=== PATIENT | female | born 1960 | race Caucasian/White ===

== ENCOUNTER 2018-01-17 18:18 | Emergency (ER) | payer OTHER, SELFPAY ==
[2018-01-17] VITALS (10 sets, daily range): BP systolic 121–149; BP diastolic 71–93; PULSE 96–114; RESP 12–24; TEMP 36.3; O2SAT 97–100; BMI 22.1
--- NOTE | 2018-01-17 18:31 | ED.CHESTPAIN ---
HPI - Chest Pain General Chief Complaint: Chest Pain Stated Complaint: SOB CHEST PAIN Time Seen by Provider: 01/17/18 18:28 Source: patient and family Mode of arrival: ambulatory Limitations: no limitations History of Present Illness HPI narrative: 57-year-old with history of hypertension, chronic alcohol abuse presents with epigastric pain and coffee-ground emesis with dark and tarry stools over the past few days. She is not dizzy, weak or lightheaded. She denies any bright red blood in her emesis. She takes no blood thinners. Her last alcohol was 4 days ago. She does have a history of withdrawals but never any seizures. She denies tremors, hallucinations, headache or abdominal pain. She thinks she had esophageal varices noted on a prior endoscopy but is not 100% sure MD complaint: chest pain Onset (ago): day(s) Duration: constant Onset: during rest Pain location: epigastric Severity: moderate Quality: aching Pain radiation: back Relieving factors: nothing Exacerbating factors: eating Associated symptoms: nausea and vomiting Treatments prior to arrival chest pain: none Related Data Home Medications Medication Instructions Recorded Confirmed gabapentin [Neurontin] 300 mg PO BID PRN #0 cap 02/08/16 01/17/18 levothyroxine [Synthroid] 0.075 mg PO QAM #0 tab 02/08/16 01/17/18 cyclobenzaprine 10 mg PO BID PRN 01/17/18 01/17/18 diphenhydramine-acetaminophen 2 tab PO BEDTIME PRN 01/17/18 01/17/18 [Tylenol PM Extra Strength] losartan 25 mg PO DAILY 01/17/18 01/17/18 trazodone 1 - 2 tab PO BEDTIME PRN 01/17/18 01/17/18 Allergies Allergy/AdvReac Type Severity Reaction Status Date / Time codeine Allergy Unknown VOMITING Verified 01/17/18 18:40 medroxyprogesterone Allergy Unknown MEDROXYPROGESTERONE Verified 01/17/18 18:41 MAKES HER CRAZY Review of Systems Review of Systems All systems reviewed & are unremarkable except as noted in HPI and below Constitutional Denies chills, Denies fever(s), Denies lethargy and Reports weakness Eyes Denies change in vision, Denies eye discharge, Denies irritation and Denies loss of vision ENT Ears, Nose, Mouth, and Throat: Denies change in voice, Denies neck pain and Denies sore throat Cardiovascular Reports chest pain, Denies irregular heart rhythm, Denies lightheadedness, Denies palpitations, Denies dyspnea, Denies dyspnea on exertion and Denies orthopnea Respiratory Denies cough, Denies dyspnea, Denies dyspnea on exertion and Denies wheezing Gastrointestinal Gastrointestinal: Reports abdominal pain, Reports melena, Denies change in bowel habits, Reports coffee ground emesis, Reports dyspepsia, Denies diarrhea, Denies nausea and Denies vomiting Genitourinary Denies hematuria, Denies flank pain, Denies urinary incontinence and Denies urinary urgency Musculoskeletal Denies neck pain Integumentary/Breasts Denies pruritus, Denies erythema, Denies rash and Denies wounds Neurologic Denies confusion, Denies loss of vision and Reports weakness Psychiatric Denies anxiety, Denies confusion, Denies depression, Denies homicidal ideation and Denies suicidal ideation Endocrine Denies palpitations Hematologic/Lymphatic Denies easy bruising Allergic/Immunologic Denies wheezing PENDING SALE TO [facility] Medical History Alcohol abuse (Acute) Back pain (Acute) Hypertension (Acute) Hypothyroid (Acute) Social History Smoking Status: Never smoker Exam Narrative Exam Narrative: Pleasant 57-year-old female in moderate distress, visibly anxious and uncomfortable. Initial Vital Signs Initial Vital Signs: Vital Signs Temperature 97.4 F L 01/17/18 18:20 Pulse Rate 114 H 01/17/18 18:20 Respiratory Rate 24 01/17/18 18:20 Blood Pressure 149/93 H 01/17/18 18:20 Pulse Oximetry 100 01/17/18 18:20 Const General: cooperative, well developed and acute distress Nutritional Appearance: well nourished Orientation: alert, awake, oriented x3 and not confused [facility] Head: normocephalic and atraumatic Ears: external ears normal and TM's normal bilaterally Nose: external nose normal and No nasal discharge Face and sinus: sinuses nontender, face symmetric, no sinus tenderness and No dry mucous membranes Mouth: oral mucosae normal and moist mucous membranes Teeth and gingiva: dentition normal Throat: tonsils normal and uvula midline Eyes General: appearance normal, both eyes and all related structures Eyelids: eyelids normal Conjunctivae: conjunctivae normal Sclera: sclerae normal Pupils: PERRL EOM: EOM intact bilaterally Neck Neck: normal visual inspection, trachea midline, No lymphadenopathy, No midline deformity and No JVD Lymphatic: No lymphedema Chest Chest: normal inspection of the chest Resp Effort & Inspection: normal respiratory effort, able to speak in complete sentences, no respiratory distress and no use of accessory muscles Auscultation: clear to auscultation bilaterally, no rales, no rhonchi and no wheezes Cardio Rate: tachycardic Rhythm: regular rhythm Heart Sounds: no click, no gallops, no murmurs and no rubs Pulses: normal peripheral pulses GI Inspection: non-distended Palpation: soft, no hepatosplenomegaly, No guarding, No pulsatile mass and tender (In her epigastrium) Auscultation: normal bowel sounds Back/Spine/Pelvis Back: No CVA tenderness Cervical Spine: cervical ROM normal and No pain with cervical ROM Thoracic/Lumbar Spine: thoracic and lumbar spine normal to inspection Skin General: no rashes or lesions noted, No jaundice and No petechiae Extrem General: full ROM, no clubbing, cyanosis or edema, no pedal edema and no calf tenderness Psych Appearance: well kempt Mental Status: mental status grossly normal Attitude: cooperative Thought Content: normal and suicidality Judgment: judgment good Course Orders Ordered: ED Orders 01/17/18 19:15 Complete Blood Count AUTO DIFF Stat Comprehensive Metabolic Panel Stat Lipase Stat Partial Thromboplastin Time Stat Prothrombin Time INR Stat Troponin & CK Cardiac Panel Stat 01/17/18 20:04 XR chest 2V Stat Discontinued Medications Lorazepam (Ativan) 1 mg IV NOW ONE Stop: 01/17/18 19:38 Last Admin: 01/17/18 19:43 Dose: 1 mg Ondansetron HCl (Zofran) 4 mg IV NOW ONE Stop: 01/17/18 18:32 Last Admin: 01/17/18 18:40 Dose: 4 mg Pantoprazole Sodium (Protonix) 40 mg IV NOW ONE Stop: 01/17/18 18:32 Last Admin: 01/17/18 18:40 Dose: 40 mg Consultations Consultation #1: call to Dr. Andino. We cannot keep upper GI bleeds with etoh hx or known/suspected varices as we cannot band patients call to [facility]. Ok for transfer to [place] Consultation #2: Dr. Arias (hospitalist at [facility]) is happy to accept patient into PCU Vital Signs - 8 hr 01/17/18 18:20 01/17/18 18:36 01/17/18 19:01 Temperature 97.4 F L Pulse Rate 114 H 108 H 96 H Respiratory Rate 24 18 18 Blood Pressure 149/93 H Blood Pressure [Right Arm] 127/92 H 139/82 H Pulse Oximetry 100 99 99 01/17/18 19:35 01/17/18 19:45 01/17/18 20:06 Temperature Pulse Rate 102 H 100 H Respiratory Rate 18 12 Blood Pressure Blood Pressure [Right Arm] 121/78 H 133/79 H Pulse Oximetry 99 97 01/17/18 21:04 01/17/18 21:30 01/17/18 22:00 Temperature Pulse Rate 101 H 97 H 96 H Respiratory Rate 19 16 17 Blood Pressure Blood Pressure [Right Arm] 138/78 H 135/71 H 129/84 H Pulse Oximetry 98 100 100 01/17/18 22:10 Temperature Pulse Rate Respiratory Rate Blood Pressure Blood Pressure [Right Arm] Pulse Oximetry 100 MDM - Chest Pain Medical Records Data Attestation: I reviewed the patient's medical records. Lab Data Attestation: I reviewed the patient's lab results. Result diagrams: 01/17/18 19:15 01/17/18 19:15 Lab Results 01/17/18 01/17/18 01/17/18 Range/Units 19:15 19:15 19:15 WBC 6.9 (4.5-11.0) X10^3/uL RBC 3.87 L (4.0-5.2) X10^6/uL Hgb 13.2 (12.0-16.0) g/dL Hct 38.0 (36-46) % MCV 98.3 (80-100) fL MCH 34.2 H (26-34) PG MCHC 34.8 (30-36) % RDW 12.7 (11.6-14.8) % Plt Count 141 L (150-400) X10^3/uL Neut % (Auto) 75.7 H (50-75) % Lymph % (Auto) 13.5 L (25-40) % [place] % (Auto) 9.8 (3-14) % Eos % (Auto) 0.7 L (2-4) % Baso % (Auto) 0.3 (0-2) % Neut # (Auto) 5200 (7270-2692) /uL PT 9.9 L (10.1-12.7) SECONDS INR 0.9 (0.9-1.3) APTT 30 (26.4-36.2) SECONDS Sodium 124 L (137-145) mmol/L Potassium 4.0 (3.4-5.1) mmol/L Chloride 83 L (98-107) mmol/L Carbon Dioxide 30 (22-32) mmol/L BUN 11 (7-17) mg/dL Creatinine 0.50 L (0.52-1.04) mg/dL Estimated GFR > 60.0 (>60) mL/min BUN/Creatinine Ratio 22.0 (6-22) Glucose 102 H (70-100) mg/dL Calcium 9.6 (8.4-10.2) mg/dL Total Bilirubin 1.3 (0.2-1.3) mg/dL AST 100 H (14-36) IU/L ALT 67 H (9-52) IU/L Alkaline Phosphatase 79 (38-126) U/L Total Creatine Kinase 66 (30-135) U/L Troponin I < 0.012 (0.01-0.034) ng/mL Total Protein 7.5 (6.3-8.2) g/dL Albumin 4.3 (3.5-5.0) g/dL Globulin 3.2 (1.7-4.1) g/dL Albumin/Globulin Ratio 1.3 (1.0-2.8) Lipase 167 (23-300) U/L Imaging Data Chest x-ray: Radiologist's impression: PROCEDURE: XR CHEST 2V INDICATIONS: CP TECHNIQUE: 2 views of the chest were acquired. COMPARISON: [facility], , CHEST 1 VIEW, 06/30/2011, 13:50. FINDINGS: Surgical changes and devices: None. Lungs and pleura: No pleural effusions or pneumothorax. Lungs are clear. Mediastinum: Mediastinal contours are normal. Heart size is at the upper limits of normal in size. Bones and chest wall: No suspicious bony abnormalities. Soft tissues appear unremarkable. IMPRESSION: No acute pulmonary process. Dictated by: Christy Cleary M.D. on 01/17/2018 at 20:42 Approved by: hCristy Cleary M.D. on 01/17/2018 at 20:43 Discharge Plan Departure Patient Disposition: [facility] Clinical Impression: Acute upper gastrointestinal bleeding Interventions: ED Discharge Assessment Last Done: 01/17/18 22:13 Prescriptions: No Action levothyroxine [Synthroid] 75 MCG tablet 0.075 mg PO QAM Qty: 0 RF: 0 gabapentin [Neurontin] 300 MG capsule 300 mg PO BID PRN (Reason: Back Pain) Qty: 0 RF: 0 cyclobenzaprine 10 mg tablet 10 mg PO BID PRN (Reason: Back Pain) RF: 0 trazodone 50 mg tablet 1 - 2 tab PO BEDTIME PRN (Reason: Insomnia) RF: 0 losartan 25 mg tablet 25 mg PO DAILY RF: 0 diphenhydramine-acetaminophen [Tylenol PM Extra Strength] 25-500 mg Tablet 2 tab PO BEDTIME PRN (Reason: Insomnia) RF: 0
[2018-01-17] MEDS: PANTOPRAZOLE 40 MG VIAL IV (18:40)
[2018-01-17] MEDS: ONDANSETRON 4 MG/2 ML INJ IV (18:40)
[2018-01-17 19:28] LABS: Add Manual Diff / Slide Review NO; Basophils Percent Auto 0.3 % (0-2); Eosinophils Percent Auto 0.7 % (2-4); Hemoglobin 13.2 g/dL (12.0-16.0); Lymphocytes Percent Auto 13.5 % (25-40); Mean Corpuscular HGB Conc 34.8 % (30-36); Mean Corpuscular Hemoglobin 34.2 PG (26-34); Mean Corpuscular Volume 98.3 fL (80-100); Monocytes Percent Auto 9.8 % (3-14); Neutrophils Absolute Auto 5200 /uL (3000-5900); Neutrophils Percent Auto 75.7 % (50-75); Platelet Count 141 X10^3/uL (150-400); Red Blood Cell Count 3.87 X10^6/uL (4.0-5.2); Red Cell Distribution Width 12.7 % (11.6-14.8); White Blood Cell Count 6.9 X10^3/uL (4.5-11.0)
[2018-01-17 19:32] LABS: INR 0.9 (0.9-1.3); Prothrombin Time 9.9 SECONDS (10.1-12.7)
[2018-01-17 19:34] LABS: PTT Partial Thromboplastin Tim 30 SECONDS (26.4-36.2)
[2018-01-17 19:41] LABS: Alanine Aminotransferase 67 IU/L (9-52); Albumin 4.3 g/dL (3.5-5.0); Albumin Globulin Ratio 1.3 (1.0-2.8); Alkaline Phosphatase 79 U/L (38-126); Aspartate Aminotransferase 100 IU/L (14-36); Bilirubin Total 1.3 mg/dL (0.2-1.3); Blood Urea Nitrogen 11 mg/dL (7-17); Calcium 9.6 mg/dL (8.4-10.2); Carbon Dioxide 30 mmol/L (22-32); Chloride 83 mmol/L (98-107); Creatine Kinase 66 U/L (30-135); Estimated Glomerular Filt Rate > 60.0 mL/min (>60); Globulin 3.2 g/dL (1.7-4.1); Glucose 102 mg/dL (70-100); Sodium 124 mmol/L (137-145); Total Protein 7.5 g/dL (6.3-8.2)
[2018-01-17 19:43] LABS: HEMOLYSIS 83 (0-50)
[2018-01-17] MEDS: LORazepam 2 MG/ML SYRINGE 1 MG IV (19:43)
[2018-01-17 19:55] LABS: Troponin I < 0.012 ng/mL (0.01-0.034)
--- NOTE | 2018-01-17 20:04 | DI.RAD.S_ITS ---
PROCEDURE: XR CHEST 2V INDICATIONS: CP TECHNIQUE: 2 views of the chest were acquired. COMPARISON: [facility], , CHEST 1 VIEW, 06/30/2011, 13:50. FINDINGS: Surgical changes and devices: None. Lungs and pleura: No pleural effusions or pneumothorax. Lungs are clear. Mediastinum: Mediastinal contours are normal. Heart size is at the upper limits of normal in size. Bones and chest wall: No suspicious bony abnormalities. Soft tissues appear unremarkable. IMPRESSION: No acute pulmonary process. Dictated by: Christy Cleary M.D. on 01/17/2018 at 20:42 Approved by: Christy Cleary M.D. on 01/17/2018 at 20:43
[2018-01-17 20:18] LABS: Lipase 167 U/L (23-300)
[2018-01-17] MEDS: HYDROMORPHONE 1 MG INJ 0.5 MG IV (22:37)
== END 2018-01-17 22:38 | disposition short-term general hospital (02) ==
PROVIDERS: Emergency Provider Emergency Medicine
DX: K92.2 Gastrointestinal hemorrhage, unspecified (principal)
CPT/HCPCS: 36415; 71046; 80053; 82550; 82553; 83690; 84484; 85025; 85610; 85730; 93005; 96374; 96375; 99285; C9113; J1170; J2060; J2405

== ENCOUNTER 2018-03-26 20:39 | Inpatient (IN) | payer OTHER, SELFPAY ==
[2018-03-26] VITALS (7 sets, daily range): BP systolic 131–153; BP diastolic 76–97; PULSE 135–142; RESP 16–19; TEMP 36.6; O2SAT 94–97
--- NOTE | 2018-03-26 20:42 | DI.RAD.S_ITS ---
PROCEDURE: XR ABDOMEN 1V INDICATIONS: vomiting blood TECHNIQUE: One view of the abdomen acquired. COMPARISON: None. FINDINGS: Surgical changes and devices: None. Bowel: Bowel gas pattern is nonspecific with gas distended loops of small bowel measuring up to 2.4 cm. There is also gaseous distention of the transverse colon. There is a paucity of gas in the colon. Soft tissues: No suspicious abdominal calcifications. Bones: No suspicious bony lesions. IMPRESSION: 1. Nonspecific bowel gas pattern with mild gas distention of small bowel loops and the transverse colon. The findings may represent a partial or early obstruction versus an ileus. Dictated by: Robe Johnson M.D. on 03/26/2018 at 21:29 Approved by: Robe Johnson M.D. on 03/26/2018 at 21:31
--- NOTE | 2018-03-26 20:42 | DI.RAD.S_ITS ---
PROCEDURE: XR CHEST 1V INDICATIONS: vomiting blood TECHNIQUE: One view of the chest was acquired. COMPARISON: [facility], CR, XR ABDOMEN 1V, 03/26/2018, 21:02. [facility], CR, XR CHEST 2V, 01/17/2018, 19:56. FINDINGS: Surgical changes and devices: None. Lungs and pleura: No pleural effusions or pneumothorax. There are slightly low lung volumes with linear opacities in the left base likely representing atelectasis. Mediastinum: Mediastinal contours appear normal. Heart size is normal. Bones and chest wall: No suspicious bony lesions. There are gas-distended loops of small and large bowel in the visualized abdomen. IMPRESSION: 1. Low lung volumes with probable atelectasis in the left base. 2. Mild nonspecific gaseous distention of visualized small and large bowel loops. Dictated by: Robe Johnson M.D. on 03/26/2018 at 21:31 Approved by: Robe Johnson M.D. on 03/26/2018 at 21:33
--- NOTE | 2018-03-26 21:04 | ED_ITS ---
HPI - GI Bleed General Chief complaint: GI Bleed Stated complaint: GI Bleed Time Seen by Provider: 03/26/18 20:42 Source: patient and family ( called ED. Fishing in [facility] sea.) Mode of arrival: EMS History of Present Illness HPI Narrative: This is a 57-year-old female comes to the emergency department with complaint of upper GI bleed. Patient has a history of vomiting blood and was transferred to [facility] about a month ago for similar. Patient drinks about a 5th of alcohol daily. Today she was drinking alcohol. Um she was in contact with her who called the hospital as he was unable to call 911 if he is wishing in the bearing see. We contacted 911 and evaluated the patient but decided that she did require transport at that time. Per EMS there was a small amount of blood at the scene. The called again his evening EMS was dispatched again and patient had either description a large amount of bloody emesis in the house and on herself. Patient heart rate was elevated and her pressure was low but improved with some fluids EN route. Patient is complaining of some pain in her throat area. She states she takes medication for her thyroid but denies anything else. She denies any street drugs. She does smoke. When asked specifically if she has varices she is unclear but then states that she had reflux and that was the cause of her bleed before. Records have been requested from [facility] Related Data Home Medications Medication Instructions Recorded Confirmed gabapentin [Neurontin] 300 mg PO BID PRN #0 cap 02/08/16 01/17/18 levothyroxine [Synthroid] 0.075 mg PO QAM #0 tab 02/08/16 01/17/18 cyclobenzaprine 10 mg PO BID PRN 01/17/18 01/17/18 diphenhydramine-acetaminophen 2 tab PO BEDTIME PRN 01/17/18 01/17/18 [Tylenol PM Extra Strength] losartan 25 mg PO DAILY 01/17/18 01/17/18 trazodone 1 - 2 tab PO BEDTIME PRN 01/17/18 01/17/18 Allergies Allergy/AdvReac Type Severity Reaction Status Date / Time codeine Allergy Unknown VOMITING Verified 01/17/18 18:40 medroxyprogesterone Allergy Unknown MEDROXYPROGESTERONE Verified 01/17/18 18:41 MAKES HER CRAZY Review of Systems Review of Systems All systems reviewed & are unremarkable except as noted in HPI and below PFSH Social History household members: significant other Smoking Status: Never smoker alcohol intake: current Exam Narrative Exam Narrative: GENERAL: Alert and oriented, Patient is able to give me urinate and some medical information. She does appear intoxicated. Patient has coffee-ground emesis on her face just and closed. HEENT: Head normocephalic, atraumatic, EOMI, pupils reactive, No conjunctival pallor, face symmetric, moist mucous membranes NECK: Supple, full range of motion CARDIOVASCULAR: tachycardic butRegular rate and rhythm without murmurs, rubs or gallops. RESPIRATORY: Breath sounds equal bilaterally, no wheezes rales or rhonchi. no tachypnea or accessory muscle use. ABDOMEN: Soft, nontender. Mildly distended. Normoactive bowel sounds all 4 quadrants. No guarding or rebound, rigidity, no mass : No CVA tenderness EXTREMITIES: Normal range of motion, no clubbing or edema. 2+ pulses all 4 extremities. Neurovascularly intact NEUROLOGICAL: Cranial nerves II through XII grossly intact. Moving all extremities SKIN: Warm, dry, no petechiae, no rashes or lesions. Initial Vital Signs Initial Vital Signs: Vital Signs Pulse Rate 135 H 03/26/18 21:04 Blood Pressure 131/97 H 03/26/18 21:04 Pulse Oximetry 94 03/26/18 21:04 Course Orders Ordered: ED Orders 03/26/18 23:39 Hemoglobin and Hematocrit Stat Lactate (Lactic Acid) Stat 03/27/18 00:20 Urine Drug Screen, Rapid Stat Urine Microscopic Stat 03/27/18 02:40 Ethanol (ETOH) Stat 03/27/18 04:01 Complete Blood Count AUTO DIFF Stat Comprehensive Metabolic Panel Stat Ethanol (ETOH) Stat Lactate 4HR (Lactic Acid Rflx) Stat 03/27/18 06:05 Consult to [employer] Routine 03/27/18 06:19 Consult to General Surgery Routine 03/27/18 10:00 Complete Blood Count AUTO DIFF Routine Lactate (Lactic Acid) Routine Clonidine HCl (Catapres) 0.1 mg PO Q4HR PRN PRN Reason: Alcohol Withdrawal Folic Acid (Folic Acid) 1 mg PO DAILY [facility] Haloperidol (Haldol) 2 mg IV Q1HR PRN PRN Reason: Hallucinations Pantoprazole Sodium 80 mg/ (Sodium Chloride) 100 mls @ 10 mls/hr IV CONT [facility] Last Infusion: 03/27/18 04:36 Dose: 8 mg/hr, 10 mls/hr Admin: 03/26/18 21:52 Dose: 8 mg/hr, 10 mls/hr Sodium Chloride (Normal Saline 0.9%) 1,000 mls @ 150 mls/hr IV CONT [facility] Last Infusion: 03/27/18 00:00 Dose: 0 mls/hr Admin: 03/26/18 21:05 Dose: 150 mls/hr Magnesium Sulfate 2 gm/ Folic Acid 1 mg/ Thiamine HCl 100 mg / Multivitamins 10 ml/ Sodium Chloride 1,015.2 mls @ 125 mls/hr IV NOW ONE Stop: 03/27/18 11:03 Last Infusion: 03/27/18 04:37 Dose: 125 mls/hr Admin: 03/27/18 03:03 Dose: 125 mls/hr Levothyroxine Sodium (Synthroid Inj) 50 mcg IV DAILY [facility] Lorazepam (Ativan) 0 mg IV CIWAPRN PRN; Protocol PRN Reason: Alcohol Withdrawal Multivitamins (Tab-A-Amanda) 1 tab PO DAILY [facility] Ondansetron HCl (Zofran) 4 mg IV Q6HR PRN PRN Reason: Nausea And Vomiting Thiamine HCl (Vitamin B-1) 100 mg PO DAILY [facility] Stop: 03/30/18 09:01 Discontinued Medications Haloperidol (Haldol) 5 mg IV NOW ONE Stop: 03/27/18 00:40 Last Admin: 03/27/18 00:55 Dose: 5 mg Haloperidol (Haldol) 5 mg IV Q1H PRN PRN Reason: Hallucinations Octreotide Acetate 500 mcg/ (Sodium Chloride) 101 mls @ 5.05 mls/hr IV CONT CRYSTAL Last Infusion: 03/27/18 02:59 Dose: 24.99 mcg/hr, 5.05 mls/hr Admin: 03/26/18 21:28 Dose: 25 mcg/hr, 5.05 mls/hr Pantoprazole Sodium 80 mg/ (Sodium Chloride) 100 mls @ 200 mls/hr IV NOW ONE Stop: 03/26/18 20:43 Last Infusion: 03/26/18 21:52 Dose: 0 mls/hr Admin: 03/26/18 21:13 Dose: 200 mls/hr Sodium Chloride (Normal Saline 0.9%) 1,000 mls @ 1,000 mls/hr IV BOLUS ONE Stop: 03/27/18 01:32 Last Infusion: 03/27/18 02:57 Dose: 1,000 mls/hr Admin: 03/27/18 00:55 Dose: 1,000 mls/hr Magnesium Sulfate 2 gm/ Folic Acid 1 mg/ Thiamine HCl 100 mg / Multivitamins 10 ml/ Sodium Chloride 1,015.2 mls @ 125 mls/hr IV NOW ONE Stop: 03/27/18 08:40 Last Infusion: 03/27/18 03:21 Dose: 125 mls/hr Admin: 03/27/18 01:12 Dose: 125 mls/hr Sodium Chloride (Normal Saline 0.9%) 1,000 mls @ 1,000 mls/hr IV BOLUS ONE Stop: 03/27/18 01:38 Last Admin: 03/27/18 02:58 Dose: Pantoprazole Sodium 80 mg/ (Sodium Chloride) 100 mls @ 10 mls/hr IV CONT [facility] Last Admin: 03/27/18 04:35 Dose: Lorazepam (Ativan) 1 mg IV NOW ONE Stop: 03/26/18 21:59 Last Admin: 03/26/18 22:03 Dose: 1 mg Lorazepam (Ativan) 1 mg IV NOW ONE Stop: 03/26/18 22:54 Last Admin: 03/26/18 22:57 Dose: 1 mg Lorazepam (Ativan) 2 mg IV NOW ONE Stop: 03/27/18 00:39 Last Admin: 03/27/18 00:55 Dose: 2 mg Lorazepam (Ativan) 0 mg IV CIWAPRN PRN; Protocol PRN Reason: Alcohol Withdrawal Metoprolol Tartrate (Lopressor) 5 mg IV NOW ONE Stop: 03/27/18 06:10 Last Admin: 03/27/18 05:25 Dose: 5 mg Octreotide Acetate (Sandostatin) 50 mcg IV NOW ONE Stop: 03/26/18 20:43 Last Admin: 03/26/18 21:26 Dose: 50 mcg Ondansetron HCl (Zofran) 4 mg IV NOW ONE Stop: 03/26/18 20:43 Last Admin: 03/26/18 21:13 Dose: 4 mg Ondansetron HCl (Zofran) 4 mg IV Q6HR PRN PRN Reason: Nausea And Vomiting Pantoprazole Sodium (Protonix) 40 mg IV NOW ONE Stop: 03/26/18 20:43 Last Admin: 03/26/18 22:28 Dose: Not Given Reevaluation(s) Reevaluation #1: Patient HR is still in 130's, BP improved. Patient had some dry heaves but no emesis. Zofran 4mg IV given. She has received 1L NS at this time and second liter started. Time: 21:35 Vital Signs - 8 hr 03/26/18 22:29 03/26/18 22:30 03/26/18 23:15 Temperature Pulse Rate 142 H 140 H 139 H Respiratory Rate 17 Blood Pressure Blood Pressure [Right Arm] 132/92 H 135/95 H 136/94 H Pulse Oximetry 97 97 97 03/27/18 00:00 03/27/18 00:30 03/27/18 00:34 Temperature Pulse Rate 143 H 143 H 143 H Respiratory Rate 24 23 23 Blood Pressure Blood Pressure [Right Arm] 143/114 H 148/94 H 148/94 H Pulse Oximetry 96 94 94 03/27/18 01:00 03/27/18 02:35 03/27/18 02:38 Temperature 97.9 F Pulse Rate 143 H 145 H 145 H Respiratory Rate 22 27 H 25 H Blood Pressure Blood Pressure [Right Arm] 143/102 H 149/84 H 171/91 H Pulse Oximetry 95 95 03/27/18 03:00 03/27/18 03:33 03/27/18 04:00 Temperature Pulse Rate 145 H 148 H Respiratory Rate 28 H 31 H Blood Pressure Blood Pressure [Right Arm] 153/91 H 170/96 H 159/94 H Pulse Oximetry 94 03/27/18 06:06 03/27/18 06:12 Temperature Pulse Rate 120 H 122 H Respiratory Rate 24 26 H Blood Pressure 124/78 Blood Pressure [Right Arm] Pulse Oximetry 96 96 MDM - GI Bleed Lab Data Attestation: I reviewed the patient's lab results. Result diagrams: 03/27/18 04:01 03/27/18 04:01 Lab Results 03/26/18 03/26/18 03/26/18 Range/Units 20:55 20:55 20:55 WBC 10.3 (4.5-11.0) X10^3/uL RBC 4.18 (4.0-5.2) X10^6/uL Hgb 14.3 (12.0-16.0) g/dL Hct 42.4 (36-46) % MCV 101.4 H (80-100) fL MCH 34.1 H (26-34) PG MCHC 33.7 (30-36) % RDW 14.1 (11.6-14.8) % Plt Count 254 (150-400) X10^3/uL Neut % (Auto) 93.4 H (50-75) % Lymph % (Auto) 2.8 L (25-40) % Cooper % (Auto) 3.7 (3-14) % Eos % (Auto) 0.0 L (2-4) % Baso % (Auto) 0.1 (0-2) % Neut # (Auto) 9600 H (0177-3416) /uL PT 10.7 (10.1-12.7) SECONDS INR 1.0 (0.9-1.3) APTT 29 (26.4-36.2) SECONDS Sodium 138 (137-145) mmol/L Potassium 3.8 (3.4-5.1) mmol/L Chloride 96 L (98-107) mmol/L Carbon Dioxide 15 L (22-32) mmol/L BUN 28 H (7-17) mg/dL Creatinine 1.10 H (0.52-1.04) mg/dL Estimated GFR 50.8 L (>60) mL/min BUN/Creatinine Ratio 25.5 H (6-22) Glucose 143 H (70-100) mg/dL Lactate (0.7-2.1) mmol/L Calcium 7.3 L (8.4-10.2) mg/dL Total Bilirubin 0.5 (0.2-1.3) mg/dL AST 168 H (14-36) IU/L ALT 64 H (9-52) IU/L Alkaline Phosphatase 70 (38-126) U/L Total Protein 6.2 L (6.3-8.2) g/dL Albumin 3.7 (3.5-5.0) g/dL Globulin 2.5 (1.7-4.1) g/dL Albumin/Globulin Ratio 1.5 (1.0-2.8) Lipase 97 (23-300) U/L Urine RBC (0-5/HPF) Urine WBC (0-5/HPF) Urine Bacteria (None) Hyaline Casts (None) Ur Culture Indicated? Micro UA Comment Urine Opiates Screen (Negative) Ur Oxycodone Screen (Negative) Urine Methadone Screen (Negative) Ur Barbiturates Screen (Negative) U Tricyclic Antidepress (Negative) Ur Phencyclidine Scrn (Negative) Ur Amphetamines Screen (Negative) U Methamphetamines Scrn (Negative) Ur MDMA Scrn (Ecstasy) (Negative) U Benzodiazepines Scrn (Negative) Urine Cocaine Screen (Negative) U Marijuana (THC) Screen (Negative) Ethyl Alcohol mg/dL Blood Type Antibody Screen Crossmatch 03/26/18 03/26/18 03/26/18 Range/Units 20:55 20:55 23:39 WBC (4.5-11.0) X10^3/uL RBC (4.0-5.2) X10^6/uL Hgb 14.3 (12.0-16.0) g/dL Hct 41.4 (36-46) % MCV (80-100) fL MCH (26-34) PG MCHC (30-36) % RDW (11.6-14.8) % Plt Count (150-400) X10^3/uL Neut % (Auto) (50-75) % Lymph % (Auto) (25-40) % Cooper % (Auto) (3-14) % Eos % (Auto) (2-4) % Baso % (Auto) (0-2) % Neut # (Auto) (1682-3201) /uL PT (10.1-12.7) SECONDS INR (0.9-1.3) APTT (26.4-36.2) SECONDS Sodium (137-145) mmol/L Potassium (3.4-5.1) mmol/L Chloride (98-107) mmol/L Carbon Dioxide (22-32) mmol/L BUN (7-17) mg/dL Creatinine (0.52-1.04) mg/dL Estimated GFR (>60) mL/min BUN/Creatinine Ratio (6-22) Glucose (70-100) mg/dL Lactate (0.7-2.1) mmol/L Calcium (8.4-10.2) mg/dL Total Bilirubin (0.2-1.3) mg/dL AST (14-36) IU/L ALT (9-52) IU/L Alkaline Phosphatase (38-126) U/L Total Protein (6.3-8.2) g/dL Albumin (3.5-5.0) g/dL Globulin (1.7-4.1) g/dL Albumin/Globulin Ratio (1.0-2.8) Lipase (23-300) U/L Urine RBC (0-5/HPF) Urine WBC (0-5/HPF) Urine Bacteria (None) Hyaline Casts (None) Ur Culture Indicated? Micro UA Comment Urine Opiates Screen (Negative) Ur Oxycodone Screen (Negative) Urine Methadone Screen (Negative) Ur Barbiturates Screen (Negative) U Tricyclic Antidepress (Negative) Ur Phencyclidine Scrn (Negative) Ur Amphetamines Screen (Negative) U Methamphetamines Scrn (Negative) Ur MDMA Scrn (Ecstasy) (Negative) U Benzodiazepines Scrn (Negative) Urine Cocaine Screen (Negative) U Marijuana (THC) Screen (Negative) Ethyl Alcohol 346 mg/dL Blood Type A Positive Antibody Screen Negative Crossmatch See Detail 03/26/18 03/27/18 03/27/18 Range/Units 23:39 00:20 00:20 WBC (4.5-11.0) X10^3/uL RBC (4.0-5.2) X10^6/uL Hgb (12.0-16.0) g/dL Hct (36-46) % MCV (80-100) fL MCH (26-34) PG MCHC (30-36) % RDW (11.6-14.8) % Plt Count (150-400) X10^3/uL Neut % (Auto) (50-75) % Lymph % (Auto) (25-40) % Cooper % (Auto) (3-14) % Eos % (Auto) (2-4) % Baso % (Auto) (0-2) % Neut # (Auto) (0770-2726) /uL PT (10.1-12.7) SECONDS INR (0.9-1.3) APTT (26.4-36.2) SECONDS Sodium (137-145) mmol/L Potassium (3.4-5.1) mmol/L Chloride (98-107) mmol/L Carbon Dioxide (22-32) mmol/L BUN (7-17) mg/dL Creatinine (0.52-1.04) mg/dL Estimated GFR (>60) mL/min BUN/Creatinine Ratio (6-22) Glucose (70-100) mg/dL Lactate 3.6 H (0.7-2.1) mmol/L Calcium (8.4-10.2) mg/dL Total Bilirubin (0.2-1.3) mg/dL AST (14-36) IU/L ALT (9-52) IU/L Alkaline Phosphatase (38-126) U/L Total Protein (6.3-8.2) g/dL Albumin (3.5-5.0) g/dL Globulin (1.7-4.1) g/dL Albumin/Globulin Ratio (1.0-2.8) Lipase (23-300) U/L Urine RBC 0-1/hpf (0-5/HPF) Urine WBC 0-1/hpf (0-5/HPF) Urine Bacteria None seen (None) Hyaline Casts 0-1/lpf (None) Ur Culture Indicated? Cult not indicated Micro UA Comment Not Reportable Urine Opiates Screen Negative (Negative) Ur Oxycodone Screen Negative (Negative) Urine Methadone Screen Negative (Negative) Ur Barbiturates Screen Negative (Negative) U Tricyclic Antidepress Positive H (Negative) Ur Phencyclidine Scrn Negative (Negative) Ur Amphetamines Screen Negative (Negative) U Methamphetamines Scrn Negative (Negative) Ur MDMA Scrn (Ecstasy) Negative (Negative) U Benzodiazepines Scrn Negative (Negative) Urine Cocaine Screen Negative (Negative) U Marijuana (THC) Screen Negative (Negative) Ethyl Alcohol mg/dL Blood Type Antibody Screen Crossmatch 03/27/18 03/27/18 03/27/18 Range/Units 04:01 04:01 04:01 WBC 7.9 (4.5-11.0) X10^3/uL RBC 3.96 L (4.0-5.2) X10^6/uL Hgb 13.6 (12.0-16.0) g/dL Hct 40.0 (36-46) % MCV 100.8 H (80-100) fL MCH 34.3 H (26-34) PG MCHC 34.0 (30-36) % RDW 14.6 (11.6-14.8) % Plt Count 201 (150-400) X10^3/uL Neut % (Auto) 81.2 H (50-75) % Lymph % (Auto) 5.5 L (25-40) % Cooper % (Auto) 13.2 (3-14) % Eos % (Auto) 0.0 L (2-4) % Baso % (Auto) 0.1 (0-2) % Neut # (Auto) 6400 H (8706-6144) /uL PT (10.1-12.7) SECONDS INR (0.9-1.3) APTT (26.4-36.2) SECONDS Sodium 141 (137-145) mmol/L Potassium 4.6 (3.4-5.1) mmol/L Chloride 103 (98-107) mmol/L Carbon Dioxide 19 L (22-32) mmol/L BUN 25 H (7-17) mg/dL Creatinine 0.80 (0.52-1.04) mg/dL Estimated GFR > 60.0 (>60) mL/min BUN/Creatinine Ratio 31.3 H (6-22) Glucose 196 H (70-100) mg/dL Lactate 2.8 H (0.7-2.1) mmol/L Calcium 7.1 L (8.4-10.2) mg/dL Total Bilirubin 0.7 (0.2-1.3) mg/dL AST 191 H (14-36) IU/L ALT 72 H (9-52) IU/L Alkaline Phosphatase 69 (38-126) U/L Total Protein 6.1 L (6.3-8.2) g/dL Albumin 3.6 (3.5-5.0) g/dL Globulin 2.5 (1.7-4.1) g/dL Albumin/Globulin Ratio 1.4 (1.0-2.8) Lipase (23-300) U/L Urine RBC (0-5/HPF) Urine WBC (0-5/HPF) Urine Bacteria (None) Hyaline Casts (None) Ur Culture Indicated? Micro UA Comment Urine Opiates Screen (Negative) Ur Oxycodone Screen (Negative) Urine Methadone Screen (Negative) Ur Barbiturates Screen (Negative) U Tricyclic Antidepress (Negative) Ur Phencyclidine Scrn (Negative) Ur Amphetamines Screen (Negative) U Methamphetamines Scrn (Negative) Ur MDMA Scrn (Ecstasy) (Negative) U Benzodiazepines Scrn (Negative) Urine Cocaine Screen (Negative) U Marijuana (THC) Screen (Negative) Ethyl Alcohol 147 mg/dL Blood Type Antibody Screen Crossmatch Urine Dip Bedside Urine Glucose Negative Bedside Urine Bilirubin - Negative Bedside Urine Ketone ++ 40 Urine Specific [place] 1.025 Bedside Urine Occult Blood - Negative Bedside Urine pH 6.0 Bedside Urine Protein + 30 Bedside Urine Urobilinogen - Negative Bedside Urine Nitrite - Negative Bedside Urine Leukocytes - Negative Esterase ECG Data Attestation: I personally reviewed and interpreted this ECG as follows: Interpretation: Sinus tachycardia with a rate of 132, P are of 134, QRS of 88 , QTC of 380. nonspecific ST change. MDM Narrative Medical decision making narrative: Patient arrived there is concern for possible esophageal varices. Patient's heart rate was elevated in the 130s. Patient continues to have elevated heart rate even after 2-1/2 L of fluid. She was also given Ativan 2 mg total then followed by Haldol as well as additional Ativan for concern for alcohol withdrawal. Patient states she drinks about a 5th of alcohol daily. Repeat hemoglobin and hematocrit appear stable. She did have low bicarb and lactate is elevated at 3.6. Patient does appear to be mom having alcohol withdrawal, that her had some concern that she may have ingested another substance although she denies this. Her urine tox screen is negative. We have attempted to get records from [facility] as it is unclear if she truly has esophageal varices. EKG showed a sinus tachycardia. After calling [facility], [facility], [facility] we are unable to find any beds.Patient was not accepted by Dr. Amaro here at the hospital secondary to her of air see history and upper GI bleeding. As we do not have the appropriate ability to intervene. Patient records from [place] were obtained from December 2017, Patient did have a EGD at that time. There were no esophageal varices noted although patient did have erosive esophagitis Um and had had changes in the duodenal bulb consistent with the cause of her GI bleed. She also had a 2 cm hiatal hernia and biopsies were done at that time. re-contacted Dr. andre who accepts patient at this time for ICU for alcohol withdrawal as well as upper GI bleed. She has for C well with Ativan, and p.o. to continue Protonix drip. Repeat labs this morning. And she will contact surgery this morning. Critical Care Time Critical Care Time: Yes Total Critical Care Time: 90 Attestation: The high probability of a clinically significant, sudden or life threatening deterioration of the [] system(s) required my full and direct attention, intervention and personal management. The aggregate critical care time was [] minutes. This time is in addition to time spent performing reported procedures but includes the following: [] Data Review and interpretation [] Patient assessment and monitoring of vital signs [] Documentation [] Medication orders and management Discharge Plan Departure Patient Disposition: Admitted As Inpatient Clinical Impression: Acute GI bleeding, Alcohol withdrawal Discharge Date/Time: 03/27/18 04:45 Interventions: ED Discharge Assessment Last Done: 03/27/18 04:38 Admit Date/Time: 03/27/18 03:31 Admit Provider: Qing Amaro
[2018-03-26] MEDS: SODIUM CHLORIDE 0.9% 1,000 ML 150 ML IV (21:05)
[2018-03-26 21:07] LABS: Add Manual Diff / Slide Review NO; Basophils Percent Auto 0.1 % (0-2); Hematocrit 42.4 % (36-46); Hemoglobin 14.3 g/dL (12.0-16.0); Lymphocytes Percent Auto 2.8 % (25-40); Mean Corpuscular HGB Conc 33.7 % (30-36); Mean Corpuscular Hemoglobin 34.1 PG (26-34); Mean Corpuscular Volume 101.4 fL (80-100); Monocytes Percent Auto 3.7 % (3-14); Neutrophils Absolute Auto 9600 /uL (3000-5900); Neutrophils Percent Auto 93.4 % (50-75); Platelet Count 254 X10^3/uL (150-400); Red Blood Cell Count 4.18 X10^6/uL (4.0-5.2); Red Cell Distribution Width 14.1 % (11.6-14.8); White Blood Cell Count 10.3 X10^3/uL (4.5-11.0)
[2018-03-26 21:11] LABS: Prothrombin Time 10.7 SECONDS (10.1-12.7)
[2018-03-26] MEDS: PANTOPRAZOLE 80 MG in SODIUM CHLORIDE 0.9% 100 ML 200 ML IV (21:13)
[2018-03-26] MEDS: ONDANSETRON 4 MG/2 ML INJ IV (21:13)
[2018-03-26 21:14] LABS: PTT Partial Thromboplastin Tim 29 SECONDS (26.4-36.2)
[2018-03-26 21:16] LABS: Alanine Aminotransferase 64 IU/L (9-52); Albumin 3.7 g/dL (3.5-5.0); Albumin Globulin Ratio 1.5 (1.0-2.8); Alkaline Phosphatase 70 U/L (38-126); Aspartate Aminotransferase 168 IU/L (14-36); BUN Creatinine Ratio 25.5 (6-22); Bilirubin Total 0.5 mg/dL (0.2-1.3); Blood Urea Nitrogen 28 mg/dL (7-17); Calcium 7.3 mg/dL (8.4-10.2); Carbon Dioxide 15 mmol/L (22-32); Chloride 96 mmol/L (98-107); Estimated Glomerular Filt Rate 50.8 mL/min (>60); Globulin 2.5 g/dL (1.7-4.1); Glucose 143 mg/dL (70-100); HEMOLYSIS < 15 (0-50); Lipase 97 U/L (23-300); Potassium 3.8 mmol/L (3.4-5.1); Sodium 138 mmol/L (137-145); Total Protein 6.2 g/dL (6.3-8.2)
[2018-03-26] MEDS: OCTREOTIDE 100 MCG/ML VIAL 50 MCG IV (21:26)
[2018-03-26] MEDS: OCTREOTIDE 500 MCG in SODIUM CHLORIDE 0.9% 100 ML 5.05 ML IV (21:28)
--- NOTE | 2018-03-26 21:42 | PC.NURSE ---
Patient states she had vodka to drink. has a hx of being transferred to [place] for problems with her esophagus. States she does not know what her DX was and she never followed up with her PCP. Has friend at bedside.
--- NOTE | 2018-03-26 21:49 | PC.NURSE ---
Patient had necklace removed. Necklace with pendant given to friend at bedside
[2018-03-26] MEDS: PANTOPRAZOLE 80 MG in SODIUM CHLORIDE 0.9% 100 ML 10 ML IV (21:52)
[2018-03-26] MEDS: LORazepam 2 MG/ML SYRINGE 1 MG IV ×2 (22:03→22:57)
[2018-03-26 23:51] LABS: Hematocrit 41.4 % (36-46); Hemoglobin 14.3 g/dL (12.0-16.0)
[2018-03-26 23:54] LABS: Lactate (Lactic Acid) 3.6 mmol/L (0.7-2.1)
[2018-03-27] VITALS (29 sets, daily range): BP systolic 124–175; BP diastolic 74–114; PULSE 99–148; RESP 16–31; TEMP 36.4–37; O2SAT 92–99; BMI 23.1
--- NOTE | 2018-03-27 | PATH_ITS ---
[facility] Accession Number: [id number] . 01 Material submitted: . PART A: BIOPSY OF STOMACH PART B: RANDOM BIOPSIES ESOPHAGUS . 02 Diagnosis: A. Stomach, Biopsy: Body-type mucosa with no diagnostic abnormality. No evidence of Helicobacter on H/E stain. Negative for intestinal metaplasia. Negative for dysplasia and malignancy. . B. Esophagus, Random Biopsies: Severely ulcerated squamous mucosa. No obvious viral cytopathic effects or fungal organisms identified on H/E stain. Intraepithelial eosinophils are not increased. Negative for dysplasia and malignancy. MRV/04/02/2018 . 02 Electronically signed: . Molly Stephens MD, Pathologist NPI- [id number] . 01 Gross description: . Part A: BIOPSY OF STOMACH: Received in formalin are multiple fragment(s) of bassett, soft tissue measuring 0.5 x 0.3 x 0.2 cm in aggregate submitted entirely in 1 cassette(s) Part B: RANDOM BIOPSIES ESOPHAGUS: Received in formalin are multiple fragment(s) of bassett, soft tissue measuring 0.5 x 0.2 x 0.2 cm in aggregate submitted entirely in 1 cassette(s) /CKI /CKI . 02 Pathologist provided ICD-10: K20.9 . 02 CPT . 507042, 458072 Specimen Comment: A duplicate report has been generated due to demographic updates. Performed at: 01 [facility] [address] [facility], [place], [place] [id number] MD Robe Oseguera MD Phone: [phone] Performed at: 02 [facility] [address] [place], [place] [id number] MD Shiv Valenzuela MD Phone: [phone]
[2018-03-27 00:26] LABS: Bacteria Urine None Seen
[2018-03-27 00:36] LABS: Urine Amphetamines Negative (Negative); Urine Barbiturates Negative (Negative); Urine Benzodiazepines Negative (Negative); Urine Cocaine Negative (Negative); Urine MDMA Negative (Negative); Urine Methadone Negative (Negative); Urine Methamphetamines Negative (Negative); Urine Morphine/Opi cutoff 2000 Negative (Negative); Urine Oxycodone Negative (Negative); Urine Phencyclidine Negative (Negative); Urine Tetrahydrocannabinol Negative (Negative); Urine Tricyclic Antidepressant Positive (Negative)
[2018-03-27 00:51] LABS: Culture Indicated Urine Cult Not Indicated; Hyaline Casts Urine 0-1/LPF; RBC Urine 0-1/HPF (0-5/HPF); WBC Urine 0-1/HPF (0-5/HPF)
[2018-03-27] MEDS: HALOPERIDOL 5 MG/ML VIAL IV (00:55)
[2018-03-27] MEDS: SODIUM CHLORIDE 0.9% 1,000 ML 1000 ML IV (00:55)
[2018-03-27] MEDS: LORazepam 2 MG/ML SYRINGE IV ×2 (00:55→21:29)
[2018-03-27] MEDS: MAGNESIUM SULFATE 2 GM, FOLIC ACID 1 MG, THIAMINE 100 MG, MULTIVITAMIN 10 ML in SODIUM ... IV ×2 (01:12→03:03)
[2018-03-27 02:58] LABS: Ethanol (ETOH) 346 mg/dL
--- NOTE | 2018-03-27 03:23 | PC.NURSE ---
The banana bag order from [address] was [address] given per Dr Christopher order.A new order for the same bag was given at 0300 and was given.It is currently infusing.
--- NOTE | 2018-03-27 03:33 | PC.NURSE ---
The octreotide drip was ended at 0259.15 ml infused and 85 ml was wasted.The MAR will not let me document this.
[2018-03-27 03:39] LABS: Reflexed Lactate in 2 Hours Y
[2018-03-27 04:14] LABS: Add Manual Diff / Slide Review NO; Basophils Percent Auto 0.1 % (0-2); Hemoglobin 13.6 g/dL (12.0-16.0); Lymphocytes Percent Auto 5.5 % (25-40); Mean Corpuscular Hemoglobin 34.3 PG (26-34); Mean Corpuscular Volume 100.8 fL (80-100); Monocytes Percent Auto 13.2 % (3-14); Neutrophils Absolute Auto 6400 /uL (3000-5900); Neutrophils Percent Auto 81.2 % (50-75); Platelet Count 201 X10^3/uL (150-400); Red Blood Cell Count 3.96 X10^6/uL (4.0-5.2); Red Cell Distribution Width 14.6 % (11.6-14.8); White Blood Cell Count 7.9 X10^3/uL (4.5-11.0)
[2018-03-27 04:20] LABS: Lactate 2HR (Lactic Acid Rflx) 2.8 mmol/L (0.7-2.1)
[2018-03-27 04:21] LABS: Alanine Aminotransferase 72 IU/L (9-52); Albumin 3.6 g/dL (3.5-5.0); Albumin Globulin Ratio 1.4 (1.0-2.8); Alkaline Phosphatase 69 U/L (38-126); Aspartate Aminotransferase 191 IU/L (14-36); BUN Creatinine Ratio 31.3 (6-22); Bilirubin Total 0.7 mg/dL (0.2-1.3); Blood Urea Nitrogen 25 mg/dL (7-17); Calcium 7.1 mg/dL (8.4-10.2); Carbon Dioxide 19 mmol/L (22-32); Chloride 103 mmol/L (98-107); Estimated Glomerular Filt Rate > 60.0 mL/min (>60); Ethanol (ETOH) 147 mg/dL; Globulin 2.5 g/dL (1.7-4.1); Glucose 196 mg/dL (70-100); HEMOLYSIS < 15 (0-50); Potassium 4.6 mmol/L (3.4-5.1); Sodium 141 mmol/L (137-145); Total Protein 6.1 g/dL (6.3-8.2)
[2018-03-27] MEDS: METOPROLOL TARTRATE 5 MG/5 ML INJ IV ×2 (05:25→08:36)
--- NOTE | 2018-03-27 06:22 | PC.ADMIT ---
[id number] [facility] Admission Note: The patient,Kaylie Melgar,57 y/o, was given written information regarding hospital policies, unit procedures and contact persons. Patient's smoking status: Never smoker. Vital Signs - 8 hr 03/26/18 22:29 03/26/18 22:30 03/26/18 23:15 Temperature Pulse Rate 142 H 140 H 139 H Respiratory Rate 17 Blood Pressure Blood Pressure [Right Arm] 132/92 H 135/95 H 136/94 H Pulse Oximetry 97 97 97 03/27/18 00:00 03/27/18 00:30 03/27/18 00:34 Temperature Pulse Rate 143 H 143 H 143 H Respiratory Rate 24 23 23 Blood Pressure Blood Pressure [Right Arm] 143/114 H 148/94 H 148/94 H Pulse Oximetry 96 94 94 03/27/18 01:00 03/27/18 02:35 03/27/18 02:38 Temperature 97.9 F Pulse Rate 143 H 145 H 145 H Respiratory Rate 22 27 H 25 H Blood Pressure Blood Pressure [Right Arm] 143/102 H 149/84 H 171/91 H Pulse Oximetry 95 95 03/27/18 03:00 03/27/18 03:33 03/27/18 04:00 Temperature Pulse Rate 145 H 148 H Respiratory Rate 28 H 31 H Blood Pressure Blood Pressure [Right Arm] 153/91 H 170/96 H 159/94 H Pulse Oximetry 94 03/27/18 06:06 03/27/18 06:12 Temperature Pulse Rate 120 H 122 H Respiratory Rate 24 26 H Blood Pressure 124/78 Blood Pressure [Right Arm] Pulse Oximetry 96 96 Pt arrived 0505 via stretcher from ER. Pt sedated, wakes up to voice but quickly falls back asleep. Unable to answer anything but simple questions at this time due to sedation. Oral care performed, dark coffee ground looking old emesis on face and in mouth. Pt able to state no to c/o pain or nausea. CIWA 5 for intermittent slight agitation and disorientation. Tele ST rate 145 after 3L bolus in ER. Dr. Garcia at bedside shortly after arrival. Verbal order for 5 mg IV metoprolol. HR down to 115 shortly after administration, BP stable. Sp02 90% RA, 2LNC placed with Sp02 maintaining 96%. Marina patent with large amount of clear yellow urine. Banana bag and protonix GTT infusing per orders. Pt smells strongly of etoh. Safety, seizure and fall precautions initiated.
--- NOTE | 2018-03-27 06:31 | P.HP_ITS ---
History of Present Illness Date Patient Seen: 03/27/18 Time Patient Seen: 06:27 Chief complaint: GI Bleed Narrative: 57-year-old female with past medical history of hypothyroidism, hypertension, anxiety, erosive esophagitis, and alcohol abuse presented to emergency department with hematemesis. Most of the history was obtained from records, as there was no family around patient and patient herself was unable to provide history due to recent Ativan administration. Per records, patient is a chronic drinker, and drinks daily hard liquor. Reportedly, patient has been drinking on the day of the admission. Patient's noted the patient to have 1 episode of bloody emesis, after which time he called the hospital to summon the EMS. When EMS arrived at the scene, they found patient to have small evidence of bloody vomitus on yazmin clothes, however after evaluation patient did not go to the hospital. Nevertheless, the called the 2nd time in the evening, stating that patient again had a large hematemesis episode. During that time the ambulance came and brought the patient to the hospital. Enroute patient was noted to have one more episode of coffee ground emesis. On arrival to ED, patient was found to be in alcohol withdrawal. She was given Ativan after which time she became sleepy and drowsy but continue to protect her airways. Not much of history was obtained after that point. Patient's vital signs were stable with the exception of heart rate which was tachycardic in the 140. BP remained 150s/90s. Lab work on admission revealed hemoglobin of 14.3, white blood cells 7.9, BUN 25, creatinine 0.8, and glucose 196. X-rays of the chest and abdomen revealed distended small bowel loops. Patient was given 3 L boluses with minimal improvement in heart rate. There was initial concern for variceal bleed in the past, however when records obtained from [facility], it was noted that last EGD in December 2017 revealed erosive esophagitis but not varices. Patient was admitted to ICU for further management of alcohol withdrawal and GI bleed. Patient History Medical History GI bleed (Acute) Erosive esophagitis (Chronic) Esophageal varices (Ruled-out) Alcohol abuse (Acute) Back pain (Chronic) Hypertension (Chronic) Hypothyroid (Chronic) Family & Social History Social History: household members significant other Safety & Behavioral: Feels Safe in Current Yes Environment Been Physically Hurt or No Threatened By a Person Suicidal Ideation Description None Suicide Plan Description No Plan Tobacco & Substance use: Smoking Status Never smoker alcohol intake current alcohol intake frequency 3 or more drinks per day Substance Use Type does not use Meds Home Medications Medication Instructions Recorded Confirmed Type gabapentin [Neurontin] 300 mg PO BID PRN #0 cap 02/08/16 01/17/18 History levothyroxine [Synthroid] 0.075 mg PO QAM #0 tab 02/08/16 01/17/18 History cyclobenzaprine 10 mg PO BID PRN 01/17/18 01/17/18 History diphenhydramine-acetaminophen 2 tab PO BEDTIME PRN 01/17/18 01/17/18 History [Tylenol PM Extra Strength] losartan 25 mg PO DAILY 01/17/18 01/17/18 History trazodone 1 - 2 tab PO BEDTIME PRN 01/17/18 01/17/18 History Allergies Allergy/AdvReac Type Severity Reaction Status Date / Time codeine Allergy Unknown VOMITING Verified 01/17/18 18:40 medroxyprogesterone Allergy Unknown MEDROXYPROGESTERONE Verified 01/17/18 18:41 MAKES HER CRAZY Review of Systems Review of Systems unobtainable due to mental status Exam Vital Signs (past 8 hours): - 03/26/18 22:29 03/26/18 22:30 03/26/18 23:15 Temperature Pulse Rate 142 H 140 H 139 H Respiratory Rate 17 Blood Pressure Blood Pressure [Right Arm] 132/92 H 135/95 H 136/94 H Pulse Oximetry 97 97 97 03/27/18 00:00 03/27/18 00:30 03/27/18 00:34 Temperature Pulse Rate 143 H 143 H 143 H Respiratory Rate 24 23 23 Blood Pressure Blood Pressure [Right Arm] 143/114 H 148/94 H 148/94 H Pulse Oximetry 96 94 94 03/27/18 01:00 03/27/18 02:35 03/27/18 02:38 Temperature 97.9 F Pulse Rate 143 H 145 H 145 H Respiratory Rate 22 27 H 25 H Blood Pressure Blood Pressure [Right Arm] 143/102 H 149/84 H 171/91 H Pulse Oximetry 95 95 03/27/18 03:00 03/27/18 03:33 03/27/18 04:00 Temperature Pulse Rate 145 H 148 H Respiratory Rate 28 H 31 H Blood Pressure Blood Pressure [Right Arm] 153/91 H 170/96 H 159/94 H Pulse Oximetry 94 03/27/18 06:06 03/27/18 06:12 Temperature Pulse Rate 120 H 122 H Respiratory Rate 24 26 H Blood Pressure 124/78 Blood Pressure [Right Arm] Pulse Oximetry 96 96 Oxygen Delivery Method Room Air Oxygen Flow Rate 2 Narrative Exam Narrative: General: Patient is somnolent, however wakes up to verbal stimuli and is protecting her airways HEENT: PERRRLA BL Neck: Supple, no LAD CV: Tachycardia, no murmurs Resp: CTA BL, no wheezing GI: +BS, soft, nontender MSK: Moves all extremities Skin: warm to touch, no diaphoresis Neuro: Withdraws to painful stimuli. Responds to verbal. Somnolent Psych: AAOx2 Objective Labs Result Diagrams: 03/27/18 04:01 03/27/18 04:01 Labs: Laboratory Results - last 24 hr 03/26/18 03/26/18 03/26/18 20:55 20:55 20:55 WBC 10.3 RBC 4.18 Hgb 14.3 Hct 42.4 MCV 101.4 H MCH 34.1 H MCHC 33.7 RDW 14.1 Plt Count 254 Neut % (Auto) 93.4 H Lymph % (Auto) 2.8 L [place] % (Auto) 3.7 Eos % (Auto) 0.0 L Baso % (Auto) 0.1 Neut # (Auto) 9600 H PT 10.7 INR 1.0 APTT 29 Sodium 138 Potassium 3.8 Chloride 96 L Carbon Dioxide 15 L BUN 28 H Creatinine 1.10 H Estimated GFR 50.8 L BUN/Creatinine Ratio 25.5 H Glucose 143 H Lactate Calcium 7.3 L Total Bilirubin 0.5 AST 168 H ALT 64 H Alkaline Phosphatase 70 Total Protein 6.2 L Albumin 3.7 Globulin 2.5 Albumin/Globulin Ratio 1.5 Lipase 97 Urine RBC Urine WBC Urine Bacteria Hyaline Casts Ur Culture Indicated? Micro UA Comment Urine Opiates Screen Ur Oxycodone Screen Urine Methadone Screen Ur Barbiturates Screen U Tricyclic Antidepress Ur Phencyclidine Scrn Ur Amphetamines Screen U Methamphetamines Scrn Ur MDMA Scrn (Ecstasy) U Benzodiazepines Scrn Urine Cocaine Screen U Marijuana (THC) Screen Ethyl Alcohol Blood Type Antibody Screen Crossmatch 03/26/18 03/26/18 03/26/18 20:55 20:55 23:39 WBC RBC Hgb 14.3 Hct 41.4 MCV MCH MCHC RDW Plt Count Neut % (Auto) Lymph % (Auto) [place] % (Auto) Eos % (Auto) Baso % (Auto) Neut # (Auto) PT INR APTT Sodium Potassium Chloride Carbon Dioxide BUN Creatinine Estimated GFR BUN/Creatinine Ratio Glucose Lactate Calcium Total Bilirubin AST ALT Alkaline Phosphatase Total Protein Albumin Globulin Albumin/Globulin Ratio Lipase Urine RBC Urine WBC Urine Bacteria Hyaline Casts Ur Culture Indicated? Micro UA Comment Urine Opiates Screen Ur Oxycodone Screen Urine Methadone Screen Ur Barbiturates Screen U Tricyclic Antidepress Ur Phencyclidine Scrn Ur Amphetamines Screen U Methamphetamines Scrn Ur MDMA Scrn (Ecstasy) U Benzodiazepines Scrn Urine Cocaine Screen U Marijuana (THC) Screen Ethyl Alcohol 346 Blood Type A Positive Antibody Screen Negative Crossmatch See Detail 03/26/18 03/27/18 03/27/18 23:39 00:20 00:20 WBC RBC Hgb Hct MCV MCH MCHC RDW Plt Count Neut % (Auto) Lymph % (Auto) [place] % (Auto) Eos % (Auto) Baso % (Auto) Neut # (Auto) PT INR APTT Sodium Potassium Chloride Carbon Dioxide BUN Creatinine Estimated GFR BUN/Creatinine Ratio Glucose Lactate 3.6 H Calcium Total Bilirubin AST ALT Alkaline Phosphatase Total Protein Albumin Globulin Albumin/Globulin Ratio Lipase Urine RBC 0-1/hpf Urine WBC 0-1/hpf Urine Bacteria None seen Hyaline Casts 0-1/lpf Ur Culture Indicated? Cult not indicated Micro UA Comment Not Reportable Urine Opiates Screen Negative Ur Oxycodone Screen Negative Urine Methadone Screen Negative Ur Barbiturates Screen Negative U Tricyclic Antidepress Positive H Ur Phencyclidine Scrn Negative Ur Amphetamines Screen Negative U Methamphetamines Scrn Negative Ur MDMA Scrn (Ecstasy) Negative U Benzodiazepines Scrn Negative Urine Cocaine Screen Negative U Marijuana (THC) Screen Negative Ethyl Alcohol Blood Type Antibody Screen Crossmatch 03/27/18 03/27/18 03/27/18 04:01 04:01 04:01 WBC 7.9 RBC 3.96 L Hgb 13.6 Hct 40.0 MCV 100.8 H MCH 34.3 H MCHC 34.0 RDW 14.6 Plt Count 201 Neut % (Auto) 81.2 H Lymph % (Auto) 5.5 L [place] % (Auto) 13.2 Eos % (Auto) 0.0 L Baso % (Auto) 0.1 Neut # (Auto) 6400 H PT INR APTT Sodium 141 Potassium 4.6 Chloride 103 Carbon Dioxide 19 L BUN 25 H Creatinine 0.80 Estimated GFR > 60.0 BUN/Creatinine Ratio 31.3 H Glucose 196 H Lactate 2.8 H Calcium 7.1 L Total Bilirubin 0.7 AST 191 H ALT 72 H Alkaline Phosphatase 69 Total Protein 6.1 L Albumin 3.6 Globulin 2.5 Albumin/Globulin Ratio 1.4 Lipase Urine RBC Urine WBC Urine Bacteria Hyaline Casts Ur Culture Indicated? Micro UA Comment Urine Opiates Screen Ur Oxycodone Screen Urine Methadone Screen Ur Barbiturates Screen U Tricyclic Antidepress Ur Phencyclidine Scrn Ur Amphetamines Screen U Methamphetamines Scrn Ur MDMA Scrn (Ecstasy) U Benzodiazepines Scrn Urine Cocaine Screen U Marijuana (THC) Screen Ethyl Alcohol 147 Blood Type Antibody Screen Crossmatch Assessment & Plan (1) Esophageal varices: Current visit: Yes Status: Ruled-out Plan: Assessment/Plan Narrative: 50-year-old female with past medical history of hypothyroidism, hypertension, anxiety, erosive esophagitis, and alcohol abuse was admitted with hematemesis and alcohol withdrawal. 1. Upper GI bleed -hemodynamically stable, with blood pressure holding up, however remained tachycardic -hemoglobin dropped from 14.3-13.6 -BUN 25 with normal creatinine -patient was given 3 L boluses in the ED, will continue maintenance fluids at 150 cc/hour -continue Protonix drip -surgical consult for possible EGD -continue to monitor hemoglobin levels and transfuse as needed 2. Alcohol withdrawal -noted to be withdrawing in ED, and given Ativan -will continue to monitor as per CIWA protocol and give Ativan and Clonidine as needed -continue banana bag with thiamine folic acid and multivitamin -NPO until mental status improves -seizure precaution, withdrawal precautions 3. Lactic acidosis -likely due to alcohol abuse -lactic acid on admission 3.6, now down trending to 2.8 -continue to monitor lactic acid and replete electrolytes as needed 4. Tachycardia -heart rate in 140 consistently despite 3 L bolus administration -blood pressure holding up -EKG showed sinus tachycardia -will give metoprolol IV 5 mg x1 and monitor for response 5. Alcohol abuse -AST 191, ALT 72 -will get liver ultrasound to rule out cirrhosis 6. Hypothyroidism -continue Synthroid, but convert to IV as patient is currently NPO 7. Hypertension -blood pressure currently stable -will continue to hold home medication losartan due to GI bleed -continue to monitor blood pressure 8. Anxiety -will resume trazodone 1 patient is able to take p.o. Quality VTE Deep Vein Thrombosis/Pulmonary Embolism Present on Admission: No
[2018-03-27] MEDS: LEVOTHYROXINE INJ 100 MCG VIAL 37.5 MCG IV (08:37)
[2018-03-27] MEDS: PANTOPRAZOLE 80 MG in SODIUM CHLORIDE 0.9% 100 ML 10 ML IV ×2 (08:39→20:25)
[2018-03-27] MEDS: LABETALOL 100 MG/20ML MDV 10 MG IV (10:13)
[2018-03-27] MEDS: SODIUM CHLORIDE 0.9% 1,000 ML 150 ML IV ×2 (11:37→20:23)
[2018-03-27 11:44] LABS: Add Manual Diff / Slide Review NO; Basophils Percent Auto 0.5 % (0-2); Hematocrit 35.3 % (36-46); Hemoglobin 12.3 g/dL (12.0-16.0); Lymphocytes Percent Auto 3.2 % (25-40); Mean Corpuscular HGB Conc 34.9 % (30-36); Mean Corpuscular Volume 100.2 fL (80-100); Neutrophils Absolute Auto 8400 /uL (3000-5900); Neutrophils Percent Auto 86.3 % (50-75); Platelet Count 165 X10^3/uL (150-400); Red Blood Cell Count 3.52 X10^6/uL (4.0-5.2); Red Cell Distribution Width 13.7 % (11.6-14.8); White Blood Cell Count 9.7 X10^3/uL (4.5-11.0)
[2018-03-27 12:03] LABS: Lactate (Lactic Acid) 1.2 mmol/L (0.7-2.1)
--- NOTE | 2018-03-27 12:41 | P.CONS_ITS ---
History of Present Illness Date Patient Seen: 03/27/18 Time Patient Seen: 10:36 Chief complaint: GI Bleed Reason for consult: GI bleed upper Narrative: The patient is a woman who apparently is well-known to the nursing staff because of frequent admissions for alcohol-related problems. She was admitted in alcohol withdrawal with an upper GI bleed based upon a history of hematemesis and coffee-ground emesis. There has been no further vomiting since she was in the ICU. Her mentation has cleared and other than tachycardia which is being controlled with beta-kavon she is feeling pretty normal. She denies any abdominal pain at this time. [facility] Medical History GI bleed (Acute) Erosive esophagitis (Chronic) Esophageal varices (Ruled-out) Alcohol abuse (Acute) Back pain (Chronic) Hypertension (Chronic) Hypothyroid (Chronic) Social History household members: significant other Smoking Status: Never smoker alcohol intake: current Meds Home Medications Medication Instructions Recorded Confirmed Type gabapentin [Neurontin] 300 mg PO BID PRN #0 cap 02/08/16 01/17/18 History levothyroxine [Synthroid] 0.075 mg PO QAM #0 tab 02/08/16 01/17/18 History cyclobenzaprine 10 mg PO BID PRN 01/17/18 01/17/18 History diphenhydramine-acetaminophen 2 tab PO BEDTIME PRN 01/17/18 01/17/18 History [Tylenol PM Extra Strength] losartan 25 mg PO DAILY 01/17/18 01/17/18 History trazodone 1 - 2 tab PO BEDTIME PRN 01/17/18 01/17/18 History Allergies Allergy/AdvReac Type Severity Reaction Status Date / Time codeine Allergy Unknown VOMITING Verified 01/17/18 18:40 medroxyprogesterone Allergy Unknown MEDROXYPROGESTERONE Verified 01/17/18 18:41 MAKES HER CRAZY Review of Systems Review of Systems Denies chest pain, shortness of breath, abdominal pain. She has no history that she recalls of vomiting blood. Exam Vital Signs (past 8 hours): - 03/27/18 06:06 03/27/18 06:12 03/27/18 07:48 Temperature 98.1 F Pulse Rate 120 H 122 H 130 H Respiratory Rate 24 26 H 16 Blood Pressure 124/78 175/95 H Pulse Oximetry 96 96 95 03/27/18 12:26 Temperature 97.9 F Pulse Rate 113 H Respiratory Rate 28 H Blood Pressure 174/97 H Pulse Oximetry 94 Oxygen Delivery Method Nasal Cannula Oxygen Flow Rate 1 Narrative Exam Narrative: Co Operative no apparent distress. Lungs are clear to auscultation without rales or rhonchi. Heart little tachycardic regular rate and rhythm. I do not appreciate a murmur gallop at this time. No bruit in her neck. Her abdomen is scaphoid soft nontender without mass. Liver and spleen are not palpably enlarged. She is alert and oriented. Objective Labs Result Diagrams: 03/27/18 11:35 03/27/18 04:01 Labs: Laboratory Results - last 24 hr 03/26/18 03/26/18 03/26/18 20:55 20:55 20:55 WBC 10.3 RBC 4.18 Hgb 14.3 Hct 42.4 MCV 101.4 H MCH 34.1 H MCHC 33.7 RDW 14.1 Plt Count 254 Neut % (Auto) 93.4 H Lymph % (Auto) 2.8 L [place] % (Auto) 3.7 Eos % (Auto) 0.0 L Baso % (Auto) 0.1 Neut # (Auto) 9600 H PT 10.7 INR 1.0 APTT 29 Sodium 138 Potassium 3.8 Chloride 96 L Carbon Dioxide 15 L BUN 28 H Creatinine 1.10 H Estimated GFR 50.8 L BUN/Creatinine Ratio 25.5 H Glucose 143 H Lactate Calcium 7.3 L Total Bilirubin 0.5 AST 168 H ALT 64 H Alkaline Phosphatase 70 Total Protein 6.2 L Albumin 3.7 Globulin 2.5 Albumin/Globulin Ratio 1.5 Lipase 97 Urine RBC Urine WBC Urine Bacteria Hyaline Casts Ur Culture Indicated? Micro UA Comment Nasal Screen MRSA (PCR) Urine Opiates Screen Ur Oxycodone Screen Urine Methadone Screen Ur Barbiturates Screen U Tricyclic Antidepress Ur Phencyclidine Scrn Ur Amphetamines Screen U Methamphetamines Scrn Ur MDMA Scrn (Ecstasy) U Benzodiazepines Scrn Urine Cocaine Screen U Marijuana (THC) Screen Ethyl Alcohol Blood Type Antibody Screen Crossmatch 03/26/18 03/26/18 03/26/18 20:55 20:55 23:39 WBC RBC Hgb 14.3 Hct 41.4 MCV MCH MCHC RDW Plt Count Neut % (Auto) Lymph % (Auto) [place] % (Auto) Eos % (Auto) Baso % (Auto) Neut # (Auto) PT INR APTT Sodium Potassium Chloride Carbon Dioxide BUN Creatinine Estimated GFR BUN/Creatinine Ratio Glucose Lactate Calcium Total Bilirubin AST ALT Alkaline Phosphatase Total Protein Albumin Globulin Albumin/Globulin Ratio Lipase Urine RBC Urine WBC Urine Bacteria Hyaline Casts Ur Culture Indicated? Micro UA Comment Nasal Screen MRSA (PCR) Urine Opiates Screen Ur Oxycodone Screen Urine Methadone Screen Ur Barbiturates Screen U Tricyclic Antidepress Ur Phencyclidine Scrn Ur Amphetamines Screen U Methamphetamines Scrn Ur MDMA Scrn (Ecstasy) U Benzodiazepines Scrn Urine Cocaine Screen U Marijuana (THC) Screen Ethyl Alcohol 346 Blood Type A Positive Antibody Screen Negative Crossmatch See Detail 03/26/18 03/27/18 03/27/18 23:39 00:20 00:20 WBC RBC Hgb Hct MCV MCH MCHC RDW Plt Count Neut % (Auto) Lymph % (Auto) [place] % (Auto) Eos % (Auto) Baso % (Auto) Neut # (Auto) PT INR APTT Sodium Potassium Chloride Carbon Dioxide BUN Creatinine Estimated GFR BUN/Creatinine Ratio Glucose Lactate 3.6 H Calcium Total Bilirubin AST ALT Alkaline Phosphatase Total Protein Albumin Globulin Albumin/Globulin Ratio Lipase Urine RBC 0-1/hpf Urine WBC 0-1/hpf Urine Bacteria None seen Hyaline Casts 0-1/lpf Ur Culture Indicated? Cult not indicated Micro UA Comment Not Reportable Nasal Screen MRSA (PCR) Urine Opiates Screen Negative Ur Oxycodone Screen Negative Urine Methadone Screen Negative Ur Barbiturates Screen Negative U Tricyclic Antidepress Positive H Ur Phencyclidine Scrn Negative Ur Amphetamines Screen Negative U Methamphetamines Scrn Negative Ur MDMA Scrn (Ecstasy) Negative U Benzodiazepines Scrn Negative Urine Cocaine Screen Negative U Marijuana (THC) Screen Negative Ethyl Alcohol Blood Type Antibody Screen Crossmatch 03/27/18 03/27/18 03/27/18 04:01 04:01 04:01 WBC 7.9 RBC 3.96 L Hgb 13.6 Hct 40.0 MCV 100.8 H MCH 34.3 H MCHC 34.0 RDW 14.6 Plt Count 201 Neut % (Auto) 81.2 H Lymph % (Auto) 5.5 L [place] % (Auto) 13.2 Eos % (Auto) 0.0 L Baso % (Auto) 0.1 Neut # (Auto) 6400 H PT INR APTT Sodium 141 Potassium 4.6 Chloride 103 Carbon Dioxide 19 L BUN 25 H Creatinine 0.80 Estimated GFR > 60.0 BUN/Creatinine Ratio 31.3 H Glucose 196 H Lactate 2.8 H Calcium 7.1 L Total Bilirubin 0.7 AST 191 H ALT 72 H Alkaline Phosphatase 69 Total Protein 6.1 L Albumin 3.6 Globulin 2.5 Albumin/Globulin Ratio 1.4 Lipase Urine RBC Urine WBC Urine Bacteria Hyaline Casts Ur Culture Indicated? Micro UA Comment Nasal Screen MRSA (PCR) Urine Opiates Screen Ur Oxycodone Screen Urine Methadone Screen Ur Barbiturates Screen U Tricyclic Antidepress Ur Phencyclidine Scrn Ur Amphetamines Screen U Methamphetamines Scrn Ur MDMA Scrn (Ecstasy) U Benzodiazepines Scrn Urine Cocaine Screen U Marijuana (THC) Screen Ethyl Alcohol 147 Blood Type Antibody Screen Crossmatch 03/27/18 03/27/18 03/27/18 05:00 11:35 11:35 WBC 9.7 RBC 3.52 L Hgb 12.3 Hct 35.3 L MCV 100.2 H MCH 35.0 H MCHC 34.9 RDW 13.7 Plt Count 165 Neut % (Auto) 86.3 H Lymph % (Auto) 3.2 L [place] % (Auto) 10.0 Eos % (Auto) 0.0 L Baso % (Auto) 0.5 Neut # (Auto) 8400 H PT INR APTT Sodium Potassium Chloride Carbon Dioxide BUN Creatinine Estimated GFR BUN/Creatinine Ratio Glucose Lactate 1.2 Calcium Total Bilirubin AST ALT Alkaline Phosphatase Total Protein Albumin Globulin Albumin/Globulin Ratio Lipase Urine RBC Urine WBC Urine Bacteria Hyaline Casts Ur Culture Indicated? Micro UA Comment Nasal Screen MRSA (PCR) Negative for mrsa Urine Opiates Screen Ur Oxycodone Screen Urine Methadone Screen Ur Barbiturates Screen U Tricyclic Antidepress Ur Phencyclidine Scrn Ur Amphetamines Screen U Methamphetamines Scrn Ur MDMA Scrn (Ecstasy) U Benzodiazepines Scrn Urine Cocaine Screen U Marijuana (THC) Screen Ethyl Alcohol Blood Type Antibody Screen Crossmatch Assessment & Plan Plan: Assessment/Plan Narrative: Acute blood loss anemia secondary to hematemesis. Most likely alcohol related. Recommend EGD to evaluate and possibly treat cause. She is already on proton pump inhibitor. That should continue. We will rule out other sources of upper GI bleeding like varices with the scope. I have discussed the procedure including risks of bleeding and perforation with her. We will do this under general anesthesia due to the aspiration risks.
--- NOTE | 2018-03-27 12:41 | PM.PREOP ---
Pre-operative Note Interval Note Pre-op Check: Yes History & Physical exam performed today by Physician Changes: No H&P completed within 30 days and has changed as indicated here:: Will be done under general anesthesia
[2018-03-27] MEDS: LACTATED RINGERS 1,000 ML 42 ML IV (13:12)
--- NOTE | 2018-03-27 13:33 | PM.OP.ENDO ---
Operative Date/Time/Diagnoses Date of procedure: 03/27/18 Time of procedure: 13:33 Pre-op diagnosis: Upper GI bleed/hematemesis Post-op diagnosis: same (Severe esophagitis involving the entire esophagus worst distal. Moderate gastritis with cobblestoning. Small hiatal hernia.) Procedure & Clinicians Study performed: EGD with cold biopsy Same procedure as scheduled: Yes Indications: Hematemesis Surgeon: Marquez Lopez Procedure Notes SCOAP/Timeout: Performed Procedure in detail: The patient underwent general endotracheal anesthesia.. She was left in the supine position . A bite block was inserted and the scope was advanced through it into the esophagus. The esophagus was remarkable for severe esophagitis. There was fibrinous exudate over much of it beginning at [address] to the GE junction at the 36 cm. Some of the exudate had evidence of prior bleeding. There was no active bleeding at the time of the scope however. GE junction was noted at 36 cm from the incisors. The stomach insufflated well. There were diffuse gastritis with some cobblestoning.. The pyloric channel was [widely patent]. The duodenum was unremarkable to the 3rd part. The scope was brought back into the stomach and retroflexed. The proximal stomach[was less inflamed than distal. The patient was noted to have a small hiatal hernia. Random biopsies were taken of the stomach]. The scope was straightened and brought out through the esophagus again. Random biopsies were taken along the entire length of the esophagus. The scope was removed and the patient tolerated the procedure well. Of note, no esophageal varices were seen. No fresh bleeding was seen. Scope withdrawal time: Not applicable Findings: gastritis and other findings (Severe esophagitis) Recommendations: No ASA/NSAIDS, Start medication(s) (Proton pump inhibitors) and Other recommendation (No alcohol) Plan for aftercare: Follow-up with primary care provider. Follow up: as needed Disposition: PACU
--- NOTE | 2018-03-27 14:23 | PC.NURSE ---
Addendum entered by Ralph Dobson R.N. 03/27/18 14:51: Pt given sips of water per request. Clear liquid diet is order. Pt began coughing after a few sips. She was sitting bolt upright in bed. Holding PO for now until more awake/alert. Original Note: Pt to endo at 1220 escorted by OR staff. Returned to room 1404. VSS. Drowsy, but awakens with verbal and light tactile stimuli. Following commands. Requesting water. HR 100-110s ST, RR 21 BP 153/82 SPO2 99% on 4L NC by mouth. Decreased O2 to 2L for spo2 95%. Pt denies pain, headache, n/v, hallucinations/delusions. She is following commands appropriately. New 20G PIV to LFA noted which is patent. NS and Protonix infusing per order. Call light in reach, seizure pads in place, bed alarm on.
[2018-03-27] MEDS: cloNIDine 0.1 MG TABLET PO (15:46)
--- NOTE | 2018-03-27 16:02 | PC.NURSE ---
1600- Patient is resting quietly in bed. Blood Pressure elevated medicated per order. Patient responds to verbal stimuli but has slow delayed responses. Patient has been cooperative but is only oriented to self. When not being stimulated patient drifts off to sleep. Ciwaa currently at 5. Patient is in sinus tachycardia at 115. IVF infusing per order. No nausea or vomiting. Will monitor.
--- NOTE | 2018-03-27 21:31 | PC.NURSE ---
2129- Patient bathed and linens changed. Patient is taking po safely. Wakes easily to voice. Patient verbalizing that she feels anxious, she has tremors and is confused to date/time. Ciwaa is 8 medicated per protocol.
[2018-03-28] VITALS (7 sets, daily range): BP systolic 120–138; BP diastolic 67–74; PULSE 81–96; RESP 12–21; TEMP 36.4–37.6; O2SAT 94–98
[2018-03-28] MEDS: LORazepam 2 MG/ML SYRINGE IV ×7 (00:18→20:30)
[2018-03-28] MEDS: SODIUM CHLORIDE 0.9% 1,000 ML 150 ML IV ×3 (03:29→15:53)
[2018-03-28 05:17] LABS: Add Manual Diff / Slide Review NO; Basophils Percent Auto 0.1 % (0-2); Eosinophils Percent Auto 1.1 % (2-4); Hematocrit 29.2 % (36-46); Hemoglobin 10.2 g/dL (12.0-16.0); Lymphocytes Percent Auto 10.9 % (25-40); Mean Corpuscular HGB Conc 34.9 % (30-36); Mean Corpuscular Hemoglobin 35.1 PG (26-34); Mean Corpuscular Volume 100.6 fL (80-100); Monocytes Percent Auto 6.4 % (3-14); Neutrophils Absolute Auto 4500 /uL (3000-5900); Neutrophils Percent Auto 81.5 % (50-75); Platelet Count 97 X10^3/uL (150-400); Red Cell Distribution Width 14.1 % (11.6-14.8); White Blood Cell Count 5.6 X10^3/uL (4.5-11.0)
[2018-03-28 05:26] LABS: Blood Urea Nitrogen 10 mg/dL (7-17); Calcium 7.5 mg/dL (8.4-10.2); Carbon Dioxide 34 mmol/L (22-32); Chloride 98 mmol/L (98-107); Estimated Glomerular Filt Rate > 60.0 mL/min (>60); Glucose 111 mg/dL (70-100); HEMOLYSIS < 15 (0-50); Potassium 3.3 mmol/L (3.4-5.1); Sodium 135 mmol/L (137-145)
--- NOTE | 2018-03-28 06:52 | PC.NURSE ---
NOC Shift: Pt continues to detox from ETOH use, CIWA scores between 8-14 w/increasing symptoms. Pt remains cooperative, oriented to place, not situation. Giving po Ativan Q2H per CIWA protocol written. Pt able to take clear liquids, needs supervision or will guzzle water until choking. VSS, SR/ST on tele. Weaning O2. No active bleeding overnight. Stable H&H. ICU care.
[2018-03-28] MEDS: MULTIVIT,CALC,MINS/IRON/FOLIC 1 TABLET 1 TAB PO (09:10)
[2018-03-28] MEDS: FOLIC ACID 1 MG TABLET PO (09:10)
[2018-03-28] MEDS: THIAMINE 100 MG TABLET PO (09:12)
[2018-03-28] MEDS: cloNIDine 0.1 MG TABLET PO (09:13)
[2018-03-28] MEDS: PANTOPRAZOLE 80 MG in SODIUM CHLORIDE 0.9% 100 ML 10 ML IV (09:13)
--- NOTE | 2018-03-28 15:31 | CM.IDA ---
DCP Assessment Note: Pt is a 57 yo female, resident of [place]. Pt admitted w/ GI bleed/hematemesis, severe esophagitis, CIWA protocal. Pt's PCP is not listed. Insurance is [employer]. Chart review indicates pt continues to actively withdraw from alcochol, CIWA ranging from 8-14. EGD showed upper GI bleed and recommendation from Dr Lopez is no ASA/NSAIDS, proton pump inhibitor, and abstain from alcohol use. According to pt's H+P, pt is reported as drinking daily hard liquor, amount unknown. DC back home when medically stable is likely, Pt would benefit from a more thorough DCP assessment and D/A assessment if available, this FORGING DIE SINKER unable to do so today. Following closely. ROSARIO Banda Discharge Planning/Care Management CM Discharge Assessment Start: 03/28/18 15:24 Freq: Status: Active Protocol: Document 03/28/18 15:24 FAMILIA (Rec: 03/28/18 15:31 FAMILIA [id number]) Discharge Planning Assessment Assigned Medical Device ROSARIO Wesley DPOA/Assigned Designee Name [place], spouse Contact Information [phone], home [phone], work Advance Directives? No History Provided By Patient Medical Record Prior Living Arrangements House Household Members significant other Independent with ADL's Yes Is patient alert and oriented? Yes Comment Heavy ETOH use Barriers to Discharge Yes Comment Would benefit from D/A assessment to determine use/ frequency and if pt agreeable to resources etc Discharge Plan Home Transportation Arrangement Likely family Additional Comment Pending further assessment Review Status In Process
[2018-03-28] MEDS: POTASSIUM CHLORIDE 20 MEQ TAB 40 MEQ PO (17:05)
--- NOTE | 2018-03-28 17:05 | P.PN_ITS ---
Subjective Date Patient Seen: 03/28/18 Time Patient Seen: 17:01 Interval history: Patient seen at bedside. Overnight CIWA was 10. Requires Ativan pushes still. Now is more alert and awake, able to tolerate PO diet and medications. EGD done yesterday showed esophagitis and gastritis...Will switch patient to PO therapy Exam Vital Signs (past 8 hours): - 03/28/18 11:37 03/28/18 11:51 Temperature 99.7 F H Pulse Rate 96 H Respiratory Rate 21 Blood Pressure 124/71 Pulse Oximetry 96 Oxygen Delivery Method Nasal Cannula Oxygen Flow Rate 0 Objective Labs Result Diagrams: 03/28/18 04:55 03/28/18 04:55 Labs: Laboratory Results - last 24 hr 03/28/18 03/28/18 04:55 04:55 WBC 5.6 RBC 2.90 L Hgb 10.2 L Hct 29.2 L MCV 100.6 H MCH 35.1 H MCHC 34.9 RDW 14.1 Plt Count 97 L Neut % (Auto) 81.5 H Lymph % (Auto) 10.9 L [place] % (Auto) 6.4 Eos % (Auto) 1.1 L Baso % (Auto) 0.1 Neut # (Auto) 4500 Sodium 135 L Potassium 3.3 L D Chloride 98 Carbon Dioxide 34 H BUN 10 Creatinine 0.50 L Estimated GFR > 60.0 BUN/Creatinine Ratio 20.0 Glucose 111 H Calcium 7.5 L Assessment & Plan Plan: Assessment/Plan Narrative: 50-year-old female with past medical history of hypothyroidism, hypertension, anxiety, erosive esophagitis, and alcohol abuse was admitted with hematemesis and alcohol withdrawal. 1. Upper GI bleed -S/P EGD...severe esophagitis and gastritis. No acute bleed identified -hemoglobin 10.6 today -will switch protonix drip to PPI PO BID -continue to monitor hemoglobin levels 2. Alcohol withdrawal -CIWA 10 currently -will continue to monitor as per CIWA protocol and give Ativan and Clonidine as needed -will advance diet and PO medications now -seizure precaution, withdrawal precautions 3. Lactic acidosis -likely due to alcohol abuse -lactic acid on admission 3.6->2.8 -continue to replete electrolytes as needed 4. Tachycardia -Resolved, hemodynamically stable -stop IVF 5. Alcohol abuse -AST 191, ALT 72 -Continue MVI/FA/Thiamine -Alcohol cessation education -Will need Liver US to rule out cirrhosis 6. Hypothyroidism -Resume levothyroxine PO 7. Hypertension -BP now stable, will resume Losartan 8. Anxiety -Resume trazadone Quality VTE Deep Vein Thrombosis/Pulmonary Embolism Present on Admission: No
--- NOTE | 2018-03-28 17:40 | PC.NURSE ---
1700- Patient is tremulous and restless. Attempted dinner but did not eat much. Taking fluids ok and able to swallow pills safely. Ciwaa was 10. medicated per protocol.
[2018-03-28] MEDS: TRAZODONE 50 MG TABLET 25 MG PO (20:18)
[2018-03-28] MEDS: GABAPENTIN 300 MG CAPSULE PO (20:18)
[2018-03-28] MEDS: CYCLOBENZAPRINE 10 MG TABLET PO (20:21)
--- NOTE | 2018-03-28 20:48 | PC.NURSE ---
1999-Patient is restless and increasingly agitated. Dry heaves x1. C/o feeling anxious and tremors are visible with arms outstretched. Ciwaa 17 medicated per order.
[2018-03-29] VITALS (10 sets, daily range): BP systolic 114–163; BP diastolic 53–109; PULSE 77–100; RESP 12–23; TEMP 36.3–37.3; O2SAT 94–98
[2018-03-29 00:09] LABS: Add Manual Diff / Slide Review NO; Basophils Percent Auto 0.1 % (0-2); Eosinophils Percent Auto 2.4 % (2-4); Hematocrit 30.1 % (36-46); Hemoglobin 10.3 g/dL (12.0-16.0); Lymphocytes Percent Auto 15.9 % (25-40); Mean Corpuscular HGB Conc 34.3 % (30-36); Mean Corpuscular Hemoglobin 34.9 PG (26-34); Mean Corpuscular Volume 101.9 fL (80-100); Monocytes Percent Auto 7.1 % (3-14); Neutrophils Absolute Auto 3100 /uL (3000-5900); Neutrophils Percent Auto 74.5 % (50-75); Platelet Count 78 X10^3/uL (150-400); Red Blood Cell Count 2.96 X10^6/uL (4.0-5.2); Red Cell Distribution Width 13.5 % (11.6-14.8); White Blood Cell Count 4.2 X10^3/uL (4.5-11.0)
[2018-03-29] MEDS: LORazepam 2 MG/ML SYRINGE IV ×5 (00:30→16:29)
[2018-03-29] MEDS: ONDANSETRON 4 MG/2 ML INJ IV (02:59)
[2018-03-29] MEDS: cloNIDine 0.1 MG TABLET PO ×2 (03:17→08:05)
[2018-03-29 05:30] LABS: Add Manual Diff / Slide Review NO; Basophils Percent Auto 0.3 % (0-2); Eosinophils Percent Auto 2.2 % (2-4); Hematocrit 30.6 % (36-46); Hemoglobin 10.7 g/dL (12.0-16.0); Lymphocytes Percent Auto 14.9 % (25-40); Mean Corpuscular HGB Conc 34.9 % (30-36); Mean Corpuscular Hemoglobin 35.4 PG (26-34); Mean Corpuscular Volume 101.3 fL (80-100); Monocytes Percent Auto 6.5 % (3-14); Neutrophils Absolute Auto 3300 /uL (3000-5900); Neutrophils Percent Auto 76.1 % (50-75); Platelet Count 82 X10^3/uL (150-400); Red Blood Cell Count 3.03 X10^6/uL (4.0-5.2); Red Cell Distribution Width 13.6 % (11.6-14.8); White Blood Cell Count 4.3 X10^3/uL (4.5-11.0)
[2018-03-29 05:32] LABS: Blood Urea Nitrogen 4 mg/dL (7-17); Calcium 8.6 mg/dL (8.4-10.2); Carbon Dioxide 33 mmol/L (22-32); Chloride 94 mmol/L (98-107); Estimated Glomerular Filt Rate > 60.0 mL/min (>60); Glucose 105 mg/dL (70-100); HEMOLYSIS < 15 (0-50); Potassium 3.2 mmol/L (3.4-5.1)
[2018-03-29 05:40] LABS: Sodium 133 mmol/L (137-145)
[2018-03-29] MEDS: LEVOTHYROXINE 75 MCG TABLET PO (06:35)
--- NOTE | 2018-03-29 07:01 | PC.NURSE ---
NOC Shift: Pt w/increasing CIWA scores 19 to 22. Pt confused, impulsive demanding to go home doesn't understand why she has to stay in here, and doesn't know where she is. More disoriented. Pt is cooperative w/direction. Denies pain, complains of constant thirst. VSS, SR on tele. HL. Remains ICU status.
[2018-03-29] MEDS: LORazepam 1 MG TABLET 2 MG PO (08:02)
[2018-03-29] MEDS: CYCLOBENZAPRINE 10 MG TABLET PO ×2 (08:03→20:41)
[2018-03-29] MEDS: PANTOPRAZOLE 40 MG TABLET PO (08:03)
[2018-03-29] MEDS: FOLIC ACID 1 MG TABLET PO (08:03)
[2018-03-29] MEDS: GABAPENTIN 300 MG CAPSULE PO ×2 (08:04→20:41)
[2018-03-29] MEDS: THIAMINE 100 MG TABLET PO (08:04)
[2018-03-29] MEDS: MULTIVIT,CALC,MINS/IRON/FOLIC 1 TABLET 1 TAB PO (08:04)
[2018-03-29] MEDS: LOSARTAN 25 MG TABLET PO (08:05)
--- NOTE | 2018-03-29 09:25 | PC.NURSE ---
pt calm and cooperative as she is able- she is aware she is in the hospital and that she is withdrawing from etoh- as she has in the past, she recalls that she has had a scope ciwa score 4 po loraz given and reassured
--- NOTE | 2018-03-29 16:01 | PC.NURSE ---
1550- Patient crying and states she is afraid and wants to go home. Patient oriented to place and self but confused to day and month. Patient has tremors that can be felt, she is c/o a headache. Ciwaa of [address] Melo notified as Ciwaa protocol has been dc'c. order to reinstate protocol. Medicated per order. Will monitor.
--- NOTE | 2018-03-29 16:23 | CM.DANOTE ---
DCP/continued: Reviewed chart. Per MD in AM rounds all medications to treat ETOH withdrawal stopped secondary to patient's drowsiness. Spoke with RN and she reports that last dose of po ativan was given this AM. CIWA score was approximately 4. Dr. Levine is hospitalist. He reports that if patient doing okay this afternoon may be cleared to discharge home with family and prescription for further detox if needed. Therefore, OUTSOLE PARAFFINER met with patient and daughter/Alise at bedside explained CM/SW role. Patient reports that it's okay for daughter to stay for interview. Patient reports that she is primarily I in all ADL's. Patient drives on regular basis. Patient's spouse is currently out of town. Spouse is fisherman and often gone. Patient reports that she has been actively drinking alcohol (wine and vodka) for approximately 10yrs. Daughter reports that it is more like 25 years. Patient and daughter confirm that patient has been to multiple inpatient treatment facilities (5 named by daughter)for alcohol recovery/detox. Last treatment was approximately 18 months ago at [facility]. Patient has difficult time staying sober. No active legal matters/DUI indicated by daughter or patient. Patient does have breathalyzer in her car that her family has purchased. Family very concerned about patient's resistance to stop drinking. Family has had counseling and definitely do not want to enable patient. Notified daughter that MD not comfortable sending patient home without support. Daughter reports that she has spoken with her sister/Deborah and that patient could stay there until patient's spouse returns in 2 weeks. However, family does not want patient discharged in current condition. Patient continues to be groggy. In addition, they would like to see how she does overnight with medications on board. Family has no interest in detoxing patient at home. They are in agreement to consider paying privately for inpatient detox if needed. [facility] does not cover expense for inpatient alcohol treatment and they are aware. Provided daughter with information for [facility] and [facility]. Daughter thinks [facility] might be best option and hopeful that might wake her up. Previous treatments have been very costly and daughter unsure on how helpful they were. P: Notified patient and daughter that OUTSOLE PARAFFINER would follow up on 03-30 to discuss next steps. All aware and agreeable. ROSARIO Chaney Discharge Planning/Care Management CM Discharge Assessment Start: 03/28/18 15:24 Freq: Status: Active Protocol: Document 03/28/18 15:24 JW (Rec: 03/28/18 15:31 JW [id number]) Discharge Planning Assessment Assigned Card Puncher ROSARIO Wesley DPOA/Assigned Designee Name [place], spouse Contact Information [phone], home [phone], work Advance Directives? No History Provided By Patient Medical Record Prior Living Arrangements House Household Members significant other Independent with ADL's Yes Is patient alert and oriented? Yes Comment Heavy ETOH use Barriers to Discharge Yes Comment Would benefit from D/A assessment to determine use/ frequency and if pt agreeable to resources etc Discharge Plan Home Transportation Arrangement Likely family Additional Comment Pending further assessment Review Status In Process Document 03/29/18 16:21 KJS (Rec: 03/29/18 16:22 KJS [id number]) Discharge Planning Assessment Assigned Card Puncher ROSARIO Chaney DPOA/Assigned Designee Name [place], spouse/ daughter Alise [phone] and Deborah [phone] Contact Information [phone], home , work Advance Directives? No History Provided By Patient Medical Record Prior Living Arrangements House Household Members significant other Independent with ADL's Yes Is patient alert and oriented? Yes Comment Heavy ETOH use Barriers to Discharge Yes Comment Would benefit from D/A assessment to determine use/ frequency and if pt agreeable to resources etc Discharge Plan Home Transportation Arrangement Likely family Additional Comment Pending further assessment Review Status In Process
--- NOTE | 2018-03-29 16:43 | PM.PN.1 ---
Subjective Date Patient Seen: 03/29/18 Time Patient Seen: 09:43 Interval history: History of present illness Patient admitted to the hospital with alcohol withdrawal syndrome and upper GI bleed. Esophagitis and gastritis was noted on EGD. No further active bleeding noted Continuing CIWA Ativan protocol today. Will consider discharge tomorrow if patient is detoxed and arrangements can be provided for patient to stay with her daughter upon discharge Review of systems No chest pain or shortness of breath no nausea Exam Vital Signs (past 8 hours): - 03/29/18 12:14 03/29/18 15:37 Temperature 98.9 F 97.4 F L Pulse Rate 83 87 Respiratory Rate 20 18 Blood Pressure 132/53 L 124/65 Pulse Oximetry 98 95 Oxygen Delivery Method Room Air Oxygen Flow Rate 0 Narrative Exam Narrative: General appearance patient is awake and alert no apparent distress at rest Psychiatric well oriented to time place and person mood is somewhat anxious patient anxious to leave Respiratory fairly clear to auscultation no wheezes no crackles fairly good airflow Cardiovascular regular rate rhythm no murmurs +3 pulses do extremities PMI nondisplaced GI mildly tender to palpation of the epigastric area positive bowel sounds are noted no bruits are noted no guarding no distension Neurologic no focal neurologic changes cranial nerves 2-12 grossly intact no tremors noted at rest Objective Labs Result Diagrams: 03/29/18 04:55 03/29/18 04:55 Labs: Laboratory Results - last 24 hr 03/28/18 03/29/18 03/29/18 23:58 04:55 04:55 WBC 4.2 L 4.3 L RBC 2.96 L 3.03 L Hgb 10.3 L 10.7 L Hct 30.1 L 30.6 L MCV 101.9 H 101.3 H MCH 34.9 H 35.4 H MCHC 34.3 34.9 RDW 13.5 13.6 Plt Count 78 L 82 L Neut % (Auto) 74.5 76.1 H Lymph % (Auto) 15.9 L 14.9 L [place] % (Auto) 7.1 6.5 Eos % (Auto) 2.4 2.2 Baso % (Auto) 0.1 0.3 Neut # (Auto) 3100 3300 Sodium 133 L Potassium 3.2 L Chloride 94 L Carbon Dioxide 33 H BUN 4 L Creatinine 0.40 L Estimated GFR > 60.0 BUN/Creatinine Ratio 10.0 Glucose 105 H Calcium 8.6 Assessment & Plan Plan: Assessment/Plan Narrative: 1. Upper GI bleed -S/P EGD...severe esophagitis and gastritis. No active bleed noted on EGD -hemoglobin is reasonably stable -protonix drip to PPI PO BID on March 28 -continue to monitor hemoglobin levels 2. Alcohol withdrawal -[facility] protocol being provided -will continue to monitor as per [facility] protocol and give Ativan and Clonidine as needed -will advance diet and PO medications now -seizure precaution, withdrawal precautions 3. Lactic acidosis -likely due to alcohol abuse -lactic acid on admission 3.6->2.8 -continue to replete electrolytes as needed 4. Tachycardia -Resolved, hemodynamically stable. 5. Alcohol abuse -Continue MVI/FA/Thiamine -Alcohol cessation education -trying to have arrangements made for daughter to have patient discharge and stay with her -Will consider daughter to be push button switch assembler of Librium if patient to stay with her upon discharge 6. Hypothyroidism -Resume levothyroxine at usual home dose 7. Hypertension Losartan provided Time Spent With Patient Time with patient: 25 - 35 minutes (25 min devoted to the patient's care today) Quality VTE Deep Vein Thrombosis/Pulmonary Embolism Present on Admission: No
--- NOTE | 2018-03-29 16:50 | P.PN_ITS ---
Subjective Date Patient Seen: 03/29/18 Time Patient Seen: 09:43 Interval history: History of present illness Patient admitted to the hospital with alcohol withdrawal syndrome and upper GI bleed. Esophagitis and gastritis was noted on EGD. No further active bleeding noted Continuing CIWA Ativan protocol today. Will consider discharge tomorrow if patient is detoxed and arrangements can be provided for patient to stay with her daughter upon discharge Review of systems No chest pain or shortness of breath no nausea Exam Vital Signs (past 8 hours): - 03/29/18 12:14 03/29/18 15:37 Temperature 98.9 F 97.4 F L Pulse Rate 83 87 Respiratory Rate 20 18 Blood Pressure 132/53 L 124/65 Pulse Oximetry 98 95 Oxygen Delivery Method Room Air Oxygen Flow Rate 0 Narrative Exam Narrative: General appearance patient is awake and alert no apparent distress at rest Psychiatric well oriented to time place and person mood is somewhat anxious patient anxious to leave Respiratory fairly clear to auscultation no wheezes no crackles fairly good airflow Cardiovascular regular rate rhythm no murmurs +3 pulses do extremities PMI nondisplaced GI mildly tender to palpation of the epigastric area positive bowel sounds are noted no bruits are noted no guarding no distension Neurologic no focal neurologic changes cranial nerves 2-12 grossly intact no tremors noted at rest Objective Labs Result Diagrams: 03/29/18 04:55 03/29/18 04:55 Labs: Laboratory Results - last 24 hr 03/28/18 03/29/18 03/29/18 23:58 04:55 04:55 WBC 4.2 L 4.3 L RBC 2.96 L 3.03 L Hgb 10.3 L 10.7 L Hct 30.1 L 30.6 L MCV 101.9 H 101.3 H MCH 34.9 H 35.4 H MCHC 34.3 34.9 RDW 13.5 13.6 Plt Count 78 L 82 L Neut % (Auto) 74.5 76.1 H Lymph % (Auto) 15.9 L 14.9 L [place] % (Auto) 7.1 6.5 Eos % (Auto) 2.4 2.2 Baso % (Auto) 0.1 0.3 Neut # (Auto) 3100 3300 Sodium 133 L Potassium 3.2 L Chloride 94 L Carbon Dioxide 33 H BUN 4 L Creatinine 0.40 L Estimated GFR > 60.0 BUN/Creatinine Ratio 10.0 Glucose 105 H Calcium 8.6 Assessment & Plan Plan: Assessment/Plan Narrative: 1. Upper GI bleed -S/P EGD...severe esophagitis and gastritis. No active bleed noted on EGD -hemoglobin is reasonably stable -protonix drip to PPI PO BID on March 28 -continue to monitor hemoglobin levels 2. Alcohol withdrawal -[facility] protocol being provided -will continue to monitor as per [facility] protocol and give Ativan and Clonidine as needed -will advance diet and PO medications now -seizure precaution, withdrawal precautions 3. Lactic acidosis -likely due to alcohol abuse -lactic acid on admission 3.6->2.8 -continue to replete electrolytes as needed 4. Tachycardia -Resolved, hemodynamically stable. 5. Alcohol abuse -Continue MVI/FA/Thiamine -Alcohol cessation education -trying to have arrangements made for daughter to have patient discharge and stay with her -Will consider daughter to be trust vault custodian of Librium if patient to stay with her upon discharge 6. Hypothyroidism -Resume levothyroxine at usual home dose 7. Hypertension Losartan provided Time Spent With Patient Time with patient: 25 - 35 minutes (25 min devoted to the patient's care today) Quality VTE Deep Vein Thrombosis/Pulmonary Embolism Present on Admission: No
[2018-03-29] MEDS: TRAZODONE 50 MG TABLET 25 MG PO (20:41)
[2018-03-30] MEDS: PANTOPRAZOLE 40 MG TABLET PO (06:07)
[2018-03-30] MEDS: LEVOTHYROXINE 75 MCG TABLET PO (06:07)
--- NOTE | 2018-03-30 06:30 | PC.NURSE ---
NOC Shift: Pt more awake, cooperative and appropriate through shift. Not needing Ativan. VSS, off tele. Bed alarm remains on for safety. Pt transfers to BS commode w/ standby assist. Has not had crying spells tonight and has rested well. Possible discharge today.
[2018-03-30 07:00] VITALS: BP 130/78; PULSE 94; RESP 14; TEMP 37.3; O2SAT 95
--- NOTE | 2018-03-30 09:20 | PC.NURSE ---
Dr. Levine on rounds 0730. Discussed plan of care. Reported K+ level from yesterday. Reported that pt has no documented BM this admission, reviewed abd imaging done on admission. Verbal orders received to give fleets enema followed by dulcolax supp. Per MD, plan is to potentially d/c home with family care today.
--- NOTE | 2018-03-30 09:50 | PC.NURSE ---
Addendum entered by Yulissa Snider R.N. 03/30/18 14:06: PT into see Pt and complete evaluation, recommendation is 1 more day of PT and re eval in the AM. Updated daughters on this and Dr Levine. Will request early PT eval to aid in d/c planning. Original Note: Addendum entered by Yulissa Snider R.N. 03/30/18 10:42: 1020-Dr Levine into see Pt family. Discussion about POC. Original Note: Am shift Pt is up to BSC with SBA, gait slightly unsteady, needs cues from staff. I am still in [place]? where? Reoriented to place and situation. Pt is forgetful and CIWA scores 6 this AM for tremors and sweats. Pt would like to know about POC, d/c vs further detox/supportive care in hospital . Daughters into visit, and get update this AM. After seeing Pt's grogginess/ADLs with some assist, questionable if Pt will be ok at home with family at this point. Dr Levine would like to see Pt family, updated that they were here and Pearl, in care management, notified as well. No nausea, Pt is using the call light for needs.
[2018-03-30] MEDS: GABAPENTIN 300 MG CAPSULE PO ×2 (10:55→22:06)
[2018-03-30] MEDS: FOLIC ACID 1 MG TABLET PO (10:55)
[2018-03-30] MEDS: MULTIVIT,CALC,MINS/IRON/FOLIC 1 TABLET 1 TAB PO (10:55)
[2018-03-30] MEDS: LOSARTAN 25 MG TABLET PO (10:56)
[2018-03-30] MEDS: THIAMINE 100 MG TABLET PO (10:56)
[2018-03-30 11:58] LABS: Hematocrit 34.1 % (36-46); Hemoglobin 11.5 g/dL (12.0-16.0); Mean Corpuscular HGB Conc 33.6 % (30-36); Mean Corpuscular Hemoglobin 34.3 PG (26-34); Mean Corpuscular Volume 102.2 fL (80-100); Platelet Count 109 X10^3/uL (150-400); Red Blood Cell Count 3.33 X10^6/uL (4.0-5.2); Red Cell Distribution Width 13.4 % (11.6-14.8); White Blood Cell Count 5.4 X10^3/uL (4.5-11.0)
[2018-03-30 12:03] LABS: Alanine Aminotransferase 52 IU/L (9-52); Albumin 3.6 g/dL (3.5-5.0); Albumin Globulin Ratio 1.3 (1.0-2.8); Alkaline Phosphatase 73 U/L (38-126); Aspartate Aminotransferase 52 IU/L (14-36); Bilirubin Total 0.4 mg/dL (0.2-1.3); Blood Urea Nitrogen 6 mg/dL (7-17); Calcium 9.6 mg/dL (8.4-10.2); Carbon Dioxide 32 mmol/L (22-32); Chloride 95 mmol/L (98-107); Estimated Glomerular Filt Rate > 60.0 mL/min (>60); Globulin 2.8 g/dL (1.7-4.1); Glucose 115 mg/dL (70-100); HEMOLYSIS < 15 (0-50); Magnesium 1.5 mg/dL (1.6-2.3); Potassium 3.5 mmol/L (3.4-5.1); Sodium 134 mmol/L (137-145); Total Protein 6.4 g/dL (6.3-8.2)
[2018-03-30 12:17] LABS: Macrocytosis 1+; Neutrophils Absolute Manual 4644 /uL (3000-5900); Total Cells Counted 100
[2018-03-30] MEDS: MAGNESIUM OXIDE 400 MG TABLET PO ×2 (13:40→22:06)
[2018-03-30] MEDS: ONDANSETRON 4 MG/2 ML INJ IV (13:55)
--- NOTE | 2018-03-30 15:21 | CM.DPNOTE ---
DCP/Continued: Reviewed chart. Spoke with MD in AM rounds. PT evaluation ordered for today. It is not anticipated that patient will discharge today. Afternoon CIWA score (6). Met with patient and daughter's at bedside re: d/c plan. Patient considering one of two plans 1)[facility] for short stay. 2)Home to daughter's home until spouse returns from [place] in approximately 2 weeks. Encouraged patient to consider both options. Patient reports that she would prefer to go to her daughter/Deborah's home. However, she is agreeable to do phone intake with [facility]. Patient and family have been provided with brochure. Spoke this afternoon with Dr. Levine re: plan. He was informed that family unsure how comfortable they are taking patient home in her current state. They do feel like she continues to be detoxing. MD to round tomorrow and it is anticipated that patient will be medically stable for either option listed above. P: Pending. PAINT PREP TECHNICIAN following closely. ROSARIO Chaney
[2018-03-30 16:27] VITALS: BP 177/114; PULSE 98
[2018-03-30] MEDS: cloNIDine 0.1 MG TABLET PO (16:27)
[2018-03-30 16:37] VITALS: BP 177/114; PULSE 98; RESP 16; TEMP 36.7; O2SAT 99
[2018-03-30 19:34] VITALS: BP 138/77; PULSE 84; RESP 18; TEMP 36.3; O2SAT 100
--- NOTE | 2018-03-30 20:23 | PC.NURSE ---
Addendum entered by Kenya Barraza R.N. 03/30/18 22:10: Pt had medium, Guaiac positive stool. Continues to feel somewhat distended. Able to take PO meds without difficulty. Call light in reach. Bed alarm on. Original Note: Addendum entered by Kenya Barraza R.N. 03/30/18 21:27: 2125 - Pt reports abd discomfort and distention. Agreeable to use suppository this evening. Given. Monitor. Original Note: Pt was reported to have BM today on day shift. Pt states that she still feels like she needs to go. Discussed suppository. Pt refuses tonight. Maybe I will do that in the morning. Agreeable to drink prune juice. Provided. Mildly tremulous, minimal anxiety. CIWA 2. Using call light appropriately. Bed alarm on.
--- NOTE | 2018-03-30 20:56 | P.PN_ITS ---
Subjective Date Patient Seen: 03/30/18 Time Patient Seen: 16:53 Interval history: History of present illness Follow-up on patient with alcohol withdrawal syndrome and the upper GI bleed on admission\ Patient underwent EGD and gastritis esophagitis was identified. Review of systems Patient notes no chest pain or shortness of breath or nausea at this time Exam Vital Signs (past 8 hours): - 03/30/18 16:27 03/30/18 16:37 03/30/18 19:34 Temperature 98.0 F 97.3 F L Pulse Rate 98 H 98 H 84 Respiratory Rate 16 18 Blood Pressure 177/114 H 177/114 H 138/77 Pulse Oximetry 99 100 Oxygen Delivery Method Room Air Oxygen Flow Rate 0 Narrative Exam Narrative: General appearance awake and alert no apparent distress family at bedside Psychiatric exam patient is well oriented mood is pleasant affect is appropriate Respiratory fairly clear to auscultation no wheezes crackles good airflow Cardiovascular regular rate rhythm no murmurs +3 pulses to extremities GI no significant tenderness to palpation positive bowel sounds no distension no guarding no bruits Neurologic no focal neurologic changes no tremors noted cranial nerves 2-12 grossly intact Objective Labs Result Diagrams: 03/30/18 11:30 03/30/18 11:30 Labs: Laboratory Results - last 24 hr 03/30/18 03/30/18 11:30 11:30 WBC 5.4 RBC 3.33 L Hgb 11.5 L Hct 34.1 L MCV 102.2 H MCH 34.3 H MCHC 33.6 RDW 13.4 Plt Count 109 L Total Counted 100 Seg Neutrophils % 80.0 H Band Neutrophils % 6.0 Lymphocytes % (Manual) 8.0 L Monocytes % (Manual) 3.0 Eosinophils % (Manual) 1.0 L Basophils % (Manual) 2.0 H Neutrophils # (Manual) 4644 RBC Morphology Not Reportable Macrocytosis 1+ H Sodium 134 L Potassium 3.5 Chloride 95 L Carbon Dioxide 32 BUN 6 L Creatinine 0.40 L Estimated GFR > 60.0 BUN/Creatinine Ratio 15.0 Glucose 115 H Calcium 9.6 Magnesium 1.5 L Total Bilirubin 0.4 AST 52 H ALT 52 Alkaline Phosphatase 73 Total Protein 6.4 Albumin 3.6 Globulin 2.8 Albumin/Globulin Ratio 1.3 Assessment & Plan Plan: Assessment/Plan Narrative: Upper GI bleed -S/P EGD...severe esophagitis and gastritis. No active bleed noted on EGD -hemoglobin is reasonably stable -protonix drip to PPI PO BID on March 28 -continue to monitor hemoglobin levels 2. Alcohol withdrawal syndrome -CIWA with Ativan IV protocol provided. CIWA protocol discontinued in a.m. March 30. Patient had been off benzodiazepine for at least 14 hr with the night of March 29 -Advance diet and PO medications as tolerated 3. Lactic acidosis -likely due to alcohol abuse -lactic acid on admission 3.6 down to 2.8 4. Tachycardia -Resolved, hemodynamically stable. 5. Alcohol abuse -Continue MVI/FA/Thiamine -Alcohol cessation education -trying to have arrangements made for daughter to have patient discharged to stay with her -Will consider daughter to be toppiece cutter of Librium if patient to stay with her upon discharge Physical therapy in early afternoon on March 30 notes patient would benefit by 1 additional day in-hospital. Discharge held off. 6. Hypothyroidism -Resume levothyroxine at usual home dose 7. Hypertension Losartan provided Time Spent With Patient Time with patient: 25 - 35 minutes (25 min) Quality VTE Deep Vein Thrombosis/Pulmonary Embolism Present on Admission: No
[2018-03-30] MEDS: BISACODYL 10 MG SUPP PR (21:21)
[2018-03-30] MEDS: TRAZODONE 50 MG TABLET 25 MG PO (22:06)
[2018-03-31 00:05] VITALS: BP 144/77; PULSE 84; RESP 17; TEMP 36.6; O2SAT 97
[2018-03-31 05:00] VITALS: BP 135/79; PULSE 75; RESP 17; TEMP 36.6; O2SAT 96
[2018-03-31 05:41] LABS: Alanine Aminotransferase 56 IU/L (9-52); Albumin 3.4 g/dL (3.5-5.0); Albumin Globulin Ratio 1.1 (1.0-2.8); Alkaline Phosphatase 71 U/L (38-126); Aspartate Aminotransferase 51 IU/L (14-36); Bilirubin Total 0.2 mg/dL (0.2-1.3); Blood Urea Nitrogen 8 mg/dL (7-17); Calcium 9.4 mg/dL (8.4-10.2); Carbon Dioxide 31 mmol/L (22-32); Chloride 96 mmol/L (98-107); Estimated Glomerular Filt Rate > 60.0 mL/min (>60); Glucose 101 mg/dL (70-100); HEMOLYSIS 19 (0-50); Potassium 3.7 mmol/L (3.4-5.1); Sodium 133 mmol/L (137-145); Total Protein 6.4 g/dL (6.3-8.2)
[2018-03-31 05:45] LABS: Add Manual Diff / Slide Review NO; Basophils Percent Auto 0.3 % (0-2); Eosinophils Percent Auto 1.2 % (2-4); Hematocrit 34.3 % (36-46); Hemoglobin 12.1 g/dL (12.0-16.0); Lymphocytes Percent Auto 11.5 % (25-40); Mean Corpuscular HGB Conc 35.4 % (30-36); Mean Corpuscular Hemoglobin 35.6 PG (26-34); Mean Corpuscular Volume 100.6 fL (80-100); Neutrophils Absolute Auto 4100 /uL (3000-5900); Platelet Count 124 X10^3/uL (150-400); Red Cell Distribution Width 13.2 % (11.6-14.8); White Blood Cell Count 5.4 X10^3/uL (4.5-11.0)
[2018-03-31] MEDS: PANTOPRAZOLE 40 MG TABLET PO (06:49)
[2018-03-31] MEDS: LEVOTHYROXINE 75 MCG TABLET PO (06:49)
[2018-03-31 07:24] VITALS: BP 133/78; PULSE 76; RESP 18; TEMP 36.8; O2SAT 99
[2018-03-31] MEDS: MAGNESIUM OXIDE 400 MG TABLET PO (08:03)
[2018-03-31] MEDS: MULTIVIT,CALC,MINS/IRON/FOLIC 1 TABLET 1 TAB PO (08:03)
[2018-03-31] MEDS: GABAPENTIN 300 MG CAPSULE PO (08:03)
[2018-03-31] MEDS: LOSARTAN 25 MG TABLET PO (08:03)
[2018-03-31] MEDS: FOLIC ACID 1 MG TABLET PO (08:05)
[2018-03-31] MEDS: SODIUM CHLORIDE 0.9% FLUSH 10 ML IV (08:05)
[2018-03-31 08:42] VITALS: BP 145/87; PULSE 86; O2SAT 96
--- NOTE | 2018-03-31 08:42 | PT.IPTN ---
Addendum entered and electronically signed by Anna Gann, PT 03/31/18 09:26: I directly supervised and guided this session as needed. Sohail Gann, DPT Original Note: Current Diagnoses Alcohol dependence, uncomplicated (03/27/18) Esophageal varices without bleeding (03/27/18) Surgery Performed Operation Date: 03/27/18 12:45 Actual Procedures p Esophagogastroduodenoscopy WITH BIOPSY - Marquez Lopez MD Physical Therapy Treatment Note M2 PT-IP Current Condition Start: 03/30/18 13:08 Freq: NEEDED Status: Active Protocol: Document 03/30/18 14:07 (Rec: 03/30/18 14:51 [email or web address]) Physical Therapy Current Condition Current Condition Evaluation Date 03/30/18 Treatment Diagnosis ETOH withdrawal, impaired mobility and balance Onset Date Chronic/recurrent Precautions Other Precautions Balance; SBA mobility M3 PT-IP Subjective Start: 03/30/18 13:08 Freq: NEEDED Status: Active Protocol: Document 03/31/18 08:32 (Rec: 03/31/18 08:42 [id number]) Subjective Physical Therapy Visit Type Visit Start Time 08:05 Visit Stop Time 08:35 Total Visit Minutes 30 Physical Therapy Visit Comments Patient Comments Still feeling dizzy. Looking forward to breakfast and hungry but willing to take a walk with us today. Patient Goals Wants to go to [place] to stay with daughter after DC until returns from fishing (2 wks approx) M4 PT-IP Mobility and Gait Start: 03/30/18 13:08 Freq: NEEDED Status: Active Protocol: Document 03/31/18 08:32 (Rec: 03/31/18 08:42 [id number]) PT-Bed Mobility Assessment Rolling Type of Rolling Log Rolling Level of Assist Independent Supine to Sit Supine to Sit Independent Sit to Supine Sit to Supine Independent Scooting Scooting to Edge of Bed Independent PT-Transfer Assessment Sit to and From Stand Sit to and from Stand Independent Equipment Transfer Assistive Device None Transfers Transfer Destination Bed Chair Transfer Technique Stand Pivot Transfer Ability Level of Assist Independent Gait Assessment Gait Gait Assistance Required: Independent Distance (Feet) 300 Able to Maintain Weight Bearing Status Yes During Gait Assistive Devices Assistive Device None Orthotic/Prosthetic Devices or Brace: No Gait Deviations General Gait Pattern Within Normal Limits Comments Gait Comments Gait speed much faster today. OLENA is more narrow. Step lenghth increased. Amb total 300 ft approximately today. 100 ft (approx) in 1m27s PT-Balance Assessment Sitting Balance and Reactions Static Sitting Balance Ability Normal Dynamic Sitting Balance Ability Normal Standing Balance and Reactions Static Standing Balance Ability Normal Dynamic Standing Balance Ability Normal M5 PT-IP Objective Assessments Start: 03/30/18 13:08 Freq: NEEDED Status: Active Protocol: Document 03/30/18 14:07 (Rec: 03/30/18 14:51 [email or web address]) Orientation Orientation/Cognition Orientation Name Birthday Situation Language Function Ability No Deficits Noted Safety Awareness Decreased Safety Awareness Comments Decreased time responding to questions and directions. Repeated cues and extra time needed. Gross Range of Motion Upper Extremity ROM Assessment Within Functional Limits Lower Extremity ROM Assessment Within Functional Limits M6 PT-IP Treatment Start: 03/30/18 13:08 Freq: NEEDED Status: Active Protocol: Document 03/30/18 14:07 (Rec: 03/30/18 14:51 [email or web address]) Physical Therapy Treatment Exercises Exercises Ankle Pumps Gluteal Sets Shoulder Flexion Elbow Flexion/Extension Education Education Provided Safety M7 PT-IP Assessment and Plan Start: 03/30/18 13:08 Freq: NEEDED Status: Active Protocol: Document 03/31/18 08:32 (Rec: 03/31/18 08:42 [id number]) PT Summary Assessment and Plan Potential Rehabilitation Potential Good Status of Condition at Evaluation Evolving Summary Progress Towards Goals Progressing Toward Goals Assessment Summary Pt improving. Significant improvement in gait speed though pt still complainng of constant dizziness. Doesn't get worse with amb or mobility . Need to assess stair function/tolerances before discharge. Anticipate safe d/ c to daughter's home with 24/7 supervision. Recommend f/u with HH. Goals Bed Mobility Goal Independent Transfer Goal Independent Gait Goal Independent Days to Meet Goals 1 Frequency of Treatment Frequency Of Treatment Twice a Day Treatment Plan Other Recommendations and Next Treatment Assess stair function and SLS. Focus Recommendations To Nursing Amount of Assist Needed Standby Assistance Discharge Recommendations PT Discharge Recommendations Home with 24/7 Assist Other Discharge Recommendations Needs supervision but anticipate indep mobility
[2018-03-31 08:44] VITALS: BP 160/86; PULSE 89; O2SAT 99
[2018-03-31] MEDS: ONDANSETRON 4 MG/2 ML INJ IV (08:51)
--- NOTE | 2018-03-31 10:24 | PC.NURSE ---
Addendum entered by Luz Maria Rosa R.N. 03/31/18 13:21: This marine underwriter has reviewed student's documentation and agree with its contents. Original Note: Day Shift 0700 - assume care of patient 0800 - patient worked with PT doing 3 laps around the unit, and again with PT working on the stairs about an hour later. 0830 - pt experienced an episode of extreme stomach discomfort, she responded well to the IV Zofran and hasn't made any further complaints of stomach discomfort. 0900 - yellow/white patches were noted during the physical assessment of the pt's tongue bilaterally on sides, mentioned to primary nurse and documented in physical assessment. 1000 - pt independently showered and tolerated activity well. Is in bed resting. 1258 - pt complained of moderate back pain, addressed with PRN pain medication SEE MAR. will continue to monitor
--- NOTE | 2018-03-31 10:51 | PT.IIE ---
Current Diagnoses Alcohol dependence, uncomplicated (03/27/18) Esophageal varices without bleeding (03/27/18) Surgery Performed Operation Date: 03/27/18 12:45 Actual Procedures p Esophagogastroduodenoscopy WITH BIOPSY - Marquez Lopez MD Medical History (Last Updated 03/27/18 @ 06:26 by Qing Amaro MD) GI bleed (Acute) Erosive esophagitis (Chronic) Esophageal varices (Ruled-out) Alcohol abuse (Acute) Back pain (Chronic) Hypertension (Chronic) Hypothyroid (Chronic) Physical Therapy Inpatient Evaluation/Re-Eval M1 PT/OT-IP Prior Functional Status Start: 03/30/18 13:08 Freq: NEEDED Status: Active Protocol: Document 03/30/18 14:07 (Rec: 03/30/18 14:51 [email or web address]) Medical Review Prior Functional Status Medical History Reviewed Yes Communication No known deficits. Mobility and Gait States previous independence with previous incidence of falls. No assistive devices noted. Activities of Daily Living and IADL's Independent. Prior Functional Level (Other details) Drives. 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 Social History Household Members significant other Living Arrangements House Number of Floors (Floors) 3 or More Floors Number of Stairs To Enter/Railing? 3 steps to enter. Daughter's house has 5-6 steps to enter; pt possible stay with daughter at discharge until home. Home Environment Standard Height Toilet Tub/Shower Employment Status Unknown Additional Social History Comment Per RN 2 daughters estranged. 1 daughter who still has small children at home willing to help care for the patient at discharge. is commercial real estate sales manager, gone now and will be home in a few weeks. Access to 4ww (per pt- at her mother's home) M2 PT-IP Current Condition Start: 03/30/18 13:08 Freq: NEEDED Status: Active Protocol: Document 03/30/18 14:07 (Rec: 03/30/18 14:51 [email or web address]) Physical Therapy Current Condition Current Condition Evaluation Date 03/30/18 Treatment Diagnosis ETOH withdrawal, impaired mobility and balance Onset Date Chronic/recurrent Precautions Other Precautions Balance; SBA mobility M3 PT-IP Subjective Start: 03/30/18 13:08 Freq: NEEDED Status: Active Protocol: Document 03/31/18 08:32 (Rec: 03/31/18 08:42 [id number]) Subjective Physical Therapy Visit Type Visit Start Time 08:05 Visit Stop Time 08:35 Total Visit Minutes 30 Physical Therapy Visit Comments Patient Comments Still feeling dizzy. Looking forward to breakfast and hungry but willing to take a walk with us today. Patient Goals Wants to go to [place] to stay with daughter after DC until returns from fishing (2 wks approx) M4 PT-IP Mobility and Gait Start: 03/30/18 13:08 Freq: NEEDED Status: Active Protocol: Document 03/31/18 08:32 (Rec: 03/31/18 08:42 [id number]) PT-Bed Mobility Assessment Rolling Type of Rolling Log Rolling Level of Assist Independent Supine to Sit Supine to Sit Independent Sit to Supine Sit to Supine Independent Scooting Scooting to Edge of Bed Independent PT-Transfer Assessment Sit to and From Stand Sit to and from Stand Independent Equipment Transfer Assistive Device None Transfers Transfer Destination Bed Chair Transfer Technique Stand Pivot Transfer Ability Level of Assist Independent Gait Assessment Gait Gait Assistance Required: Independent Distance (Feet) 300 Able to Maintain Weight Bearing Status Yes During Gait Assistive Devices Assistive Device None Orthotic/Prosthetic Devices or Brace: No Gait Deviations General Gait Pattern Within Normal Limits Comments Gait Comments Gait speed much faster today. OLENA is more narrow. Step lenghth increased. Amb total 300 ft approximately today. 100 ft (approx) in 1m27s PT-Balance Assessment Sitting Balance and Reactions Static Sitting Balance Ability Normal Dynamic Sitting Balance Ability Normal Standing Balance and Reactions Static Standing Balance Ability Normal Dynamic Standing Balance Ability Normal M5 PT-IP Objective Assessments Start: 03/30/18 13:08 Freq: NEEDED Status: Active Protocol: Document 03/30/18 14:07 (Rec: 03/30/18 14:51 [email or web address]) Orientation Orientation/Cognition Orientation Name Birthday Situation Language Function Ability No Deficits Noted Safety Awareness Decreased Safety Awareness Comments Decreased time responding to questions and directions. Repeated cues and extra time needed. Gross Range of Motion Upper Extremity ROM Assessment Within Functional Limits Lower Extremity ROM Assessment Within Functional Limits M6 PT-IP Treatment Start: 03/30/18 13:08 Freq: NEEDED Status: Active Protocol: Document 03/30/18 14:07 (Rec: 03/30/18 14:51 [email or web address]) Physical Therapy Treatment Exercises Exercises Ankle Pumps Gluteal Sets Shoulder Flexion Elbow Flexion/Extension Education Education Provided Safety M7 PT-IP Assessment and Plan Start: 03/30/18 13:08 Freq: NEEDED Status: Active Protocol: Document 03/31/18 08:32 (Rec: 03/31/18 08:42 [id number]) PT Summary Assessment and Plan Potential Rehabilitation Potential Good Status of Condition at Evaluation Evolving Summary Progress Towards Goals Progressing Toward Goals Assessment Summary Pt improving. Significant improvement in gait speed though pt still complainng of constant dizziness. Doesn't get worse with amb or mobility . Need to assess stair function/tolerances before discharge. Anticipate safe d/ c to daughter's home with 24/7 supervision. Recommend f/u with HH. Goals Bed Mobility Goal Independent Transfer Goal Independent Gait Goal Independent Days to Meet Goals 1 Frequency of Treatment Frequency Of Treatment Twice a Day Treatment Plan Other Recommendations and Next Treatment Assess stair function and SLS. Focus Recommendations To Nursing Amount of Assist Needed Standby Assistance Discharge Recommendations PT Discharge Recommendations Home with 24/7 Assist Other Discharge Recommendations Needs supervision but anticipate indep mobility
--- NOTE | 2018-03-31 10:55 | PT.IPTN ---
Addendum entered and electronically signed by Anna Gann, PT 03/31/18 11:02: I directly supervised and guided this session. Sohail Gann, DPT Original Note: Current Diagnoses Alcohol dependence, uncomplicated (03/27/18) Esophageal varices without bleeding (03/27/18) Surgery Performed Operation Date: 03/27/18 12:45 Actual Procedures p Esophagogastroduodenoscopy WITH BIOPSY - Marquez Lopez MD Physical Therapy Treatment Note M2 PT-IP Current Condition Start: 03/30/18 13:08 Freq: NEEDED Status: Active Protocol: Document 03/30/18 14:07 (Rec: 03/30/18 14:51 [email or web address]) Physical Therapy Current Condition Current Condition Evaluation Date 03/30/18 Treatment Diagnosis ETOH withdrawal, impaired mobility and balance Onset Date Chronic/recurrent Precautions Other Precautions Balance; SBA mobility M3 PT-IP Subjective Start: 03/30/18 13:08 Freq: NEEDED Status: Active Protocol: Document 03/31/18 10:39 (Rec: 03/31/18 10:55 [id number]) Subjective Physical Therapy Visit Type Type Treatment Note Visit Start Time 09:50 Visit Stop Time 10:15 Total Visit Minutes 25 Physical Therapy Visit Comments Patient Comments Feels ready to try some stairs . Was a bit nauseated after breakfast but better now. Patient Goals Wants to shower. Wants to go to daughters home after d/c until returns. M4 PT-IP Mobility and Gait Start: 03/30/18 13:08 Freq: NEEDED Status: Active Protocol: Document 03/31/18 10:39 (Rec: 03/31/18 10:55 [id number]) PT-Bed Mobility Assessment Supine to Sit Supine to Sit Independent Sit to Supine Sit to Supine Independent Scooting Scooting to Edge of Bed Independent PT-Transfer Assessment Sit to and From Stand Sit to and from Stand Independent Equipment Transfer Assistive Device None Orthotic/Prosthetic Devices or Brace: No Transfers Transfer Destination Bed Chair Transfer Technique Forward/Backward Scoot Transfer Ability Level of Assist Independent Comments Mobility Comments Informally assessed balance. Pt bending and reaching into her back back for some hygeine items and maintains dynamic balance well with this task. Gait Assessment Gait Gait Assistance Required: Independent Able to Maintain Weight Bearing Status Yes During Gait Assistive Devices Assistive Device None Orthotic/Prosthetic Devices or Brace: No Gait Deviations General Gait Pattern Within Normal Limits Comments Gait Comments Gait speed remains improved. No LOB noted with amb. Stair Climbing Assessment Evaluation Level of Assist On Stairs Contact Guard Assistance Minimal Assistance Devices Stair Climbing Assistive Devices Left Railing Right Railing Technique/Endurance Stair Climbing Direction Ascend and Descend Stair Climbing Technique Step to Step Number of Steps Climbed 6 Query Text: Stair Climbing Set # Repetitions (reps) 2 Comments Stair Climbing Comments Pt goes up/down using B rails, B UE support. Attempted to up/down stairs without hands and has significant LOB. Reports feeling very unsteady when removes UE support. PT-Balance Assessment Sitting Balance and Reactions Static Sitting Balance Ability Normal Dynamic Sitting Balance Ability Normal Standing Balance and Reactions Static Standing Balance Ability Normal Dynamic Standing Balance Ability Normal Balance Tests Single Limb Standing R and L 2 secs each Comments Other Balance Tests/Deviations/Treatment SLS is 2 secs R and L. Pt : reports this was previously a difficult task (prior to admit ) M5 PT-IP Objective Assessments Start: 03/30/18 13:08 Freq: NEEDED Status: Active Protocol: Document 03/31/18 10:39 (Rec: 03/31/18 10:55 [id number]) Orientation Orientation/Cognition Level of Alertness Alert M6 PT-IP Treatment Start: 03/30/18 13:08 Freq: NEEDED Status: Active Protocol: Document 03/30/18 14:07 (Rec: 03/30/18 14:51 [email or web address]) Physical Therapy Treatment Exercises Exercises Ankle Pumps Gluteal Sets Shoulder Flexion Elbow Flexion/Extension Education Education Provided Safety M7 PT-IP Assessment and Plan Start: 03/30/18 13:08 Freq: NEEDED Status: Active Protocol: Document 03/31/18 10:39 (Rec: 03/31/18 10:55 [id number]) PT Summary Assessment and Plan Potential Rehabilitation Potential Good Status of Condition at Evaluation Stable Summary Assessment Summary Pt s/p ETOH withdrawal. Today shows continued improvement in gait tolerance, speed and stability. She still needs CGA to Maxine on stairs for safety and to prevent fall; she uses B UE and handrails to support up/down stairs, and there are no rails on the stairs up/down stairs of her daughters 6 steps to enter home. Discharge ok to daughters home with 24/7 supervision and understanding that she needs Maxine to CGA on stairs for safety. Recommend f/u HH. Goals Bed Mobility Goal Independent Transfer Goal Independent Gait Goal Independent Gait Distance 300 Days to Meet Goals 1 Frequency of Treatment Frequency Of Treatment Discharge Recommendations To Nursing Amount of Assist Needed Standby Assistance 1 Person Assist Discharge Recommendations PT Discharge Recommendations Home with 24/7 Assist Home Health
[2018-03-31 12:28] VITALS: BP 115/70; PULSE 88; RESP 16; TEMP 36.6; O2SAT 100
[2018-03-31] MEDS: CYCLOBENZAPRINE 10 MG TABLET PO (13:09)
--- NOTE | 2018-03-31 13:09 | PC.NURSE ---
Day Shift Note Pt alert and oriented to place and self. Conversation appropriate, remains impulsive at times. Bed/chair alarm on. Walking SBA in halls with PT and with staff. Reported onset of abdominal/stomach pain 8/10 and nausea after breakfast, zofran administered with good effect reported by patient. No further nausea/pain reported. Flexeril administered for pt report of 5/10 back pain. Sitting up to chair, call light within reach.
[2018-03-31] MEDS: chlordiazePOXIDE 10 MG CAPSULE PO (13:58)
--- NOTE | 2018-03-31 15:45 | CM.DPC ---
DCP/continued: Reviewed chart. Spoke with MD this AM in rounds. It is anticipated that patient will be discharged from [facility] today. Met with patient to discuss d/c plan. Patient alert and oriented, sitting up in recliner at time of visit. Patient seen by therapy and cleared to return home. Patient reports that she has done phone intake with [facility] for bed. Patient feels strong enough today to go to her daughter/Deborah's instead. Patient has spoken with daughter and she is in agreement for patient to stay there until spouse returns from [place]. Patient has been provided with resources for alcohol assistance. Patient will keep her name on list at [facility] today and call them back to cancel if needed. Patient made aware that she can call them anytime for detox or with questions/support. RN updated. P: Home today with supportive family. Resources provided for substance abuse. ROSARIO Chaney
--- NOTE | 2018-04-01 10:03 | P.DS_ITS ---
History of Present Illness Date Patient Seen: 03/31/18 Time Patient Seen: 16:04 Chief complaint: GI Bleed Narrative: PATIENT ADMITTED TO HOSPITAL WITH UPPER GI BLEEDING AND ALCOHOL WITHDRAWAL SYNDROME. EGD COMPLETED EARLY IN HOSPITAL COURSE AND CIWA ATIVAN PROTOCOL PROVIDED TO MANAGE THE WITHDRAWAL SYNDROME. 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 No active bleed noted during EGD -hemoglobin stable after EGD -protonix drip changed to PPI PO BID on March 28 2. Alcohol withdrawal syndrome -CIWA with Ativan IV protocol provided. CIWA protocol discontinued in a.m. March 30. Patient had been off benzodiazepine for at least 14 hr when CIWA protocol confidently discontinued. -Advance diet and PO medications as tolerated 3. Lactic acidosis -related to alcohol abuse and dehydrated state -lactic acid trended down as expected. 4. Tachycardia -Resolved during hospital course. Likely related to the alcohol withdrawal syndrome 5. Alcohol abuse -Continued MVI/FA/Thiamine -Alcohol cessation education - Arrangements made for daughter to have patient discharged to stay with her -Offered daughter to be riding silks custodian of [employer] if patient to stay with her upon discharge Librium prescription provided to daughter Physical therapist deemed patient suitable for discharge to daughter's home on Mar 31. 6. Hypothyroidism -Resume levothyroxine at usual home dose 7. Hypertension Losartan provided Hospital Course: PATIENT ADMITTED TO HOSPITAL WITH UPPER GI BLEEDING AND ALCOHOL WITHDRAWAL SYNDROME. EGD COMPLETED EARLY IN HOSPITAL COURSE AND CIWA ATIVAN PROTOCOL PROVIDED TO MANAGE THE WITHDRAWAL SYNDROME. Gastritis and Esophagitis without bleeding noted by EGD and PPI provided. In accord with CIWA Ativan orders the protocol was discontinued after patient observed with CIWA score of less than 8 when off benzodiazepine for at least 8 hours. Multiple conversations with family at bedside to help coordinate successful discharge plan for patient to continue alcohol abstinence. Exam Vital Signs (past 8 hours): Oxygen Delivery Method Room Air Oxygen Flow Rate 0 Narrative Exam Narrative: General appearance awake and alert no apparent distress family at bedside Psychiatric exam patient is well oriented mood is pleasant affect is appropriate Respiratory fairly clear to auscultation no wheezes crackles good airflow Cardiovascular regular rate rhythm no murmurs +3 pulses to extremities GI no significant tenderness to palpation positive bowel sounds no distension no guarding no bruits Neurologic no focal neurologic changes no tremors noted cranial nerves 2-12 grossly intact Objective Labs Result Diagrams: 03/31/18 05:06 03/31/18 05:06 Discharge Plan Discharge Plan Patient Disposition: Home Discharge Med Rec/Prescriptions Prescriptions: New naltrexone 50 mg tablet 50 mg PO DAILY Qty: 30 RF: 2 chlordiazepoxide HCl 10 mg capsule 10 mg PO Q12H MDD 3 PRN (Reason: alcohol abstinence) Qty: 60 RF: 0 citalopram 20 mg tablet 20 mg PO DAILY Qty: 30 RF: 4 levothyroxine 75 mcg tablet 75 mcg PO DAILY Qty: 30 RF: 2 Continue losartan 25 mg tablet 25 mg PO DAILY Qty: 30 RF: 2 gabapentin [Neurontin] 300 MG capsule 300 mg PO BID PRN (Reason: Back Pain) Qty: 60 RF: 2 cyclobenzaprine 10 mg tablet 10 mg PO BID PRN (Reason: Back Pain) 30 Days Qty: 60 RF: 0 trazodone 50 mg tablet 1 - 2 tab PO BEDTIME PRN (Reason: Insomnia) Qty: 45 RF: 2 diphenhydramine-acetaminophen [Tylenol PM Extra Strength] 25-500 mg Tablet 2 tab PO BEDTIME PRN (Reason: Insomnia) Qty: 60 RF: 0 Visit Report/Discharge Packet Instructions: DI for Gastritis, DI for Alcohol Abuse, Chlordiazepoxide, Naltrexone, Citalopram Visit Report Forms: Stroke Signs & Symptoms Discharge Data Attending Provider: Qing Amaro Admit Date/Time: 03/27/18 03:31 Discharges patient from system. Discharge Date/Time: 03/31/18 17:31 Quality VTE Deep Vein Thrombosis/Pulmonary Embolism Present on Admission: No
== END 2018-03-31 17:31 | disposition home or self-care (01) | DRG 381 ==
LOC: ED 03-27 02:52 → ICU 03-27 08:44
PROVIDERS: Internal Medicine; Specialist; Admitting Provider Internal Medicine; Emergency Provider Emergency Medicine; Visit Provider Internal Medicine
PROC: 0DJ08ZZ Inspection of Upper Intestinal Tract, Via Natural or Artificial Opening Endoscopic (ICD-10-PCS; CPT 43235; principal; 2018-03-27 12:45)
DX: K22.11 Ulcer of esophagus with bleeding (principal); F10.230 Alcohol dependence with withdrawal, uncomplicated; E87.2 Acidosis; K29.70 Gastritis, unspecified, without bleeding; Y90.8 Blood alcohol level of 240 mg/100 ml or more; I10 Essential (primary) hypertension; E03.9 Hypothyroidism, unspecified; F41.9 Anxiety disorder, unspecified; R00.0 Tachycardia, unspecified
CPT/HCPCS: 36415; 43239; 51701; 71045; 74018; 80048; 80053; 80305; 80320; 81003; 81015; 83605; 83690; 83735; 85014; 85018; 85025; 85610; 85730; 86850; 86900; 86901; 87797; 93005; 96361; 96365; 96375; 96376; 97116; 97530; 99232; 99285; 99291; 99292; C9113; J0360; J1630; J2060; J2250; J2354; J2405; J2704; J3010; J3475

== ENCOUNTER 2018-07-30 21:30 | Emergency (ER) | payer OTHER, SELFPAY ==
[2018-03-27 03:41] VITALS: BMI 23.1
[2018-07-30 22:11] VITALS: BP 147/102; PULSE 127; RESP 22; TEMP 36.6; O2SAT 97
[2018-07-30 22:30] VITALS: BP 157/96; PULSE 107; RESP 12; O2SAT 89
--- NOTE | 2018-07-30 22:31 | DI.RAD.S_ITS ---
PROCEDURE: XR CHEST 1V INDICATIONS: GI bleed TECHNIQUE: One view of the chest was acquired. COMPARISON: [facility], CR, XR CHEST 1V, 03/26/2018, 21:02. FINDINGS: Surgical changes and devices: None. Lungs and pleura: Streaky pulmonary radiopacities are present at the left lung base. These are similar in extent to the study dated 03/26/18. The right lung is clear. No pleural effusion or pneumothorax. Mediastinum: Mediastinal contours appear normal. Heart size is normal. Bones and chest wall: No suspicious bony lesions. Overlying soft tissues appear unremarkable. IMPRESSION: Stable left basilar pulmonary radiopacities suggesting atelectasis. Dictated by: Pauly Boucher M.D. on 07/30/2018 at 22:55 Approved by: Pauly Boucher M.D. on 07/30/2018 at 22:56
--- NOTE | 2018-07-30 22:31 | ED.GIBLEED ---
HPI - GI Bleed General Chief complaint: GI Bleed Stated complaint: STATES VOMITING BLOOD Time Seen by Provider: 07/30/18 22:27 Source: patient Mode of arrival: ambulatory Limitations: no limitations History of Present Illness HPI Narrative: 58-year-old female nonsmoker and chronic daily drinker with history of hypertension and hypothyroidism presents to the emergency department with a chief complaint of epigastric pain and multiple episodes of vomiting coffee-ground emesis over the course of the day. She is dizzy, weak and lightheaded. She has gone through alcohol withdrawal and had GI bleeds on multiple occasions. she denies runny nose or sore throat. She has denies any fever. She denies any falls or injuries. She denies any bright red blood in her emesis nor any change in bowel habits. Her last drink was sometime yesterday MD complaint: coffee ground emesis Onset (ago): hour(s) Pain Consistency: constant Severity: moderate Relieving factors: none Exacerbating factors: none Context: history of GI bleed Associated symptoms: denies other symptoms Treatments Prior to Arrival: none Related Data Previous Rx's Medication Instructions Recorded chlordiazepoxide HCl 10 mg PO Q12H PRN #60 cap MDD 3 03/31/18 citalopram 20 mg PO DAILY #30 tab 03/31/18 diphenhydramine-acetaminophen 2 tab PO BEDTIME PRN #60 tab 03/31/18 [Tylenol PM Extra Strength] gabapentin [Neurontin] 300 mg PO BID PRN #60 cap 03/31/18 levothyroxine 75 mcg PO DAILY #30 tab 03/31/18 losartan 25 mg PO DAILY #30 tab 03/31/18 naltrexone 50 mg PO DAILY #30 tab 03/31/18 trazodone 1 - 2 tab PO BEDTIME PRN #45 tab 03/31/18 Allergies Allergy/AdvReac Type Severity Reaction Status Date / Time codeine Allergy Unknown VOMITING Verified 01/17/18 18:40 medroxyprogesterone Allergy Unknown MEDROXYPROGESTERONE Verified 01/17/18 18:41 MAKES HER CRAZY Review of Systems Constitutional Denies chills, Denies fever(s), Denies lethargy and Reports weakness Eyes Denies change in vision, Denies eye discharge, Denies irritation and Denies loss of vision ENT Ears, Nose, Mouth, and Throat: Denies change in voice, Denies neck pain and Denies sore throat Cardiovascular Denies chest pain, Denies irregular heart rhythm, Denies lightheadedness, Denies palpitations, Denies dyspnea, Denies dyspnea on exertion and Denies orthopnea Respiratory Denies cough, Denies dyspnea, Denies dyspnea on exertion and Denies wheezing Gastrointestinal Gastrointestinal: Reports abdominal pain, Denies change in bowel habits, Reports coffee ground emesis, Denies diarrhea, Denies nausea and Reports vomiting Genitourinary Denies hematuria, Denies flank pain, Denies urinary incontinence and Denies urinary urgency Musculoskeletal Denies neck pain Integumentary/Breasts Denies pruritus, Denies erythema, Denies rash and Denies wounds Neurologic Denies confusion, Denies loss of vision and Reports weakness Psychiatric Denies anxiety, Denies confusion, Denies depression, Denies homicidal ideation and Denies suicidal ideation Endocrine Denies palpitations Hematologic/Lymphatic Denies easy bruising Allergic/Immunologic Denies wheezing [facility] Medical History Alcohol abuse (Acute) GI bleed (Acute) Back pain (Chronic) Erosive esophagitis (Chronic) Hypertension (Chronic) Hypothyroid (Chronic) Esophageal varices (Ruled-out) Social History household members: significant other Smoking Status: Never smoker alcohol intake: current Social History household members: significant other Smoking Status: Never smoker alcohol intake: current Exam Narrative Exam Narrative: GENERAL: 58-year-old female in obvious distress, complaining of pain, resting with wet tile on her forehead, eyes closed HEAD: Atraumatic. Normocephalic. No temporal or scalp tenderness. EYES: pale conjunctiva, Pupils equal round and reactive. Extraocular motions intact. No scleral icterus. No injection or drainage. ENT: Nose without bleeding, purulent drainage or septal hematoma. Throat without erythema, tonsillar hypertrophy or exudate. Uvula midline. Airway patent. NECK: Trachea midline. No JVD or lymphadenopathy. Supple, nontender, no meningeal signs. CARDIOVASCULAR: tachycardic rate but regular rhythm without murmurs, gallops, or rubs. RESPIRATORY: Clear to auscultation. Breath sounds equal bilaterally. No wheezes, rales, or rhonchi. GASTROINTESTINAL: Abdomen soft, mild tenderness, nondistended. No hepato-splenomegaly, or palpable masses. No guarding. EXTREMITIES: No clubbing, cyanosis, or edema. No joint tenderness, effusion, or edema noted. BACK: Nontender without deformity or crepitance. No flank tenderness. NEURO: AOx3. SKIN: No rash or erythema. Initial Vital Signs Initial Vital Signs: Vital Signs Temperature 97.8 F 07/30/18 22:11 Pulse Rate 127 H 07/30/18 22:11 Respiratory Rate 22 07/30/18 22:11 Blood Pressure 147/102 H 07/30/18 22:11 Pulse Oximetry 97 07/30/18 22:11 Course Orders Ordered: ED Orders 07/30/18 22:18 Complete Blood Count AUTO DIFF Stat Comprehensive Metabolic Panel Stat Partial Thromboplastin Time Stat Prothrombin Time INR Stat Type and Screen Stat 07/30/18 22:30 EKG-12 Lead Stat 07/30/18 22:31 XR chest 1V Stat 07/30/18 22:40 Lactate (Lactic Acid) Stat Discontinued Medications Pantoprazole Sodium 80 mg/ (Sodium Chloride) 100 mls @ 10 mls/hr IV CONT CRYSTAL Last Infusion: 07/31/18 01:57 Dose: 8 mg/hr, 10 mls/hr Admin: 07/30/18 22:50 Dose: 8 mg/hr, 10 mls/hr Octreotide Acetate 500 mcg/ (Sodium Chloride) 101 mls @ 10.1 mls/hr IV CONT CRYSTAL; Protocol Last Infusion: 07/31/18 01:58 Dose: 49.99 mcg/hr, 10.1 mls/hr Admin: 07/31/18 00:19 Dose: 50 mcg/hr, 10.1 mls/hr Lorazepam (Ativan) 1 mg IV NOW ONE Stop: 07/31/18 01:54 Last Admin: 07/31/18 01:55 Dose: 1 mg Metoclopramide HCl (Reglan) 10 mg IV NOW ONE Stop: 07/30/18 22:57 Last Admin: 07/30/18 22:57 Dose: 10 mg Octreotide Acetate (Sandostatin) 50 mcg IV NOW ONE Stop: 07/30/18 22:31 Last Admin: 07/30/18 22:49 Dose: 50 mcg Ondansetron HCl (Zofran) 4 mg IV NOW ONE Stop: 07/30/18 22:31 Last Admin: 07/30/18 22:49 Dose: 4 mg Pantoprazole Sodium (Protonix) 80 mg IV NOW ONE Stop: 07/30/18 22:31 Last Admin: 07/30/18 22:49 Dose: 80 mg Reevaluation(s) Reevaluation #1: patient feeling better after above stated therapies Consultations Consultation #1: call to hospitalist, we share opinion that given her history and high suspicion for esophageal varices that this is not the appropriate facility Consultation #2: Called to Gastroenterology at [facility], they are happy to be involved in the care of this patient and please with our therapies but recommend admission to hospitalist Consultation #3: Hospitalist at [facility] happy to accept this patient Vital Signs - 8 hr 07/30/18 22:11 07/30/18 22:30 07/30/18 23:00 Temperature 97.8 F Pulse Rate 127 H 107 H 115 H Respiratory Rate 22 12 10 L Blood Pressure 147/102 H Blood Pressure [Left Arm] 157/96 H 167/106 H Pulse Oximetry 97 89 L 97 07/31/18 00:13 07/31/18 01:45 Temperature Pulse Rate 122 H 134 H Respiratory Rate 20 21 Blood Pressure Blood Pressure [Left Arm] 175/98 H 161/101 H Pulse Oximetry 97 97 MDM - GI Bleed Lab Data Result diagrams: 07/30/18 22:18 07/30/18 22:18 Lab Results 07/30/18 07/30/18 07/30/18 Range/Units 22:18 22:18 22:18 WBC 17.9 H (4.5-11.0) X10^3/uL RBC 4.91 (4.0-5.2) X10^6/uL Hgb 14.9 (12.0-16.0) g/dL Hct 44.5 (36-46) % MCV 90.7 (80-100) fL MCH 30.4 (26-34) PG MCHC 33.5 (30-36) % RDW 14.8 (11.6-14.8) % Plt Count 319 (150-400) X10^3/uL Neut % (Auto) 88.4 H (50-75) % Lymph % (Auto) 7.0 L (25-40) % [place] % (Auto) 3.9 (3-14) % Eos % (Auto) 0.2 L (2-4) % Baso % (Auto) 0.5 (0-2) % Neut # (Auto) 60063 H (0844-3045) /uL Lymph # (Auto) 1300 (2442-6314) /uL [place] # (Auto) 700 (0-900) /uL Eos # (Auto) 0 (0-450) /uL Baso # (Auto) 100 (0-100) /uL PT 9.8 L (10.1-12.7) SECONDS INR 0.9 (0.9-1.3) APTT 31 D (26.4-36.2) SECONDS Sodium 136 L (137-145) mmol/L Potassium 4.3 (3.4-5.1) mmol/L Chloride 87 L (98-107) mmol/L Carbon Dioxide 28 (22-32) mmol/L BUN 16 (7-17) mg/dL Creatinine 0.70 (0.52-1.04) mg/dL Estimated GFR > 60.0 (>60) mL/min BUN/Creatinine Ratio 22.9 H (6-22) Glucose 118 H (80-110) mg/dL Lactate (0.7-2.1) mmol/L Calcium 9.5 (8.4-10.2) mg/dL Total Bilirubin 0.3 (0.2-1.3) mg/dL AST 36 (14-36) IU/L ALT 22 (9-52) IU/L Alkaline Phosphatase 93 (38-126) U/L Total Protein 8.2 (6.3-8.2) g/dL Albumin 4.9 (3.5-5.0) g/dL Globulin 3.3 (1.7-4.1) g/dL Albumin/Globulin Ratio 1.5 (1.0-2.8) Blood Type Antibody Screen 07/30/18 07/30/18 Range/Units 22:18 22:40 WBC (4.5-11.0) X10^3/uL RBC (4.0-5.2) X10^6/uL Hgb (12.0-16.0) g/dL Hct (36-46) % MCV (80-100) fL MCH (26-34) PG MCHC (30-36) % RDW (11.6-14.8) % Plt Count (150-400) X10^3/uL Neut % (Auto) (50-75) % Lymph % (Auto) (25-40) % [place] % (Auto) (3-14) % Eos % (Auto) (2-4) % Baso % (Auto) (0-2) % Neut # (Auto) (4901-7465) /uL Lymph # (Auto) (4615-4722) /uL [place] # (Auto) (0-900) /uL Eos # (Auto) (0-450) /uL Baso # (Auto) (0-100) /uL PT (10.1-12.7) SECONDS INR (0.9-1.3) APTT (26.4-36.2) SECONDS Sodium (137-145) mmol/L Potassium (3.4-5.1) mmol/L Chloride (98-107) mmol/L Carbon Dioxide (22-32) mmol/L BUN (7-17) mg/dL Creatinine (0.52-1.04) mg/dL Estimated GFR (>60) mL/min BUN/Creatinine Ratio (6-22) Glucose (80-110) mg/dL Lactate 4.3 H (0.7-2.1) mmol/L Calcium (8.4-10.2) mg/dL Total Bilirubin (0.2-1.3) mg/dL AST (14-36) IU/L ALT (9-52) IU/L Alkaline Phosphatase (38-126) U/L Total Protein (6.3-8.2) g/dL Albumin (3.5-5.0) g/dL Globulin (1.7-4.1) g/dL Albumin/Globulin Ratio (1.0-2.8) Blood Type A Positive Antibody Screen Negative Discharge Plan Departure Patient Disposition: [facility] Clinical Impression: Acute upper gastrointestinal bleeding Discharge Date/Time: 07/31/18 01:58 Interventions: ED Discharge Assessment Last Done: 07/31/18 01:14 Prescriptions: No Action naltrexone 50 mg tablet 50 mg PO DAILY Qty: 30 RF: 2 chlordiazepoxide HCl 10 mg capsule 10 mg PO Q12H MDD 3 PRN (Reason: alcohol abstinence) Qty: 60 RF: 0 citalopram 20 mg tablet 20 mg PO DAILY Qty: 30 RF: 4 levothyroxine 75 mcg tablet 75 mcg PO DAILY Qty: 30 RF: 2 losartan 25 mg tablet 25 mg PO DAILY Qty: 30 RF: 2 gabapentin [Neurontin] 300 MG capsule 300 mg PO BID PRN (Reason: Back Pain) Qty: 60 RF: 2 trazodone 50 mg tablet 1 - 2 tab PO BEDTIME PRN (Reason: Insomnia) Qty: 45 RF: 2 diphenhydramine-acetaminophen [Tylenol PM Extra Strength] 25-500 mg Tablet 2 tab PO BEDTIME PRN (Reason: Insomnia) Qty: 60 RF: 0
--- NOTE | 2018-07-30 22:35 | ED_ITS ---
HPI - GI Bleed General Chief complaint: GI Bleed Stated complaint: STATES VOMITING BLOOD Time Seen by Provider: 07/30/18 22:27 Source: patient Mode of arrival: ambulatory Limitations: no limitations History of Present Illness HPI Narrative: 58-year-old female nonsmoker and chronic daily drinker with history of hypertension and hypothyroidism presents to the emergency department with a chief complaint of epigastric pain and multiple episodes of vomiting coffee-ground emesis over the course of the day. She is dizzy, weak and lightheaded. She has gone through alcohol withdrawal and had GI bleeds on multiple occasions. she denies runny nose or sore throat. She has denies any fever. She denies any falls or injuries. She denies any bright red blood in her emesis nor any change in bowel habits. Her last drink was sometime yesterday MD complaint: coffee ground emesis Onset (ago): hour(s) Pain Consistency: constant Severity: moderate Relieving factors: none Exacerbating factors: none Context: history of GI bleed Associated symptoms: denies other symptoms Treatments Prior to Arrival: none Related Data Previous Rx's Medication Instructions Recorded chlordiazepoxide HCl 10 mg PO Q12H PRN #60 cap MDD 3 03/31/18 citalopram 20 mg PO DAILY #30 tab 03/31/18 diphenhydramine-acetaminophen 2 tab PO BEDTIME PRN #60 tab 03/31/18 [Tylenol PM Extra Strength] gabapentin [Neurontin] 300 mg PO BID PRN #60 cap 03/31/18 levothyroxine 75 mcg PO DAILY #30 tab 03/31/18 losartan 25 mg PO DAILY #30 tab 03/31/18 naltrexone 50 mg PO DAILY #30 tab 03/31/18 trazodone 1 - 2 tab PO BEDTIME PRN #45 tab 03/31/18 Allergies Allergy/AdvReac Type Severity Reaction Status Date / Time codeine Allergy Unknown VOMITING Verified 01/17/18 18:40 medroxyprogesterone Allergy Unknown MEDROXYPROGESTERONE Verified 01/17/18 18:41 MAKES HER CRAZY Review of Systems Constitutional Denies chills, Denies fever(s), Denies lethargy and Reports weakness Eyes Denies change in vision, Denies eye discharge, Denies irritation and Denies loss of vision ENT Ears, Nose, Mouth, and Throat: Denies change in voice, Denies neck pain and Denies sore throat Cardiovascular Denies chest pain, Denies irregular heart rhythm, Denies lightheadedness, Denies palpitations, Denies dyspnea, Denies dyspnea on exertion and Denies orthopnea Respiratory Denies cough, Denies dyspnea, Denies dyspnea on exertion and Denies wheezing Gastrointestinal Gastrointestinal: Reports abdominal pain, Denies change in bowel habits, Reports coffee ground emesis, Denies diarrhea, Denies nausea and Reports vomiting Genitourinary Denies hematuria, Denies flank pain, Denies urinary incontinence and Denies urinary urgency Musculoskeletal Denies neck pain Integumentary/Breasts Denies pruritus, Denies erythema, Denies rash and Denies wounds Neurologic Denies confusion, Denies loss of vision and Reports weakness Psychiatric Denies anxiety, Denies confusion, Denies depression, Denies homicidal ideation and Denies suicidal ideation Endocrine Denies palpitations Hematologic/Lymphatic Denies easy bruising Allergic/Immunologic Denies wheezing [facility] Medical History Alcohol abuse (Acute) GI bleed (Acute) Back pain (Chronic) Erosive esophagitis (Chronic) Hypertension (Chronic) Hypothyroid (Chronic) Esophageal varices (Ruled-out) Social History household members: significant other Smoking Status: Never smoker alcohol intake: current Social History household members: significant other Smoking Status: Never smoker alcohol intake: current Exam Narrative Exam Narrative: GENERAL: 58-year-old female in obvious distress, complaining of pain, resting with wet tile on her forehead, eyes closed HEAD: Atraumatic. Normocephalic. No temporal or scalp tenderness. EYES: pale conjunctiva, Pupils equal round and reactive. Extraocular motions intact. No scleral icterus. No injection or drainage. ENT: Nose without bleeding, purulent drainage or septal hematoma. Throat without erythema, tonsillar hypertrophy or exudate. Uvula midline. Airway patent. NECK: Trachea midline. No JVD or lymphadenopathy. Supple, nontender, no meningeal signs. CARDIOVASCULAR: tachycardic rate but regular rhythm without murmurs, gallops, or rubs. RESPIRATORY: Clear to auscultation. Breath sounds equal bilaterally. No wheezes , rales, or rhonchi. GASTROINTESTINAL: Abdomen soft, mild tenderness, nondistended. No hepato- splenomegaly, or palpable masses. No guarding. EXTREMITIES: No clubbing, cyanosis, or edema. No joint tenderness, effusion, or edema noted. BACK: Nontender without deformity or crepitance. No flank tenderness. NEURO: AOx3. SKIN: No rash or erythema. Initial Vital Signs Initial Vital Signs: Vital Signs Temperature 97.8 F 07/30/18 22:11 Pulse Rate 127 H 07/30/18 22:11 Respiratory Rate 22 07/30/18 22:11 Blood Pressure 147/102 H 07/30/18 22:11 Pulse Oximetry 97 07/30/18 22:11 Course Orders Ordered: ED Orders 07/30/18 22:18 Complete Blood Count AUTO DIFF Stat Comprehensive Metabolic Panel Stat Partial Thromboplastin Time Stat Prothrombin Time INR Stat Type and Screen Stat 07/30/18 22:30 EKG-12 Lead Stat 07/30/18 22:31 XR chest 1V Stat 07/30/18 22:40 Lactate (Lactic Acid) Stat Discontinued Medications Pantoprazole Sodium 80 mg/ (Sodium Chloride) 100 mls @ 10 mls/hr IV CONT CRYSTAL Last Infusion: 07/31/18 01:57 Dose: 8 mg/hr, 10 mls/hr Admin: 07/30/18 22:50 Dose: 8 mg/hr, 10 mls/hr Octreotide Acetate 500 mcg/ (Sodium Chloride) 101 mls @ 10.1 mls/hr IV CONT CRYSTAL ; Protocol Last Infusion: 07/31/18 01:58 Dose: 49.99 mcg/hr, 10.1 mls/hr Admin: 07/31/18 00:19 Dose: 50 mcg/hr, 10.1 mls/hr Lorazepam (Ativan) 1 mg IV NOW ONE Stop: 07/31/18 01:54 Last Admin: 07/31/18 01:55 Dose: 1 mg Metoclopramide HCl (Reglan) 10 mg IV NOW ONE Stop: 07/30/18 22:57 Last Admin: 07/30/18 22:57 Dose: 10 mg Octreotide Acetate (Sandostatin) 50 mcg IV NOW ONE Stop: 07/30/18 22:31 Last Admin: 07/30/18 22:49 Dose: 50 mcg Ondansetron HCl (Zofran) 4 mg IV NOW ONE Stop: 07/30/18 22:31 Last Admin: 07/30/18 22:49 Dose: 4 mg Pantoprazole Sodium (Protonix) 80 mg IV NOW ONE Stop: 07/30/18 22:31 Last Admin: 07/30/18 22:49 Dose: 80 mg Reevaluation(s) Reevaluation #1: patient feeling better after above stated therapies Consultations Consultation #1: call to hospitalist, we share opinion that given her history and high suspicion for esophageal varices that this is not the appropriate facility Consultation #2: Called to Gastroenterology at [facility], they are happy to be involved in the care of this patient and please with our therapies but recommend admission to hospitalist Consultation #3: Hospitalist at [facility] happy to accept this patient Vital Signs - 8 hr 07/30/18 22:11 07/30/18 22:30 07/30/18 23:00 Temperature 97.8 F Pulse Rate 127 H 107 H 115 H Respiratory Rate 22 12 10 L Blood Pressure 147/102 H Blood Pressure [Left Arm] 157/96 H 167/106 H Pulse Oximetry 97 89 L 97 07/31/18 00:13 07/31/18 01:45 Temperature Pulse Rate 122 H 134 H Respiratory Rate 20 21 Blood Pressure Blood Pressure [Left Arm] 175/98 H 161/101 H Pulse Oximetry 97 97 MDM - GI Bleed Lab Data Result diagrams: 07/30/18 22:18 07/30/18 22:18 Lab Results 07/30/18 07/30/18 07/30/18 Range/Units 22:18 22:18 22:18 WBC 17.9 H (4.5-11.0) X10^3/uL RBC 4.91 (4.0-5.2) X10^6/uL Hgb 14.9 (12.0-16.0) g/dL Hct 44.5 (36-46) % MCV 90.7 (80-100) fL MCH 30.4 (26-34) PG MCHC 33.5 (30-36) % RDW 14.8 (11.6-14.8) % Plt Count 319 (150-400) X10^3/uL Neut % (Auto) 88.4 H (50-75) % Lymph % (Auto) 7.0 L (25-40) % [place] % (Auto) 3.9 (3-14) % Eos % (Auto) 0.2 L (2-4) % Baso % (Auto) 0.5 (0-2) % Neut # (Auto) 82309 H (7917-2461) /uL Lymph # (Auto) 1300 (7695-3398) /uL [place] # (Auto) 700 (0-900) /uL Eos # (Auto) 0 (0-450) /uL Baso # (Auto) 100 (0-100) /uL PT 9.8 L (10.1-12.7) SECONDS INR 0.9 (0.9-1.3) APTT 31 D (26.4-36.2) SECONDS Sodium 136 L (137-145) mmol/L Potassium 4.3 (3.4-5.1) mmol/L Chloride 87 L (98-107) mmol/L Carbon Dioxide 28 (22-32) mmol/L BUN 16 (7-17) mg/dL Creatinine 0.70 (0.52-1.04) mg/dL Estimated GFR > 60.0 (>60) mL/min BUN/Creatinine Ratio 22.9 H (6-22) Glucose 118 H (80-110) mg/dL Lactate (0.7-2.1) mmol/L Calcium 9.5 (8.4-10.2) mg/dL Total Bilirubin 0.3 (0.2-1.3) mg/dL AST 36 (14-36) IU/L ALT 22 (9-52) IU/L Alkaline Phosphatase 93 (38-126) U/L Total Protein 8.2 (6.3-8.2) g/dL Albumin 4.9 (3.5-5.0) g/dL Globulin 3.3 (1.7-4.1) g/dL Albumin/Globulin Ratio 1.5 (1.0-2.8) Blood Type Antibody Screen 07/30/18 07/30/18 Range/Units 22:18 22:40 WBC (4.5-11.0) X10^3/uL RBC (4.0-5.2) X10^6/uL Hgb (12.0-16.0) g/dL Hct (36-46) % MCV (80-100) fL MCH (26-34) PG MCHC (30-36) % RDW (11.6-14.8) % Plt Count (150-400) X10^3/uL Neut % (Auto) (50-75) % Lymph % (Auto) (25-40) % [place] % (Auto) (3-14) % Eos % (Auto) (2-4) % Baso % (Auto) (0-2) % Neut # (Auto) (7493-2438) /uL Lymph # (Auto) (4198-4382) /uL Wayne # (Auto) (0-900) /uL Eos # (Auto) (0-450) /uL Baso # (Auto) (0-100) /uL PT (10.1-12.7) SECONDS INR (0.9-1.3) APTT (26.4-36.2) SECONDS Sodium (137-145) mmol/L Potassium (3.4-5.1) mmol/L Chloride (98-107) mmol/L Carbon Dioxide (22-32) mmol/L BUN (7-17) mg/dL Creatinine (0.52-1.04) mg/dL Estimated GFR (>60) mL/min BUN/Creatinine Ratio (6-22) Glucose (80-110) mg/dL Lactate 4.3 H (0.7-2.1) mmol/L Calcium (8.4-10.2) mg/dL Total Bilirubin (0.2-1.3) mg/dL AST (14-36) IU/L ALT (9-52) IU/L Alkaline Phosphatase (38-126) U/L Total Protein (6.3-8.2) g/dL Albumin (3.5-5.0) g/dL Globulin (1.7-4.1) g/dL Albumin/Globulin Ratio (1.0-2.8) Blood Type A Positive Antibody Screen Negative Discharge Plan Departure Patient Disposition: [facility] Clinical Impression: Acute upper gastrointestinal bleeding Discharge Date/Time: 07/31/18 01:58 Interventions: ED Discharge Assessment Last Done: 07/31/18 01:14 Prescriptions: No Action naltrexone 50 mg tablet 50 mg PO DAILY Qty: 30 RF: 2 chlordiazepoxide HCl 10 mg capsule 10 mg PO Q12H MDD 3 PRN (Reason: alcohol abstinence) Qty: 60 RF: 0 citalopram 20 mg tablet 20 mg PO DAILY Qty: 30 RF: 4 levothyroxine 75 mcg tablet 75 mcg PO DAILY Qty: 30 RF: 2 losartan 25 mg tablet 25 mg PO DAILY Qty: 30 RF: 2 gabapentin [Neurontin] 300 MG capsule 300 mg PO BID PRN (Reason: Back Pain) Qty: 60 RF: 2 trazodone 50 mg tablet 1 - 2 tab PO BEDTIME PRN (Reason: Insomnia) Qty: 45 RF: 2 diphenhydramine-acetaminophen [Tylenol PM Extra Strength] 25-500 mg Tablet 2 tab PO BEDTIME PRN (Reason: Insomnia) Qty: 60 RF: 0
[2018-07-30 22:44] LABS: Add Manual Diff / Slide Review NO; Basophils Absolute Auto 100 /uL (0-100); Basophils Percent Auto 0.5 % (0-2); Eosinophils Absolute Auto 0 /uL (0-450); Eosinophils Percent Auto 0.2 % (2-4); Hematocrit 44.5 % (36-46); Hemoglobin 14.9 g/dL (12.0-16.0); Lymphocytes Absolute Auto 1300 /uL (1100-4500); Mean Corpuscular HGB Conc 33.5 % (30-36); Mean Corpuscular Hemoglobin 30.4 PG (26-34); Mean Corpuscular Volume 90.7 fL (80-100); Monocytes Absolute Auto 700 /uL (0-900); Monocytes Percent Auto 3.9 % (3-14); Neutrophils Absolute Auto 15800 /uL (1500-7000); Neutrophils Percent Auto 88.4 % (50-75); Platelet Count 319 X10^3/uL (150-400); Red Blood Cell Count 4.91 X10^6/uL (4.0-5.2); Red Cell Distribution Width 14.8 % (11.6-14.8); White Blood Cell Count 17.9 X10^3/uL (4.5-11.0)
[2018-07-30 22:46] LABS: INR 0.9 (0.9-1.3); Prothrombin Time 9.8 SECONDS (10.1-12.7)
[2018-07-30 22:48] LABS: PTT Partial Thromboplastin Tim 31 SECONDS (26.4-36.2)
[2018-07-30] MEDS: OCTREOTIDE 100 MCG/ML VIAL 50 MCG IV (22:49)
[2018-07-30] MEDS: PANTOPRAZOLE 40 MG VIAL 80 MG IV (22:49)
[2018-07-30] MEDS: ONDANSETRON 4 MG/2 ML INJ IV (22:49)
[2018-07-30 22:50] LABS: Alanine Aminotransferase 22 IU/L (9-52); Albumin 4.9 g/dL (3.5-5.0); Albumin Globulin Ratio 1.5 (1.0-2.8); Alkaline Phosphatase 93 U/L (38-126); Aspartate Aminotransferase 36 IU/L (14-36); BUN Creatinine Ratio 22.9 (6-22); Bilirubin Total 0.3 mg/dL (0.2-1.3); Blood Urea Nitrogen 16 mg/dL (7-17); Calcium 9.5 mg/dL (8.4-10.2); Carbon Dioxide 28 mmol/L (22-32); Chloride 87 mmol/L (98-107); Estimated Glomerular Filt Rate > 60.0 mL/min (>60); Globulin 3.3 g/dL (1.7-4.1); Glucose 118 mg/dL (80-110); HEMOLYSIS < 15 (0-50); Potassium 4.3 mmol/L (3.4-5.1); Sodium 136 mmol/L (137-145); Total Protein 8.2 g/dL (6.3-8.2)
[2018-07-30] MEDS: PANTOPRAZOLE 80 MG in SODIUM CHLORIDE 0.9% 100 ML 10 ML IV (22:50)
[2018-07-30] MEDS: METOCLOPRAMIDE 10 MG/2 ML INJ IV (22:57)
--- NOTE | 2018-07-30 22:58 | PC.NURSE ---
Pt vomited 400, red to the color
[2018-07-30 23:00] VITALS: BP 167/106; PULSE 115; RESP 10; O2SAT 97
[2018-07-30 23:01] LABS: Lactate (Lactic Acid) 4.3 mmol/L (0.7-2.1)
--- NOTE | 2018-07-31 00:03 | PC.NURSE ---
Samara at [place] aware of pts transfer and transport to [facility],gave approval and stated that she would put a note in the chart
[2018-07-31 00:13] VITALS: BP 175/98; PULSE 122; RESP 20; O2SAT 97
[2018-07-31] MEDS: OCTREOTIDE 500 MCG in SODIUM CHLORIDE 0.9% 100 ML 10.1 ML IV (00:19)
--- NOTE | 2018-07-31 01:06 | PC.NURSE ---
Attempted to call report to [facility],she was not available. They said she would call back for report
[2018-07-31 01:45] VITALS: BP 161/101; PULSE 134; RESP 21; O2SAT 97
[2018-07-31] MEDS: LORazepam 2 MG/ML SYRINGE 1 MG IV (01:55)
[2018-07-31 02:49] LABS: Reflexed Lactate in 2 Hours Y
== END 2018-07-31 01:58 | disposition short-term general hospital (02) ==
PROVIDERS: Emergency Provider Emergency Medicine; PCP Physician Assistant
DX: K92.2 Gastrointestinal hemorrhage, unspecified (principal)
CPT/HCPCS: 36415; 36591; 71045; 80053; 83605; 85025; 85610; 85730; 86850; 86900; 86901; 93005; 96365; 96366; 96368; 96375; 99284; 99291; 99292; C9113; J2060; J2354; J2405; J2765

== ENCOUNTER 2018-10-02 23:50 | Emergency (ER) | payer OTHER, SELFPAY ==
[2018-03-27 03:41] VITALS: BMI 23.1
[2018-10-02 23:54] VITALS: BP 180/109; PULSE 109; RESP 21; TEMP 37.1; O2SAT 98; BMI 23.0
[2018-10-03] VITALS (8 sets, daily range): BP systolic 167–194; BP diastolic 77–97; PULSE 114–125; RESP 17–21; O2SAT 93–98
[2018-10-03] MEDS: METOCLOPRAMIDE 10 MG/2 ML INJ IV (00:17)
[2018-10-03 00:18] LABS: Add Manual Diff / Slide Review NO; Basophils Absolute Auto 0 /uL (0-100); Basophils Percent Auto 0.1 % (0-2); Eosinophils Absolute Auto 0 /uL (0-450); Hematocrit 46.5 % (36-46); Hemoglobin 15.9 g/dL (12.0-16.0); Lymphocytes Absolute Auto 800 /uL (1100-4500); Lymphocytes Percent Auto 4.1 % (25-40); Mean Corpuscular HGB Conc 34.1 % (30-36); Mean Corpuscular Hemoglobin 31.4 PG (26-34); Mean Corpuscular Volume 92.1 fL (80-100); Monocytes Absolute Auto 1300 /uL (0-900); Monocytes Percent Auto 6.5 % (3-14); Neutrophils Absolute Auto 17900 /uL (1500-7000); Neutrophils Percent Auto 89.3 % (50-75); Platelet Count 493 X10^3/uL (150-400); Red Blood Cell Count 5.04 X10^6/uL (4.0-5.2); Red Cell Distribution Width 16.1 % (11.6-14.8); White Blood Cell Count 20.1 X10^3/uL (4.5-11.0)
[2018-10-03] MEDS: PANTOPRAZOLE 80 MG in SODIUM CHLORIDE 0.9% 100 ML 10 ML IV (00:18)
[2018-10-03] MEDS: PANTOPRAZOLE 40 MG VIAL IV (00:18)
[2018-10-03] MEDS: SODIUM CHLORIDE 0.9% 1,000 ML 150 ML IV (00:19)
[2018-10-03 00:26] LABS: INR 0.9 (0.9-1.3); Prothrombin Time 10.2 SECONDS (10.1-12.7)
--- NOTE | 2018-10-03 00:27 | ED.GIBLEED ---
HPI - GI Bleed General Chief complaint: GI Bleed Stated complaint: Vomiting blood Time Seen by Provider: 10/02/18 23:55 Source: patient, EMS and old records reviewed Mode of arrival: EMS Limitations: no limitations History of Present Illness HPI Narrative: Patient is a 58-year-old female with known alcoholism presents with vomiting coffee-ground emesis. She has had this happen multiple times. In fact July 2018 she was seen here and transferred to [facility] where she had an EGD is she does not have history of varices. EGD in July showed LA grade D ulcerative esophagitis, mild gastropathy and small hiatal hernia. Patient states that she had any EGD 2 days ago at [facility] she said that it was healed. She said she was vomiting for last few days even yesterday but this evening she started vomiting up coffee-ground emesis. MD complaint: coffee ground emesis Onset (ago): day(s) Pain Consistency: constant Context: history of GI bleed Related Data Previous Rx's Medication Instructions Recorded chlordiazepoxide HCl 10 mg PO Q12H PRN #60 cap MDD 3 03/31/18 citalopram 20 mg PO DAILY #30 tab 03/31/18 diphenhydramine-acetaminophen 2 tab PO BEDTIME PRN #60 tab 03/31/18 [Tylenol PM Extra Strength] gabapentin [Neurontin] 300 mg PO BID PRN #60 cap 03/31/18 levothyroxine 75 mcg PO DAILY #30 tab 03/31/18 losartan 25 mg PO DAILY #30 tab 03/31/18 naltrexone 50 mg PO DAILY #30 tab 03/31/18 trazodone 1 - 2 tab PO BEDTIME PRN #45 tab 03/31/18 Allergies Allergy/AdvReac Type Severity Reaction Status Date / Time codeine Allergy Unknown VOMITING Verified 10/03/18 00:01 medroxyprogesterone Allergy Unknown MEDROXYPROGESTERONE Verified 10/03/18 00:01 MAKES HER CRAZY Review of Systems Review of Systems ROS Unobtainable: All systems reviewed & are unremarkable except as noted in HPI and below Eyes Denies change in vision, Denies eye discharge, Denies irritation and Denies loss of vision ENT Ears, Nose, Mouth, and Throat: Denies change in voice, Denies neck pain and Denies sore throat Cardiovascular Denies chest pain, Reports rapid heart rate, Denies lightheadedness, Denies dyspnea and Denies dyspnea on exertion Respiratory Denies cough, Denies dyspnea, Denies dyspnea on exertion and Denies wheezing Gastrointestinal Gastrointestinal: Reports as per HPI Genitourinary Denies hematuria, Denies flank pain, Denies urinary incontinence and Denies urinary urgency Musculoskeletal Denies neck pain Integumentary/Breasts Denies pruritus, Denies erythema, Denies rash and Denies wounds Neurologic Denies loss of vision Allergic/Immunologic Denies wheezing [facility] Medical History Alcohol abuse (Acute) GI bleed (Acute) Back pain (Chronic) Erosive esophagitis (Chronic) Hypertension (Chronic) Hypothyroid (Chronic) Esophageal varices (Ruled-out) Social History household members: significant other Smoking Status: Never smoker alcohol intake: current Social History household members: significant other Smoking Status: Never smoker alcohol intake: current Exam Initial Vital Signs Initial Vital Signs: Vital Signs Temperature 98.8 F 10/02/18 23:54 Pulse Rate 109 H 10/02/18 23:54 Respiratory Rate 21 10/02/18 23:54 Blood Pressure 180/109 H 10/02/18 23:54 Pulse Oximetry 98 10/02/18 23:54 GENERAL: Alert ill appearing female actively vomiting coffee-ground emesis HEENT: Head atraumatic,EOMI, pupils reactive, CARDIOVASCULAR: Tachycardic regular no murmur RESPIRATORY: Breath sounds equal bilaterally, no wheezes rales or rhonchi. ABDOMEN: Soft, tender epigastric area no guarding no rebound EXTREMITIES: Normal range of motion, no clubbing or edema. Neurovascularly intact NEUROLOGICAL: Alert and oriented x4. SKIN: Warm, dry, no laceration, no petechiae, no rashes or lesions. Course Orders Ordered: ED Orders 10/03/18 00:05 Acetaminophen Stat Complete Blood Count AUTO DIFF Stat Comprehensive Metabolic Panel Stat Ethanol (ETOH) Stat Ketones (Beta-Hydroxybutyrate) Stat Lactate (Lactic Acid) Stat Lipase Stat Osmolality, Serum Stat Partial Thromboplastin Time Stat Prothrombin Time INR Stat Salicylate Stat Type and Screen Stat 10/03/18 01:10 Arterial Blood Gas Stat 10/03/18 01:12 CT abdomen pelvis w con Stat 10/03/18 01:23 Urinalysis and Microscopic Stat Urine Drug Screen, Rapid Stat 10/03/18 02:07 Lactate 2HR (Lactic Acid Rflx) Stat 10/03/18 02:51 EKG-12 Lead Stat 10/03/18 03:37 XR chest 1V Stat Pantoprazole Sodium 80 mg/ (Sodium Chloride) 100 mls @ 10 mls/hr IV CONT CRSYTAL Last Admin: 10/03/18 00:18 Dose: 8 mg/hr, 10 mls/hr Sodium Chloride (Normal Saline 0.9%) 1,000 mls @ 150 mls/hr IV CONT CRYSTAL Last Infusion: 10/03/18 02:21 Dose: 0 mls/hr Admin: 10/03/18 00:19 Dose: 150 mls/hr Dextrose/Sodium Chloride (Dextrose 5%-0.45% Ns) 1,000 mls @ 150 mls/hr IV CONT CRYSTAL Last Infusion: 10/03/18 03:36 Dose: 250 mls/hr Admin: 10/03/18 02:11 Dose: 150 mls/hr Discontinued Medications Lorazepam (Ativan) 1 mg IV NOW ONE Stop: 10/03/18 02:08 Last Admin: 10/03/18 02:12 Dose: 1 mg Metoclopramide HCl (Reglan) 10 mg IV NOW ONE Stop: 10/03/18 00:05 Last Admin: 10/03/18 00:17 Dose: 10 mg Ondansetron HCl (Zofran) 4 mg IV NOW ONE Stop: 10/03/18 00:01 Last Admin: 10/03/18 01:02 Dose: Not Given Pantoprazole Sodium (Protonix) 40 mg IV NOW ONE Stop: 10/03/18 00:01 Last Admin: 10/03/18 00:18 Dose: 40 mg Thiamine HCl (Vitamin B-1) 100 mg PO NOW ONE Stop: 10/03/18 03:24 Last Admin: 10/03/18 03:31 Dose: 100 mg Consultations Consultation #1: lb, Surgery at [facility], no surgery or intervention at this time. May admit to Internal Medicine Racheal ELI, updated patient's symptoms test results. Is quite worried about patient's lactic acid would prefer if she be transferred to another facility. Time: 02:48 Consultation #3: 03:11 Dr. Cordero ICU at [facility], no indication for ICU despite severely elevated lactic acid. Doesn't think ethylene glycol. [id number]-Dr. Castle, hospitalist at [facility] happily except. Time: 03:11 Vital Signs - 8 hr 10/02/18 23:54 10/03/18 00:00 10/03/18 00:30 Temperature 98.8 F Pulse Rate 109 H 117 H 120 H Respiratory Rate 21 19 18 Blood Pressure 180/109 H Blood Pressure [Left Arm] 185/97 H 194/91 H Pulse Oximetry 98 94 93 10/03/18 01:00 10/03/18 01:30 10/03/18 02:00 Temperature Pulse Rate 118 H 114 H 117 H Respiratory Rate 20 17 20 Blood Pressure Blood Pressure [Left Arm] 172/77 H 176/92 H Pulse Oximetry 98 97 97 10/03/18 02:30 10/03/18 03:57 Temperature Pulse Rate 121 H 124 H Respiratory Rate 20 18 Blood Pressure Blood Pressure [Left Arm] 167/87 H Pulse Oximetry 96 94 MDM - GI Bleed Medical Records Attestation: I reviewed the patient's medical records. [facility] records have been reviewed. Complete note from 09/29/2018 for EGD is not complete. Lab Data Attestation: I reviewed the patient's lab results. anion gap 26 Measured osmolality 285 Result diagrams: 10/03/18 00:05 10/03/18 00:05 Lab Results 10/03/18 10/03/18 10/03/18 Range/Units 00:05 00:05 00:05 WBC 20.1 H (4.5-11.0) X10^3/uL RBC 5.04 (4.0-5.2) X10^6/uL Hgb 15.9 (12.0-16.0) g/dL Hct 46.5 H (36-46) % MCV 92.1 (80-100) fL MCH 31.4 (26-34) PG MCHC 34.1 (30-36) % RDW 16.1 H (11.6-14.8) % Plt Count 493 H (150-400) X10^3/uL Neut % (Auto) 89.3 H (50-75) % Lymph % (Auto) 4.1 L (25-40) % [place] % (Auto) 6.5 (3-14) % Eos % (Auto) 0.0 L (2-4) % Baso % (Auto) 0.1 (0-2) % Neut # (Auto) 63358 H (0283-1875) /uL Lymph # (Auto) 800 L (6795-6172) /uL [place] # (Auto) 1300 H (0-900) /uL Eos # (Auto) 0 (0-450) /uL Baso # (Auto) 0 (0-100) /uL PT 10.2 (10.1-12.7) SECONDS INR 0.9 (0.9-1.3) APTT 30 (26.4-36.2) SECONDS ABG pH (7.35-7.45) ABG pCO2 (35-45) mmHg ABG pO2 (80-100) mmHg ABG HCO3 (22-26) mmol/L ABG Total CO2 (21-31) mmol/L ABG O2 Saturation (95-100) % ABG Base Excess (-2-2) mmol/L FiO2 Sodium 133 L (137-145) mmol/L Potassium 4.0 (3.4-5.1) mmol/L Chloride 88 L (98-107) mmol/L Carbon Dioxide 19 L (22-32) mmol/L BUN 15 (7-17) mg/dL Creatinine 0.80 (0.52-1.04) mg/dL Estimated GFR > 60.0 (>60) mL/min BUN/Creatinine Ratio 18.8 (6-22) Glucose 172 H (80-110) mg/dL Lactate (0.7-2.1) mmol/L Calcium 9.4 (8.4-10.2) mg/dL Total Bilirubin 0.7 (0.2-1.3) mg/dL AST 36 (14-36) IU/L ALT 29 (9-52) IU/L Alkaline Phosphatase 106 (38-126) U/L Total Protein 8.2 (6.3-8.2) g/dL Albumin 4.7 (3.5-5.0) g/dL Globulin 3.5 (1.7-4.1) g/dL Albumin/Globulin Ratio 1.3 (1.0-2.8) Lipase (23-300) U/L Urine Color Urine Appearance Urine pH (4.5-8.0) Ur Specific Portia (1.000-1.035) Urine Protein (Negative) Urine Glucose (UA) (Negative) g/dL Urine Ketones (NEGATIVE) Urine Occult Blood (Negative) Urine Nitrate (Negative) Urine Bilirubin (NEGATIVE) Urine Urobilinogen (0.2) E.U./dL Ur Leukocyte Esterase (NEGATIVE) Urine RBC (0-5/HPF) Urine WBC (0-5/HPF) Ur Squamous Epith Cells (0-5/HPF) Urine Bacteria (None) Hyaline Casts (None) Granular Casts (None) Ur Culture Indicated? Salicylates (<20) mg/dL Urine Opiates Screen (Negative) Ur Oxycodone Screen (Negative) Urine Methadone Screen (Negative) Acetaminophen (10-30) ug/mL Ur Barbiturates Screen (Negative) U Tricyclic Antidepress (Negative) Ur Phencyclidine Scrn (Negative) Ur Amphetamines Screen (Negative) U Methamphetamines Scrn (Negative) Ur MDMA Scrn (Ecstasy) (Negative) U Benzodiazepines Scrn (Negative) Urine Cocaine Screen (Negative) U Marijuana (THC) Screen (Negative) Ethyl Alcohol mg/dL Ketones (<0.27) mmol/L Blood Type Antibody Screen 10/03/18 10/03/18 10/03/18 Range/Units 00:05 00:05 00:05 WBC (4.5-11.0) X10^3/uL RBC (4.0-5.2) X10^6/uL Hgb (12.0-16.0) g/dL Hct (36-46) % MCV (80-100) fL MCH (26-34) PG MCHC (30-36) % RDW (11.6-14.8) % Plt Count (150-400) X10^3/uL Neut % (Auto) (50-75) % Lymph % (Auto) (25-40) % [place] % (Auto) (3-14) % Eos % (Auto) (2-4) % Baso % (Auto) (0-2) % Neut # (Auto) (4970-2441) /uL Lymph # (Auto) (0895-1267) /uL [place] # (Auto) (0-900) /uL Eos # (Auto) (0-450) /uL Baso # (Auto) (0-100) /uL PT (10.1-12.7) SECONDS INR (0.9-1.3) APTT (26.4-36.2) SECONDS ABG pH (7.35-7.45) ABG pCO2 (35-45) mmHg ABG pO2 (80-100) mmHg ABG HCO3 (22-26) mmol/L ABG Total CO2 (21-31) mmol/L ABG O2 Saturation (95-100) % ABG Base Excess (-2-2) mmol/L FiO2 Sodium (137-145) mmol/L Potassium (3.4-5.1) mmol/L Chloride (98-107) mmol/L Carbon Dioxide (22-32) mmol/L BUN (7-17) mg/dL Creatinine (0.52-1.04) mg/dL Estimated GFR (>60) mL/min BUN/Creatinine Ratio (6-22) Glucose (80-110) mg/dL Lactate 7.3 H (0.7-2.1) mmol/L Calcium (8.4-10.2) mg/dL Total Bilirubin (0.2-1.3) mg/dL AST (14-36) IU/L ALT (9-52) IU/L Alkaline Phosphatase (38-126) U/L Total Protein (6.3-8.2) g/dL Albumin (3.5-5.0) g/dL Globulin (1.7-4.1) g/dL Albumin/Globulin Ratio (1.0-2.8) Lipase 37 (23-300) U/L Urine Color Urine Appearance Urine pH (4.5-8.0) Ur Specific Portia (1.000-1.035) Urine Protein (Negative) Urine Glucose (UA) (Negative) g/dL Urine Ketones (NEGATIVE) Urine Occult Blood (Negative) Urine Nitrate (Negative) Urine Bilirubin (NEGATIVE) Urine Urobilinogen (0.2) E.U./dL Ur Leukocyte Esterase (NEGATIVE) Urine RBC (0-5/HPF) Urine WBC (0-5/HPF) Ur Squamous Epith Cells (0-5/HPF) Urine Bacteria (None) Hyaline Casts (None) Granular Casts (None) Ur Culture Indicated? Salicylates (<20) mg/dL Urine Opiates Screen (Negative) Ur Oxycodone Screen (Negative) Urine Methadone Screen (Negative) Acetaminophen (10-30) ug/mL Ur Barbiturates Screen (Negative) U Tricyclic Antidepress (Negative) Ur Phencyclidine Scrn (Negative) Ur Amphetamines Screen (Negative) U Methamphetamines Scrn (Negative) Ur MDMA Scrn (Ecstasy) (Negative) U Benzodiazepines Scrn (Negative) Urine Cocaine Screen (Negative) U Marijuana (THC) Screen (Negative) Ethyl Alcohol mg/dL Ketones (<0.27) mmol/L Blood Type A Positive Antibody Screen Negative 10/03/18 10/03/18 10/03/18 Range/Units 00:05 00:05 00:05 WBC (4.5-11.0) X10^3/uL RBC (4.0-5.2) X10^6/uL Hgb (12.0-16.0) g/dL Hct (36-46) % MCV (80-100) fL MCH (26-34) PG MCHC (30-36) % RDW (11.6-14.8) % Plt Count (150-400) X10^3/uL Neut % (Auto) (50-75) % Lymph % (Auto) (25-40) % [place] % (Auto) (3-14) % Eos % (Auto) (2-4) % Baso % (Auto) (0-2) % Neut # (Auto) (8369-5751) /uL Lymph # (Auto) (5959-9597) /uL [place] # (Auto) (0-900) /uL Eos # (Auto) (0-450) /uL Baso # (Auto) (0-100) /uL PT (10.1-12.7) SECONDS INR (0.9-1.3) APTT (26.4-36.2) SECONDS ABG pH (7.35-7.45) ABG pCO2 (35-45) mmHg ABG pO2 (80-100) mmHg ABG HCO3 (22-26) mmol/L ABG Total CO2 (21-31) mmol/L ABG O2 Saturation (95-100) % ABG Base Excess (-2-2) mmol/L FiO2 Sodium (137-145) mmol/L Potassium (3.4-5.1) mmol/L Chloride (98-107) mmol/L Carbon Dioxide (22-32) mmol/L BUN (7-17) mg/dL Creatinine (0.52-1.04) mg/dL Estimated GFR (>60) mL/min BUN/Creatinine Ratio (6-22) Glucose (80-110) mg/dL Lactate (0.7-2.1) mmol/L Calcium (8.4-10.2) mg/dL Total Bilirubin (0.2-1.3) mg/dL AST (14-36) IU/L ALT (9-52) IU/L Alkaline Phosphatase (38-126) U/L Total Protein (6.3-8.2) g/dL Albumin (3.5-5.0) g/dL Globulin (1.7-4.1) g/dL Albumin/Globulin Ratio (1.0-2.8) Lipase (23-300) U/L Urine Color Urine Appearance Urine pH (4.5-8.0) Ur Specific Portia (1.000-1.035) Urine Protein (Negative) Urine Glucose (UA) (Negative) g/dL Urine Ketones (NEGATIVE) Urine Occult Blood (Negative) Urine Nitrate (Negative) Urine Bilirubin (NEGATIVE) Urine Urobilinogen (0.2) E.U./dL Ur Leukocyte Esterase (NEGATIVE) Urine RBC (0-5/HPF) Urine WBC (0-5/HPF) Ur Squamous Epith Cells (0-5/HPF) Urine Bacteria (None) Hyaline Casts (None) Granular Casts (None) Ur Culture Indicated? Salicylates < 1.0 (<20) mg/dL Urine Opiates Screen (Negative) Ur Oxycodone Screen (Negative) Urine Methadone Screen (Negative) Acetaminophen < 10 L (10-30) ug/mL Ur Barbiturates Screen (Negative) U Tricyclic Antidepress (Negative) Ur Phencyclidine Scrn (Negative) Ur Amphetamines Screen (Negative) U Methamphetamines Scrn (Negative) Ur MDMA Scrn (Ecstasy) (Negative) U Benzodiazepines Scrn (Negative) Urine Cocaine Screen (Negative) U Marijuana (THC) Screen (Negative) Ethyl Alcohol 127 mg/dL Ketones 0.76 H (<0.27) mmol/L Blood Type Antibody Screen 10/03/18 10/03/18 10/03/18 Range/Units 01:10 01:23 01:23 WBC (4.5-11.0) X10^3/uL RBC (4.0-5.2) X10^6/uL Hgb (12.0-16.0) g/dL Hct (36-46) % MCV (80-100) fL MCH (26-34) PG MCHC (30-36) % RDW (11.6-14.8) % Plt Count (150-400) X10^3/uL Neut % (Auto) (50-75) % Lymph % (Auto) (25-40) % [place] % (Auto) (3-14) % Eos % (Auto) (2-4) % Baso % (Auto) (0-2) % Neut # (Auto) (1517-4248) /uL Lymph # (Auto) (4640-1264) /uL [place] # (Auto) (0-900) /uL Eos # (Auto) (0-450) /uL Baso # (Auto) (0-100) /uL PT (10.1-12.7) SECONDS INR (0.9-1.3) APTT (26.4-36.2) SECONDS ABG pH 7.49 H (7.35-7.45) ABG pCO2 26.3 L (35-45) mmHg ABG pO2 85 (80-100) mmHg ABG HCO3 20 L (22-26) mmol/L ABG Total CO2 21 (21-31) mmol/L ABG O2 Saturation 97 (95-100) % ABG Base Excess -3.0 L (-2-2) mmol/L FiO2 0.21 Sodium (137-145) mmol/L Potassium (3.4-5.1) mmol/L Chloride (98-107) mmol/L Carbon Dioxide (22-32) mmol/L BUN (7-17) mg/dL Creatinine (0.52-1.04) mg/dL Estimated GFR (>60) mL/min BUN/Creatinine Ratio (6-22) Glucose (80-110) mg/dL Lactate (0.7-2.1) mmol/L Calcium (8.4-10.2) mg/dL Total Bilirubin (0.2-1.3) mg/dL AST (14-36) IU/L ALT (9-52) IU/L Alkaline Phosphatase (38-126) U/L Total Protein (6.3-8.2) g/dL Albumin (3.5-5.0) g/dL Globulin (1.7-4.1) g/dL Albumin/Globulin Ratio (1.0-2.8) Lipase (23-300) U/L Urine Color Yellow Urine Appearance Clear Urine pH 5.0 (4.5-8.0) Ur Specific Portia >=1.030 H (1.000-1.035) Urine Protein 1+ H (Negative) Urine Glucose (UA) Negative (Negative) g/dL Urine Ketones 1+ H (NEGATIVE) Urine Occult Blood 2+ H (Negative) Urine Nitrate Negative (Negative) Urine Bilirubin Negative (NEGATIVE) Urine Urobilinogen 0.2 (0.2) E.U./dL Ur Leukocyte Esterase Negative (NEGATIVE) Urine RBC 0-1/hpf (0-5/HPF) Urine WBC 0-1/hpf (0-5/HPF) Ur Squamous Epith Cells 0-1 /hpf (0-5/HPF) Urine Bacteria None seen (None) Hyaline Casts 1-5/lpf (None) Granular Casts 0-1/lpf (None) Ur Culture Indicated? Cult not indicated Salicylates (<20) mg/dL Urine Opiates Screen Negative (Negative) Ur Oxycodone Screen Negative (Negative) Urine Methadone Screen Negative (Negative) Acetaminophen (10-30) ug/mL Ur Barbiturates Screen Negative (Negative) U Tricyclic Antidepress Positive H (Negative) Ur Phencyclidine Scrn Negative (Negative) Ur Amphetamines Screen Negative (Negative) U Methamphetamines Scrn Negative (Negative) Ur MDMA Scrn (Ecstasy) Negative (Negative) U Benzodiazepines Scrn Negative (Negative) Urine Cocaine Screen Negative (Negative) U Marijuana (THC) Screen Positive H (Negative) Ethyl Alcohol mg/dL Ketones (<0.27) mmol/L Blood Type Antibody Screen 10/03/18 Range/Units 02:07 WBC (4.5-11.0) X10^3/uL RBC (4.0-5.2) X10^6/uL Hgb (12.0-16.0) g/dL Hct (36-46) % MCV (80-100) fL MCH (26-34) PG MCHC (30-36) % RDW (11.6-14.8) % Plt Count (150-400) X10^3/uL Neut % (Auto) (50-75) % Lymph % (Auto) (25-40) % [place] % (Auto) (3-14) % Eos % (Auto) (2-4) % Baso % (Auto) (0-2) % Neut # (Auto) (1736-0054) /uL Lymph # (Auto) (8462-4937) /uL [place] # (Auto) (0-900) /uL Eos # (Auto) (0-450) /uL Baso # (Auto) (0-100) /uL PT (10.1-12.7) SECONDS INR (0.9-1.3) APTT (26.4-36.2) SECONDS ABG pH (7.35-7.45) ABG pCO2 (35-45) mmHg ABG pO2 (80-100) mmHg ABG HCO3 (22-26) mmol/L ABG Total CO2 (21-31) mmol/L ABG O2 Saturation (95-100) % ABG Base Excess (-2-2) mmol/L FiO2 Sodium (137-145) mmol/L Potassium (3.4-5.1) mmol/L Chloride (98-107) mmol/L Carbon Dioxide (22-32) mmol/L BUN (7-17) mg/dL Creatinine (0.52-1.04) mg/dL Estimated GFR (>60) mL/min BUN/Creatinine Ratio (6-22) Glucose (80-110) mg/dL Lactate 6.7 H (0.7-2.1) mmol/L Calcium (8.4-10.2) mg/dL Total Bilirubin (0.2-1.3) mg/dL AST (14-36) IU/L ALT (9-52) IU/L Alkaline Phosphatase (38-126) U/L Total Protein (6.3-8.2) g/dL Albumin (3.5-5.0) g/dL Globulin (1.7-4.1) g/dL Albumin/Globulin Ratio (1.0-2.8) Lipase (23-300) U/L Urine Color Urine Appearance Urine pH (4.5-8.0) Ur Specific Portia (1.000-1.035) Urine Protein (Negative) Urine Glucose (UA) (Negative) g/dL Urine Ketones (NEGATIVE) Urine Occult Blood (Negative) Urine Nitrate (Negative) Urine Bilirubin (NEGATIVE) Urine Urobilinogen (0.2) E.U./dL Ur Leukocyte Esterase (NEGATIVE) Urine RBC (0-5/HPF) Urine WBC (0-5/HPF) Ur Squamous Epith Cells (0-5/HPF) Urine Bacteria (None) Hyaline Casts (None) Granular Casts (None) Ur Culture Indicated? 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 Recommend follow-up. Small bilateral pleural effusions. Chest x-ray: Attestation: I personally reviewed and interpreted this imaging study as follows: My impression: bilateral effusions small, right lower rib fracture ECG Data Attestation: I personally reviewed and interpreted this ECG as follows: Prior ECG tracings: available for review Interpretation: Sinus tachycardia rate 126, LA interval 163, QRS 85, QTC 398 MDM Narrative Medical decision making narrative: The patient is has vomiting I have seen it is dark ground coffee like not bright red. She has had 2 EGDs 1 2 days ago no history of varices. Lactic acid returned and is significantly elevated at 7.3. Mild anion gap at 26. Osmolality is measured at 285 unable to get a serum osmolality (send out). Differential of elevated lactic acid Alcohol ketoacidosis as she does have ketones anion gap of 26 seems most likely--dextrose half-normal saline drip has been started. Also given thiamine. sepsis-she does have leukocytosis of 20,000 she is afebrile no source of infection. (urine and chest x ray negative) Ethylene glycol/methanol serum osmolality 285 unable to get measured osmolality that is a send out. However patient adamantly denies drinking any other substance besides wine. PH is also not acidotic, in fact is alkalotic. Anti is all also not available at our hospital. She is dry heaving cannot drink at this time other laboratory values do not indicate or suggest poisoning. Other toxin. Acetaminophen, salicylates are negative. Patient has been accepted at [facility]. Critical Care Time Critical Care Time: Yes Total Critical Care Time: 45 Attestation: The high probability of a clinically significant, sudden or life threatening deterioration of the cardiovascular system(s) required my full and direct attention, intervention and personal management. The aggregate critical care time was 45 minutes. This time is in addition to time spent performing reported procedures but includes the following: x Data Review and interpretation x Patient assessment and monitoring of vital signs x Documentation x Medication orders and management Discharge Plan Departure Patient Disposition: [facility] Clinical Impression: Alcoholic ketoacidosis, Acute upper gastrointestinal bleeding Prescriptions: No Action naltrexone 50 mg tablet 50 mg PO DAILY Qty: 30 RF: 2 chlordiazepoxide HCl 10 mg capsule 10 mg PO Q12H MDD 3 PRN (Reason: alcohol abstinence) Qty: 60 RF: 0 citalopram 20 mg tablet 20 mg PO DAILY Qty: 30 RF: 4 levothyroxine 75 mcg tablet 75 mcg PO DAILY Qty: 30 RF: 2 losartan 25 mg tablet 25 mg PO DAILY Qty: 30 RF: 2 gabapentin [Neurontin] 300 MG capsule 300 mg PO BID PRN (Reason: Back Pain) Qty: 60 RF: 2 trazodone 50 mg tablet 1 - 2 tab PO BEDTIME PRN (Reason: Insomnia) Qty: 45 RF: 2 diphenhydramine-acetaminophen [Tylenol PM Extra Strength] 25-500 mg Tablet 2 tab PO BEDTIME PRN (Reason: Insomnia) Qty: 60 RF: 0 Referrals: Yumiko Cheung PA-C [Primary Care Provider] -
[2018-10-03 00:28] LABS: PTT Partial Thromboplastin Tim 30 SECONDS (26.4-36.2)
[2018-10-03 00:30] LABS: Lipase 37 U/L (23-300)
[2018-10-03 00:32] LABS: Alanine Aminotransferase 29 IU/L (9-52); Albumin 4.7 g/dL (3.5-5.0); Albumin Globulin Ratio 1.3 (1.0-2.8); Alkaline Phosphatase 106 U/L (38-126); Aspartate Aminotransferase 36 IU/L (14-36); BUN Creatinine Ratio 18.8 (6-22); Bilirubin Total 0.7 mg/dL (0.2-1.3); Blood Urea Nitrogen 15 mg/dL (7-17); Calcium 9.4 mg/dL (8.4-10.2); Carbon Dioxide 19 mmol/L (22-32); Chloride 88 mmol/L (98-107); Estimated Glomerular Filt Rate > 60.0 mL/min (>60); Globulin 3.5 g/dL (1.7-4.1); Glucose 172 mg/dL (80-110); HEMOLYSIS < 15 (0-50); Lactate (Lactic Acid) 7.3 mmol/L (0.7-2.1); Sodium 133 mmol/L (137-145); Total Protein 8.2 g/dL (6.3-8.2)
--- NOTE | 2018-10-03 01:12 | DI.CT.S_ITS ---
PROCEDURE: CT ABDOMEN PELVIS W CON INDICATIONS: Upper gi bleed, EGD 2 days ago TECHNIQUE: After the administration of intravenous contrast, 5 mm thick sections acquired from the diaphragm to the symphysis. 5 mm coronal and sagittal reformats were acquired. For radiation dose reduction, the following was used: automated exposure control, adjustment of mA and/or kV according to patient size. COMPARISON: None. FINDINGS: Image quality: Excellent. ABDOMEN: Lung bases: No acute consolidation. 3 mm nodule seen in the right lung base on image 9 series 3, nonspecific. This could be followup with a one year interval noncontrast chest CT as clinically warranted. Heart size is normal. Partially visualized bilateral breast prostheses. Solid organs: Mild hepatic steatosis otherwise liver is normal in size and enhancement. Gallbladder surgically absent. Biliary system is non dilated. Pancreas enhances normally. Spleen is normal in size and enhancement. No adrenal nodules. Kidneys demonstrate normal size and enhancement, without hydronephrosis. Peritoneum and bowel: Small hiatal hernia. Distal esophageal wall thickening. Bowel loops demonstrate normal wall thickness and caliber. No free fluid or air. Nodes and vessels: No retroperitoneal or mesenteric adenopathy by size criteria. Aorta and inferior vena cava are normal in size. Miscellaneous: No ventral hernias. PELVIS: Genitourinary: Bladder wall thickness is normal. Miscellaneous: No inguinal hernias or adenopathy. Bones: No suspicious bony lesions. No vertebral body compression fractures. L4-L5 spondylosis. IMPRESSION: Distal esophageal circumferential wall thickening which could represent infectious or inflammatory esophagitis although cannot exclude neoplasm and consider upper endoscopy when clinically feasible for further assessment. Mild hepatic steatosis. Additional chronic and incidental findings as above. Dictated by: Ralph Martínez M.D. on 10/03/2018 at 9:03 Approved by: Ralph Martínez M.D. on 10/03/2018 at 9:09
[2018-10-03 01:23] LABS: HCO3 ABG 20 mmol/L (22-26); Oxygen Saturation ABG 97 % (95-100); PCO2 ABG 26.3 mmHg (35-45); PO2 ABG 85 mmHg (80-100); TCO2 ABG 21 mmol/L (21-31); pH ABG 7.49 (7.35-7.45)
[2018-10-03 01:24] LABS: Ketones (Beta-Hydroxybutyrate) 0.76 mmol/L (<0.27)
[2018-10-03 01:24] LABS: Fractionated Inspired Oxygen 0.21
[2018-10-03 01:26] LABS: Acetaminophen < 10 ug/mL (10-30); Ethanol (ETOH) 127 mg/dL
[2018-10-03 01:27] LABS: Salicylate < 1.0 mg/dL (<20)
[2018-10-03 01:38] LABS: Urine Amphetamines Negative (Negative); Urine Barbiturates Negative (Negative); Urine Benzodiazepines Negative (Negative); Urine Cocaine Negative (Negative); Urine MDMA Negative (Negative); Urine Methadone Negative (Negative); Urine Methamphetamines Negative (Negative); Urine Morphine/Opi cutoff 2000 Negative (Negative); Urine Oxycodone Negative (Negative); Urine Phencyclidine Negative (Negative); Urine Tetrahydrocannabinol Positive (Negative); Urine Tricyclic Antidepressant Positive (Negative)
[2018-10-03] MEDS: DEXTROSE 5%-0.45% NS 1,000 ML 150 ML IV (02:11)
[2018-10-03] MEDS: LORazepam 2 MG/ML SYRINGE 1 MG IV (02:12)
[2018-10-03 02:13] LABS: Reflexed Lactate in 2 Hours Y
[2018-10-03 02:26] LABS: Lactate 2HR (Lactic Acid Rflx) 6.7 mmol/L (0.7-2.1)
[2018-10-03] MEDS: THIAMINE 100 MG TABLET PO (03:31)
--- NOTE | 2018-10-03 03:37 | DI.RAD.S_ITS ---
PROCEDURE: XR CHEST 1V INDICATIONS: chest pain TECHNIQUE: One view of the chest was acquired. COMPARISON: [facility], CT, CT ABDOMEN PELVIS W CON, 10/03/2018, 1:18. FINDINGS: Surgical changes and devices: Right upper quadrant surgical clips.. Lungs and pleura: Lungs are clear. Colonic interposition at the right lung base. No pleural effusions or pneumothorax. Mediastinum: Mediastinal contours appear normal. Heart size is normal. Bones and chest wall: No suspicious bony lesions. Overlying soft tissues appear unremarkable. IMPRESSION: No acute consolidation. Scattered subsegmental atelectasis and/or scarring Dictated by: Ralph Martínez M.D. on 10/03/2018 at 8:35 Approved by: Ralph Martínez M.D. on 10/03/2018 at 8:38
[2018-10-03 03:41] LABS: Bacteria Urine None Seen
[2018-10-03 03:42] LABS: Appearance Urine UA CLEAR; Bilirubin Urine UA NEGATIVE (NEGATIVE); Color Urine UA YELLOW; Glucose Urine UA NEGATIVE (Negative); Ketones Urine UA 1+ (NEGATIVE); Leukocyte Esterase Urine UA NEGATIVE (NEGATIVE); Nitrite Urine UA NEGATIVE (Negative); Occult Blood Urine UA 2+ (Negative); Protein Urine UA 1+ (Negative); Specific Gravity Urine UA >=1.030 (1.000-1.035); Urobilinogen Urine UA 0.2 E.U./dL (0.2)
[2018-10-03 03:50] LABS: Hyaline Casts Urine 1-5/LPF; RBC Urine 0-1/HPF (0-5/HPF); WBC Urine 0-1/HPF (0-5/HPF)
[2018-10-03 03:51] LABS: Culture Indicated Urine Cult Not Indicated; Granular Casts Urine 0-1/LPF; Squamous Epithelial Cell Urine 0-1 /HPF (0-5/HPF)
--- NOTE | 2018-10-03 04:13 | PC.NURSE ---
Pt transported with fluids and protonix infusing.
[2018-10-05 16:33] LABS: Osmolality, Serum 315 mosm/kg (260-310)
== END 2018-10-03 04:20 | disposition short-term general hospital (02) ==
PROVIDERS: Emergency Provider Emergency Medicine; PCP Physician Assistant
DX: E87.2 Acidosis (principal); K92.2 Gastrointestinal hemorrhage, unspecified
CPT/HCPCS: 36591; 36600; 71045; 74177; 80053; 80305; 80320; 80329; 81001; 82009; 82805; 83605; 83690; 83930; 85025; 85610; 85730; 86850; 86900; 86901; 93005; 96365; 96366; 96367; 96368; 96375; 99285; C9113; G0480; J2060; J2765; Q9967

== ENCOUNTER → 2019-03-02 11:01 | Outpatient (CLI) | payer OTHER, SELFPAY ==
[2018-03-27 03:41] VITALS: BMI 23.1
[2019-03-02 12:21] LABS: Add Manual Diff / Slide Review NO; Basophils Absolute Auto 0 /uL (0-100); Basophils Percent Auto 0.5 % (0-2); Eosinophils Absolute Auto 100 /uL (0-450); Eosinophils Percent Auto 1.1 % (2-4); Hematocrit 36.7 % (36-46); Hemoglobin 12.6 g/dL (12.0-16.0); Lymphocytes Absolute Auto 600 /uL (1100-4500); Lymphocytes Percent Auto 13.4 % (25-40); Mean Corpuscular HGB Conc 34.3 % (30-36); Mean Corpuscular Hemoglobin 32.9 PG (26-34); Mean Corpuscular Volume 95.8 fL (80-100); Monocytes Absolute Auto 300 /uL (0-900); Monocytes Percent Auto 6.8 % (3-14); Neutrophils Absolute Auto 3700 /uL (1500-7000); Neutrophils Percent Auto 78.2 % (50-75); Platelet Count 415 X10^3/uL (150-400); Red Blood Cell Count 3.83 X10^6/uL (4.0-5.2); Red Cell Distribution Width 19.5 % (11.6-14.8); White Blood Cell Count 4.7 X10^3/uL (4.5-11.0)
[2019-03-02 12:25] LABS: HEMOLYSIS < 15 (0-50); Sodium 129 mmol/L (137-145)
[2019-03-02 12:27] LABS: Alanine Aminotransferase 18 IU/L (9-52); Albumin 3.8 g/dL (3.5-5.0); Albumin Globulin Ratio 1.3 (1.0-2.8); Alkaline Phosphatase 81 U/L (38-126); Aspartate Aminotransferase 25 IU/L (14-36); BUN Creatinine Ratio 11.7 (6-22); Bilirubin Total 0.4 mg/dL (0.2-1.3); Blood Urea Nitrogen 7 mg/dL (7-17); Calcium 8.8 mg/dL (8.4-10.2); Carbon Dioxide 23 mmol/L (22-32); Chloride 93 mmol/L (98-107); Cholesterol 182 mg/dL (140-199); Estimated Glomerular Filt Rate > 60.0 mL/min (>60); Gamma Glutamyl Transpeptidase 45 U/L (12-43); Glucose 72 mg/dL (80-110); HDL Cholesterol 91 mg/dL (40-60); LDL Cholesterol Calculated 60 mg/dL (<100); Potassium 4.9 mmol/L (3.4-5.1); Total Protein 6.8 g/dL (6.3-8.2); Triglycerides 156 mg/dL (35-150)
[2019-03-02 13:12] LABS: TSH w/ Reflex to FT4 1.39 uIU/mL (0.47-4.68)
== END ==
PROVIDERS: PCP Physician Assistant; Visit Provider Physician Assistant
DX: E03.9 Hypothyroidism, unspecified (principal); I10 Essential (primary) hypertension; E78.2 Mixed hyperlipidemia; F10.20 Alcohol dependence, uncomplicated
CPT/HCPCS: 36415; 80053; 80061; 82977; 84443; 85025

== ENCOUNTER → 2019-05-13 11:32 | Outpatient (CLI) | payer OTHER, SELFPAY ==
[2018-03-27 03:41] VITALS: BMI 23.1
--- NOTE | 2019-05-13 | DI.RAD.S_ITS ---
PROCEDURE: XR CERVICAL SPINE 2V OR 3V INDICATIONS: Cervicalgia TECHNIQUE: 3 view(s) of the cervical spine were acquired. COMPARISON: [facility], [place], CT CERVICAL SPINE, 02/20/2006, 12:13. [facility], [place], THORACIC SPINE 3 VIEWS, 08/04/2012, 10:38. FINDINGS: Bones: No fractures or dislocations to the C7 level. The lateral masses of C1 appear intact on the odontoid view. No suspicious bony lesions. There is moderate to severe degenerative disc disease C4-C5, C5-C6 and C6-C7. Moderate facet arthropathy bilaterally, most pronounced at C3-C4 and C4-C5. Soft tissues: No prevertebral soft tissue swelling. IMPRESSION: Degenerative disc and facet disease in cervical spine. Dictated by: Ed Mera M.D. on 05/13/2019 at 13:09 Approved by: Ed Mera M.D. on 05/13/2019 at 13:10
== END ==
PROVIDERS: PCP Physician Assistant; Visit Provider Physician Assistant
DX: M50.321 Other cervical disc degeneration at C4-C5 level (principal); M47.812 Spondylosis without myelopathy or radiculopathy, cervical region
CPT/HCPCS: 72040

== ENCOUNTER → 2019-08-17 16:05 | Outpatient (CLI) | payer OTHER, SELFPAY ==
[2018-03-27 03:41] VITALS: BMI 23.1
--- NOTE | 2019-08-17 | DI.CT.S_ITS ---
PROCEDURE: CT HEAD/BRAIN WO CON INDICATIONS: CVA TECHNIQUE: Noncontrast 4.5 mm thick angled axial sections acquired from the foramen magnum to the vertex, with coronal and sagittal reformats. For radiation dose reduction, the following was used: automated exposure control, adjustment of mA and/or kV according to patient size. COMPARISON: [facility], CT, HEAD WITHOUT CONTRAST, 02/27/2009, 13:04. [facility], CT, HEAD WITHOUT CONTRAST, 06/30/2011, 13:42. [facility], CT, HEAD WITHOUT CONTRAST, 04/19/2011, 22:40. [facility], head CT 08/11/19. FINDINGS: Image quality: Excellent. CSF spaces: Basal cisterns are patent. No extra-axial fluid collections. The ventricles are symmetric in size and shape. Brain: Centered within the region of the left thalamus, there is focal hemorrhage seen, with associated mass effect. This hemorrhage has partially resorbed compared to the 08/11/19 examination. No new areas of hemorrhage can be seen. No significant midline shift can be seen. There is cerebral volume loss for age, with resultant ventricular and sulcal prominence. There are periventricular and deep white matter chronic small vessel ischemic changes. There is intracranial internal carotid artery atherosclerosis. Skull and face: Calvarium and visualized facial bones appear intact, without suspicious lesions. Sinuses: Visualized sinuses and mastoids are clear. IMPRESSION: Partial resorption of the patient's known intraparenchymal hemorrhage, which is centered within the region of the left thalamus. Dictated by: Jag Hines M.D. on 08/17/2019 at 15:29 Approved by: Jag Hines M.D. on 08/17/2019 at 15:32
== END ==
PROVIDERS: PCP Physician Assistant; Referring Provider Internal Medicine; Visit Provider Internal Medicine
DX: I61.9 Nontraumatic intracerebral hemorrhage, unspecified (principal); R51 Headache
CPT/HCPCS: 70450

== ENCOUNTER → 2019-08-18 09:49 | Outpatient (CLI) | payer OTHER, SELFPAY ==
[2018-03-27 03:41] VITALS: BMI 23.1
[2019-08-18 11:02] LABS: Add Manual Diff / Slide Review NO; Basophils Absolute Auto 0 /uL (0-100); Basophils Percent Auto 0.5 % (0-2); Eosinophils Absolute Auto 0 /uL (0-450); Eosinophils Percent Auto 0.6 % (2-4); Hematocrit 37.8 % (36-46); Hemoglobin 12.8 g/dL (12.0-16.0); Lymphocytes Absolute Auto 800 /uL (1100-4500); Lymphocytes Percent Auto 11.5 % (25-40); Mean Corpuscular HGB Conc 33.9 % (30-36); Mean Corpuscular Hemoglobin 32.4 PG (26-34); Mean Corpuscular Volume 95.4 fL (80-100); Monocytes Absolute Auto 700 /uL (0-900); Monocytes Percent Auto 10.3 % (3-14); Neutrophils Absolute Auto 5300 /uL (1500-7000); Neutrophils Percent Auto 77.1 % (50-75); Platelet Count 349 X10^3/uL (150-400); Red Blood Cell Count 3.96 X10^6/uL (4.0-5.2); Red Cell Distribution Width 16.3 % (11.6-14.8); White Blood Cell Count 6.8 X10^3/uL (4.5-11.0)
[2019-08-18 11:09] LABS: Prothrombin Time 11.3 SECONDS (10.1-12.7)
[2019-08-18 11:11] LABS: PTT Partial Thromboplastin Tim 32 SECONDS (26.4-36.2)
[2019-08-18 11:20] LABS: Alanine Aminotransferase 17 IU/L (<35); Albumin 4.3 g/dL (3.5-5.0); Albumin Globulin Ratio 1.3 (1.0-2.8); Alkaline Phosphatase 65 U/L (38-126); Aspartate Aminotransferase 23 IU/L (14-36); BUN Creatinine Ratio 21.7 (6-22); Bilirubin Total 0.2 mg/dL (0.2-1.3); Blood Urea Nitrogen 13 mg/dL (7-17); Calcium 9.7 mg/dL (8.4-10.2); Carbon Dioxide 27 mmol/L (22-32); Chloride 96 mmol/L (98-107); Estimated Glomerular Filt Rate > 60.0 mL/min (>60); Gamma Glutamyl Transpeptidase 31 U/L (12-43); Globulin 3.3 g/dL (1.7-4.1); Glucose 131 mg/dL (80-110); HEMOLYSIS < 15 (0-50); Sodium 131 mmol/L (137-145); Total Protein 7.6 g/dL (6.3-8.2)
[2019-08-18 12:01] LABS: Sodium Urine Random 14 mmol/L (30-90)
[2019-08-21 08:34] LABS: Osmolality Urine 230 mOsm/kg (50-1200); Osmolality, Serum 275 mOsm/kg (278-305)
== END ==
PROVIDERS: PCP Physician Assistant; Referring Provider Internal Medicine; Visit Provider Internal Medicine
DX: F10.20 Alcohol dependence, uncomplicated (principal); E87.1 Hypo-osmolality and hyponatremia; I61.9 Nontraumatic intracerebral hemorrhage, unspecified; R74.0 Nonspecific elevation of levels of transaminase and lactic acid dehydrogenase [LDH]
CPT/HCPCS: 36415; 80053; 82977; 83930; 83935; 84300; 85025; 85610; 85730

== ENCOUNTER → 2019-10-05 11:36 | Outpatient (CLI) | payer OTHER, SELFPAY ==
[2018-03-27 03:41] VITALS: BMI 23.1
--- NOTE | 2019-10-05 | DI.MRI.S_ITS ---
PROCEDURE: MR CERVICAL SPINE WO CON INDICATIONS: Radiculopathy of lumbar and cervical spine, pain in thoracic TECHNIQUE: Noncontrast sagittal T1 spin echo and T2 fast spin echo, sagittal STIR, foraminal oblique sagittal T2 fast spin echo, and axial gradient echo or T2 fast spin echo through the cervical spine. COMPARISON: None. FINDINGS: Image quality: Excellent. Alignment and Curvature: There is overall straightening of the normal cervical lordosis. The central canal is widely patent. Bone Marrow: Marrow demonstrates normal overall signal. Spinal Cord: Visualized spinal cord has normal size and signal. No cerebellar tonsillar herniation. Paraspinous Soft Tissues: No paravertebral masses. Prevertebral soft tissues are normal in thickness. C2-C3: No significant abnormality is seen. C3-C4: The disc height is well-preserved. Loss of disc signal is seen at this level. A mild degree of generalized disc osteophyte complex is seen. Mild facet joint hypertrophy is seen. No significant neural foraminal or central canal narrowing can be seen. C4-C5: Moderate to severe loss of disc height and disc signal are seen. Moderate to prominent disc osteophyte complex is seen, which is eccentric to the right. Uncovertebral joint hypertrophy is seen at this level. Mild to moderate facet hypertrophy is seen. There is moderate to severe right-sided and at least moderate left-sided neural foraminal narrowing seen. Mild to moderate central canal narrowing is seen. C5-C6: At least moderate loss of disc height and disc signal can be seen. Moderate generalized disc osteophyte complex is seen. There is moderate to severe bilateral neural foraminal narrowing seen. At least moderate central canal narrowing is seen. There is associated mass effect upon the ventral spinal cord. C6-C7: At least moderate loss of disc height and disc signal can be seen. At least moderate disc osteophyte complex is seen, with a central/left disc osteophyte protrusion, as on series 6 image 29. Mild facet joint hypertrophy is seen. There is moderate to severe bilateral neural foraminal narrowing seen. At least moderate central canal narrowing is seen. Minimal associated ventral cord flattening can be seen. C7-T1: The disc height is well-preserved. Loss of disc signal is seen at this level. A mild degree of generalized disc osteophyte complex is seen. There is moderate right-sided and mild left-sided neural foraminal narrowing seen. The central canal is widely patent. IMPRESSION: Relatively prominent degenerative changes can be seen at C4-C5 C5-C6, and C6-C7. Dictated by: Jag Hines M.D. on 10/05/2019 at 12:55 Approved by: Jag Hines M.D. on 10/05/2019 at 13:00
--- NOTE | 2019-10-05 | DI.MRI.S_ITS ---
PROCEDURE: MR LUMBAR SPINE WO CON INDICATIONS: Radiculopathy of lumbar and cervical spine, pain in thoracic TECHNIQUE: Noncontrast sagittal T1 spin echo and T2 fast echo, sagittal STIR, axial T1 and T2 fast spin echo through the lumbar spine. In cases with scoliosis, additional coronal T2 fast spin echo may be performed. COMPARISON: [facility], MR, L-SPINE WITHOUT CONTRAST, 11/01/2014, 17:33. [facility], MR, MR CERVICAL SPINE WO CON, 10/05/2019, 12:17. [facility], MR, MR THORACIC SPINE WO CON, 10/05/2019, 12:17. [facility], CT, CT ABDOMEN PELVIS W CON, 10/03/2018, 1:18. FINDINGS: Image quality: Excellent. Alignment and Curvature: There is normal bony alignment. Bone Marrow: Marrow is of normal overall signal. No acute vertebral body compression fractures. Spinal Cord: Conus medullaris terminates at the T12-L1 level. Visualized cord demonstrates normal signal and size. Paraspinous Soft Tissues: No paravertebral masses. T12-L1: Normal appearance. L1-L2: Normal appearance. L2-L3: Mild loss of disc height is seen. Loss of disc signal is seen. Mild generalized disc bulge is seen. No neural foraminal or central canal narrowing can be seen. No significant change from the prior. L3-L4: Moderate loss of disc height is seen. Loss of disc signal is seen. Moderate disc bulge is seen, which is eccentric to the right side. Mild to moderate facet hypertrophy is seen. No significant neural foraminal or central canal narrowing can be seen. Stable from the prior study. L4-L5: At least moderate loss of disc height and disc signal can be seen. Reactive marrow endplate changes are seen, which are hyperintense on T1-weighted and T2-weighted imaging and most consistent with fatty metaplasia (Modic type II changes). Moderate generalized disc bulge is seen. There is a superimposed left foraminal disc protrusion, with an associated annular fissure, as on series 6 image 13. Mild facet joint hypertrophy is seen. There is moderate right-sided and moderate to severe left-sided neural foraminal narrowing seen. There is a degree of compression seen upon the exiting left L4 nerve root. These imaging findings have progressed compared to the prior study. L5-S1: No significant abnormality is seen. 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 IMPRESSION: Lumbar spine degenerative changes are seen, which are most prominent at the L4-L5 level, with interval progression at this level compared to 2015. Dictated by: Jag Hines M.D. on 10/05/2019 at 13:00 Approved by: Jag Hines M.D. on 10/05/2019 at 13:05
--- NOTE | 2019-10-05 | DI.MRI.S_ITS ---
PROCEDURE: MR THORACIC SPINE WO CON INDICATIONS: Radiculopathy of lumbar and cervical spine, pain in thoracic TECHNIQUE: Noncontrast sagittal T1 spine echo and T2 fast spin echo, sagittal STIR, axial T1 and T2 fast spin echo through the thoracic spine. COMPARISON: None. FINDINGS: Image quality: Excellent. Alignment and Curvature: There is normal bony alignment. Bone Marrow: Marrow is of normal overall signal except for presence of a small central 11 mm maximal dimension vertebral body hemangioma at the T4 level. Note is made of mild degenerative disc disease along the thoracic spine without disc bulge or herniation, and the degenerative changes are most prominent at T10-T11 with anterior projecting osteophytes present to a mild degree. No acute vertebral body compression fractures. Spinal Cord: Visualized spinal cord is normal in size and signal. No spinal or foraminal stenosis is seen impinging on the cord or adjacent nerve roots. Paraspinous Soft Tissues: No paravertebral masses. Miscellaneous: On axial images, central canal and foramina appear widely patent at all scanned levels. IMPRESSION: Mild degenerative disc disease, best seen at T10-T11, without disc bulge or herniation or nerve root impingement visualized. Incidental note is made of a small vertebral body marrow space 11 mm hemangioma, requiring no followup. Source of current symptomatology is not identified within the thoracic spine. Dictated by: Chilango William M.D. on 10/05/2019 at 13:54 Approved by: Chilango William M.D. on 10/05/2019 at 13:57
== END ==
PROVIDERS: PCP Physician Assistant; Referring Provider Physician Assistant; Visit Provider Physician Assistant
DX: M47.22 Other spondylosis with radiculopathy, cervical region (principal); M47.26 Other spondylosis with radiculopathy, lumbar region; M51.14 Intervertebral disc disorders with radiculopathy, thoracic region
CPT/HCPCS: 72141; 72146; 72148

== ENCOUNTER → 2019-12-31 07:37 | Outpatient (CLI) | payer OTHER, SELFPAY ==
[2018-03-27 03:41] VITALS: BMI 23.1
--- NOTE | 2019-12-31 | DI.RAD.S_ITS ---
PROCEDURE: XR WRIST RT MIN 3V INDICATIONS: right wrist pain TECHNIQUE: 4 views of the wrist were acquired. COMPARISON: None. FINDINGS: Bones: No definite fractures or dislocations. No suspicious bony lesions. Scaphoid view: A subtle curvilinear lucency in the waist of the scaphoid bone. Soft tissues: No suspicious soft tissue calcifications. Pronator is quadratus fat-pad is more conspicuous. IMPRESSION: Subtle curvilinear lucency within the scaphoid bone raises the possibility of a nondisplaced fracture. Recommend followup radiographs in 10-14 days for further evaluation. Dictated by: Adryan Ames M.D. on 12/31/2019 at 9:26 Approved by: Adryan Ames M.D. on 12/31/2019 at 9:28
[2019-12-31 09:02] LABS: Add Manual Diff / Slide Review NO; Basophils Absolute Auto 0 /uL (0-100); Basophils Percent Auto 0.6 % (0-2); Eosinophils Absolute Auto 100 /uL (0-450); Eosinophils Percent Auto 1.9 % (2-4); Hematocrit 41.4 % (36-46); Hemoglobin 14.3 g/dL (12.0-16.0); Lymphocytes Absolute Auto 900 /uL (1100-4500); Lymphocytes Percent Auto 20.5 % (25-40); Mean Corpuscular HGB Conc 34.5 % (30-36); Mean Corpuscular Hemoglobin 34.2 PG (26-34); Mean Corpuscular Volume 99.2 fL (80-100); Monocytes Absolute Auto 400 /uL (0-900); Monocytes Percent Auto 8.8 % (3-14); Neutrophils Absolute Auto 3000 /uL (1500-7000); Neutrophils Percent Auto 68.2 % (50-75); Platelet Count 299 X10^3/uL (150-400); Red Blood Cell Count 4.17 X10^6/uL (4.0-5.2); Red Cell Distribution Width 12.7 % (11.6-14.8); White Blood Cell Count 4.3 X10^3/uL (4.5-11.0)
[2019-12-31 09:22] LABS: Alanine Aminotransferase 16 IU/L (<35); Albumin 4.7 g/dL (3.5-5.0); Albumin Globulin Ratio 1.5 (1.0-2.8); Alkaline Phosphatase 82 U/L (38-126); Aspartate Aminotransferase 30 IU/L (14-36); BUN Creatinine Ratio 24.1 (6-22); Bilirubin Total 0.4 mg/dL (0.2-1.3); Blood Urea Nitrogen 14 mg/dL (7-17); Carbon Dioxide 27 mmol/L (22-32); Chloride 99 mmol/L (98-107); Estimated Glomerular Filt Rate > 60.0 mL/min (>60); Globulin 3.2 g/dL (1.7-4.1); Glucose 82 mg/dL (80-110); HEMOLYSIS < 15 (0-50); Potassium 4.4 mmol/L (3.4-5.1); Rheumatoid Factor 8.8 IU/mL (<12.0); Sodium 134 mmol/L (137-145); Total Protein 7.9 g/dL (6.3-8.2)
[2019-12-31 09:23] LABS: C-Reactive Protein Quant < 0.5 mg/dL (<1.0)
[2019-12-31 09:24] LABS: Erythrocyte Sedimentation Rate 6 MM/HR (0-20)
[2019-12-31 09:50] LABS: Vitamin D 25 Hydroxy (D3) 40.9 ng/mL (30.0-100.0)
[2019-12-31 09:51] LABS: TSH w/ Reflex to FT4 3.07 uIU/mL (0.47-4.68)
[2019-12-31 10:09] LABS: Vitamin B12 309 pg/mL (239-931)
[2020-01-04 19:36] LABS: ANA Screen, IFA Negative (.)
== END ==
PROVIDERS: PCP Physician Assistant; Referring Provider Physician Assistant; Visit Provider Physician Assistant
DX: M25.531 Pain in right wrist (principal); M79.10 Myalgia, unspecified site; M25.50 Pain in unspecified joint; G89.4 Chronic pain syndrome; G62.9 Polyneuropathy, unspecified; E03.9 Hypothyroidism, unspecified; E53.8 Deficiency of other specified B group vitamins; E55.9 Vitamin D deficiency, unspecified
CPT/HCPCS: 36415; 73110; 80053; 82306; 82607; 84443; 85025; 85651; 86038; 86140; 86430

== ENCOUNTER 2020-03-02 12:47 | Emergency (ER) | payer OTHER, SELFPAY ==
[2018-03-27 03:41] VITALS: BMI 23.1
[2020-03-02] VITALS (20 sets, daily range): BP systolic 131–152; BP diastolic 73–100; PULSE 92–115; RESP 16–23; O2SAT 93–98
--- NOTE | 2020-03-02 13:42 | PC.NURSE ---
iv placed 22 in left hand
--- NOTE | 2020-03-02 14:00 | PC.NURSE ---
pt transported to ct via stretcher by boiler erector
[2020-03-02 14:03] LABS: INR 0.9 (0.9-1.3); Prothrombin Time 9.8 SECONDS (10.1-12.7)
--- NOTE | 2020-03-02 14:03 | DI.CT.S_ITS ---
PROCEDURE: CT HEAD/BRAIN WO CON INDICATIONS: Fall/injury/confusion TECHNIQUE: Noncontrast 4.5 mm thick angled axial sections acquired from the foramen magnum to the vertex, with coronal and sagittal reformats. For radiation dose reduction, the following was used: automated exposure control, adjustment of mA and/or kV according to patient size. COMPARISON: [facility], CT, CT HEAD WITHOUT CONTRAST, 10/16/2019, 6:15. [facility], CT, CT HEAD/BRAIN WO CON, 08/17/2019, 16:09. FINDINGS: Image quality: Excellent. CSF spaces: Basal cisterns are patent. No extra-axial fluid collections. The ventricles are symmetric in size and shape. Brain: No intracranial bleeds or masses. There is cerebral volume loss for age, with resultant ventricular and sulcal prominence. Old infarction involving right external capsule is seen. There are periventricular and deep white matter chronic small vessel ischemic changes. There is intracranial internal carotid artery atherosclerosis. Skull and face: Calvarium and visualized facial bones appear intact, without suspicious lesions. Sinuses: Visualized sinuses and mastoids are clear. IMPRESSION: 1. No CT evidence of acute intracranial pathology. 2. 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 Age-appropriate atrophy and mild white matter small vessel ischemic changes. Dictated by: Arden Ty M.D. on 03/02/2020 at 14:19 Approved by: Arden Ty M.D. on 03/02/2020 at 14:23
[2020-03-02 14:06] LABS: PTT Partial Thromboplastin Tim 30 SECONDS (26.4-36.2)
[2020-03-02 14:07] LABS: Add Manual Diff / Slide Review NO; Basophils Absolute Auto 0 /uL (0-100); Basophils Percent Auto 0.8 % (0-2); Eosinophils Absolute Auto 0 /uL (0-450); Eosinophils Percent Auto 0.2 % (2-4); Hematocrit 37.8 % (36-46); Hemoglobin 12.5 g/dL (12.0-16.0); Lymphocytes Absolute Auto 900 /uL (1100-4500); Mean Corpuscular Hemoglobin 31.7 PG (26-34); Mean Corpuscular Volume 96.1 fL (80-100); Monocytes Absolute Auto 300 /uL (0-900); Neutrophils Absolute Auto 4200 /uL (1500-7000); Platelet Count 570 X10^3/uL (150-400); Red Blood Cell Count 3.93 X10^6/uL (4.0-5.2); Red Cell Distribution Width 14.9 % (11.6-14.8); White Blood Cell Count 5.4 X10^3/uL (4.5-11.0)
--- NOTE | 2020-03-02 14:08 | ED_ITS ---
HPI - General Adult <Ryan Han MD - Last Filed: 03/04/20 08:12> General Chief complaint: Toxicology Problem Stated complaint: ETOH Time Seen by Provider: 03/02/20 13:12 Source: patient Mode of arrival: Ambulatory Limitations: no limitations History of Present Illness HPI narrative: Patient brought in by her friend. 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 Last seen by anyone 1 week ago, her friend at bedside. Until today when the same friend checked up on her. Found her in her bedroom. Had fallen. Hit the back of her head. Patient uncertain what she hit. Patient drinks alcohol daily. Does not want rehabilitation. Denies any drug use. No SI or HI. No seizures or hallucinations auditory or visual. Patient had head bleed July 2019 seen at [facility] and transferred to [facility]. Left her w ith right-sided weakness. She states her right side feels a little bit more weak than baseline. Denies any neck pain chest pain abdominal pain back pain limb pain. Patient states she drinks vodka as well as wine. Denies any drug use. Headache is occipital/ posterior Related Data Previous Rx's Medication Instructions Recorded chlordiazepoxide HCl 10 mg PO Q12H PRN #60 cap MDD 3 03/31/18 citalopram 20 mg PO DAILY #30 tab 03/31/18 diphenhydramine-acetaminophen 2 tab PO BEDTIME PRN #60 tab 03/31/18 [Tylenol PM Extra Strength] gabapentin [Neurontin] 300 mg PO BID PRN #60 cap 03/31/18 levothyroxine 75 mcg PO DAILY #30 tab 03/31/18 losartan 25 mg PO DAILY #30 tab 03/31/18 naltrexone 50 mg PO DAILY #30 tab 03/31/18 trazodone 1 - 2 tab PO BEDTIME PRN #45 tab 03/31/18 Allergies Allergy/AdvReac Type Severity Reaction Status Date / Time codeine Allergy Unknown VOMITING Verified 10/03/18 00:01 medroxyprogesterone Allergy Unknown MEDROXYPROGESTERONE Verified 10/03/18 00:01 MAKES HER CRAZY Review of Systems <Ryan Han MD - Last Filed: 03/04/20 08:12> Review of Systems Narrative: GENERAL: Denies chills, fatigue, malaise, fever, sweats. HEENT: Denies sinus pain, ear pain, sore throat, difficulty swallowing, dizziness. RESPIRATORY: Denies dyspnea, cough, wheezing, hemoptysis, sputum. CARDIOVASCULAR: Denies chest pain, palpitations, orthopnea, edema, GASTROINTESTINAL: Complains of nausea, denies vomiting, abdominal pain, diarrhea, constipation, melena. : Denies dysuria, frequency, incontinence, hematuria, urinary retention. MUSCULOSKELETAL: denies weakness, joint pain, or bony pain SKIN: Denies rash, skin lesions, or other NEUROLOGIC: Complains of weakness, headache, denies numbness, change in speech, confusion, seizures, incoordination. PSYCHIATRIC: No concerning psychosocial issues. ROS Unobtainable: All systems reviewed & are unremarkable except as noted in HPI and below Patient History <Ryan Han MD - Last Filed: 03/04/20 08:12> Medical History Alcohol abuse (Acute) Back pain (Chronic) Erosive esophagitis (Chronic) Esophageal varices (Ruled-out) GI bleed (Acute) Hypertension (Chronic) Hypothyroid (Chronic) Social History household members: significant other Smoking Status: Never smoker alcohol intake: current Smoking Status: Never smoker alcohol intake frequency: 3 or more drinks per day Substance Use Type: does not use Exam <Ryan Han MD - Last Filed: 03/04/20 08:12> Narrative Exam Narrative: GENERAL: patient appears stated age. Well-nourished, well- developed patient, in no distress, not toxic HEAD: Atraumatic. Normocephalic. EYES: Pupils equal round and reactive. Extraocular motions intact. No scleral icterus. No injection or drainage. ENT: Nose without bleeding, purulent drainage. Throat without erythema, tonsillar hypertrophy or exudate. Airway patent. NECK: Trachea midline. Non tender. No midline tenderness or step-off, patient is awake alert oriented, no CT scan C-spine indicated this time CARDIOVASCULAR: Regular rate and rhythm without murmurs, gallops, or rubs. RESPIRATORY: Clear to auscultation. Breath sounds equal bilaterally. No wheezes, rales, or rhonchi. GASTROINTESTINAL: Abdomen soft, non-tender, nondistended. EXTREMITIES: No edema or joint tenderness. Nontender bilateral shoulders elbows wrists pelvis hips knees and ankles BACK: Nontender without deformity or crepitance. No flank tenderness. NEURO: AOx4. Slow but clear speech. No facial droop. Light touch intact to bilateral face hands and legs. Strong left western felt hat blocker, right western felt hat blocker is slightly weaker than left, possibly baseline. Due to previous stroke. Strong bilateral ankle flexion extension as well as hip and knee flexion extension. No pronator drift. Finger to nose intact bilaterally SKIN: No rash or erythema of visible areas PSYCH: Not anxious, is cooperative Initial Vital Signs Initial Vital Signs: Vital Signs Pulse Rate 105 H 03/02/20 12:52 Respiratory Rate 16 03/02/20 12:52 Blood Pressure 151/100 H 03/02/20 12:52 Pulse Oximetry 98 03/02/20 12:52 <Roberto Burt DO - Last Filed: 03/03/20 04:38> Initial Vital Signs Initial Vital Signs: Vital Signs Pulse Rate 105 H 03/02/20 12:52 Respiratory Rate 16 03/02/20 12:52 Blood Pressure 151/100 H 03/02/20 12:52 Pulse Oximetry 98 03/02/20 12:52 Scores <Ryan Han MD - Last Filed: 03/04/20 08:12> NIH Stroke Scale Level of Conciousness: Alert, keenly responsive Ask month/age: Answers both questions correctly. Open/close eyes, close hand: Performs both tasks correctly Best gaze horizontal: Normal Visual ames: No visual loss Facial palsy: Normal symetrical movement Left arm drift: No drift for full 10 sec Right arm drift: No drift for full 10 sec Left leg drift: No drift for full 10 sec Right leg drift: No drift for full 10 sec Limb ataxia: Absent Sensory on face/arms/legs: Normal, no sensory loss Best language: No aphasia, normal Dysarthria: Normal Extinction or inattention: No abnormality Total NIH Stroke scale score: 0 Course <Ryan Han MD - Last Filed: 03/04/20 08:12> Course Course Narrative: Patient has been evaluated by hospitalist Dr. Cheung, he states patient has no criteria for admission. Despite patient has been here for alcohol abuse with GI bleed covered in feces. In the past. Patient also has been seen at [facility] this year for intoxication with a head bleed. Sign out Dr. Burt, awaiting evaluation by DCR. Will be teleconference patient has received Ativan to help with anxiety. Patient has stated that she does not want outpatient therapy or inpatient therapy. She does not plan to call any the phone numbers that hospitalist here has given her. Orders Ordered: Discontinued Medications Acetaminophen (Tylenol) 975 mg PO NOW ONE Stop: 03/02/20 14:08 Last Admin: 03/02/20 14:18 Dose: 975 mg Documented by: TYRONE Thiamine HCl 200 mg/ Sodium (Chloride) 52 mls @ 208 mls/hr IV NOW ONE Stop: 03/02/20 21:16 Last Infusion: 03/02/20 21:45 Dose: 208 mls/hr Documented by: Admin: 03/02/20 21:26 Dose: 208 mls/hr Documented by: TYRONE Lorazepam (Ativan) 1 mg IV NOW ONE Stop: 03/02/20 15:32 Last Admin: 03/02/20 15:30 Dose: 1 mg Documented by: TYRONE Lorazepam (Ativan) 1 mg IV NOW ONE Stop: 03/02/20 17:56 Last Admin: 03/02/20 19:27 Dose: 1 mg Documented by: TYRONE Ondansetron HCl (Zofran) 4 mg IV NOW ONE Stop: 03/02/20 14:08 Last Admin: 03/02/20 14:18 Dose: 4 mg Documented by: TYRONE Pantoprazole Sodium (Protonix) 40 mg IV NOW ONE Stop: 03/02/20 21:16 Last Admin: 03/02/20 21:22 Dose: 40 mg Documented by: TYRONE Phenobarbital (Phenobarbital) 260 mg IV NOW ONE Stop: 03/02/20 21:16 Last Admin: 03/02/20 21:35 Dose: 260 mg Documented by: TYRONE Reevaluation(s) Reevaluation #1: Patient is cooperative at this time. Not combative. No hallucinations or seizures. She is willing to stay here for detoxing but refuses for any help patient inpatient treatment Time: 17:11 Reevaluation #2: Trying to contact by phone now. Phone number [phone]. He had called and spoke with family friend earlier. Other phone numbers include [phone], as well as phone number [phone] Time: 17:28 Reevaluation #3: I spoke with by phone. He is in [place]. He does not not feel that patient can be sent home safely. She is not reliable. She has had severe outcomes with DTs when she tried going home in up with esophageal bleed admitted to ICU. Also had head bleed. Time: 17:29 Consultations Consultation #1: Dr cheung has just evaluated patient by bedside. He feels patient does not meet requirement or criteria for admission. Gave patient phone numbers for outpatient treatment as well as gabapentin home treatment. He is aware of patient's past decompensations including GI bleed and head bleed. He is aware that friend at bedside does not feel comfortable patient coming home as she would take care of the patient. has called earlier today expressing concern if patient goes back home. Patient has required multiple times redirecting in her room. Time: 17:12 Vital Signs Vital signs: Vital Signs - 8 hr 03/02/20 21:16 03/02/20 21:30 03/02/20 22:00 Pulse Rate 109 H 106 H 102 H Respiratory Rate 23 19 Blood Pressure Pulse Oximetry 98 94 03/02/20 22:30 03/02/20 23:00 03/02/20 23:30 Pulse Rate 100 H 104 H 103 H Respiratory Rate 19 19 Blood Pressure Pulse Oximetry 98 97 97 03/02/20 23:40 03/03/20 00:00 03/03/20 00:30 Pulse Rate 100 H 105 H 104 H Respiratory Rate 20 19 19 Blood Pressure 134/74 Pulse Oximetry 97 98 94 03/03/20 01:00 03/03/20 01:30 03/03/20 02:00 Pulse Rate 105 H 108 H 98 H Respiratory Rate 15 15 13 Blood Pressure Pulse Oximetry 96 93 92 03/03/20 02:30 03/03/20 02:38 03/03/20 03:00 Pulse Rate 103 H 106 H 98 H Respiratory Rate 18 Blood Pressure Pulse Oximetry 91 98 92 03/03/20 03:30 Pulse Rate 99 H Respiratory Rate Blood Pressure Pulse Oximetry 96 <Roberto Burt, DO - Last Filed: 03/03/20 04:38> Course Course Narrative: patient received in signout from Dr. Han. I have performed nawaf independent history and exam. Patient case has been visited by DCR and after speaking with patient friend (also an [employer]) she states she will take patient home, can contract for safety and will help her find placement. In the meantime patient daughter Alise ([phone]) has found a possible bed at [facility]. As patient is currently voluntary and wishing to find help the DCR will stand down for now. Patient drinks upwards of 750mL of liquor every day and has been doing so since age 18. This patient needs a structured, inpatient, detox program to give her the best chance of a good outcome. Patient has been accepted to [facility] in [place] by Dr. Ambrosio. Orders Ordered: Discontinued Medications Acetaminophen (Tylenol) 975 mg PO NOW ONE Stop: 03/02/20 14:08 Last Admin: 03/02/20 14:18 Dose: 975 mg Documented by: TYRONE Thiamine HCl 200 mg/ Sodium (Chloride) 52 mls @ 208 mls/hr IV NOW ONE Stop: 03/02/20 21:16 Last Infusion: 03/02/20 21:45 Dose: 208 mls/hr Documented by: Admin: 03/02/20 21:26 Dose: 208 mls/hr Documented by: TYRONE Lorazepam (Ativan) 1 mg IV NOW ONE Stop: 03/02/20 15:32 Last Admin: 03/02/20 15:30 Dose: 1 mg Documented by: TYRONE Lorazepam (Ativan) 1 mg IV NOW ONE Stop: 03/02/20 17:56 Last Admin: 03/02/20 19:27 Dose: 1 mg Documented by: TRYONE Ondansetron HCl (Zofran) 4 mg IV NOW ONE Stop: 03/02/20 14:08 Last Admin: 03/02/20 14:18 Dose: 4 mg Documented by: TYRONE Pantoprazole Sodium (Protonix) 40 mg IV NOW ONE Stop: 03/02/20 21:16 Last Admin: 03/02/20 21:22 Dose: 40 mg Documented by: TYRONE Phenobarbital (Phenobarbital) 260 mg IV NOW ONE Stop: 03/02/20 21:16 Last Admin: 03/02/20 21:35 Dose: 260 mg Documented by: TYRONE Vital Signs Vital signs: Vital Signs - 8 hr 03/02/20 21:16 03/02/20 21:30 03/02/20 22:00 Pulse Rate 109 H 106 H 102 H Respiratory Rate 23 19 Blood Pressure Pulse Oximetry 98 94 03/02/20 22:30 03/02/20 23:00 03/02/20 23:30 Pulse Rate 100 H 104 H 103 H Respiratory Rate 19 19 Blood Pressure Pulse Oximetry 98 97 97 03/02/20 23:40 03/03/20 00:00 03/03/20 00:30 Pulse Rate 100 H 105 H 104 H Respiratory Rate 20 19 19 Blood Pressure 134/74 Pulse Oximetry 97 98 94 03/03/20 01:00 03/03/20 01:30 03/03/20 02:00 Pulse Rate 105 H 108 H 98 H Respiratory Rate 15 15 13 Blood Pressure Pulse Oximetry 96 93 92 03/03/20 02:30 03/03/20 02:38 03/03/20 03:00 Pulse Rate 103 H 106 H 98 H Respiratory Rate 18 Blood Pressure Pulse Oximetry 91 98 92 03/03/20 03:30 Pulse Rate 99 H Respiratory Rate Blood Pressure Pulse Oximetry 96 Medical Decision Making <Ryan Han MD - Last Filed: 03/04/20 08:12> Lab Data Lab results reviewed: Yes I reviewed the patient's lab results. Result diagrams: 03/02/20 13:56 03/02/20 14:05 Labs: Lab Results 03/02/20 03/02/20 03/02/20 Range/Units 13:56 13:56 13:56 WBC 5.4 (4.5-11.0) X10^3/uL RBC 3.93 L (4.0-5.2) X10^6/uL Hgb 12.5 (12.0-16.0) g/dL Hct 37.8 (36-46) % MCV 96.1 (80-100) fL MCH 31.7 (26-34) PG MCHC 33.0 (30-36) % RDW 14.9 H (11.6-14.8) % Plt Count 570 H (150-400) X10^3/uL Neut % (Auto) 77.0 H (50-75) % Lymph % (Auto) 16.0 L (25-40) % [place] % (Auto) 6.0 (3-14) % Eos % (Auto) 0.2 L (2-4) % Baso % (Auto) 0.8 (0-2) % Neut # (Auto) 4200 (6739-9080) /uL Lymph # (Auto) 900 L (7320-8349) /uL [place] # (Auto) 300 (0-900) /uL Eos # (Auto) 0 (0-450) /uL Baso # (Auto) 0 (0-100) /uL PT 9.8 L (10.1-12.7) SECONDS INR 0.9 (0.9-1.3) APTT 30 D (26.4-36.2) SECONDS Sodium (137-145) mmol/L Potassium (3.4-5.1) mmol/L Chloride (98-107) mmol/L Carbon Dioxide (22-32) mmol/L BUN (7-17) mg/dL Creatinine (0.52-1.04) mg/dL Estimated GFR (>60) mL/min BUN/Creatinine Ratio (6-22) Glucose (80-110) mg/dL Calcium (8.4-10.2) mg/dL Total Bilirubin (0.2-1.3) mg/dL AST (14-36) IU/L ALT (<35) IU/L Alkaline Phosphatase (38-126) U/L Total Protein (6.3-8.2) g/dL Albumin (3.5-5.0) g/dL Globulin (1.7-4.1) g/dL Albumin/Globulin Ratio (1.0-2.8) U Opiates 300ng/mL cut (Negative) Ur Oxycodone Screen (Negative) Urine Methadone Screen (Negative) Ur Barbiturates Screen (Negative) U Tricyclic Antidepress (Negative) Ur Phencyclidine Scrn (Negative) Ur Amphetamines Screen (Negative) U Methamphetamines Scrn (Negative) Ur MDMA Scrn (Ecstasy) (Negative) U Benzodiazepines Scrn (Negative) Urine Cocaine Screen (Negative) U Marijuana (THC) Screen (Negative) Ethyl Alcohol ( - 10) mg/dL COVID-19 PCR (Negative) Blood Type A Positive Antibody Screen Negative 03/02/20 03/02/20 03/02/20 Range/Units 13:56 14:05 17:19 WBC (4.5-11.0) X10^3/uL RBC (4.0-5.2) X10^6/uL Hgb (12.0-16.0) g/dL Hct (36-46) % MCV (80-100) fL MCH (26-34) PG MCHC (30-36) % RDW (11.6-14.8) % Plt Count (150-400) X10^3/uL Neut % (Auto) (50-75) % Lymph % (Auto) (25-40) % [place] % (Auto) (3-14) % Eos % (Auto) (2-4) % Baso % (Auto) (0-2) % Neut # (Auto) (4802-6601) /uL Lymph # (Auto) (1269-0823) /uL [place] # (Auto) (0-900) /uL Eos # (Auto) (0-450) /uL Baso # (Auto) (0-100) /uL PT (10.1-12.7) SECONDS INR (0.9-1.3) APTT (26.4-36.2) SECONDS Sodium 138 (137-145) mmol/L Potassium 4.8 (3.4-5.1) mmol/L Chloride 101 (98-107) mmol/L Carbon Dioxide 19 L (22-32) mmol/L BUN 12 (7-17) mg/dL Creatinine 0.56 (0.52-1.04) mg/dL Estimated GFR > 60.0 (>60) mL/min BUN/Creatinine Ratio 21.4 (6-22) Glucose 112 H (80-110) mg/dL Calcium 8.7 (8.4-10.2) mg/dL Total Bilirubin 0.3 (0.2-1.3) mg/dL AST 46 H (14-36) IU/L ALT 25 (<35) IU/L Alkaline Phosphatase 99 (38-126) U/L Total Protein 7.4 (6.3-8.2) g/dL Albumin 4.3 (3.5-5.0) g/dL Globulin 3.1 (1.7-4.1) g/dL Albumin/Globulin Ratio 1.4 (1.0-2.8) U Opiates 300ng/mL cut Negative (Negative) Ur Oxycodone Screen Negative (Negative) Urine Methadone Screen Negative (Negative) Ur Barbiturates Screen Negative (Negative) U Tricyclic Antidepress Negative (Negative) Ur Phencyclidine Scrn Negative (Negative) Ur Amphetamines Screen Negative (Negative) U Methamphetamines Scrn Negative (Negative) Ur MDMA Scrn (Ecstasy) Negative (Negative) U Benzodiazepines Scrn Negative (Negative) Urine Cocaine Screen Negative (Negative) U Marijuana (THC) Screen Negative (Negative) Ethyl Alcohol 398 H ( - 10) mg/dL COVID-19 PCR (Negative) Blood Type Antibody Screen 03/02/20 03/02/20 Range/Units 21:25 22:29 WBC (4.5-11.0) X10^3/uL RBC (4.0-5.2) X10^6/uL Hgb (12.0-16.0) g/dL Hct (36-46) % MCV (80-100) fL MCH (26-34) PG MCHC (30-36) % RDW (11.6-14.8) % Plt Count (150-400) X10^3/uL Neut % (Auto) (50-75) % Lymph % (Auto) (25-40) % [place] % (Auto) (3-14) % Eos % (Auto) (2-4) % Baso % (Auto) (0-2) % Neut # (Auto) (5388-0286) /uL Lymph # (Auto) (2413-5944) /uL [place] # (Auto) (0-900) /uL Eos # (Auto) (0-450) /uL Baso # (Auto) (0-100) /uL PT (10.1-12.7) SECONDS INR (0.9-1.3) APTT (26.4-36.2) SECONDS Sodium (137-145) mmol/L Potassium (3.4-5.1) mmol/L Chloride (98-107) mmol/L Carbon Dioxide (22-32) mmol/L BUN (7-17) mg/dL Creatinine (0.52-1.04) mg/dL Estimated GFR (>60) mL/min BUN/Creatinine Ratio (6-22) Glucose (80-110) mg/dL Calcium (8.4-10.2) mg/dL Total Bilirubin (0.2-1.3) mg/dL AST (14-36) IU/L ALT (<35) IU/L Alkaline Phosphatase (38-126) U/L Total Protein (6.3-8.2) g/dL Albumin (3.5-5.0) g/dL Globulin (1.7-4.1) g/dL Albumin/Globulin Ratio (1.0-2.8) U Opiates 300ng/mL cut (Negative) Ur Oxycodone Screen (Negative) Urine Methadone Screen (Negative) Ur Barbiturates Screen (Negative) U Tricyclic Antidepress (Negative) Ur Phencyclidine Scrn (Negative) Ur Amphetamines Screen (Negative) U Methamphetamines Scrn (Negative) Ur MDMA Scrn (Ecstasy) (Negative) U Benzodiazepines Scrn (Negative) Urine Cocaine Screen (Negative) U Marijuana (THC) Screen (Negative) Ethyl Alcohol 94 H ( - 10) mg/dL COVID-19 PCR Negative (Negative) Blood Type Antibody Screen Point of Care Testing Glucose POC 115 Urine Dip Bedside Urine Glucose Negative Bedside Urine Bilirubin - Negative Bedside Urine Ketone +/- 5 Urine Specific [place] 1.020 Bedside Urine Occult Blood +/- Bedside Urine pH 6.0 Bedside Urine Protein - Negative Bedside Urine Urobilinogen - Negative Bedside Urine Nitrite - Negative Bedside Urine Leukocytes - Negative Esterase Point of care testing: Point of Care Testing Glucose POC 115 Urine Dip Bedside Urine Glucose Negative Bedside Urine Bilirubin - Negative Bedside Urine Ketone +/- 5 Urine Specific [place] 1.020 Bedside Urine Occult Blood +/- Bedside Urine pH 6.0 Bedside Urine Protein - Negative Bedside Urine Urobilinogen - Negative Bedside Urine Nitrite - Negative Bedside Urine Leukocytes - Negative Esterase Imaging Data CT scan - head: Radiologist's Impression: [address] [address] [address] Scan Report Signed Patient: Kaylie Melgar [facility]#: [id number] : 8Acct:[id number] Age/Sex: 59 / FDate of Service: 03/02/20 Loc: ED Accession Number: [id number] Procedure: CT head/brain wo con Ordering Provider: Ryan Han MD PROCEDURE: CT HEAD/BRAIN WO CON INDICATIONS: Fall/injury/confusion TECHNIQUE: Noncontrast 4.5 mm thick angled axial sections acquired from the foramen magnum to the vertex, with coronal and sagittal reformats. For radiation dose reduction, the following was used: automated exposure control, adjustment of mA and/or kV according to patient size. COMPARISON: [facility], CT, CT HEAD WITHOUT CONTRAST, 10/16/2019, 6:15. [facility], CT, CT HEAD/BRAIN WO CON, 08/17/2019, 16:09. FINDINGS: Image quality: Excellent. CSF spaces: Basal cisterns are patent. No extra-axial fluid collections. The ventricles are symmetric in size and shape. Brain: No intracranial bleeds or masses. There is cerebral volume loss for ag e, with resultant ventricular and sulcal prominence. Old infarction involving right external capsule is seen. There are periventricular and deep white matter chronic small vessel ischemic changes. There is intracranial internal carotid artery atherosclerosis. Skull and face: Calvarium and visualized facial bones appear intact, without suspicious lesions. Sinuses: Visualized sinuses and mastoids are clear. IMPRESSION: 1. No CT evidence of acute intracranial pathology. 2. 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 Age-appropriate atrophy and mild white matter small vessel ischemic changes. Dictated by: Arden Ty M.D. on 03/02/2020 at 14:19 Approved by: Arden Ty M.D. on 03/02/2020 at 14:23 ECG Data Attestation: I personally reviewed and interpreted this ECG as follows: Interpretation: Normal sinus rhythm, rate 99, no ST elevation or depression MDM Narrative Medical decision making narrative: I do not feel comfortable sending patient home at this time. Nor does or does family friend at bedside. Patient is not a reliable or compliant with medications. She told her friend that she would drink wine with the Neurontin [employer]Starbucks. At this time would be appropriate for DCR for evaluation. Patient is a fall risk. Multiple falls in the past with multiple imaging. Patient is high risk for detox/withdrawals/DTs as alcohol levels will come down. She will likely experience the same possible outcomes as past GI bleed or head bleed or falls or injury. This is felt the same by when I spoke with him by phone, as well as family friend at bedside <Roberto Burt, - Last Filed: 03/03/20 04:38> Lab Data Labs: Lab Results 03/02/20 03/02/20 03/02/20 Range/Units 13:56 13:56 13:56 WBC 5.4 (4.5-11.0) X10^3/uL RBC 3.93 L (4.0-5.2) X10^6/uL Hgb 12.5 (12.0-16.0) g/dL Hct 37.8 (36-46) % MCV 96.1 (80-100) fL MCH 31.7 (26-34) PG MCHC 33.0 (30-36) % RDW 14.9 H (11.6-14.8) % Plt Count 570 H (150-400) X10^3/uL Neut % (Auto) 77.0 H (50-75) % Lymph % (Auto) 16.0 L (25-40) % [place] % (Auto) 6.0 (3-14) % Eos % (Auto) 0.2 L (2-4) % Baso % (Auto) 0.8 (0-2) % Neut # (Auto) 4200 (0968-8492) /uL Lymph # (Auto) 900 L (5816-4988) /uL [place] # (Auto) 300 (0-900) /uL Eos # (Auto) 0 (0-450) /uL Baso # (Auto) 0 (0-100) /uL PT 9.8 L (10.1-12.7) SECONDS INR 0.9 (0.9-1.3) APTT 30 D (26.4-36.2) SECONDS Sodium (137-145) mmol/L Potassium (3.4-5.1) mmol/L Chloride (98-107) mmol/L Carbon Dioxide (22-32) mmol/L BUN (7-17) mg/dL Creatinine (0.52-1.04) mg/dL Estimated GFR (>60) mL/min BUN/Creatinine Ratio (6-22) Glucose (80-110) mg/dL Calcium (8.4-10.2) mg/dL Total Bilirubin (0.2-1.3) mg/dL AST (14-36) IU/L ALT (<35) IU/L Alkaline Phosphatase (38-126) U/L Total Protein (6.3-8.2) g/dL Albumin (3.5-5.0) g/dL Globulin (1.7-4.1) g/dL Albumin/Globulin Ratio (1.0-2.8) U Opiates 300ng/mL cut (Negative) Ur Oxycodone Screen (Negative) Urine Methadone Screen (Negative) Ur Barbiturates Screen (Negative) U Tricyclic Antidepress (Negative) Ur Phencyclidine Scrn (Negative) Ur Amphetamines Screen (Negative) U Methamphetamines Scrn (Negative) Ur MDMA Scrn (Ecstasy) (Negative) U Benzodiazepines Scrn (Negative) Urine Cocaine Screen (Negative) U Marijuana (THC) Screen (Negative) Ethyl Alcohol ( - 10) mg/dL COVID-19 PCR (Negative) Blood Type A Positive Antibody Screen Negative 03/02/20 03/02/20 03/02/20 Range/Units 13:56 14:05 17:19 WBC (4.5-11.0) X10^3/uL RBC (4.0-5.2) X10^6/uL Hgb (12.0-16.0) g/dL Hct (36-46) % MCV (80-100) fL MCH (26-34) PG MCHC (30-36) % RDW (11.6-14.8) % Plt Count (150-400) X10^3/uL Neut % (Auto) (50-75) % Lymph % (Auto) (25-40) % [place] % (Auto) (3-14) % Eos % (Auto) (2-4) % Baso % (Auto) (0-2) % Neut # (Auto) (5016-8026) /uL Lymph # (Auto) (4409-4059) /uL [place] # (Auto) (0-900) /uL Eos # (Auto) (0-450) /uL Baso # (Auto) (0-100) /uL PT (10.1-12.7) SECONDS INR (0.9-1.3) APTT (26.4-36.2) SECONDS Sodium 138 (137-145) mmol/L Potassium 4.8 (3.4-5.1) mmol/L Chloride 101 (98-107) mmol/L Carbon Dioxide 19 L (22-32) mmol/L BUN 12 (7-17) mg/dL Creatinine 0.56 (0.52-1.04) mg/dL Estimated GFR > 60.0 (>60) mL/min BUN/Creatinine Ratio 21.4 (6-22) Glucose 112 H (80-110) mg/dL Calcium 8.7 (8.4-10.2) mg/dL Total Bilirubin 0.3 (0.2-1.3) mg/dL AST 46 H (14-36) IU/L ALT 25 (<35) IU/L Alkaline Phosphatase 99 (38-126) U/L Total Protein 7.4 (6.3-8.2) g/dL Albumin 4.3 (3.5-5.0) g/dL Globulin 3.1 (1.7-4.1) g/dL Albumin/Globulin Ratio 1.4 (1.0-2.8) U Opiates 300ng/mL cut Negative (Negative) Ur Oxycodone Screen Negative (Negative) Urine Methadone Screen Negative (Negative) Ur Barbiturates Screen Negative (Negative) U Tricyclic Antidepress Negative (Negative) Ur Phencyclidine Scrn Negative (Negative) Ur Amphetamines Screen Negative (Negative) U Methamphetamines Scrn Negative (Negative) Ur MDMA Scrn (Ecstasy) Negative (Negative) U Benzodiazepines Scrn Negative (Negative) Urine Cocaine Screen Negative (Negative) U Marijuana (THC) Screen Negative (Negative) Ethyl Alcohol 398 H ( - 10) mg/dL COVID-19 PCR (Negative) Blood Type Antibody Screen 03/02/20 03/02/20 Range/Units 21:25 22:29 WBC (4.5-11.0) X10^3/uL RBC (4.0-5.2) X10^6/uL Hgb (12.0-16.0) g/dL Hct (36-46) % MCV (80-100) fL MCH (26-34) PG MCHC (30-36) % RDW (11.6-14.8) % Plt Count (150-400) X10^3/uL Neut % (Auto) (50-75) % Lymph % (Auto) (25-40) % [place] % (Auto) (3-14) % Eos % (Auto) (2-4) % Baso % (Auto) (0-2) % Neut # (Auto) (0500-2419) /uL Lymph # (Auto) (3597-9153) /uL [place] # (Auto) (0-900) /uL Eos # (Auto) (0-450) /uL Baso # (Auto) (0-100) /uL PT (10.1-12.7) SECONDS INR (0.9-1.3) APTT (26.4-36.2) SECONDS Sodium (137-145) mmol/L Potassium (3.4-5.1) mmol/L Chloride (98-107) mmol/L Carbon Dioxide (22-32) mmol/L BUN (7-17) mg/dL Creatinine (0.52-1.04) mg/dL Estimated GFR (>60) mL/min BUN/Creatinine Ratio (6-22) Glucose (80-110) mg/dL Calcium (8.4-10.2) mg/dL Total Bilirubin (0.2-1.3) mg/dL AST (14-36) IU/L ALT (<35) IU/L Alkaline Phosphatase (38-126) U/L Total Protein (6.3-8.2) g/dL Albumin (3.5-5.0) g/dL Globulin (1.7-4.1) g/dL Albumin/Globulin Ratio (1.0-2.8) U Opiates 300ng/mL cut (Negative) Ur Oxycodone Screen (Negative) Urine Methadone Screen (Negative) Ur Barbiturates Screen (Negative) U Tricyclic Antidepress (Negative) Ur Phencyclidine Scrn (Negative) Ur Amphetamines Screen (Negative) U Methamphetamines Scrn (Negative) Ur MDMA Scrn (Ecstasy) (Negative) U Benzodiazepines Scrn (Negative) Urine Cocaine Screen (Negative) U Marijuana (THC) Screen (Negative) Ethyl Alcohol 94 H ( - 10) mg/dL COVID-19 PCR Negative (Negative) Blood Type Antibody Screen Point of Care Testing Glucose POC 115 Urine Dip Bedside Urine Glucose Negative Bedside Urine Bilirubin - Negative Bedside Urine Ketone +/- 5 Urine Specific [place] 1.020 Bedside Urine Occult Blood +/- Bedside Urine pH 6.0 Bedside Urine Protein - Negative Bedside Urine Urobilinogen - Negative Bedside Urine Nitrite - Negative Bedside Urine Leukocytes - Negative Esterase Point of care testing: Point of Care Testing Glucose POC 115 Urine Dip Bedside Urine Glucose Negative Bedside Urine Bilirubin - Negative Bedside Urine Ketone +/- 5 Urine Specific [place] 1.020 Bedside Urine Occult Blood +/- Bedside Urine pH 6.0 Bedside Urine Protein - Negative Bedside Urine Urobilinogen - Negative Bedside Urine Nitrite - Negative Bedside Urine Leukocytes - Negative Esterase Discharge Plan Departure Patient Disposition: Xfer Inpatient Rehab Clinical Impression: Alcoholic intoxication Qualifiers: Complication of substance-induced condition: with unspecified complication Qualified Code(s): F10.929 - Alcohol use, unspecified with intoxication, unspecified Discharge Date/Time: 03/03/20 04:08 Prescriptions: No Action naltrexone 50 mg tablet 50 mg PO DAILY Qty: 30 RF: 2 chlordiazepoxide HCl 10 mg capsule 10 mg PO Q12H MDD 3 PRN (Reason: alcohol abstinence) Qty: 60 RF: 0 citalopram 20 mg tablet 20 mg PO DAILY Qty: 30 RF: 4 levothyroxine 75 mcg tablet 75 mcg PO DAILY Qty: 30 RF: 2 losartan 25 mg tablet 25 mg PO DAILY Qty: 30 RF: 2 gabapentin [Neurontin] 300 MG capsule 300 mg PO BID PRN (Reason: Back Pain) Qty: 60 RF: 2 trazodone 50 mg tablet 1 - 2 tab PO BEDTIME PRN (Reason: Insomnia) Qty: 45 RF: 2 diphenhydramine-acetaminophen [Tylenol PM Extra Strength] 25-500 mg Tablet 2 tab PO BEDTIME PRN (Reason: Insomnia) Qty: 60 RF: 0 Referrals: Yumiko Cheung PA-C [Primary Care Provider] -
[2020-03-02 14:13] LABS: Alanine Aminotransferase 25 IU/L (<35); Albumin 4.3 g/dL (3.5-5.0); Albumin Globulin Ratio 1.4 (1.0-2.8); Alkaline Phosphatase 99 U/L (38-126); Aspartate Aminotransferase 46 IU/L (14-36); BUN Creatinine Ratio 21.4 (6-22); Bilirubin Total 0.3 mg/dL (0.2-1.3); Blood Urea Nitrogen 12 mg/dL (7-17); Calcium 8.7 mg/dL (8.4-10.2); Carbon Dioxide 19 mmol/L (22-32); Chloride 101 mmol/L (98-107); Estimated Glomerular Filt Rate > 60.0 mL/min (>60); Globulin 3.1 g/dL (1.7-4.1); Glucose 112 mg/dL (80-110); HEMOLYSIS 29 (0-50); Potassium 4.8 mmol/L (3.4-5.1); Sodium 138 mmol/L (137-145); Total Protein 7.4 g/dL (6.3-8.2)
--- NOTE | 2020-03-02 14:15 | PC.NURSE ---
pt back in room
[2020-03-02 14:17] LABS: Ethanol (ETOH) 398 mg/dL
[2020-03-02] MEDS: ACETAMINOPHEN 325 MG TABLET 975 MG PO (14:18)
[2020-03-02] MEDS: ONDANSETRON 4 MG/2 ML INJ IV (14:18)
--- NOTE | 2020-03-02 14:23 | PC.NURSE ---
pt medicaated as per mdo
--- NOTE | 2020-03-02 15:12 | PC.NURSE ---
pt resting in bed friend at bedside. pt asissted to bathroom steady gait prn
[2020-03-02] MEDS: LORazepam 2 MG/ML INJ 1 MG IV ×2 (15:30→19:27)
--- NOTE | 2020-03-02 15:30 | PC.NURSE ---
pt medicated as per mdo for increased anxiety
--- NOTE | 2020-03-02 16:28 | PC.NURSE ---
admitting md at bedside for eval
--- NOTE | 2020-03-02 16:46 | P.CONS_ITS ---
History of Present Illness Consult details Date Patient Seen: 03/02/20 Time Patient Seen: 16:46 Chief complaint: ETOH Reason for consult: EtOH requesting detox Requesting provider: Ryan Han Narrative: Kaylie Melgar is a 59-year-old female with past medical history of hypothyroidism, hypertension, anxiety, and alcohol abuse who presented to the emergency room after a fall at home. She drinks approximately a 5th of vodka every day, she fell at home hitting her head this morning. She states that she drink too much. She denies any dizziness, palpitations, headache, vision changes, chest pain, shortness of breath, lower extremity edema. She came in with a friend who is concern for her well being and patient is stating that she would like to quit alcohol. She states she has a history of alcohol withdrawal, but only with very mild symptoms. She had a previous attempts where she developed a headache during episode of withdrawal and was sent down to [facility] for a possible brain bleed, however they did not perform any surgery. She has a prior admission here for a GI bleed where she also experienced mild withdrawal symptoms per the discharge summary. She denies any opiate or other substance abuse at this time. She denies history of withdrawal seizure or intubations in the past. Her alcohol level in the emergency room was 398, and there were mild elevations in her AST, but remainder of her laboratory examination was unremarkable. Patient had a CT head which was negative for any bleeding. She denies any dark stools, bright red blood per rectum, coffee- ground emesis, abdominal pain, nausea, vomiting, fevers, chills. Emergency room called for admission for possible detox. She received 1 mg of IV Ativan. Patient is interested in drinking cessation, however her history suggests that she only developed some mild alcohol withdrawal symptoms which could potentially be managed at home. She was able to ambulate in her room and was fairly steady given her alcohol level. She was alert and oriented x3. She was provided with outpatient resources including a list of detox phone numbers and the phone number for [facility] as well. She can discharge on an outpatient gabapentin taper and was encouraged to reach out tomorrow. At this time she does not require admission as she has no significant history of severe withdrawal even during inpatient management of her previous GI bleeding. Meds Home Medications and Allergies Home Medications Medication Instructions Recorded Confirmed Type chlordiazepoxide HCl 10 mg PO Q12H PRN #60 cap MDD 3 03/31/18 Rx citalopram 20 mg PO DAILY #30 tab 03/31/18 Rx diphenhydramine-acetaminophen 2 tab PO BEDTIME PRN #60 tab 03/31/18 Rx [Tylenol PM Extra Strength] gabapentin [Neurontin] 300 mg PO BID PRN #60 cap 03/31/18 Rx levothyroxine 75 mcg PO DAILY #30 tab 03/31/18 Rx losartan 25 mg PO DAILY #30 tab 03/31/18 Rx naltrexone 50 mg PO DAILY #30 tab 03/31/18 Rx trazodone 1 - 2 tab PO BEDTIME PRN #45 tab 03/31/18 Rx Allergies Allergy/AdvReac Type Severity Reaction Status Date / Time codeine Allergy Unknown VOMITING Verified 10/03/18 00:01 medroxyprogesterone Allergy Unknown MEDROXYPROGESTERONE Verified 10/03/18 00:01 MAKES HER CRAZY Review of Systems Review of Systems Narrative: All other systems reviewed with the patient and are negative unless otherwise stated. Exam Vital Signs (past 8 hours): - 03/02/20 12:52 03/02/20 16:06 Pulse Rate 105 H 101 H Respiratory Rate 16 20 Blood Pressure 151/100 H 131/73 Pulse Oximetry 98 98 Oxygen Delivery Method Nasal Cannula Oxygen Flow Rate 1 Narrative Exam Narrative: GENERAL APPEARANCE: Chronically ill-appearing elderly female in no acute distress. SKIN: Inspection of the skin reveals no rashes, ulcerations or petechiae. HEENT: Normocephalic, extraocular muscles are intact, oropharynx is clear and mucous membranes are moist, neck is supple without adenopathy NECK: Supple and symmetric. There was no thyroid enlargement, and no tenderness, or masses were felt. CHEST: Normal AP diameter and normal contour without any kyphoscoliosis. LUNGS: Auscultation of the lungs revealed no wheezes, rhonchi, or rales. CARDIOVASCULAR: There was a regular rate and rhythm without any murmurs, gallops, rubs. Peripheral pulses were 2+ and symmetric. ABDOMEN: Soft and nontender with normal bowel sounds. No ascites was noted. MUSCULOSKELETAL: There was no tenderness or effusions noted. Muscle strength and tone were normal. EXTREMITIES: No cyanosis, clubbing or edema. NEUROLOGIC: Alert and oriented x 3. Normal affect. Patient with a slow and wide-based gait but generally steady. She has no significant tongue fasciculations or tremors. Psych: denies suicidal or homicidal ideations. Denies hallucinations. Objective Labs Result Diagrams: 03/02/20 13:56 03/02/20 14:05 Labs: Laboratory Results - last 24 hr 03/02/20 03/02/20 03/02/20 13:56 13:56 13:56 WBC 5.4 RBC 3.93 L Hgb 12.5 Hct 37.8 MCV 96.1 MCH 31.7 MCHC 33.0 RDW 14.9 H Plt Count 570 H Neut % (Auto) 77.0 H Lymph % (Auto) 16.0 L [place] % (Auto) 6.0 Eos % (Auto) 0.2 L Baso % (Auto) 0.8 Neut # (Auto) 4200 Lymph # (Auto) 900 L [place] # (Auto) 300 Eos # (Auto) 0 Baso # (Auto) 0 PT 9.8 L INR 0.9 APTT 30 D Sodium Potassium Chloride Carbon Dioxide BUN Creatinine Estimated GFR BUN/Creatinine Ratio Glucose Calcium Total Bilirubin AST ALT Alkaline Phosphatase Total Protein Albumin Globulin Albumin/Globulin Ratio Ethyl Alcohol Blood Type A Positive Antibody Screen Negative 03/02/20 03/02/20 13:56 14:05 WBC RBC Hgb Hct MCV MCH MCHC RDW Plt Count Neut % (Auto) Lymph % (Auto) [place] % (Auto) Eos % (Auto) Baso % (Auto) Neut # (Auto) Lymph # (Auto) [place] # (Auto) Eos # (Auto) Baso # (Auto) PT INR APTT Sodium 138 Potassium 4.8 Chloride 101 Carbon Dioxide 19 L BUN 12 Creatinine 0.56 Estimated GFR > 60.0 BUN/Creatinine Ratio 21.4 Glucose 112 H Calcium 8.7 Total Bilirubin 0.3 AST 46 H ALT 25 Alkaline Phosphatase 99 Total Protein 7.4 Albumin 4.3 Globulin 3.1 Albumin/Globulin Ratio 1.4 Ethyl Alcohol 398 H Blood Type Antibody Screen Assessment & Plan Assessment & Plan narrative: Kaylie Melgar is a 59-year-old female with past medical history of hypothyroidism, hypertension, anxiety, and alcohol abuse who presented to the emergency room after a fall at home. Medicine was consulted for possible admission to help the patient wean off alcohol. Based on patient's history, as well as prior documentation of what she says is her most recent admission for alcohol withdrawal when she had a GI bleed, she has only experienced mild withdrawal symptoms in the past. Her fall is likely in the setting of severe intoxication as she does appear steady on my exam despite her alcohol level of 400 upon arrival to the emergency room. She has no apparent injuries from this fall. She denies any suicidal or homicidal ideations. Social work was unfortunately not available to see the patient in the emergency room, but they did give me a list of outpatient resources including the [facility] help line which was given to the patient. She can be managed with an outpatient gabapentin taper and does not require inpatient admission at this time. She was counseled on severe symptoms of withdrawal that would necessitate inpatient treatment, and the patient demonstrated understanding and agreed that she would come back if any were to develop. Her friend was available at bedside and was agreeable to checking on her multiple times a day while weaning off of alcohol. Gabapentin taper is listed below. 1. Alcohol abuse, chronic Gabapentin taper is 600 mg q6 hours day 1, 600 mg q8 hours day 2-3, 600 mg q12 hours day 4-5, 600 mg q12 hours day 6-7 and then 300 mg BID which was her previous dosing. She was provided numbers for detox as discussed above.
--- NOTE | 2020-03-02 17:25 | PC.NURSE ---
spoke with DCR and DCR form was faxed.
[2020-03-02 17:28] LABS: UR Morphine/Opiate cutoff 300 Negative (Negative); Ur Creatinine Normal (Normal); Ur Specific Gravity Normal (Normal); Urine Amphetamines Negative (Negative); Urine Barbiturates Negative (Negative); Urine Benzodiazepines Negative (Negative); Urine Cocaine Negative (Negative); Urine MDMA Negative (Negative); Urine Methadone Negative (Negative); Urine Methamphetamines Negative (Negative); Urine Oxycodone Negative (Negative); Urine Phencyclidine Negative (Negative); Urine Tetrahydrocannabinol Negative (Negative); Urine Tricyclic Antidepressant Negative (Negative); Urine pH Normal (Normal)
--- NOTE | 2020-03-02 19:30 | PC.NURSE ---
pt medicated as per mdo placed on youth nutritional monitor vss
[2020-03-02] MEDS: ONDANSETRON 4 MG/2 ML INJ (21:22)
[2020-03-02] MEDS: PANTOPRAZOLE 40 MG VIAL IV (21:22)
[2020-03-02] MEDS: THIAMINE 200 MG in SODIUM CHLORIDE 0.9% 50 ML 208 ML IV (21:26)
[2020-03-02] MEDS: PHENobarbital 65 MG/ML VIAL 260 MG IV (21:35)
[2020-03-02 21:44] LABS: Ethanol (ETOH) 94 mg/dL
[2020-03-02 23:47] LABS: COVID19 -Nasal RAPID Negative (Negative)
--- NOTE | 2020-03-02 23:49 | PC.NURSE ---
pt sleeping in bed vs on youth nutritional monitor
[2020-03-03] VITALS (9 sets, daily range): PULSE 98–108; RESP 13–19; O2SAT 91–98
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
== END 2020-03-03 04:08 ==
PROVIDERS: Emergency Medicine; Emergency Provider Emergency Medicine; PCP Physician Assistant
DX: F10.129 Alcohol abuse with intoxication, unspecified (principal); Y90.8 Blood alcohol level of 240 mg/100 ml or more; S09.90XA Unspecified injury of head, initial encounter; W19.XXXA Unspecified fall, initial encounter
CPT/HCPCS: 36415; 70450; 80053; 80305; 80320; 81003; 82962; 85025; 85610; 85730; 86850; 86900; 86901; 87635; 93005; 96365; 96375; 96376; 99284; C9113; J2060; J2405; J2560

== ENCOUNTER 2020-04-13 14:01 | Emergency (ER) | payer OTHER, SELFPAY ==
[2018-03-27 03:41] VITALS: BMI 23.1
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
[2020-04-13 14:07] VITALS: BP 183/95; PULSE 75; RESP 20; TEMP 36.1; O2SAT 100
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
[2020-04-13 15:18] VITALS: BP 162/83; PULSE 83; RESP 16; O2SAT 98
== END 2020-04-13 14:13 | disposition home or self-care (01) ==
PROVIDERS: Emergency Provider Emergency Medicine; PCP Physician Assistant
DX: F10.920 Alcohol use, unspecified with intoxication, uncomplicated (principal); S09.90XA Unspecified injury of head, initial encounter; S19.9XXA Unspecified injury of neck, initial encounter; S29.9XXA Unspecified injury of thorax, initial encounter; V89.2XXA Person injured in unspecified motor-vehicle accident, traffic, initial encounter
CPT/HCPCS: 70450; 71046; 72125; 99284

== ENCOUNTER → 2020-07-11 09:17 | Outpatient (CLI) | payer OTHER, SELFPAY ==
[2018-03-27 03:41] VITALS: BMI 23.1
[2020-07-11 10:40] LABS: Add Manual Diff / Slide Review NO; Basophils Absolute Auto 0 /uL (0-100); Basophils Percent Auto 0.4 % (0-2); Eosinophils Absolute Auto 100 /uL (0-450); Eosinophils Percent Auto 2.6 % (2-4); Hematocrit 39.4 % (36-46); Hemoglobin 12.9 g/dL (12.0-16.0); Lymphocytes Absolute Auto 1000 /uL (1100-4500); Lymphocytes Percent Auto 19.6 % (25-40); Mean Corpuscular HGB Conc 32.7 % (30-36); Mean Corpuscular Hemoglobin 29.9 PG (26-34); Mean Corpuscular Volume 91.6 fL (80-100); Monocytes Absolute Auto 400 /uL (0-900); Monocytes Percent Auto 8.1 % (3-14); Neutrophils Absolute Auto 3600 /uL (1500-7000); Neutrophils Percent Auto 69.3 % (50-75); Platelet Count 283 X10^3/uL (150-400); Red Cell Distribution Width 15.9 % (11.6-14.8); White Blood Cell Count 5.2 X10^3/uL (4.5-11.0)
[2020-07-11 11:27] LABS: HEMOLYSIS < 15 (0-50); Iron 121 ug/dL (37-170)
[2020-07-11 11:35] LABS: Alanine Aminotransferase 16 IU/L (<35); Albumin 4.4 g/dL (3.5-5.0); Albumin Globulin Ratio 1.5 (1.0-2.8); Alkaline Phosphatase 67 U/L (38-126); Aspartate Aminotransferase 25 IU/L (14-36); BUN Creatinine Ratio 28.3 (6-22); Bilirubin Total 0.3 mg/dL (0.2-1.3); Blood Urea Nitrogen 17 mg/dL (7-17); Calcium 9.4 mg/dL (8.4-10.2); Carbon Dioxide 27 mmol/L (22-32); Chloride 100 mmol/L (98-107); Cholesterol 228 mg/dL (140-199); Estimated Glomerular Filt Rate > 60.0 mL/min (>60); Glucose 91 mg/dL (80-110); HDL Cholesterol 103 mg/dL (40-60); HEMOLYSIS < 15 (0-50); LDL Cholesterol Calculated 113 mg/dL (<100); Potassium 4.4 mmol/L (3.4-5.1); Sodium 135 mmol/L (137-145); Total Protein 7.4 g/dL (6.3-8.2); Triglycerides 58 mg/dL (35-150)
[2020-07-11 11:39] LABS: Percent Iron Saturation 33 % (15-50); Total Iron Binding Capacity 370 ug/dL (265-497); Transferrin 298 mg/dL (206-381)
[2020-07-11 12:04] LABS: TSH w/ Reflex to FT4 2.19 uIU/mL (0.47-4.68)
[2020-07-11 12:07] LABS: Ferritin 12 ng/mL (11-264)
== END ==
PROVIDERS: PCP Physician Assistant; Referring Provider Physician Assistant; Visit Provider Physician Assistant
DX: G89.4 Chronic pain syndrome (principal); G62.9 Polyneuropathy, unspecified; E03.9 Hypothyroidism, unspecified; E55.9 Vitamin D deficiency, unspecified; E53.8 Deficiency of other specified B group vitamins
CPT/HCPCS: 36415; 80053; 80061; 82728; 83540; 83550; 84443; 85025

== ENCOUNTER → 2020-07-21 11:12 | Outpatient (CLI) | payer OTHER, SELFPAY ==
[2018-03-27 03:41] VITALS: BMI 23.1
[2020-07-21] MEDS: COVID-19 VACC #1, MRNA(MOD) 100 MCG/0.5 ML VIAL IM (11:27)
== END ==
PROVIDERS: PCP Physician Assistant; Visit Provider Internal Medicine
DX: Z23 Encounter for immunization (principal)
CPT/HCPCS: 0011A; 91301

== ENCOUNTER → 2020-08-18 12:13 | Outpatient (CLI) | payer OTHER, SELFPAY ==
[2018-03-27 03:41] VITALS: BMI 23.1
[2020-08-18] MEDS: COVID-19 VACC #2, MRNA(MOD) 100 MCG/0.5 ML VIAL IM (12:30)
== END ==
PROVIDERS: PCP Physician Assistant; Visit Provider Internal Medicine
DX: Z23 Encounter for immunization (principal)
CPT/HCPCS: 0012A; 91301

== ENCOUNTER → 2020-08-19 10:07 | Outpatient (CLI) | payer OTHER, SELFPAY ==
[2018-03-27 03:41] VITALS: BMI 23.1
[2020-08-19 10:42] LABS: Add Manual Diff / Slide Review NO; Basophils Absolute Auto 0 /uL (0-100); Basophils Percent Auto 0.2 % (0-2); Eosinophils Absolute Auto 0 /uL (0-450); Eosinophils Percent Auto 0.7 % (2-4); Hematocrit 39.9 % (36-46); Hemoglobin 13.1 g/dL (12.0-16.0); Lymphocytes Absolute Auto 500 /uL (1100-4500); Lymphocytes Percent Auto 7.2 % (25-40); Mean Corpuscular HGB Conc 32.9 % (30-36); Mean Corpuscular Hemoglobin 30.6 PG (26-34); Mean Corpuscular Volume 92.9 fL (80-100); Monocytes Absolute Auto 600 /uL (0-900); Monocytes Percent Auto 8.5 % (3-14); Neutrophils Absolute Auto 5500 /uL (1500-7000); Neutrophils Percent Auto 83.4 % (50-75); Platelet Count 251 X10^3/uL (150-400); Red Cell Distribution Width 14.3 % (11.6-14.8); White Blood Cell Count 6.6 X10^3/uL (4.5-11.0)
[2020-08-19 11:10] LABS: Alanine Aminotransferase 17 IU/L (<35); Albumin 4.4 g/dL (3.5-5.0); Albumin Globulin Ratio 1.4 (1.0-2.8); Alkaline Phosphatase 73 U/L (38-126); Amylase 49 U/L (30-110); Aspartate Aminotransferase 25 IU/L (14-36); BUN Creatinine Ratio 15.2 (6-22); Bilirubin Total 0.3 mg/dL (0.2-1.3); Bilirubin Unconjugated 0.4 mg/dL (0.0-1.1); Blood Urea Nitrogen 10 mg/dL (7-17); Calcium 9.6 mg/dL (8.4-10.2); Carbon Dioxide 30 mmol/L (22-32); Chloride 96 mmol/L (98-107); Estimated Glomerular Filt Rate > 60.0 mL/min (>60); Globulin 3.2 g/dL (1.7-4.1); Glucose 94 mg/dL (80-110); HEMOLYSIS < 15 (0-50); Lipase 75 U/L (23-300); Potassium 4.6 mmol/L (3.4-5.1); Sodium 133 mmol/L (137-145); Total Protein 7.6 g/dL (6.3-8.2)
[2020-08-20 06:40] LABS: HBsAg Screen Negative (Negative); Hepatitis A Antibody IgM Negative (Negative); Hepatitis B Core Antibody IgM Negative (Negative); Hepatitis C Antibody <0.1 s/co ratio (0.0-0.9)
== END ==
PROVIDERS: PCP Physician Assistant; Referring Provider Physician Assistant; Visit Provider Physician Assistant
DX: R10.11 Right upper quadrant pain (principal)
CPT/HCPCS: 36415; 80053; 80074; 80076; 82150; 83690; 85025

== ENCOUNTER → 2020-08-22 10:40 | Outpatient (CLI) | payer OTHER, SELFPAY ==
[2018-03-27 03:41] VITALS: BMI 23.1
--- NOTE | 2020-08-22 | DI.US.S_ITS ---
PROCEDURE: US ABDOMEN LIMITED INDICATIONS: RIGHT UPPER QUADRANT PAIN TECHNIQUE: Real-time focused scanning was performed of the abdomen, with image documentation. COMPARISON: [facility], CT, CT ABDOMEN PELVIS W CON, 10/03/2018, 1:18. FINDINGS: Normal appearance of the liver. Gallbladder surgically absent. No biliary dilatation. Grossly normal appearance of the pancreas. IMPRESSION: Limited exam demonstrating no source for right upper quadrant pain. Dictated by: Fortunato VINCENT Interpreted: Anthony Thompson MD on 08/22/2020 at 11:25 Approved by: Anthony Thompson M.D. on 08/22/2020 at 11:37
== END ==
PROVIDERS: PCP Physician Assistant; Referring Provider Physician Assistant; Visit Provider Physician Assistant
DX: R10.11 Right upper quadrant pain (principal)
CPT/HCPCS: 76705

== ENCOUNTER → 2021-09-29 08:31 | Outpatient (CLI) | payer OTHER, SELFPAY ==
[2018-03-27 03:41] VITALS: BMI 23.1
[2021-09-29 09:23] LABS: Add Manual Diff / Slide Review NO; Basophils Absolute Auto 0 /uL (0-100); Basophils Percent Auto 0.9 % (0-2); Eosinophils Absolute Auto 100 /uL (0-450); Eosinophils Percent Auto 1.1 % (2-4); Hematocrit 40.7 % (36-46); Hemoglobin 13.7 g/dL (12.0-16.0); Lymphocytes Absolute Auto 1100 /uL (1100-4500); Lymphocytes Percent Auto 21.5 % (25-40); Mean Corpuscular HGB Conc 33.6 % (30-36); Mean Corpuscular Hemoglobin 32.9 PG (26-34); Mean Corpuscular Volume 97.7 fL (80-100); Monocytes Absolute Auto 600 /uL (0-900); Monocytes Percent Auto 11.8 % (3-14); Neutrophils Absolute Auto 3200 /uL (1500-7000); Neutrophils Percent Auto 64.7 % (50-75); Platelet Count 355 X10^3/uL (150-400); Red Blood Cell Count 4.16 X10^6/uL (4.0-5.2); Red Cell Distribution Width 15.8 % (11.6-14.8); White Blood Cell Count 4.9 X10^3/uL (4.5-11.0)
[2021-09-29 09:36] LABS: Alanine Aminotransferase 18 IU/L (<35); Albumin 4.7 g/dL (3.5-5.0); Albumin Globulin Ratio 1.4 (1.0-2.8); Alkaline Phosphatase 58 U/L (38-126); Aspartate Aminotransferase 27 IU/L (14-36); BUN Creatinine Ratio 16.2 (6-22); Bilirubin Total 0.8 mg/dL (0.2-1.3); Blood Urea Nitrogen 11 mg/dL (7-17); C-Reactive Protein Quant < 0.5 mg/dL (<1.0); Calcium 9.9 mg/dL (8.4-10.2); Carbon Dioxide 25 mmol/L (22-32); Chloride 99 mmol/L (98-107); Estimated Glomerular Filt Rate > 60.0 mL/min (>60); Globulin 3.4 g/dL (1.7-4.1); Glucose 103 mg/dL (80-110); HEMOLYSIS < 15 (0-50); Potassium 5.1 mmol/L (3.4-5.1); Sodium 133 mmol/L (137-145); Total Protein 8.1 g/dL (6.3-8.2)
[2021-09-29 09:38] LABS: Erythrocyte Sedimentation Rate 5 MM/HR (0-20)
[2021-09-29 10:09] LABS: Thyroid Stimulating Hormone 3.27 uIU/mL (0.47-4.68)
== END ==
PROVIDERS: PCP Physician Assistant; Referring Provider Family Medicine; Visit Provider Family Medicine
DX: R53.83 Other fatigue (principal); R42 Dizziness and giddiness
CPT/HCPCS: 36415; 80053; 84443; 85025; 85651; 86140

== ENCOUNTER 2021-10-06 14:52 | Emergency (ER) | payer OTHER, SELFPAY ==
[2018-03-27 03:41] VITALS: BMI 23.1
[2021-10-06 15:14] VITALS: BP 107/61; PULSE 63; RESP 18; TEMP 36.7; O2SAT 96; BMI 23.0
--- NOTE | 2021-10-06 15:19 | DI.RAD.S_ITS ---
PROCEDURE: XR WRIST RT MIN 3V INDICATIONS: Wrist pain TECHNIQUE: 4 views of the wrist were acquired. COMPARISON: [facility], CR, XR WRIST RT MIN 3V, 12/31/2019, 7:41. FINDINGS: Bones: There is a moderately displaced distal radius fracture, with volar displacement and slight dorsal angulation. Mild impaction can be seen. There is comminution. No definite associated distal ulna fracture is seen. There is no radiocarpal dislocation. No lunate dislocation. Degenerative changes are seen throughout, which are most prominent involving the 1st carpometacarpal joint. Milder degenerative changes are seen elsewhere. Scaphoid view: No navicular fractures are seen. Soft tissues: No suspicious soft tissue calcifications. IMPRESSION: Distal radius fracture. If it would be helpful for clinical management decision making in this patient with this given history, please consider a dedicated wrist CT for further evaluation. Dictated by: Jag Hines M.D. on 10/06/2021 at 15:00 Approved by: Jag Hines M.D. on 10/06/2021 at 15:02
--- NOTE | 2021-10-06 16:24 | ED.UPPEXIN ---
HPI - Extremity Injury (Upper) <Yamil Rivers PA-C - Last Filed: 10/06/21 20:19> General Chief Complaint: Extremity Injury, Upper Stated Complaint: hurt right wrist Time Seen by Provider: 10/06/21 15:26 Source: patient Mode of arrival: Ambulatory History of Present Illness HPI narrative: Patient is a 61-year-old female presenting to the emergency department today for an evaluation of a right upper extremity injury. Patient states that approximately 1200 today she dropped a truck canopy on her right wrist. Of note, she denies pain or injury elsewhere states that she has not lost sensation or motor function in the right upper extremity. She denies fever, chills, chest pain, cough, shortness of breath, nausea, vomiting, diarrhea, constipation, abdominal pain, dysuria, hematuria, numbness and tingling in the upper extremities, or any other concerning symptoms. No further concerns were voiced at this time. Related Data Previous Rx's Medication Instructions Recorded chlordiazepoxide HCl 10 mg capsule 10 mg PO Q12H PRN #60 cap MDD 3 03/31/18 citalopram 20 mg tablet 20 mg PO DAILY #30 tab 03/31/18 diphenhydramine 25 2 tab PO BEDTIME PRN #60 tab 03/31/18 mg-acetaminophen 500 mg tablet (Tylenol PM Extra Strength) gabapentin 300 mg capsule 300 mg PO BID PRN #60 cap 03/31/18 (Neurontin) levothyroxine 75 mcg tablet 75 mcg PO DAILY #30 tab 03/31/18 losartan 25 mg tablet 25 mg PO DAILY #30 tab 03/31/18 naltrexone 50 mg tablet 50 mg PO DAILY #30 tab 03/31/18 trazodone 50 mg tablet 1 - 2 tab PO BEDTIME PRN #45 tab 03/31/18 ondansetron 4 mg disintegrating 4 mg PO Q6H PRN #30 tab 10/06/21 tablet oxycodone 5 mg tablet 5 mg PO Q6H PRN #20 tab 10/06/21 Allergies Allergy/AdvReac Type Severity Reaction Status Date / Time codeine Allergy Unknown VOMITING Verified 10/06/21 15:14 medroxyprogesterone Allergy Unknown MEDROXYPROGESTERONE Verified 10/06/21 15:14 MAKES HER CRAZY Review of Systems <Yamil Rivers PA-C - Last Filed: 10/06/21 20:19> Constitutional Constitutional: Denies chills, Denies fatigue, Denies fever(s), Denies frequent falls, Denies lethargy and Denies weakness Eyes Eyes: Denies loss of vision ENT Ears, Nose, Mouth, and Throat: Denies dizziness and Denies neck pain Cardiovascular Cardiovascular: Denies chest pain, Denies irregular heart rhythm, Denies lightheadedness, Denies palpitations, Denies dyspnea, Denies dyspnea on exertion and Denies orthopnea Respiratory Respiratory: Denies cough, Denies dyspnea, Denies dyspnea on exertion and Denies wheezing Gastrointestinal Gastrointestinal: Denies abdominal pain, Denies change in bowel habits, Denies diarrhea, Denies nausea and Denies vomiting Genitourinary Genitourinary: Denies hematuria, Denies flank pain, Denies urinary incontinence and Denies urinary urgency Musculoskeletal Musculoskeletal: Denies back pain, Reports arthralgias (Right wrist pain), Reports joint swelling (Right wrist), Denies muscle weakness, Denies neck pain, Denies numbness and Denies tingling Integumentary/Breasts Skin/Breast: Denies pruritus, Denies erythema, Denies rash and Denies wounds Neurologic Neurologic: Denies behavioral changes, Denies confusion, Denies dizziness, Denies frequent falls, Denies loss of vision, Denies numbness, Denies tingling and Denies weakness Psychiatric Psychiatric: Denies behavioral changes and Denies confusion Endocrine Endocrine: Denies fatigue and Denies palpitations Allergic/Immunologic Allergic/Immunologic: Denies wheezing Patient History <Yamil Rivers PA-C - Last Filed: 10/06/21 20:19> Medical History (Updated 10/06/21 @ 16:30 by Yamil Rivers PA-C) Alcohol abuse Back pain Erosive esophagitis Esophageal varices GI bleed Hypertension Hypothyroid Social History household members: significant other Smoking Status: Never smoker alcohol intake: current Smoking Status: Never smoker alcohol intake frequency: 3 or more drinks per day Substance Use Type: does not use Exam <Yamil Rivers PA-C - Last Filed: 10/06/21 20:19> Narrative Exam Narrative: GENERAL: 61 year old patient appears stated age. Well-developed patient, in mild distress. HEAD: Atraumatic. Normocephalic. EYES: Pupils equal round and reactive. Extraocular motions intact. No scleral icterus. No injection or drainage. ENT: Nose without bleeding, purulent drainage. Throat without erythema, tonsillar hypertrophy or exudate. Airway patent. NECK: Trachea midline. Non tender CARDIOVASCULAR: Regular rate and rhythm without murmurs, gallops, or rubs. RESPIRATORY: Clear to auscultation. Breath sounds equal bilaterally. No wheezes, rales, or rhonchi. GASTROINTESTINAL: Abdomen soft, non-tender, nondistended. EXTREMITIES: No edema. Tenderness to palpation appreciated along the lateral aspect of the right wrist with swelling over the dorsal aspect of the rest. No open wounds or signs of compound fracture appreciated. Good sensation light touch appreciated throughout the bilateral upper extremities. Gross motor function intact throughout the bilateral upper extremities. Radial pulse palpated on the right. BACK: Nontender without deformity or crepitance. No flank tenderness. NEURO: AOx3. SKIN: No rash or erythema of visible areas Initial Vital Signs Initial Vital Signs: Vital Signs Temperature 98.1 F 10/06/21 15:14 Pulse Rate 63 10/06/21 15:14 Respiratory Rate 18 10/06/21 15:14 Blood Pressure 107/61 10/06/21 15:14 Pulse Oximetry 96 10/06/21 15:14 <Flor Dunlap DO - Last Filed: 10/10/21 07:33> Initial Vital Signs Initial Vital Signs: Vital Signs Temperature 98.1 F 10/06/21 15:14 Pulse Rate 63 10/06/21 15:14 Respiratory Rate 18 10/06/21 15:14 Blood Pressure 107/61 10/06/21 15:14 Pulse Oximetry 96 10/06/21 15:14 Course <Yamil Rivers PA-C - Last Filed: 10/06/21 20:19> Course Course Narrative: Right wrist x-ray obtained Orders Ordered: Discontinued Medications Ondansetron HCl (Ondansetron 4 Mg Odt) 4 mg SL NOW ONE Stop: 10/06/21 16:24 Last Admin: 10/06/21 16:36 Dose: 4 mg Documented by: ATAYLOR Oxycodone HCl (Oxycodone Ir 5 Mg Tablet) 5 mg PO NOW ONE Stop: 10/06/21 16:24 Last Admin: 10/06/21 16:36 Dose: 5 mg Documented by: ATAYLOR Vital Signs Vital signs: Vital Signs - 8 hr 10/06/21 15:14 Temperature 98.1 F Pulse Rate 63 Respiratory Rate 18 Blood Pressure 107/61 Pulse Oximetry 96 <Flor Dunlap DO - Last Filed: 10/10/21 07:33> Orders Ordered: Discontinued Medications Ondansetron HCl (Ondansetron 4 Mg Odt) 4 mg SL NOW ONE Stop: 10/06/21 16:24 Last Admin: 10/06/21 16:36 Dose: 4 mg Documented by: ATAYLOR Oxycodone HCl (Oxycodone Ir 5 Mg Tablet) 5 mg PO NOW ONE Stop: 10/06/21 16:24 Last Admin: 10/06/21 16:36 Dose: 5 mg Documented by: ATAYLOR Vital Signs Vital signs: Vital Signs - 8 hr 10/06/21 15:14 Temperature 98.1 F Pulse Rate 63 Respiratory Rate 18 Blood Pressure 107/61 Pulse Oximetry 96 MDM - Extremity Injury (Upper) <Yamil Rivers PA-C - Last Filed: 10/06/21 20:19> Imaging Data Extremity x-ray #1: Radiologist's Impression: PROCEDURE:? XR WRIST RT MIN 3V ? INDICATIONS: Wrist pain ? TECHNIQUE:? 4 views of the wrist were acquired.? ? COMPARISON:? [facility], CR, XR WRIST RT MIN 3V, 12/31/2019, 7:41. ? FINDINGS:? ? Bones:? There is a moderately displaced distal radius fracture, with volar displacement and slight dorsal angulation.? Mild impaction can be seen.? There is comminution.? No definite associated distal ulna fracture is seen.? There is no radiocarpal dislocation.? No lunate dislocation. ? Degenerative changes are seen throughout, which are most prominent involving the 1st carpometacarpal joint.? Milder degenerative changes are seen elsewhere.? ? Scaphoid view:? No navicular fractures are seen. ? Soft tissues:? No suspicious soft tissue calcifications.? ? ? IMPRESSION:? Distal radius fracture. ? If it would be helpful for clinical management decision making in this patient with this given history, please consider a dedicated wrist CT for further evaluation. ? ? Dictated by: Jag Hines M.D. on 10/06/2021 at 15:00 ? ? Approved by: Jag Hines M.D. on 10/06/2021 at 15:02 ? MDM Narrative Medical decision making narrative: Differential diagnosis to consider but not limited to fracture versus dislocation versus sprain versus strain. I discussed results of x-ray with patient and informed her that she does have a distal radius fracture. I informed the patient that we would be placing her in a sugar-tong splint and plan to have her follow-up with orthopedics for further evaluation and management. Patient expresses understanding and agrees to plan. Additionally, I discussed plan to send the patient home with a short prescription for pain medications to help alleviate discomfort. Patient states at this time she is comfortable being discharged home is stable for discharge. Strict return precautions were discussed with the patient prior to discharge. Discharge Plan Departure Patient Disposition: Home Clinical Impression: Closed fracture of distal end of right radius Instructions: DI for Distal Radius Fracture Activity Restrictions/Additional Instructions: *You have been diagnosed with right distal radius fracture *What to do: *Please continue to take your regular medications as directed. [X] New medication prescriptions sent to your pharmacy: [facility] - Zofran [X] New medication written as a paper prescription - Oxycodone [ ] No new medications given You were evaluated in the emergency department today for a right upper extremity injury. X-ray imaging obtained in the emergency department today did show signs of a distal right radius fracture. The were placed in a sugar-tong splint in the emergency department and I have set up a referral for orthopedic follow-up. A prescription for pain medications has been printed for you. Please follow-up with your primary care provider within the next 2-3 days for further evaluation. Do not hesitate to return to the emergency department if you experience worsening pain, swelling of the right upper extremity, fever, or any other concerning symptoms. *Please follow up with your primary care provider in 2-3 days, call for an appointment. Let them know you were seen in the Emergency Department and that we ask that you be seen in follow up. We will electronically transmit a record of today's note if your PCP is in our system *If you do not have a primary care provider please contact the [facility] Resource line at [phone]. They will ask some questions about your medical history and help get you set up with a doctor in the community. *Return to Emergency Department if you should have any new, worsening or concerning symptoms, such as fever greater than 101 F, shaking chills, worsening pain, persistent vomiting or other bothersome symptoms. Prescriptions: New oxycodone 5 mg tablet 5 mg PO Q6H PRN (Reason: pain) Qty: 20 0RF ondansetron 4 mg tablet,disintegrating 4 mg PO Q6H PRN (Reason: nausea and vomiting) Qty: 30 0RF No Action naltrexone 50 mg tablet 50 mg PO DAILY Qty: 30 2RF chlordiazepoxide HCl 10 mg capsule 10 mg PO Q12H MDD 3 PRN (Reason: alcohol abstinence) Qty: 60 0RF Rx Instructions: 1 tab up to 3 times daily for 10 days then 1 tab twice daily for 10 days then 1 tab daily citalopram 20 mg tablet 20 mg PO DAILY Qty: 30 4RF levothyroxine 75 mcg tablet 75 mcg PO DAILY Qty: 30 2RF losartan 25 mg tablet 25 mg PO DAILY Qty: 30 2RF Label Comments: take 1 tablet by mouth once daily gabapentin [Neurontin] 300 MG capsule 300 mg PO BID PRN (Reason: Back Pain) Qty: 60 2RF trazodone 50 mg tablet 1 - 2 tab PO BEDTIME PRN (Reason: Insomnia) Qty: 45 2RF Label Comments: take 1 to 2 tablets by mouth at bedtime for sleep diphenhydramine-acetaminophen [Tylenol PM Extra Strength] 25-500 mg Tablet 2 tab PO BEDTIME PRN (Reason: Insomnia) Qty: 60 0RF Referrals: Elvira Fleming MD [Physician] - 5-7 days Yumiko Cheung PA-C [Primary Care Provider] - <Flor Dunlap DO - Last Filed: 10/10/21 07:33> Cosign ED Attending Ignacio Attestation: I was immediately available in the department for consultation. Documentation has been reviewed. I agree with assessment and plan.
[2021-10-06] MEDS: OXYCODONE IR 5 MG TABLET PO (16:36)
[2021-10-06] MEDS: ONDANSETRON 4 MG ODT SL (16:36)
== END 2021-10-06 16:48 | disposition home or self-care (01) ==
PROVIDERS: Emergency Provider Physician Assistant; PCP Physician Assistant
DX: S52.501A Unspecified fracture of the lower end of right radius, initial encounter for closed fracture (principal); W20.8XXA Other cause of strike by thrown, projected or falling object, initial encounter
CPT/HCPCS: 29125; 73110; 99283; 99284

== ENCOUNTER → 2022-01-22 14:05 | Outpatient (CLI) | payer OTHER, SELFPAY ==
[2018-03-27 03:41] VITALS: BMI 23.1
--- NOTE | 2022-01-22 14:09 | DI.RAD.S_ITS ---
PROCEDURE: XR THORACIC SPINE 3V INDICATIONS: RIB PAIN, INJURY OF THORAX POST FALL TECHNIQUE: 3 views of the thoracic spine were acquired. COMPARISON: [facility], MR, MR THORACIC SPINE WO CON, 10/05/2019, 12:17. FINDINGS: Bones: No fractures or dislocations. No suspicious bony lesions. 12 pairs of ribs are noted, and appear intact where visualized. Mild multilevel disc height loss with endplate sclerosis and spurring. Soft tissues: No paravertebral stripe thickening. Cholecystectomy clips. Vascular calcifications indicate atherosclerosis. IMPRESSION: Mild multilevel disc degeneration. Dictated by: Fortunato Moreno [facility] Interpreted: Christy Cleary MD on 01/22/2022 at 15:38 Transcribed by: URI on 01/22/2022 at 15:39 Approved by: Christy Cleary M.D. on 01/24/2022 at 7:35
--- NOTE | 2022-01-22 14:09 | DI.RAD.S_ITS ---
PROCEDURE: XR RIBS BI MIN 4V W CXR1V INDICATIONS: RIB PAIN, INJURY OF THORAX POST FALL TECHNIQUE: Two views of the bilateral ribs were acquired, along with a single view chest. COMPARISON: None. FINDINGS: Surgical changes and devices: Cholecystectomy clips. Bones and chest wall: Nondisplaced left 9th and 10th rib fractures laterally. Nondisplaced right anterolateral 9th and 10th rib fractures. Mild degenerative change in both glenohumeral joints. Lungs and pleura: There are bibasilar atelectatic changes, left more prominent than right. No pleural effusions or pneumothorax. Mediastinum: Mediastinal contours appear normal. Heart size is normal. IMPRESSION: 1. Nondisplaced bilateral 9th and 10th rib fractures. 2. Bibasilar atelectasis may be secondary to splinting. 3. No pneumothorax or effusion. Dictated by: Lynn Dee M.D. on 01/22/2022 at 23:04 Approved by: Lynn Dee M.D. on 01/22/2022 at 23:11
== END ==
PROVIDERS: PCP Physician Assistant; Referring Provider Physician Assistant; Visit Provider Family Medicine
DX: S22.43XA Multiple fractures of ribs, bilateral, initial encounter for closed fracture (principal); R07.81 Pleurodynia; J98.11 Atelectasis; M47.814 Spondylosis without myelopathy or radiculopathy, thoracic region; W19.XXXA Unspecified fall, initial encounter
CPT/HCPCS: 71111; 72072

== ENCOUNTER → 2022-01-28 10:05 | Outpatient (CLI) | payer OTHER, SELFPAY ==
[2018-03-27 03:41] VITALS: BMI 23.1
== END ==
PROVIDERS: PCP Physician Assistant; Referring Provider Physician Assistant; Visit Provider Physician Assistant
DX: Z13.820 Encounter for screening for osteoporosis (principal); S52.591D Other fractures of lower end of right radius, subsequent encounter for closed fracture with routine healing; M81.0 Age-related osteoporosis without current pathological fracture; Z78.0 Asymptomatic menopausal state
CPT/HCPCS: 77080

== ENCOUNTER → 2022-01-31 09:55 | Outpatient (CLI) | payer OTHER, SELFPAY ==
[2018-03-27 03:41] VITALS: BMI 23.1
--- NOTE | 2022-01-31 | DI.RAD.S_ITS ---
PROCEDURE: XR HAND RT MIN 3V INDICATIONS: Pain in right finger(s) TECHNIQUE: 3 views of the hand(s) acquired. COMPARISON: [facility], CR, XR WRIST 3+ VIEWS RIGHT, 11/14/2021, 10:47. [facility], CR, XR WRIST 3+ VIEWS RIGHT, 12/26/2021, 9:02. FINDINGS: Bones: There is an oblique fracture seen through the 5th metacarpal shaft, with moderate displacement. No additional fractures are detected. Degenerative changes are seen throughout, which are most prominent involving the 1st carpometacarpal joint. Milder degenerative changes are seen elsewhere. There is an intact distal radius fracture. Soft tissues: No suspicious soft tissue calcifications. IMPRESSION: Moderately displaced 5th metacarpal fracture. Distal radius plate and screw fixation. Dictated by: Jag Hines M.D. on 01/31/2022 at 10:36 Approved by: Jag Hines M.D. on 01/31/2022 at 10:37
== END ==
PROVIDERS: PCP Physician Assistant; Referring Provider Physician Assistant; Visit Provider Physician Assistant
DX: S62.326A Displaced fracture of shaft of fifth metacarpal bone, right hand, initial encounter for closed fracture (principal); S52.501D Unspecified fracture of the lower end of right radius, subsequent encounter for closed fracture with routine healing; M79.641 Pain in right hand; M79.644 Pain in right finger(s); X58.XXXA Exposure to other specified factors, initial encounter
CPT/HCPCS: 73130

== ENCOUNTER 2022-06-27 07:35 | Emergency (ER) | payer OTHER, SELFPAY ==
[2018-03-27 03:41] VITALS: BMI 23.1
[2022-06-27 08:03] VITALS: BP 168/94; PULSE 88; RESP 15; TEMP 36.1; O2SAT 100; BMI 22.1
--- NOTE | 2022-06-27 08:13 | DI.CT.S_ITS ---
PROCEDURE: CT CERVICAL SPINE WO CON INDICATIONS: headache x 2 weeks,speech changes, hx intracranial bleed TECHNIQUE: Noncontrast 3 mm thick sections acquired from the skull base to the T4 level. Sagittal and coronal reformats were then constructed. For radiation dose reduction, the following was used: automated exposure control, adjustment of mA and/or kV according to patient size. COMPARISON: [facility], CT, CT CERVICAL SPINE WO CON, 04/13/2020, 14:11. FINDINGS: Image quality: Excellent. Bones: No fractures or dislocations. Multilevel facet arthropathy multilevel disc height loss and uncovertebral osteophyte formation. Visualized superior ribs are intact. Soft tissues: Prevertebral soft tissues are normal in thickness. No paravertebral hematomas. No apical pneumothoraces. Calcified granuloma, right apex. IMPRESSION: Cervical spondylitic change. No evidence acute cervical fracture or dislocation. Dictated by: Edi Zayas M.D. on 06/27/2022 at 8:34 Approved by: Edi Zayas M.D. on 06/27/2022 at 8:36
--- NOTE | 2022-06-27 08:13 | DI.CT.S_ITS ---
PROCEDURE: CT HEAD/BRAIN WO CON INDICATIONS: headache x 2 weeks,speech changes, hx intracranial bleed TECHNIQUE: Noncontrast 4.5 mm thick angled axial sections acquired from the foramen magnum to the vertex, with coronal and sagittal reformats. For radiation dose reduction, the following was used: automated exposure control, adjustment of mA and/or kV according to patient size. COMPARISON: [facility], CT, CT HEAD/BRAIN WO CON, 04/13/2020, 14:11. FINDINGS: Image quality: Excellent. CSF spaces: Basal cisterns are patent. No extra-axial fluid collections. The ventricles are symmetric in size and shape. Brain: No intracranial bleeds or masses. There is cerebral volume loss for age, with resultant ventricular and sulcal prominence. There are periventricular and deep white matter chronic small vessel ischemic changes. There is intracranial internal carotid artery atherosclerosis. Skull and face: Calvarium and visualized facial bones appear intact, without suspicious lesions. Sinuses: Visualized sinuses and mastoids are clear. IMPRESSION: No evidence acute intracranial process. Dictated by: Edi Zayas M.D. on 06/27/2022 at 8:32 Approved by: Edi Zayas M.D. on 06/27/2022 at 8:34
--- NOTE | 2022-06-27 08:14 | ED_ITS ---
HPI - Neuro Symptoms/Deficit General Chief Complaint: Neuro Symptoms/Deficit Stated Complaint: impaired speech,headache/neck pain 1 week Time Seen by Provider: 06/27/22 08:13 Source: patient Mode of arrival: Ambulatory Limitations: no limitations History of Present Illness HPI Narrative: This is a 62-year-old female with history of prior intracranial hemorrhage, history of alcoholism, chronic back pain, hypertension who presents with complaint of 2 weeks of headache, radiating down to the left neck. She states not as intense as when she had her head bleed but has not resolved she is been taking Tylenol and it continues to persist. She denies fevers or chills. She denies any recent trauma or falls. Patient denies chest pain or shortness of breath. She denies any new vision changes, she denies nausea or vomiting, she denies any diarrhea, constipation or other GI changes. Patient denies any dysuria urgency frequency or incontinence. No bowel or bladder incontinence. She states she is some chronic tingling in both sides of her toes which is normal for her. She has not noticed any increase or change in weakness or numbness tingling of her extremities. Patient and state that she was mo nitored given IV medications but never had any surgery, no reported intracranial aneurysm. On Anticoagulants: No Related Data Previous Rx's Medication Instructions Recorded chlordiazepoxide HCl 10 mg capsule 10 mg PO Q12H PRN alcohol 03/31/18 abstinence #60 caps citalopram 20 mg tablet 20 mg PO DAILY #30 tabs 03/31/18 diphenhydramine 25 2 tab PO BEDTIME PRN Insomnia #60 03/31/18 mg-acetaminophen 500 mg tablet tabs (Tylenol PM Extra Strength) gabapentin 300 mg capsule 300 mg PO BID PRN Back Pain #60 03/31/18 (Neurontin) caps levothyroxine 75 mcg tablet 75 mcg PO DAILY #30 tabs 03/31/18 losartan 25 mg tablet 25 mg PO DAILY #30 tabs 03/31/18 naltrexone 50 mg tablet 50 mg PO DAILY #30 tabs 03/31/18 trazodone 50 mg tablet 1 - 2 tab PO BEDTIME PRN Insomnia 03/31/18 #45 tabs ondansetron 4 mg disintegrating 4 mg PO Q6H PRN nausea and 10/06/21 tablet vomiting #30 tabs oxycodone 5 mg tablet 5 mg PO Q6H PRN pain #20 tabs 10/06/21 Allergies Allergy/AdvReac Type Severity Reaction Status Date / Time codeine Allergy Unknown VOMITING Verified 06/27/22 08:03 medroxyprogesterone Allergy Unknown MEDROXYPROGESTERONE Verified 06/27/22 08:03 MAKES HER CRAZY Review of Systems Review of Systems ROS Unobtainable: All systems reviewed & are unremarkable except as noted in HPI and below Hematologic/Lymphatic On Anticoagulants: No Patient History Medical History (Updated 06/27/22 @ 09:29 by Sarah Christopher DO) Alcohol abuse Back pain Erosive esophagitis Esophageal varices GI bleed Hypertension Hypothyroid Social History household members: significant other Smoking Status: Never smoker alcohol intake: current Smoking Status: Never smoker alcohol intake frequency: 3 or more drinks per day Substance Use Type: does not use Exam Narrative Exam Narrative: GEN: well nourished, well appearing female, alert and oriented x 3, patient appears to be in while distress. HEENT: Atraumatic, pupils are equal round reactive to light, extraocular movements are intact, nares are clear, TMs are clear with no fluid, there is no conjunctival pallor. Throat is clear without any exudates, erythema, tonsillar enlargement or uvular deviation, slight droop of left cheek when she puffs her cheeks states this is normal for her. No droop with smile or otherwise noted. HEART: Regular rate and rhythm without murmur, clicks, rubs. No carotid bruits, pulses are equal in upper and lower extremities LUNGS:Lungs clear to auscultation, no wheezes, rales, crackles, chest moves symmetrically ABD:bowel sounds normal, soft, non-tender, no guarding, rebound, rigidity, no masses noted, no hepatosplenomegaly :No CVA tenderness MSCL: Non-tender, no muscle atrophy, muscles strength 5/5 upper and lower extremities, full range of motion NEURO:CN 2-12 intact, sensation normal, finger nose finger test normal, heel king test normal, GCS 15, patient has a tight slightly with speech but otherwise clear speech, no dysarthria aphasia noted. SKIN: No rash, erythema or other skin changes noted, no ecchymosis appreciated. Initial Vital Signs Initial Vital Signs: Vital Signs Temperature 97.0 F L 06/27/22 08:03 Pulse Rate 88 06/27/22 08:03 Respiratory Rate 15 06/27/22 08:03 Blood Pressure 168/94 H 06/27/22 08:03 Pulse Oximetry 100 06/27/22 08:03 Oxygen Delivery Method 06/27/22 08:03 Scores GCS [place] coma scale eye opening: Spontaneous Beat[place] coma scale verbal response: Orientated [place] coma scale motor response: Obey commands [place] coma scale total score: 15 NIH Stroke Scale Level of Conciousness: Alert, keenly responsive Ask month/age: Answers both questions correctly. Open/close eyes, close hand: Performs both tasks correctly Best gaze horizontal: Normal Visual ames: No visual loss Facial palsy: Normal symetrical movement (change only with cheek puff, normal baseline per family) Left arm drift: No drift for full 10 sec Right arm drift: No drift for full 10 sec Left leg drift: No drift for full 5 sec Right leg drift: No drift for full 5 sec Limb ataxia: Absent Sensory on face/arms/legs: Normal, no sensory loss Best language: No aphasia, normal Dysarthria: Normal Extinction or inattention: No abnormality Total NIH Stroke scale score: 0 Course Orders Ordered: ED Orders 06/27/22 08:13 CT cervical spine wo con Stat CT head/brain wo con Stat 06/27/22 08:34 CBC Auto Diff [Complete Blood Count AUTO DIFF] Stat CMP [Comprehensive Metabolic Panel] Stat ETOH [Ethanol (ETOH)] Stat Lipase Stat PTT [Partial Thromboplastin Time] Stat Prothrombin Time INR Stat 06/27/22 08:51 EKG-12 Lead Stat Vital Signs Vital signs: Vital Signs - 8 hr 06/27/22 08:03 Temperature 97.0 F L Pulse Rate 88 Respiratory Rate 15 Blood Pressure 168/94 H Pulse Oximetry 100 Oxygen Delivery Method Room Air MDM - Neuro Symptoms/Deficit Lab Data Result diagrams: 06/27/22 08:34 06/27/22 08:34 Labs: Lab Results 06/27/22 06/27/22 06/27/22 Range/Units 08:34 08:34 08:34 WBC 3.2 L (4.5-11.0) X10^3/uL RBC 4.60 (4.0-5.2) X10^6/uL Hgb 14.9 (12.0-16.0) g/dL Hct 43.5 (36-46) % MCV 94.4 (80-100) fL MCH 32.3 (26-34) PG MCHC 34.2 (30-36) % RDW 14.6 (11.6-14.8) % Plt Count 301 (150-400) X10^3/uL Neut % (Auto) 65.4 (50-75) % Lymph % (Auto) 20.7 L (25-40) % [place] % (Auto) 11.8 (3-14) % Eos % (Auto) 1.6 L (2-4) % Baso % (Auto) 0.5 (0-2) % Neut # (Auto) 2100 (3248-1981) /uL Lymph # (Auto) 700 L (3543-7048) /uL [place] # (Auto) 400 (0-900) /uL Eos # (Auto) 0 (0-450) /uL Baso # (Auto) 0 (0-100) /uL PT 9.9 L (10.1-12.7) SECONDS INR 0.9 (0.9-1.3) APTT 34 (26-36) SECONDS Sodium 133 L (137-145) mmol/L Potassium 4.2 (3.4-5.1) mmol/L Chloride 96 L (98-107) mmol/L Carbon Dioxide 25 (22-32) mmol/L BUN 9 (7-17) mg/dL Creatinine 0.54 (0.52-1.04) mg/dL Estimated GFR > 60 (>60) mL/min BUN/Creatinine Ratio 16.7 (6-22) Glucose 89 (80-110) mg/dL Calcium 9.4 (8.4-10.2) mg/dL Total Bilirubin 0.5 (0.2-1.3) mg/dL AST 28 (14-36) IU/L ALT 21 (<35) IU/L Alkaline Phosphatase 82 (38-126) U/L Total Protein 8.7 H (6.3-8.2) g/dL Albumin 4.8 (3.5-5.0) g/dL Globulin 3.9 (1.7-4.1) g/dL Albumin/Globulin Ratio 1.2 (1.0-2.8) Lipase 72 (23-300) U/L Ethyl Alcohol < 10 ( - 10) mg/dL Imaging Data CT scan - head: Radiologist's Impression: [address] [address] [address] Scan Report Signed Patient: Kaylie Melgar MR#: [id number] : 1960 Acct:[id number] Age/Sex: 62 / F Date of Service: 06/27/22 Loc: ED Accession Number: [id number] ?? Procedure: CT head/brain wo con Ordering Provider: Sarah Christopher D.O. PROCEDURE:? CT HEAD/BRAIN WO CON ? INDICATIONS:? headache x 2 weeks,speech changes, hx intracranial bleed ? TECHNIQUE:? Noncontrast 4.5 mm thick angled axial sections acquired from the foramen magnum to the vertex, with coronal and sagittal reformats.? For radiation dose reduction, the following was used:? automated exposure control, adjustment of mA and/or kV according to patient size.? ? COMPARISON:? [facility], CT, CT HEAD/BRAIN WO CON, 04/13/2020, 14:11. ? FINDINGS:? Image quality:? Excellent.? ? CSF spaces:? Basal cisterns are patent.? No extra-axial fluid collections.? The ventricles are symmetric in size and shape.? ? Brain:? No intracranial bleeds or masses.? There is cerebral volume loss for age, with resultant ventricular and sulcal prominence.? There are periventricular and deep white matter chronic small vessel ischemic changes.? There is intracranial internal carotid artery atherosclerosis.? ? Skull and face:? Calvarium and visualized facial bones appear intact, without suspicious lesions.? ? Sinuses:? Visualized sinuses and mastoids are clear.? ? IMPRESSION:? No evidence acute intracranial process. ? ? Dictated by: Edi Zayas M.D. on 06/27/2022 at 8:32 ? ? Approved by: Edi Zayas M.D. on 06/27/2022 at 8:34?? CT - cervical spine: Radiologist's Impression: Kaylie Melgar??62??F??1960 ? Allergy/Adv: codeine, medroxyprogesterone (More??) Close Head CT (Signed) MarquezPeggs - 06/27/[address] (Signed) Edi Zayas - 06/27/22 Hand X-Ray (Signed) Jag Hines - 01/31/22 DEXA Result 01/28/22 Bone Densitometry 01/28/22 Thoracic Spine X-Ray (Signed) Christy Cleary - 01/22/22 Ribs w/Chest X-Ray (Signed) Lynn Dee - 01/22/22 Wrist X-Ray (Signed) Jag Hines - 10/06/21 Abdomen Ultrasound (Signed) Anthony Thompson - 08/22/[address] (Signed) Ralph Martínez - 04/13/20 Chest X-Ray (Signed) Christy Cleary - 04/13/[address] (Signed) Ralph Martínez - 04/13/[address] (Signed) Arden Ty - 03/02/20 Wrist X-Ray (Signed) Adryan Ames - 12/31/19 Thoracic Spine MRI (Signed) Chilango William - 10/05/19 Lumbar Spine MRI (Signed) Jag Hines - 10/05/19 Cervical Spine MRI (Signed) Jag Hines - 10/05/[address] (Signed) Jag Hines - 08/17/19 Cervical Spine X-Ray (Signed) Jeni Mera - 05/13/19 Chest X-Ray (Signed) Ralph Martínez - 10/03/18 Abdomen/Pelvis CT (Signed) Ralph Martínez - 10/03/18 Chest X-Ray (Signed) Pauly Boucher - 07/30/18 Telemetry Strips 03/27/18 Chest X-Ray (Signed) Robe Johnson - 03/26/18 Abdomen X-Ray (Signed) Robe Johnson - 03/26/18 Chest X-Ray (Signed) Christy Cleary - 01/17/18 Launch?[address] [address] [address] Scan Report Signed Patient: Kaylie Melgar MR#: [id number] : 1960 Acct:[id number] Age/Sex: 62 / F Date of Service: 06/27/22 Loc: ED Accession Number: [id number] ?? Procedure: CT cervical spine wo con Ordering Provider: Sarah Christopher D.O. PROCEDURE:? CT CERVICAL SPINE WO CON ? INDICATIONS:? headache x 2 weeks,speech changes, hx intracranial bleed ? TECHNIQUE:? Noncontrast 3 mm thick sections acquired from the skull base to the T4 level.? Sagittal and coronal reformats were then constructed.? For radiation dose reduction, the following was used:? automated exposure control, adjustment of mA and/or kV according to patient size.? ? COMPARISON:? [facility], CT, CT CERVICAL SPINE WO CON, 04/13/2020, 14:11. ? FINDINGS:? Image quality:? Excellent.? ? Bones:? No fractures or dislocations.? Multilevel facet arthropathy multilevel disc height loss and uncovertebral osteophyte formation.? Visualized superior ribs are intact. ? ? Soft tissues:? Prevertebral soft tissues are normal in thickness.? No paravertebral hematomas.? No apical pneumothoraces.? Calcified granuloma, right apex. ? ? IMPRESSION:? Cervical spondylitic change.? No evidence acute cervical fracture or dislocation. ? Dictated by: Edi Zayas M.D. on 06/27/2022 at 8:34 ? ? Approved by: Edi Zayas M.D. on 06/27/2022 at 8:36?? ECG Data Attestation: I personally reviewed and interpreted this ECG as follows: Prior ECG tracings: available for review Interpretation: Sinus rhythm rate of 73 HI 150 QRS 80 QTC 434. No acute ST changes. Patient has prior from 03/29/2020 with no acute changes. [facility] Narrative Medical decision making narrative: This is a 62-year-old female who presents with complaint of persistent headache x2 weeks with some slight speech changes which she and her both noticed. They have not noticed any other neurologic changes, she has some slight droop of her left cheek with puffing of her cheeks but otherwise is not present with smile or movement of her face otherwise. Patient's family states this is normal baseline for her. She does have a history of alcohol abuse so head CT and C- spine was obtained she is noted some pain on the left side of her neck. Labs as well including CBC, CMP, lipase and coags patient has reportedly had hyponatremia in the past and if she does have potentially bleed coags would be helpful. Head CT and C-spine do not show any acute changes, sodium is 133, CBC shows slightly low white count was slightly low lymphs, renal function, belly labs are otherwise negative. Patient's NIH is 0 she has some slight changes left cheek but only with some movement and at her normal baseline. Otherwise neuro exam is normal I do not appreciate significant dysarthria or aphasia she does hesitate a bit with her speech. Suspicion for acute stroke his low, no acute bleed, no s ignificant hyponatremia other electrolyte abnormality, my suspicion for infectious causes is low as well based on exam and course of symptoms. We did discuss return precautions. All questions answered. Stroke Core Measures Exclusion Criteria TPA in CVA: Symptom Onset >3 or 4.5 Hours Discharge Plan Departure Patient Disposition: Home Clinical Impression: Headache Activity Restrictions/Additional Instructions: Please follow-up with your physician for recheck. Please call to set up appointment if you do not already have one in place. Your imaging does not show any changes such as bleeding today, your labs show a slightly low sodium of 133. Please return for fevers, rapidly worsening headaches, chest pain, shortness of breath, persistent vomiting, new sudden speech changes, weakness numbness or tingling difficulty with movement or gait, loss of bowel or bladder control or other new or concerning changes. Prescriptions: No Action naltrexone 50 mg tablet 50 mg PO DAILY Qty: 30 2RF chlordiazepoxide HCl 10 mg capsule 10 mg PO Q12H MDD 3 PRN (Reason: alcohol abstinence) Qty: 60 0RF Rx Instructions: 1 tab up to 3 times daily for 10 days then 1 tab twice daily for 10 days then 1 tab daily citalopram 20 mg tablet 20 mg PO DAILY Qty: 30 4RF levothyroxine 75 mcg tablet 75 mcg PO DAILY Qty: 30 2RF losartan 25 mg tablet 25 mg PO DAILY Qty: 30 2RF Label Comments: take 1 tablet by mouth once daily gabapentin [Neurontin] 300 MG capsule 300 mg PO BID PRN (Reason: Back Pain) Qty: 60 2RF trazodone 50 mg tablet 1 - 2 tab PO BEDTIME PRN (Reason: Insomnia) Qty: 45 2RF Label Comments: take 1 to 2 tablets by mouth at bedtime for sleep diphenhydramine-acetaminophen [Tylenol PM Extra Strength] 25-500 mg Tablet 2 tab PO BEDTIME PRN (Reason: Insomnia) Qty: 60 0RF oxycodone 5 mg tablet 5 mg PO Q6H PRN (Reason: pain) Qty: 20 0RF ondansetron 4 mg tablet,disintegrating 4 mg PO Q6H PRN (Reason: nausea and vomiting) Qty: 30 0RF Referrals: Yumiko Cheung PA-C [Primary Care Provider] - Stand Alone Forms: Patient Portal/API
--- NOTE | 2022-06-27 08:25 | PC.NURSE ---
Pt has hx bleed 2 years ago some speech problems and tingling in extremities. Pt here for slurred speech,confusion and head/neck pain. Pt denies injury. Pt does not appear to have slurred speech,some hesitancy,tinglinglin in all extremities which is baseline for her. When Dr shin had her puff her cheeks the left side was not as pronounced. Pt is alert/oriented at triage.
[2022-06-27 08:43] LABS: Add Manual Diff / Slide Review NO; Basophils Absolute Auto 0 /uL (0-100); Basophils Percent Auto 0.5 % (0-2); Eosinophils Absolute Auto 0 /uL (0-450); Eosinophils Percent Auto 1.6 % (2-4); Hematocrit 43.5 % (36-46); Hemoglobin 14.9 g/dL (12.0-16.0); Lymphocytes Absolute Auto 700 /uL (1100-4500); Lymphocytes Percent Auto 20.7 % (25-40); Mean Corpuscular HGB Conc 34.2 % (30-36); Mean Corpuscular Hemoglobin 32.3 PG (26-34); Mean Corpuscular Volume 94.4 fL (80-100); Monocytes Absolute Auto 400 /uL (0-900); Monocytes Percent Auto 11.8 % (3-14); Neutrophils Absolute Auto 2100 /uL (1500-7000); Neutrophils Percent Auto 65.4 % (50-75); Platelet Count 301 X10^3/uL (150-400); Red Cell Distribution Width 14.6 % (11.6-14.8); White Blood Cell Count 3.2 X10^3/uL (4.5-11.0)
[2022-06-27 08:58] LABS: INR 0.9 (0.9-1.3); Prothrombin Time 9.9 SECONDS (10.1-12.7)
[2022-06-27 09:01] LABS: PTT Partial Thromboplastin Tim 34 SECONDS (26-36)
[2022-06-27 09:07] LABS: Alanine Aminotransferase 21 IU/L (<35); Albumin 4.8 g/dL (3.5-5.0); Albumin Globulin Ratio 1.2 (1.0-2.8); Alkaline Phosphatase 82 U/L (38-126); Aspartate Aminotransferase 28 IU/L (14-36); BUN Creatinine Ratio 16.7 (6-22); Bilirubin Total 0.5 mg/dL (0.2-1.3); Blood Urea Nitrogen 9 mg/dL (7-17); Calcium 9.4 mg/dL (8.4-10.2); Carbon Dioxide 25 mmol/L (22-32); Chloride 96 mmol/L (98-107); Estimated Glomerular Filt Rate > 60 mL/min (>60); Ethanol (ETOH) < 10 mg/dL; Globulin 3.9 g/dL (1.7-4.1); Glucose 89 mg/dL (80-110); HEMOLYSIS < 15 (0-50); Lipase 72 U/L (23-300); Potassium 4.2 mmol/L (3.4-5.1); Sodium 133 mmol/L (137-145); Total Protein 8.7 g/dL (6.3-8.2)
[2022-06-27 09:54] VITALS: BP 147/88; PULSE 87; O2SAT 98
== END 2022-06-27 09:55 | disposition home or self-care (01) ==
PROVIDERS: Emergency Provider Emergency Medicine; PCP Physician Assistant
DX: R51.9 Headache, unspecified (principal); M54.2 Cervicalgia; R29.810 Facial weakness; R79.89 Other specified abnormal findings of blood chemistry; Z79.899 Other long term (current) drug therapy
CPT/HCPCS: 36415; 70450; 72125; 80053; 80320; 83690; 85025; 85610; 85730; 93005; 99284

== ENCOUNTER 2022-08-19 14:30 | Emergency (ER) | payer OTHER, SELFPAY ==
[2018-03-27 03:41] VITALS: BMI 23.1
[2022-08-19] VITALS (46 sets, daily range): BP systolic 119–171; BP diastolic 72–98; PULSE 98–132; RESP 13–35; TEMP 36.6–38.2; O2SAT 88–100; BMI 19.7
--- NOTE | 2022-08-19 14:53 | ED.GIBLEED ---
HPI - GI Bleed <Roberto Burt DO - Last Filed: 08/21/22 06:31> General Chief complaint: GI Bleed Stated complaint: nausea/vomiting fell today Time Seen by Provider: 08/19/22 14:53 Source: patient and family Mode of arrival: Wheelchair History of Present Illness HPI Narrative: 62-year-old female nonsmoker with extensive history of alcohol abuse including 3 bottles of wine daily presents with a family friend in the chief complaint of generalized weakness, persistent vomiting of dark, coffee-ground emesis over the past few days and a fall today. The fall was unwitnessed but patient denies any injury. She is feeling jittery, weak and is not at her baseline. She states that she has had alcohol withdrawal in the past and has gone as far as having seizures. She reports a known history of esophageal varices. She is had no chest pain or shortness of breath. She denies any abdominal pain. She has no dark and tarry stools. Related Data Home Medications Medication Instructions Recorded Confirmed amlodipine 5 mg tablet 5 mg PO DAILY 08/19/22 08/19/22 cyclobenzaprine 10 mg tablet 10 mg PO TID PRN muscle spasms 08/19/22 08/19/22 hydroxyzine HCl 50 mg tablet 50 mg PO TID PRN Anxiety 08/19/22 08/19/22 Previous Rx's Medication Instructions Recorded levothyroxine 75 mcg tablet 75 mcg PO DAILY #30 tabs 03/31/18 Allergies Allergy/AdvReac Type Severity Reaction Status Date / Time codeine Allergy Unknown VOMITING Verified 06/27/22 08:03 medroxyprogesterone Allergy Unknown MEDROXYPROGESTERONE Verified 06/27/22 08:03 MAKES HER CRAZY Review of Systems <Roberto Burt DO - Last Filed: 08/21/22 06:31> Review of Systems Narrative: GENERAL: See HPI HEENT: Denies sinus pain, ear pain, sore throat, difficulty swallowing, dizziness. RESPIRATORY: Denies dyspnea, cough, wheezing, hemoptysis, sputum. CARDIOVASCULAR: Denies chest pain, palpitations, orthopnea, edema, GASTROINTESTINAL: See HPI : Denies dysuria, frequency, incontinence, hematuria, urinary retention. MUSCULOSKELETAL: denies weakness, joint pain, or bony pain SKIN: Denies rash, skin lesions, or other NEUROLOGIC: Denies weakness, headache, numbness, change in speech, confusion, seizures, incoordination. PSYCHIATRIC: No concerning psychosocial issues. 12 point review of systems is negative except for those stated above Patient History <Roberto Burt DO - Last Filed: 08/21/22 06:31> Medical History (Updated 08/19/22 @ 17:53 by Roberto Burt DO) Alcohol abuse Back pain Erosive esophagitis Esophageal varices GI bleed Hypertension Hypothyroid Social History household members: significant other Smoking Status: Never smoker alcohol intake: current Smoking Status: Never smoker alcohol intake frequency: 3 or more drinks per day Substance Use Type: does not use Exam <Roberto Burt DO - Last Filed: 08/21/22 06:31> Narrative Exam Narrative: GENERAL: [62] year old patient appears stated age. Well-developed patient, in mild distress. GCS 14 (slight confused) HEAD: Atraumatic. Normocephalic. EYES: Pupils equal round and reactive. Extraocular motions intact. No scleral icterus. No injection or drainage. ENT: Face has dark dried blood in her nares and upper lip Nose without bleeding, purulent drainage. Throat without erythema, tonsillar hypertrophy or exudate. Airway patent. NECK: Trachea midline. Non tender CARDIOVASCULAR: Tachycardic and regular rhythm without murmurs, gallops, or rubs. RESPIRATORY: Clear to auscultation. Breath sounds equal bilaterally. No wheezes, rales, or rhonchi. GASTROINTESTINAL: Abdomen soft, non-tender, nondistended. EXTREMITIES: No edema or joint tenderness. BACK: Nontender without deformity or crepitance. No flank tenderness. NEURO: Cranial nerves 2-12 grossly intact SKIN: No rash or erythema of visible areas Initial Vital Signs Initial Vital Signs: Vital Signs Temperature 98 F 08/19/22 14:49 Pulse Rate 98 H 08/19/22 14:49 Respiratory Rate 26 H 08/19/22 14:49 Blood Pressure 142/76 H 08/19/22 14:49 Pulse Oximetry 99 08/19/22 14:49 Oxygen Delivery Method 08/19/22 14:49 <Ryan Han MD - Last Filed: 08/23/22 06:58> Initial Vital Signs Initial Vital Signs: Vital Signs Temperature 98 F 08/19/22 14:49 Pulse Rate 98 H 08/19/22 14:49 Respiratory Rate 26 H 08/19/22 14:49 Blood Pressure 142/76 H 08/19/22 14:49 Pulse Oximetry 99 08/19/22 14:49 Oxygen Delivery Method 08/19/22 14:49 Course <Roberto Burt, DO - Last Filed: 08/21/22 06:31> Orders Ordered: Discontinued Medications Diphenhydramine HCl (Diphenhydramine 50 Mg/Ml Vial) 25 mg IV NOW ONE Stop: 08/20/22 06:17 Last Admin: 08/20/22 06:31 Dose: 25 mg Documented By: LORENA Octreotide Acetate 500 mcg/ (Sodium Chloride) 101 mls @ 10.1 mls/hr IV CONT CRYSTAL; Protocol Last Infusion: 08/20/22 18:03 Dose: 50 mcg/hr, 10.1 mls/hr Documented By: Admin: 08/20/22 09:50 Dose: 50 mcg/hr, 10.1 mls/hr Documented By: Infusion: 08/20/22 09:50 Dose: 50 mcg/hr, 10.1 mls/hr Documented By: Admin: 08/20/22 01:01 Dose: 50 mcg/hr, 10.1 mls/hr Documented By: Infusion: 08/20/22 01:01 Dose: 50 mcg/hr, 10.1 mls/hr Documented By: Admin: 08/19/22 15:27 Dose: 50 mcg/hr, 10.1 mls/hr Documented By: TREY Ceftriaxone Sodium 2,000 mg/ (Sodium Chloride) 100 mls @ 200 mls/hr IV NOW ONE Stop: 08/19/22 15:15 Last Infusion: 08/19/22 17:43 Dose: 0 mls/hr Documented By: Admin: 08/19/22 17:10 Dose: 200 mls/hr Documented By: TREY Thiamine HCl 200 mg/ Sodium (Chloride) 102 mls @ 408 mls/hr IV NOW ONE Stop: 08/19/22 17:02 Last Infusion: 08/19/22 18:02 Dose: 0 mls/hr Documented By: Admin: 08/19/22 17:46 Dose: 408 mls/hr Documented By: TREY POTASSIUM CHLORIDE IN WATER (Potassium Cl 10 Meq/100 Ml Nyla) 10 meq in 100 mls @ 100 mls/hr IV Q1H CRYSTAL Stop: 08/20/22 12:59 Last Infusion: 08/20/22 14:41 Dose: 0 mls/hr Documented By: Admin: 08/20/22 13:34 Dose: 100 mls/hr Documented By: Infusion: 08/20/22 13:19 Dose: 0 mls/hr Documented By: Admin: 08/20/22 12:05 Dose: 100 mls/hr Documented By: Infusion: 08/20/22 11:57 Dose: 100 mls/hr Documented By: Admin: 08/20/22 10:57 Dose: 100 mls/hr Documented By: Infusion: 08/20/22 10:51 Dose: 100 mls/hr Documented By: Admin: 08/20/22 09:51 Dose: 100 mls/hr Documented By: Infusion: 08/20/22 09:43 Dose: 100 mls/hr Documented By: Admin: 08/20/22 08:43 Dose: 100 mls/hr Documented By: Infusion: 08/20/22 08:36 Dose: 100 mls/hr Documented By: Admin: 08/20/22 07:36 Dose: 100 mls/hr Documented By: JUNIOR Acetaminophen (Ofirmev) 1,000 mg in 100 mls @ 400 mls/hr IV NOW ONE Stop: 08/20/22 11:44 Last Infusion: 08/20/22 12:23 Dose: 0 mls/hr Documented By: Admin: 08/20/22 11:48 Dose: 400 mls/hr Documented By: JUNIOR Sodium Chloride (Normal Saline 0.9%) 1,000 mls @ 1,000 mls/hr IV BOLUS ONE Stop: 08/20/22 12:19 Last Infusion: 08/20/22 12:30 Dose: 0 mls/hr Documented By: Admin: 08/20/22 11:24 Dose: 1,000 mls/hr Documented By: JUNIOR Lorazepam (Lorazepam 2 Mg/Ml Inj) 2 mg IV NOW ONE Stop: 08/19/22 15:24 Last Admin: 08/19/22 15:26 Dose: 2 mg Documented By: TREY Lorazepam (Lorazepam 2 Mg/Ml Inj) 0 mg IV CIWAPRN PRN; Protocol PRN Reason: Alcohol Withdrawal Last Admin: 08/20/22 16:58 Dose: 2 mg Documented By: Admin: 08/19/22 19:32 Dose: 2 mg Documented By: TREY Octreotide Acetate (Octreotide 100 Mcg/Ml Vial) 50 mcg IV NOW ONE Stop: 08/19/22 15:11 Last Admin: 08/19/22 15:26 Dose: 50 mcg Documented By: TREY Ondansetron HCl (Ondansetron 4 Mg/2 Ml Inj) 4 mg IV NOW PRN PRN Reason: Nausea And Vomiting Last Admin: 08/20/22 00:11 Dose: 4 mg Documented By: LORENA Ondansetron HCl (Ondansetron 4 Mg/2 Ml Inj) 4 mg IV NOW ONE Stop: 08/19/22 15:11 Last Admin: 08/19/22 15:26 Dose: 4 mg Documented By: TREY Ondansetron HCl (Ondansetron 4 Mg/2 Ml Inj) 4 mg IV NOW ONE Stop: 08/20/22 11:17 Last Admin: 08/20/22 11:23 Dose: 4 mg Documented By: JUNIOR Pantoprazole Sodium (Pantoprazole 40 Mg Vial) 80 mg IV NOW ONE Stop: 08/19/22 14:49 Last Admin: 08/19/22 15:26 Dose: 80 mg Documented By: TREY Pantoprazole Sodium (Pantoprazole 40 Mg Vial) 40 mg IV NOW ONE Stop: 08/19/22 15:11 Last Admin: 08/19/22 15:26 Dose: Not Given Documented By: TREY Phenobarbital (Phenobarbital 65 Mg/Ml Vial) 130 mg IV NOW ONE Stop: 08/19/22 17:45 Last Admin: 08/19/22 17:54 Dose: 130 mg Documented By: TREY Vital Signs Vital signs: Vital Signs - 8 hr 08/20/22 07:30 08/20/22 08:00 08/20/22 08:00 Temperature 99.9 F H 100.0 F H Pulse Rate 108 H 111 H Respiratory Rate 17 Blood Pressure 144/82 H Pulse Oximetry 99 100 08/20/22 08:30 08/20/22 09:00 08/20/22 09:00 Temperature 100.0 F H 99.9 F H Pulse Rate 104 H 103 H Respiratory Rate 17 Blood Pressure 138/84 Pulse Oximetry 98 99 08/20/22 09:30 08/20/22 10:00 08/20/22 10:00 Temperature 99.9 F H 99.9 F H Pulse Rate 103 H 103 H Respiratory Rate 17 17 Blood Pressure 124/88 Pulse Oximetry 100 98 08/20/22 10:30 08/20/22 11:00 08/20/22 11:00 Temperature 99.7 F H 99.7 F H Pulse Rate 105 H 105 H Respiratory Rate 11 L 24 Blood Pressure 122/82 Pulse Oximetry 96 08/20/22 11:30 08/20/22 12:00 08/20/22 12:00 Temperature 99.9 F H 99.7 F H Pulse Rate 100 H 95 H Respiratory Rate 16 16 Blood Pressure 141/67 H Pulse Oximetry 93 96 08/20/22 12:30 08/20/22 13:00 08/20/22 13:00 Temperature 99.7 F H 99.7 F H Pulse Rate 92 H 92 H Respiratory Rate 14 16 Blood Pressure 127/71 Pulse Oximetry 100 100 08/20/22 13:30 08/20/22 14:00 08/20/22 14:01 Temperature 99.5 F 99.1 F 99.1 F Pulse Rate 89 91 H 91 H Respiratory Rate 16 15 Blood Pressure Pulse Oximetry 100 100 99 08/20/22 14:01 08/20/22 14:30 08/20/22 15:00 Temperature 99.1 F Pulse Rate 83 Respiratory Rate 15 Blood Pressure 153/73 H 130/81 Pulse Oximetry 100 08/20/22 15:00 Temperature 99.1 F Pulse Rate 84 Respiratory Rate 15 Blood Pressure Pulse Oximetry 100 <Ryan Han MD - Last Filed: 08/23/22 06:58> Course Course Narrative: August 19, 2022 at 6:[address] Brut, patient will need ICU transfer. Patient not appropriate for admission here due to history of esophageal varices. However no history of banding. Here history of alcohol abuse. Patient is on phenobarbital for withdrawals, patient hyponatremic, no hypertonic saline at this time pending on receiving facility recommendations. Patient is on Protonix octreotide and Rocephin. Fever noted. He has already placed central lines for patient. Patient on 2 L nasal cannula. Chest x-ray unremarkable. August 20, 2022 at 7:[address] Burt, no new issues during course of night. Did try [facility] as well as [facility] and spoke with transfer center as well as hospitalist but no ICU bed available. Orders Ordered: Discontinued Medications Diphenhydramine HCl (Diphenhydramine 50 Mg/Ml Vial) 25 mg IV NOW ONE Stop: 08/20/22 06:17 Last Admin: 08/20/22 06:31 Dose: 25 mg Documented By: LORENA Octreotide Acetate 500 mcg/ (Sodium Chloride) 101 mls @ 10.1 mls/hr IV CONT CRYSTAL; Protocol Last Infusion: 08/20/22 18:03 Dose: 50 mcg/hr, 10.1 mls/hr Documented By: Admin: 08/20/22 09:50 Dose: 50 mcg/hr, 10.1 mls/hr Documented By: Infusion: 08/20/22 09:50 Dose: 50 mcg/hr, 10.1 mls/hr Documented By: Admin: 08/20/22 01:01 Dose: 50 mcg/hr, 10.1 mls/hr Documented By: Infusion: 08/20/22 01:01 Dose: 50 mcg/hr, 10.1 mls/hr Documented By: Admin: 08/19/22 15:27 Dose: 50 mcg/hr, 10.1 mls/hr Documented By: TREY Ceftriaxone Sodium 2,000 mg/ (Sodium Chloride) 100 mls @ 200 mls/hr IV NOW ONE Stop: 08/19/22 15:15 Last Infusion: 08/19/22 17:43 Dose: 0 mls/hr Documented By: Admin: 08/19/22 17:10 Dose: 200 mls/hr Documented By: TREY Thiamine HCl 200 mg/ Sodium (Chloride) 102 mls @ 408 mls/hr IV NOW ONE Stop: 08/19/22 17:02 Last Infusion: 08/19/22 18:02 Dose: 0 mls/hr Documented By: Admin: 08/19/22 17:46 Dose: 408 mls/hr Documented By: TREY POTASSIUM CHLORIDE IN WATER (Potassium Cl 10 Meq/100 Ml Nyla) 10 meq in 100 mls @ 100 mls/hr IV Q1H CRYSTAL Stop: 08/20/22 12:59 Last Infusion: 08/20/22 14:41 Dose: 0 mls/hr Documented By: Admin: 08/20/22 13:34 Dose: 100 mls/hr Documented By: Infusion: 08/20/22 13:19 Dose: 0 mls/hr Documented By: Admin: 08/20/22 12:05 Dose: 100 mls/hr Documented By: Infusion: 08/20/22 11:57 Dose: 100 mls/hr Documented By: Admin: 08/20/22 10:57 Dose: 100 mls/hr Documented By: Infusion: 08/20/22 10:51 Dose: 100 mls/hr Documented By: Admin: 08/20/22 09:51 Dose: 100 mls/hr Documented By: Infusion: 08/20/22 09:43 Dose: 100 mls/hr Documented By: Admin: 08/20/22 08:43 Dose: 100 mls/hr Documented By: Infusion: 08/20/22 08:36 Dose: 100 mls/hr Documented By: Admin: 08/20/22 07:36 Dose: 100 mls/hr Documented By: JUNIOR Acetaminophen (Ofirmev) 1,000 mg in 100 mls @ 400 mls/hr IV NOW ONE Stop: 08/20/22 11:44 Last Infusion: 08/20/22 12:23 Dose: 0 mls/hr Documented By: Admin: 08/20/22 11:48 Dose: 400 mls/hr Documented By: JUNIOR Sodium Chloride (Normal Saline 0.9%) 1,000 mls @ 1,000 mls/hr IV BOLUS ONE Stop: 08/20/22 12:19 Last Infusion: 08/20/22 12:30 Dose: 0 mls/hr Documented By: Admin: 08/20/22 11:24 Dose: 1,000 mls/hr Documented By: JUNIOR Lorazepam (Lorazepam 2 Mg/Ml Inj) 2 mg IV NOW ONE Stop: 08/19/22 15:24 Last Admin: 08/19/22 15:26 Dose: 2 mg Documented By: TREY Lorazepam (Lorazepam 2 Mg/Ml Inj) 0 mg IV CIWAPRN PRN; Protocol PRN Reason: Alcohol Withdrawal Last Admin: 08/20/22 16:58 Dose: 2 mg Documented By: Admin: 08/19/22 19:32 Dose: 2 mg Documented By: TREY Octreotide Acetate (Octreotide 100 Mcg/Ml Vial) 50 mcg IV NOW ONE Stop: 08/19/22 15:11 Last Admin: 08/19/22 15:26 Dose: 50 mcg Documented By: TREY Ondansetron HCl (Ondansetron 4 Mg/2 Ml Inj) 4 mg IV NOW PRN PRN Reason: Nausea And Vomiting Last Admin: 08/20/22 00:11 Dose: 4 mg Documented By: LORENA Ondansetron HCl (Ondansetron 4 Mg/2 Ml Inj) 4 mg IV NOW ONE Stop: 08/19/22 15:11 Last Admin: 08/19/22 15:26 Dose: 4 mg Documented By: TREY Ondansetron HCl (Ondansetron 4 Mg/2 Ml Inj) 4 mg IV NOW ONE Stop: 08/20/22 11:17 Last Admin: 08/20/22 11:23 Dose: 4 mg Documented By: JUNIOR Pantoprazole Sodium (Pantoprazole 40 Mg Vial) 80 mg IV NOW ONE Stop: 08/19/22 14:49 Last Admin: 08/19/22 15:26 Dose: 80 mg Documented By: TREY Pantoprazole Sodium (Pantoprazole 40 Mg Vial) 40 mg IV NOW ONE Stop: 08/19/22 15:11 Last Admin: 08/19/22 15:26 Dose: Not Given Documented By: TREY Phenobarbital (Phenobarbital 65 Mg/Ml Vial) 130 mg IV NOW ONE Stop: 08/19/22 17:45 Last Admin: 08/19/22 17:54 Dose: 130 mg Documented By: TREY Vital Signs Vital signs: Vital Signs - 8 hr 08/20/22 07:30 08/20/22 08:00 08/20/22 08:00 Temperature 99.9 F H 100.0 F H Pulse Rate 108 H 111 H Respiratory Rate 17 Blood Pressure 144/82 H Pulse Oximetry 99 100 08/20/22 08:30 08/20/22 09:00 08/20/22 09:00 Temperature 100.0 F H 99.9 F H Pulse Rate 104 H 103 H Respiratory Rate 17 Blood Pressure 138/84 Pulse Oximetry 98 99 08/20/22 09:30 08/20/22 10:00 08/20/22 10:00 Temperature 99.9 F H 99.9 F H Pulse Rate 103 H 103 H Respiratory Rate 17 17 Blood Pressure 124/88 Pulse Oximetry 100 98 08/20/22 10:30 08/20/22 11:00 08/20/22 11:00 Temperature 99.7 F H 99.7 F H Pulse Rate 105 H 105 H Respiratory Rate 11 L 24 Blood Pressure 122/82 Pulse Oximetry 96 08/20/22 11:30 08/20/22 12:00 08/20/22 12:00 Temperature 99.9 F H 99.7 F H Pulse Rate 100 H 95 H Respiratory Rate 16 16 Blood Pressure 141/67 H Pulse Oximetry 93 96 08/20/22 12:30 08/20/22 13:00 08/20/22 13:00 Temperature 99.7 F H 99.7 F H Pulse Rate 92 H 92 H Respiratory Rate 14 16 Blood Pressure 127/71 Pulse Oximetry 100 100 08/20/22 13:30 08/20/22 14:00 08/20/22 14:01 Temperature 99.5 F 99.1 F 99.1 F Pulse Rate 89 91 H 91 H Respiratory Rate 16 15 Blood Pressure Pulse Oximetry 100 100 99 08/20/22 14:01 08/20/22 14:30 08/20/22 15:00 Temperature 99.1 F Pulse Rate 83 Respiratory Rate 15 Blood Pressure 153/73 H 130/81 Pulse Oximetry 100 08/20/22 15:00 Temperature 99.1 F Pulse Rate 84 Respiratory Rate 15 Blood Pressure Pulse Oximetry 100 MDM - GI Bleed <Roberto Burt, DO - Last Filed: 08/21/22 06:31> Lab Data 08/19/22 15:12 08/19/22 15:12 Labs: Lab Results 08/19/22 08/19/22 08/19/22 Range/Units 15:11 15:12 15:12 WBC 12.9 H (4.5-11.0) X10^3/uL RBC 3.20 L (4.0-5.2) X10^6/uL Hgb 10.3 L (12.0-16.0) g/dL Hct 29.7 L (36-46) % MCV 92.9 (80-100) fL MCH 32.2 (26-34) PG MCHC 34.7 (30-36) % RDW 12.7 (11.6-14.8) % Plt Count 264 (150-400) X10^3/uL Neut % (Auto) 84.8 H (50-75) % Lymph % (Auto) 7.2 L (25-40) % [place] % (Auto) 7.9 (3-14) % Eos % (Auto) 0.0 L (2-4) % Baso % (Auto) 0.1 (0-2) % Neut # (Auto) 56308 H (0161-7620) /uL Lymph # (Auto) 900 L (6966-5365) /uL [place] # (Auto) 1000 H (0-900) /uL Eos # (Auto) 0 (0-450) /uL Baso # (Auto) 0 (0-100) /uL PT 10.8 (10.1-12.7) SECONDS INR 0.9 (0.9-1.3) Sodium (137-145) mmol/L Potassium (3.4-5.1) mmol/L Chloride (98-107) mmol/L Carbon Dioxide (22-32) mmol/L BUN (7-17) mg/dL Creatinine (0.52-1.04) mg/dL Estimated GFR (>60) mL/min BUN/Creatinine Ratio (6-22) Glucose (80-110) mg/dL Calcium (8.4-10.2) mg/dL Total Bilirubin (0.2-1.3) mg/dL AST (14-36) IU/L ALT (<35) IU/L Alkaline Phosphatase (38-126) U/L Ammonia (9-30) umol/L Total Protein (6.3-8.2) g/dL Albumin (3.5-5.0) g/dL Globulin (1.7-4.1) g/dL Albumin/Globulin Ratio (1.0-2.8) Urine Color Urine Appearance Urine pH (4.5-8.0) Ur Specific [place] (1.000-1.035) Urine Protein (Negative) Urine Glucose (UA) (Negative) g/dL Urine Ketones (NEGATIVE) Urine Occult Blood (Negative) Urine Nitrate (Negative) Urine Bilirubin (NEGATIVE) Urine Urobilinogen (0.2) E.U./dL Ur Leukocyte Esterase (NEGATIVE) Urine RBC (0-5/HPF) Urine WBC (0-5/HPF) Urine Bacteria (None) Hyaline Casts (None) Ur Culture Indicated? Ur Random Sodium 17 L (30-90) mmol/L Urine Creatinine 35.6 mg/dL U Opiates 300ng/mL cut (Negative) Ur Oxycodone Screen (Negative) Urine Methadone Screen (Negative) Ur Barbiturates Screen (Negative) U Tricyclic Antidepress (Negative) Ur Phencyclidine Scrn (Negative) Ur Amphetamines Screen (Negative) U Methamphetamines Scrn (Negative) Ur MDMA Scrn (Ecstasy) (Negative) U Benzodiazepines Scrn (Negative) Urine Cocaine Screen (Negative) U Marijuana (THC) Screen (Negative) Ethyl Alcohol ( - 10) mg/dL SARS-CoV-2 (PCR) (Negative) Blood Type Antibody Screen 08/19/22 08/19/22 08/19/22 Range/Units 15:12 15:12 15:12 WBC (4.5-11.0) X10^3/uL RBC (4.0-5.2) X10^6/uL Hgb (12.0-16.0) g/dL Hct (36-46) % MCV (80-100) fL MCH (26-34) PG MCHC (30-36) % RDW (11.6-14.8) % Plt Count (150-400) X10^3/uL Neut % (Auto) (50-75) % Lymph % (Auto) (25-40) % [place] % (Auto) (3-14) % Eos % (Auto) (2-4) % Baso % (Auto) (0-2) % Neut # (Auto) (1630-5055) /uL Lymph # (Auto) (2933-2067) /uL [place] # (Auto) (0-900) /uL Eos # (Auto) (0-450) /uL Baso # (Auto) (0-100) /uL PT (10.1-12.7) SECONDS INR (0.9-1.3) Sodium 117 L* (137-145) mmol/L Potassium 3.6 (3.4-5.1) mmol/L Chloride 67 L* (98-107) mmol/L Carbon Dioxide 16 L (22-32) mmol/L BUN 55 H (7-17) mg/dL Creatinine 0.82 (0.52-1.04) mg/dL Estimated GFR > 60 (>60) mL/min BUN/Creatinine Ratio 67.1 H (6-22) Glucose 163 H (80-110) mg/dL Calcium 8.6 (8.4-10.2) mg/dL Total Bilirubin 0.9 (0.2-1.3) mg/dL AST 56 H (14-36) IU/L ALT 36 H (<35) IU/L Alkaline Phosphatase 68 (38-126) U/L Ammonia (9-30) umol/L Total Protein 7.2 (6.3-8.2) g/dL Albumin 4.6 (3.5-5.0) g/dL Globulin 2.6 (1.7-4.1) g/dL Albumin/Globulin Ratio 1.8 (1.0-2.8) Urine Color Urine Appearance Urine pH (4.5-8.0) Ur Specific [place] (1.000-1.035) Urine Protein (Negative) Urine Glucose (UA) (Negative) g/dL Urine Ketones (NEGATIVE) Urine Occult Blood (Negative) Urine Nitrate (Negative) Urine Bilirubin (NEGATIVE) Urine Urobilinogen (0.2) E.U./dL Ur Leukocyte Esterase (NEGATIVE) Urine RBC (0-5/HPF) Urine WBC (0-5/HPF) Urine Bacteria (None) Hyaline Casts (None) Ur Culture Indicated? Ur Random Sodium (30-90) mmol/L Urine Creatinine mg/dL U Opiates 300ng/mL cut (Negative) Ur Oxycodone Screen (Negative) Urine Methadone Screen (Negative) Ur Barbiturates Screen (Negative) U Tricyclic Antidepress (Negative) Ur Phencyclidine Scrn (Negative) Ur Amphetamines Screen (Negative) U Methamphetamines Scrn (Negative) Ur MDMA Scrn (Ecstasy) (Negative) U Benzodiazepines Scrn (Negative) Urine Cocaine Screen (Negative) U Marijuana (THC) Screen (Negative) Ethyl Alcohol 28 H ( - 10) mg/dL SARS-CoV-2 (PCR) (Negative) Blood Type A Positive Antibody Screen Negative 08/19/22 08/19/22 08/19/22 Range/Units 15:12 15:15 16:11 WBC (4.5-11.0) X10^3/uL RBC (4.0-5.2) X10^6/uL Hgb (12.0-16.0) g/dL Hct (36-46) % MCV (80-100) fL MCH (26-34) PG MCHC (30-36) % RDW (11.6-14.8) % Plt Count (150-400) X10^3/uL Neut % (Auto) (50-75) % Lymph % (Auto) (25-40) % [place] % (Auto) (3-14) % Eos % (Auto) (2-4) % Baso % (Auto) (0-2) % Neut # (Auto) (8291-2999) /uL Lymph # (Auto) (8637-4923) /uL [place] # (Auto) (0-900) /uL Eos # (Auto) (0-450) /uL Baso # (Auto) (0-100) /uL PT (10.1-12.7) SECONDS INR (0.9-1.3) Sodium (137-145) mmol/L Potassium (3.4-5.1) mmol/L Chloride (98-107) mmol/L Carbon Dioxide (22-32) mmol/L BUN (7-17) mg/dL Creatinine (0.52-1.04) mg/dL Estimated GFR (>60) mL/min BUN/Creatinine Ratio (6-22) Glucose (80-110) mg/dL Calcium (8.4-10.2) mg/dL Total Bilirubin (0.2-1.3) mg/dL AST (14-36) IU/L ALT (<35) IU/L Alkaline Phosphatase (38-126) U/L Ammonia < 9 L (9-30) umol/L Total Protein (6.3-8.2) g/dL Albumin (3.5-5.0) g/dL Globulin (1.7-4.1) g/dL Albumin/Globulin Ratio (1.0-2.8) Urine Color Yellow Urine Appearance Clear Urine pH 5.5 (4.5-8.0) Ur Specific [place] 1.025 (1.000-1.035) Urine Protein Negative (Negative) Urine Glucose (UA) Negative (Negative) g/dL Urine Ketones 1+ H (NEGATIVE) Urine Occult Blood Trace-intact (Negative) Urine Nitrate Negative (Negative) Urine Bilirubin Negative (NEGATIVE) Urine Urobilinogen 0.2 (0.2) E.U./dL Ur Leukocyte Esterase Negative (NEGATIVE) Urine RBC None seen (0-5/HPF) Urine WBC None seen (0-5/HPF) Urine Bacteria None seen (None) Hyaline Casts 1-5/lpf (None) Ur Culture Indicated? Cult not indicated Ur Random Sodium (30-90) mmol/L Urine Creatinine mg/dL U Opiates 300ng/mL cut (Negative) Ur Oxycodone Screen (Negative) Urine Methadone Screen (Negative) Ur Barbiturates Screen (Negative) U Tricyclic Antidepress (Negative) Ur Phencyclidine Scrn (Negative) Ur Amphetamines Screen (Negative) U Methamphetamines Scrn (Negative) Ur MDMA Scrn (Ecstasy) (Negative) U Benzodiazepines Scrn (Negative) Urine Cocaine Screen (Negative) U Marijuana (THC) Screen (Negative) Ethyl Alcohol ( - 10) mg/dL SARS-CoV-2 (PCR) Negative (Negative) Blood Type Antibody Screen 08/19/22 08/19/22 08/19/22 Range/Units 16:11 16:57 17:39 WBC (4.5-11.0) X10^3/uL RBC (4.0-5.2) X10^6/uL Hgb 9.0 L (12.0-16.0) g/dL Hct 26.2 L (36-46) % MCV (80-100) fL MCH (26-34) PG MCHC (30-36) % RDW (11.6-14.8) % Plt Count (150-400) X10^3/uL Neut % (Auto) (50-75) % Lymph % (Auto) (25-40) % [place] % (Auto) (3-14) % Eos % (Auto) (2-4) % Baso % (Auto) (0-2) % Neut # (Auto) (4713-2951) /uL Lymph # (Auto) (7727-4885) /uL [place] # (Auto) (0-900) /uL Eos # (Auto) (0-450) /uL Baso # (Auto) (0-100) /uL PT (10.1-12.7) SECONDS INR (0.9-1.3) Sodium 119 L* (137-145) mmol/L Potassium 3.2 L (3.4-5.1) mmol/L Chloride 67 L* (98-107) mmol/L Carbon Dioxide 36 H (22-32) mmol/L BUN 54 H (7-17) mg/dL Creatinine 0.81 (0.52-1.04) mg/dL Estimated GFR > 60 (>60) mL/min BUN/Creatinine Ratio 66.7 H (6-22) Glucose 190 H (80-110) mg/dL Calcium 7.9 L (8.4-10.2) mg/dL Total Bilirubin 1.1 (0.2-1.3) mg/dL AST 57 H (14-36) IU/L ALT 39 H (<35) IU/L Alkaline Phosphatase 67 (38-126) U/L Ammonia (9-30) umol/L Total Protein 6.2 L (6.3-8.2) g/dL Albumin 3.6 (3.5-5.0) g/dL Globulin 2.6 (1.7-4.1) g/dL Albumin/Globulin Ratio 1.4 (1.0-2.8) Urine Color Urine Appearance Urine pH (4.5-8.0) Ur Specific [place] (1.000-1.035) Urine Protein (Negative) Urine Glucose (UA) (Negative) g/dL Urine Ketones (NEGATIVE) Urine Occult Blood (Negative) Urine Nitrate (Negative) Urine Bilirubin (NEGATIVE) Urine Urobilinogen (0.2) E.U./dL Ur Leukocyte Esterase (NEGATIVE) Urine RBC (0-5/HPF) Urine WBC (0-5/HPF) Urine Bacteria (None) Hyaline Casts (None) Ur Culture Indicated? Ur Random Sodium (30-90) mmol/L Urine Creatinine mg/dL U Opiates 300ng/mL cut Negative (Negative) Ur Oxycodone Screen Negative (Negative) Urine Methadone Screen Negative (Negative) Ur Barbiturates Screen Negative (Negative) U Tricyclic Antidepress Negative (Negative) Ur Phencyclidine Scrn Negative (Negative) Ur Amphetamines Screen Negative (Negative) U Methamphetamines Scrn Negative (Negative) Ur MDMA Scrn (Ecstasy) Negative (Negative) U Benzodiazepines Scrn Negative (Negative) Urine Cocaine Screen Negative (Negative) U Marijuana (THC) Screen Negative (Negative) Ethyl Alcohol ( - 10) mg/dL SARS-CoV-2 (PCR) (Negative) Blood Type Antibody Screen 08/19/22 08/20/22 08/20/22 Range/Units 22:50 05:00 05:00 WBC 13.6 H (4.5-11.0) X10^3/uL RBC 2.59 L (4.0-5.2) X10^6/uL Hgb 8.5 L 8.4 L (12.0-16.0) g/dL Hct 24.4 L 24.0 L (36-46) % MCV 92.8 (80-100) fL MCH 32.4 (26-34) PG MCHC 34.9 (30-36) % RDW 12.9 (11.6-14.8) % Plt Count 184 (150-400) X10^3/uL Neut % (Auto) 86.8 H (50-75) % Lymph % (Auto) 5.3 L (25-40) % [place] % (Auto) 7.7 (3-14) % Eos % (Auto) 0.0 L (2-4) % Baso % (Auto) 0.2 (0-2) % Neut # (Auto) 82411 H (7258-7927) /uL Lymph # (Auto) 700 L (5389-7067) /uL [place] # (Auto) 1100 H (0-900) /uL Eos # (Auto) 0 (0-450) /uL Baso # (Auto) 0 (0-100) /uL PT (10.1-12.7) SECONDS INR (0.9-1.3) Sodium 123 L (137-145) mmol/L Potassium 2.9 L (3.4-5.1) mmol/L Chloride 75 L* (98-107) mmol/L Carbon Dioxide 39 H (22-32) mmol/L BUN 32 H (7-17) mg/dL Creatinine 0.66 (0.52-1.04) mg/dL Estimated GFR > 60 (>60) mL/min BUN/Creatinine Ratio 48.5 H (6-22) Glucose 163 H (80-110) mg/dL Calcium 7.8 L (8.4-10.2) mg/dL Total Bilirubin 0.7 (0.2-1.3) mg/dL AST 47 H (14-36) IU/L ALT 30 (<35) IU/L Alkaline Phosphatase 67 (38-126) U/L Ammonia (9-30) umol/L Total Protein 6.2 L (6.3-8.2) g/dL Albumin 3.5 (3.5-5.0) g/dL Globulin 2.7 (1.7-4.1) g/dL Albumin/Globulin Ratio 1.3 (1.0-2.8) Urine Color Urine Appearance Urine pH (4.5-8.0) Ur Specific [place] (1.000-1.035) Urine Protein (Negative) Urine Glucose (UA) (Negative) g/dL Urine Ketones (NEGATIVE) Urine Occult Blood (Negative) Urine Nitrate (Negative) Urine Bilirubin (NEGATIVE) Urine Urobilinogen (0.2) E.U./dL Ur Leukocyte Esterase (NEGATIVE) Urine RBC (0-5/HPF) Urine WBC (0-5/HPF) Urine Bacteria (None) Hyaline Casts (None) Ur Culture Indicated? Ur Random Sodium (30-90) mmol/L Urine Creatinine mg/dL U Opiates 300ng/mL cut (Negative) Ur Oxycodone Screen (Negative) Urine Methadone Screen (Negative) Ur Barbiturates Screen (Negative) U Tricyclic Antidepress (Negative) Ur Phencyclidine Scrn (Negative) Ur Amphetamines Screen (Negative) U Methamphetamines Scrn (Negative) Ur MDMA Scrn (Ecstasy) (Negative) U Benzodiazepines Scrn (Negative) Urine Cocaine Screen (Negative) U Marijuana (THC) Screen (Negative) Ethyl Alcohol ( - 10) mg/dL SARS-CoV-2 (PCR) (Negative) Blood Type Antibody Screen 08/20/22 08/20/22 Range/Units 12:28 12:28 WBC (4.5-11.0) X10^3/uL RBC (4.0-5.2) X10^6/uL Hgb 7.2 L (12.0-16.0) g/dL Hct 20.6 L* (36-46) % MCV (80-100) fL MCH (26-34) PG MCHC (30-36) % RDW (11.6-14.8) % Plt Count (150-400) X10^3/uL Neut % (Auto) (50-75) % Lymph % (Auto) (25-40) % [place] % (Auto) (3-14) % Eos % (Auto) (2-4) % Baso % (Auto) (0-2) % Neut # (Auto) (9072-3286) /uL Lymph # (Auto) (8055-5439) /uL [place] # (Auto) (0-900) /uL Eos # (Auto) (0-450) /uL Baso # (Auto) (0-100) /uL PT (10.1-12.7) SECONDS INR (0.9-1.3) Sodium 123 L (137-145) mmol/L Potassium 3.5 (3.4-5.1) mmol/L Chloride 85 L (98-107) mmol/L Carbon Dioxide 35 H (22-32) mmol/L BUN 22 H (7-17) mg/dL Creatinine 0.54 (0.52-1.04) mg/dL Estimated GFR > 60 (>60) mL/min BUN/Creatinine Ratio 40.7 H (6-22) Glucose 128 H (80-110) mg/dL Calcium 7.2 L (8.4-10.2) mg/dL Total Bilirubin (0.2-1.3) mg/dL AST (14-36) IU/L ALT (<35) IU/L Alkaline Phosphatase (38-126) U/L Ammonia (9-30) umol/L Total Protein (6.3-8.2) g/dL Albumin (3.5-5.0) g/dL Globulin (1.7-4.1) g/dL Albumin/Globulin Ratio (1.0-2.8) Urine Color Urine Appearance Urine pH (4.5-8.0) Ur Specific [place] (1.000-1.035) Urine Protein (Negative) Urine Glucose (UA) (Negative) g/dL Urine Ketones (NEGATIVE) Urine Occult Blood (Negative) Urine Nitrate (Negative) Urine Bilirubin (NEGATIVE) Urine Urobilinogen (0.2) E.U./dL Ur Leukocyte Esterase (NEGATIVE) Urine RBC (0-5/HPF) Urine WBC (0-5/HPF) Urine Bacteria (None) Hyaline Casts (None) Ur Culture Indicated? Ur Random Sodium (30-90) mmol/L Urine Creatinine mg/dL U Opiates 300ng/mL cut (Negative) Ur Oxycodone Screen (Negative) Urine Methadone Screen (Negative) Ur Barbiturates Screen (Negative) U Tricyclic Antidepress (Negative) Ur Phencyclidine Scrn (Negative) Ur Amphetamines Screen (Negative) U Methamphetamines Scrn (Negative) Ur MDMA Scrn (Ecstasy) (Negative) U Benzodiazepines Scrn (Negative) Urine Cocaine Screen (Negative) U Marijuana (THC) Screen (Negative) Ethyl Alcohol ( - 10) mg/dL SARS-CoV-2 (PCR) (Negative) Blood Type Antibody Screen MDM Narrative Medical decision making narrative: CC: 62-year-old female, heavy drinker confused with vomiting coffee-ground emesis Complicating co-morbidities: Age, heavy alcohol history, hypertension, reports prior history of withdrawal with seizure and upper GI bleed due to esophageal varices Data collected from: Patient and family Medical records reviewed: Prior notes reviewed Differential considered, but not limited to: Electrolyte abnormality, upper GI bleed, intracranial hemorrhage, alcohol withdrawal versus other Exam documented above, pertinent findings include: Slightly altered, GCS 14, no obvious external manifestation of injury, dried brown blood on face and external nares, abdomen soft, no jaundice Lab Test results independently reviewed as above. Pertinent findings: Slight elevation in white blood cells, hemoglobin initially 10 with dropped to 9, slight left shift with neutrophil % of 84%, sodium 119, potassium 3.2, chloride 67, initial bicarb 16 with improvement to 36 Independently reviewed EKG as above Imaging studies independently reviewed: Head CT and C-spine unremarkable, chest x-ray without infiltrative process, lines inappropriate places Consultations: Dr. Nolan ALARCON at [facility] (happy with treatment plan) [facility] happy to accept Treatments: Rocephin, Protonix, Octerotide push/drip, IV tylenol, zofran, Ativan, Phenobarb Re-evaluations: Over the course of her time in the emergency department her sodium has slowly improved from 117-123, her metabolic encephalopathy, likely due to a combination of sodium and early withdrawal has improved and her current CIWA is 2. Discussion: Patient with extensive alcohol history presents obtunded with fall and coffee-ground emesis, she has prior history of upper GI bleed with known varices. Initial encephalopathic presentation likely a combination of hyponatremia and alcohol withdrawal. These elements are moving in the right direction, however she does have a slow decline in her hemoglobin despite any obvious ongoing bleeding, patient requires transfer to facility but GI for further evaluation, stabilization of her tenuous situation <Ryan Han MD - Last Filed: 08/23/22 06:58> Lab Data Labs: Lab Results 08/19/22 08/19/22 08/19/22 Range/Units 15:11 15:12 15:12 WBC 12.9 H (4.5-11.0) X10^3/uL RBC 3.20 L (4.0-5.2) X10^6/uL Hgb 10.3 L (12.0-16.0) g/dL Hct 29.7 L (36-46) % MCV 92.9 (80-100) fL MCH 32.2 (26-34) PG MCHC 34.7 (30-36) % RDW 12.7 (11.6-14.8) % Plt Count 264 (150-400) X10^3/uL Neut % (Auto) 84.8 H (50-75) % Lymph % (Auto) 7.2 L (25-40) % [place] % (Auto) 7.9 (3-14) % Eos % (Auto) 0.0 L (2-4) % Baso % (Auto) 0.1 (0-2) % Neut # (Auto) 05637 H (8740-8308) /uL Lymph # (Auto) 900 L (4195-0490) /uL [place] # (Auto) 1000 H (0-900) /uL Eos # (Auto) 0 (0-450) /uL Baso # (Auto) 0 (0-100) /uL PT 10.8 (10.1-12.7) SECONDS INR 0.9 (0.9-1.3) Sodium (137-145) mmol/L Potassium (3.4-5.1) mmol/L Chloride (98-107) mmol/L Carbon Dioxide (22-32) mmol/L BUN (7-17) mg/dL Creatinine (0.52-1.04) mg/dL Estimated GFR (>60) mL/min BUN/Creatinine Ratio (6-22) Glucose (80-110) mg/dL Calcium (8.4-10.2) mg/dL Total Bilirubin (0.2-1.3) mg/dL AST (14-36) IU/L ALT (<35) IU/L Alkaline Phosphatase (38-126) U/L Ammonia (9-30) umol/L Total Protein (6.3-8.2) g/dL Albumin (3.5-5.0) g/dL Globulin (1.7-4.1) g/dL Albumin/Globulin Ratio (1.0-2.8) Urine Color Urine Appearance Urine pH (4.5-8.0) Ur Specific [place] (1.000-1.035) Urine Protein (Negative) Urine Glucose (UA) (Negative) g/dL Urine Ketones (NEGATIVE) Urine Occult Blood (Negative) Urine Nitrate (Negative) Urine Bilirubin (NEGATIVE) Urine Urobilinogen (0.2) E.U./dL Ur Leukocyte Esterase (NEGATIVE) Urine RBC (0-5/HPF) Urine WBC (0-5/HPF) Urine Bacteria (None) Hyaline Casts (None) Ur Culture Indicated? Ur Random Sodium 17 L (30-90) mmol/L Urine Creatinine 35.6 mg/dL U Opiates 300ng/mL cut (Negative) Ur Oxycodone Screen (Negative) Urine Methadone Screen (Negative) Ur Barbiturates Screen (Negative) U Tricyclic Antidepress (Negative) Ur Phencyclidine Scrn (Negative) Ur Amphetamines Screen (Negative) U Methamphetamines Scrn (Negative) Ur MDMA Scrn (Ecstasy) (Negative) U Benzodiazepines Scrn (Negative) Urine Cocaine Screen (Negative) U Marijuana (THC) Screen (Negative) Ethyl Alcohol ( - 10) mg/dL SARS-CoV-2 (PCR) (Negative) Blood Type Antibody Screen 08/19/22 08/19/22 08/19/22 Range/Units 15:12 15:12 15:12 WBC (4.5-11.0) X10^3/uL RBC (4.0-5.2) X10^6/uL Hgb (12.0-16.0) g/dL Hct (36-46) % MCV (80-100) fL MCH (26-34) PG MCHC (30-36) % RDW (11.6-14.8) % Plt Count (150-400) X10^3/uL Neut % (Auto) (50-75) % Lymph % (Auto) (25-40) % [place] % (Auto) (3-14) % Eos % (Auto) (2-4) % Baso % (Auto) (0-2) % Neut # (Auto) (3042-0615) /uL Lymph # (Auto) (9394-8272) /uL [place] # (Auto) (0-900) /uL Eos # (Auto) (0-450) /uL Baso # (Auto) (0-100) /uL PT (10.1-12.7) SECONDS INR (0.9-1.3) Sodium 117 L* (137-145) mmol/L Potassium 3.6 (3.4-5.1) mmol/L Chloride 67 L* (98-107) mmol/L Carbon Dioxide 16 L (22-32) mmol/L BUN 55 H (7-17) mg/dL Creatinine 0.82 (0.52-1.04) mg/dL Estimated GFR > 60 (>60) mL/min BUN/Creatinine Ratio 67.1 H (6-22) Glucose 163 H (80-110) mg/dL Calcium 8.6 (8.4-10.2) mg/dL Total Bilirubin 0.9 (0.2-1.3) mg/dL AST 56 H (14-36) IU/L ALT 36 H (<35) IU/L Alkaline Phosphatase 68 (38-126) U/L Ammonia (9-30) umol/L Total Protein 7.2 (6.3-8.2) g/dL Albumin 4.6 (3.5-5.0) g/dL Globulin 2.6 (1.7-4.1) g/dL Albumin/Globulin Ratio 1.8 (1.0-2.8) Urine Color Urine Appearance Urine pH (4.5-8.0) Ur Specific [place] (1.000-1.035) Urine Protein (Negative) Urine Glucose (UA) (Negative) g/dL Urine Ketones (NEGATIVE) Urine Occult Blood (Negative) Urine Nitrate (Negative) Urine Bilirubin (NEGATIVE) Urine Urobilinogen (0.2) E.U./dL Ur Leukocyte Esterase (NEGATIVE) Urine RBC (0-5/HPF) Urine WBC (0-5/HPF) Urine Bacteria (None) Hyaline Casts (None) Ur Culture Indicated? Ur Random Sodium (30-90) mmol/L Urine Creatinine mg/dL U Opiates 300ng/mL cut (Negative) Ur Oxycodone Screen (Negative) Urine Methadone Screen (Negative) Ur Barbiturates Screen (Negative) U Tricyclic Antidepress (Negative) Ur Phencyclidine Scrn (Negative) Ur Amphetamines Screen (Negative) U Methamphetamines Scrn (Negative) Ur MDMA Scrn (Ecstasy) (Negative) U Benzodiazepines Scrn (Negative) Urine Cocaine Screen (Negative) U Marijuana (THC) Screen (Negative) Ethyl Alcohol 28 H ( - 10) mg/dL SARS-CoV-2 (PCR) (Negative) Blood Type A Positive Antibody Screen Negative 08/19/22 08/19/22 08/19/22 Range/Units 15:12 15:15 16:11 WBC (4.5-11.0) X10^3/uL RBC (4.0-5.2) X10^6/uL Hgb (12.0-16.0) g/dL Hct (36-46) % MCV (80-100) fL MCH (26-34) PG MCHC (30-36) % RDW (11.6-14.8) % Plt Count (150-400) X10^3/uL Neut % (Auto) (50-75) % Lymph % (Auto) (25-40) % [place] % (Auto) (3-14) % Eos % (Auto) (2-4) % Baso % (Auto) (0-2) % Neut # (Auto) (0107-2668) /uL Lymph # (Auto) (0202-8475) /uL [place] # (Auto) (0-900) /uL Eos # (Auto) (0-450) /uL Baso # (Auto) (0-100) /uL PT (10.1-12.7) SECONDS INR (0.9-1.3) Sodium (137-145) mmol/L Potassium (3.4-5.1) mmol/L Chloride (98-107) mmol/L Carbon Dioxide (22-32) mmol/L BUN (7-17) mg/dL Creatinine (0.52-1.04) mg/dL Estimated GFR (>60) mL/min BUN/Creatinine Ratio (6-22) Glucose (80-110) mg/dL Calcium (8.4-10.2) mg/dL Total Bilirubin (0.2-1.3) mg/dL AST (14-36) IU/L ALT (<35) IU/L Alkaline Phosphatase (38-126) U/L Ammonia < 9 L (9-30) umol/L Total Protein (6.3-8.2) g/dL Albumin (3.5-5.0) g/dL Globulin (1.7-4.1) g/dL Albumin/Globulin Ratio (1.0-2.8) Urine Color Yellow Urine Appearance Clear Urine pH 5.5 (4.5-8.0) Ur Specific [place] 1.025 (1.000-1.035) Urine Protein Negative (Negative) Urine Glucose (UA) Negative (Negative) g/dL Urine Ketones 1+ H (NEGATIVE) Urine Occult Blood Trace-intact (Negative) Urine Nitrate Negative (Negative) Urine Bilirubin Negative (NEGATIVE) Urine Urobilinogen 0.2 (0.2) E.U./dL Ur Leukocyte Esterase Negative (NEGATIVE) Urine RBC None seen (0-5/HPF) Urine WBC None seen (0-5/HPF) Urine Bacteria None seen (None) Hyaline Casts 1-5/lpf (None) Ur Culture Indicated? Cult not indicated Ur Random Sodium (30-90) mmol/L Urine Creatinine mg/dL U Opiates 300ng/mL cut (Negative) Ur Oxycodone Screen (Negative) Urine Methadone Screen (Negative) Ur Barbiturates Screen (Negative) U Tricyclic Antidepress (Negative) Ur Phencyclidine Scrn (Negative) Ur Amphetamines Screen (Negative) U Methamphetamines Scrn (Negative) Ur MDMA Scrn (Ecstasy) (Negative) U Benzodiazepines Scrn (Negative) Urine Cocaine Screen (Negative) U Marijuana (THC) Screen (Negative) Ethyl Alcohol ( - 10) mg/dL SARS-CoV-2 (PCR) Negative (Negative) Blood Type Antibody Screen 08/19/22 08/19/22 08/19/22 Range/Units 16:11 16:57 17:39 WBC (4.5-11.0) X10^3/uL RBC (4.0-5.2) X10^6/uL Hgb 9.0 L (12.0-16.0) g/dL Hct 26.2 L (36-46) % MCV (80-100) fL MCH (26-34) PG MCHC (30-36) % RDW (11.6-14.8) % Plt Count (150-400) X10^3/uL Neut % (Auto) (50-75) % Lymph % (Auto) (25-40) % [place] % (Auto) (3-14) % Eos % (Auto) (2-4) % Baso % (Auto) (0-2) % Neut # (Auto) (0242-6608) /uL Lymph # (Auto) (0712-9624) /uL [place] # (Auto) (0-900) /uL Eos # (Auto) (0-450) /uL Baso # (Auto) (0-100) /uL PT (10.1-12.7) SECONDS INR (0.9-1.3) Sodium 119 L* (137-145) mmol/L Potassium 3.2 L (3.4-5.1) mmol/L Chloride 67 L* (98-107) mmol/L Carbon Dioxide 36 H (22-32) mmol/L BUN 54 H (7-17) mg/dL Creatinine 0.81 (0.52-1.04) mg/dL Estimated GFR > 60 (>60) mL/min BUN/Creatinine Ratio 66.7 H (6-22) Glucose 190 H (80-110) mg/dL Calcium 7.9 L (8.4-10.2) mg/dL Total Bilirubin 1.1 (0.2-1.3) mg/dL AST 57 H (14-36) IU/L ALT 39 H (<35) IU/L Alkaline Phosphatase 67 (38-126) U/L Ammonia (9-30) umol/L Total Protein 6.2 L (6.3-8.2) g/dL Albumin 3.6 (3.5-5.0) g/dL Globulin 2.6 (1.7-4.1) g/dL Albumin/Globulin Ratio 1.4 (1.0-2.8) Urine Color Urine Appearance Urine pH (4.5-8.0) Ur Specific [place] (1.000-1.035) Urine Protein (Negative) Urine Glucose (UA) (Negative) g/dL Urine Ketones (NEGATIVE) Urine Occult Blood (Negative) Urine Nitrate (Negative) Urine Bilirubin (NEGATIVE) Urine Urobilinogen (0.2) E.U./dL Ur Leukocyte Esterase (NEGATIVE) Urine RBC (0-5/HPF) Urine WBC (0-5/HPF) Urine Bacteria (None) Hyaline Casts (None) Ur Culture Indicated? Ur Random Sodium (30-90) mmol/L Urine Creatinine mg/dL U Opiates 300ng/mL cut Negative (Negative) Ur Oxycodone Screen Negative (Negative) Urine Methadone Screen Negative (Negative) Ur Barbiturates Screen Negative (Negative) U Tricyclic Antidepress Negative (Negative) Ur Phencyclidine Scrn Negative (Negative) Ur Amphetamines Screen Negative (Negative) U Methamphetamines Scrn Negative (Negative) Ur MDMA Scrn (Ecstasy) Negative (Negative) U Benzodiazepines Scrn Negative (Negative) Urine Cocaine Screen Negative (Negative) U Marijuana (THC) Screen Negative (Negative) Ethyl Alcohol ( - 10) mg/dL SARS-CoV-2 (PCR) (Negative) Blood Type Antibody Screen 08/19/22 08/20/22 08/20/22 Range/Units 22:50 05:00 05:00 WBC 13.6 H (4.5-11.0) X10^3/uL RBC 2.59 L (4.0-5.2) X10^6/uL Hgb 8.5 L 8.4 L (12.0-16.0) g/dL Hct 24.4 L 24.0 L (36-46) % MCV 92.8 (80-100) fL MCH 32.4 (26-34) PG MCHC 34.9 (30-36) % RDW 12.9 (11.6-14.8) % Plt Count 184 (150-400) X10^3/uL Neut % (Auto) 86.8 H (50-75) % Lymph % (Auto) 5.3 L (25-40) % [place] % (Auto) 7.7 (3-14) % Eos % (Auto) 0.0 L (2-4) % Baso % (Auto) 0.2 (0-2) % Neut # (Auto) 05084 H (5606-4074) /uL Lymph # (Auto) 700 L (4946-0341) /uL [place] # (Auto) 1100 H (0-900) /uL Eos # (Auto) 0 (0-450) /uL Baso # (Auto) 0 (0-100) /uL PT (10.1-12.7) SECONDS INR (0.9-1.3) Sodium 123 L (137-145) mmol/L Potassium 2.9 L (3.4-5.1) mmol/L Chloride 75 L* (98-107) mmol/L Carbon Dioxide 39 H (22-32) mmol/L BUN 32 H (7-17) mg/dL Creatinine 0.66 (0.52-1.04) mg/dL Estimated GFR > 60 (>60) mL/min BUN/Creatinine Ratio 48.5 H (6-22) Glucose 163 H (80-110) mg/dL Calcium 7.8 L (8.4-10.2) mg/dL Total Bilirubin 0.7 (0.2-1.3) mg/dL AST 47 H (14-36) IU/L ALT 30 (<35) IU/L Alkaline Phosphatase 67 (38-126) U/L Ammonia (9-30) umol/L Total Protein 6.2 L (6.3-8.2) g/dL Albumin 3.5 (3.5-5.0) g/dL Globulin 2.7 (1.7-4.1) g/dL Albumin/Globulin Ratio 1.3 (1.0-2.8) Urine Color Urine Appearance Urine pH (4.5-8.0) Ur Specific [place] (1.000-1.035) Urine Protein (Negative) Urine Glucose (UA) (Negative) g/dL Urine Ketones (NEGATIVE) Urine Occult Blood (Negative) Urine Nitrate (Negative) Urine Bilirubin (NEGATIVE) Urine Urobilinogen (0.2) E.U./dL Ur Leukocyte Esterase (NEGATIVE) Urine RBC (0-5/HPF) Urine WBC (0-5/HPF) Urine Bacteria (None) Hyaline Casts (None) Ur Culture Indicated? Ur Random Sodium (30-90) mmol/L Urine Creatinine mg/dL U Opiates 300ng/mL cut (Negative) Ur Oxycodone Screen (Negative) Urine Methadone Screen (Negative) Ur Barbiturates Screen (Negative) U Tricyclic Antidepress (Negative) Ur Phencyclidine Scrn (Negative) Ur Amphetamines Screen (Negative) U Methamphetamines Scrn (Negative) Ur MDMA Scrn (Ecstasy) (Negative) U Benzodiazepines Scrn (Negative) Urine Cocaine Screen (Negative) U Marijuana (THC) Screen (Negative) Ethyl Alcohol ( - 10) mg/dL SARS-CoV-2 (PCR) (Negative) Blood Type Antibody Screen 08/20/22 08/20/22 Range/Units 12:28 12:28 WBC (4.5-11.0) X10^3/uL RBC (4.0-5.2) X10^6/uL Hgb 7.2 L (12.0-16.0) g/dL Hct 20.6 L* (36-46) % MCV (80-100) fL MCH (26-34) PG MCHC (30-36) % RDW (11.6-14.8) % Plt Count (150-400) X10^3/uL Neut % (Auto) (50-75) % Lymph % (Auto) (25-40) % [place] % (Auto) (3-14) % Eos % (Auto) (2-4) % Baso % (Auto) (0-2) % Neut # (Auto) (4190-9514) /uL Lymph # (Auto) (8815-3821) /uL [place] # (Auto) (0-900) /uL Eos # (Auto) (0-450) /uL Baso # (Auto) (0-100) /uL PT (10.1-12.7) SECONDS INR (0.9-1.3) Sodium 123 L (137-145) mmol/L Potassium 3.5 (3.4-5.1) mmol/L Chloride 85 L (98-107) mmol/L Carbon Dioxide 35 H (22-32) mmol/L BUN 22 H (7-17) mg/dL Creatinine 0.54 (0.52-1.04) mg/dL Estimated GFR > 60 (>60) mL/min BUN/Creatinine Ratio 40.7 H (6-22) Glucose 128 H (80-110) mg/dL Calcium 7.2 L (8.4-10.2) mg/dL Total Bilirubin (0.2-1.3) mg/dL AST (14-36) IU/L ALT (<35) IU/L Alkaline Phosphatase (38-126) U/L Ammonia (9-30) umol/L Total Protein (6.3-8.2) g/dL Albumin (3.5-5.0) g/dL Globulin (1.7-4.1) g/dL Albumin/Globulin Ratio (1.0-2.8) Urine Color Urine Appearance Urine pH (4.5-8.0) Ur Specific [place] (1.000-1.035) Urine Protein (Negative) Urine Glucose (UA) (Negative) g/dL Urine Ketones (NEGATIVE) Urine Occult Blood (Negative) Urine Nitrate (Negative) Urine Bilirubin (NEGATIVE) Urine Urobilinogen (0.2) E.U./dL Ur Leukocyte Esterase (NEGATIVE) Urine RBC (0-5/HPF) Urine WBC (0-5/HPF) Urine Bacteria (None) Hyaline Casts (None) Ur Culture Indicated? Ur Random Sodium (30-90) mmol/L Urine Creatinine mg/dL U Opiates 300ng/mL cut (Negative) Ur Oxycodone Screen (Negative) Urine Methadone Screen (Negative) Ur Barbiturates Screen (Negative) U Tricyclic Antidepress (Negative) Ur Phencyclidine Scrn (Negative) Ur Amphetamines Screen (Negative) U Methamphetamines Scrn (Negative) Ur MDMA Scrn (Ecstasy) (Negative) U Benzodiazepines Scrn (Negative) Urine Cocaine Screen (Negative) U Marijuana (THC) Screen (Negative) Ethyl Alcohol ( - 10) mg/dL SARS-CoV-2 (PCR) (Negative) Blood Type Antibody Screen Critical Care Time <Roberto Burt DO - Last Filed: 08/21/22 06:31> Critical Care Time Critical Care Time: Yes Total Critical Care Time: 60 Attestation: The high probability of a clinically significant, sudden or life threatening deterioration of the [GI/CV] system(s) required my full and direct attention, intervention and personal management. The aggregate critical care time was [60] minutes. This time is in addition to time spent performing reported procedures but includes the following: [x] Data Review and interpretation [x] Patient assessment and monitoring of vital signs [x] Documentation [x] Medication orders and management Discharge Plan Departure Patient Disposition: [facility] Clinical Impression: Acute GI bleeding, Alcohol withdrawal, Acute metabolic encephalopathy, Acute hyponatremia Prescriptions: No Action levothyroxine 75 mcg tablet 75 mcg PO DAILY Qty: 30 2RF cyclobenzaprine 10 mg tablet 10 mg PO TID PRN (Reason: muscle spasms) hydroxyzine HCl 50 mg tablet 50 mg PO TID PRN (Reason: Anxiety) amlodipine 5 mg tablet 5 mg PO DAILY Referrals: Yumiko Cheung PA-C [Primary Care Provider] -
[2022-08-19] MEDS: LORazepam 2 MG/ML INJ IV ×2 (15:26→19:32)
[2022-08-19] MEDS: OCTREOTIDE 100 MCG/ML VIAL 50 MCG IV (15:26)
[2022-08-19] MEDS: ONDANSETRON 4 MG/2 ML INJ IV (15:26)
[2022-08-19] MEDS: PANTOPRAZOLE 40 MG VIAL 80 MG IV (15:26)
[2022-08-19] MEDS: OCTREOTIDE 500 MCG in SODIUM CHLORIDE 0.9% 100 ML 10.1 MCG IV (15:27)
--- NOTE | 2022-08-19 15:31 | PC.NURSE ---
Pt's yellow metal necklace w/ heart pendant and apple watch given to friend at bedside.
[2022-08-19 15:35] LABS: INR 0.9 (0.9-1.3); Prothrombin Time 10.8 SECONDS (10.1-12.7)
[2022-08-19 15:44] LABS: Albumin 4.6 g/dL (3.5-5.0); Albumin Globulin Ratio 1.8 (1.0-2.8); Alkaline Phosphatase 68 U/L (38-126); Ammonia (NH3) < 9 umol/L (9-30); Aspartate Aminotransferase 56 IU/L (14-36); BUN Creatinine Ratio 67.1 (6-22); Bilirubin Total 0.9 mg/dL (0.2-1.3); Blood Urea Nitrogen 55 mg/dL (7-17); Calcium 8.6 mg/dL (8.4-10.2); Carbon Dioxide 16 mmol/L (22-32); Estimated Glomerular Filt Rate > 60 mL/min (>60); Globulin 2.6 g/dL (1.7-4.1); Glucose 163 mg/dL (80-110); HEMOLYSIS 21 (0-50); Potassium 3.6 mmol/L (3.4-5.1); Total Protein 7.2 g/dL (6.3-8.2)
[2022-08-19 15:45] LABS: Add Manual Diff / Slide Review NO; Basophils Absolute Auto 0 /uL (0-100); Basophils Percent Auto 0.1 % (0-2); Eosinophils Absolute Auto 0 /uL (0-450); Ethanol (ETOH) 28 mg/dL; Hematocrit 29.7 % (36-46); Hemoglobin 10.3 g/dL (12.0-16.0); Lymphocytes Absolute Auto 900 /uL (1100-4500); Lymphocytes Percent Auto 7.2 % (25-40); Mean Corpuscular HGB Conc 34.7 % (30-36); Mean Corpuscular Hemoglobin 32.2 PG (26-34); Mean Corpuscular Volume 92.9 fL (80-100); Monocytes Absolute Auto 1000 /uL (0-900); Monocytes Percent Auto 7.9 % (3-14); Neutrophils Absolute Auto 11000 /uL (1500-7000); Neutrophils Percent Auto 84.8 % (50-75); Platelet Count 264 X10^3/uL (150-400); Red Cell Distribution Width 12.7 % (11.6-14.8); White Blood Cell Count 12.9 X10^3/uL (4.5-11.0)
[2022-08-19 15:47] LABS: COVID19 -Nasal RAPID Negative (Negative)
[2022-08-19 15:49] LABS: Alanine Aminotransferase 36 IU/L (<35)
[2022-08-19 15:55] LABS: Chloride 67 mmol/L (98-107)
[2022-08-19 15:56] LABS: Sodium 117 mmol/L (137-145)
--- NOTE | 2022-08-19 16:00 | DI.RAD.S_ITS ---
PROCEDURE: XR CHEST 1V INDICATIONS: R subclavian TECHNIQUE: One view of the chest was acquired. COMPARISON: [facility], , XR CHEST 1V, 10/03/2018, 3:42. FINDINGS: Vascular catheter projects over the right upper chest and the distal tip terminates over the right upper mediastinum at the expected location of the right brachiocephalic and SVC confluence. Left PICC terminates in the mid portion of the SVC. No pleural effusion or pneumothorax. Lungs are clear. IMPRESSION: Right-sided vascular catheter distal tip projects over the SVC and brachiocephalic confluence. Left PICC terminates in the mid SVC. Dictated by: Audie Cagle M.D. on 08/19/2022 at 16:41 Approved by: Audie Cagle M.D. on 08/19/2022 at 16:44
[2022-08-19 16:21] LABS: Appearance Urine UA CLEAR; Bilirubin Urine UA NEGATIVE (NEGATIVE); Color Urine UA YELLOW; Glucose Urine UA NEGATIVE (Negative); Ketones Urine UA 1+ (NEGATIVE); Leukocyte Esterase Urine UA NEGATIVE (NEGATIVE); Nitrite Urine UA NEGATIVE (Negative); Occult Blood Urine UA TRACE-INTACT (Negative); Protein Urine UA NEGATIVE (Negative); Specific Gravity Urine UA 1.025 (1.000-1.035); Urobilinogen Urine UA 0.2 E.U./dL (0.2)
[2022-08-19 16:28] LABS: UR Morphine/Opiate cutoff 300 Negative (Negative); Ur Creatinine Normal (Normal); Ur Specific Gravity Normal (Normal); Urine Amphetamines Negative (Negative); Urine Barbiturates Negative (Negative); Urine Benzodiazepines Negative (Negative); Urine Cocaine Negative (Negative); Urine MDMA Negative (Negative); Urine Methadone Negative (Negative); Urine Methamphetamines Negative (Negative); Urine Oxycodone Negative (Negative); Urine Phencyclidine Negative (Negative); Urine Tetrahydrocannabinol Negative (Negative); Urine Tricyclic Antidepressant Negative (Negative); Urine pH Normal (Normal); pH Urine UA 5.5 (4.5-8.0)
[2022-08-19 16:34] LABS: Bacteria Urine None Seen; Culture Indicated Urine Cult Not Indicated; Hyaline Casts Urine 1-5/LPF; RBC Urine None Seen (0-5/HPF); WBC Urine None Seen (0-5/HPF)
[2022-08-19 16:41] LABS: Creatinine Urine Random 35.6 mg/dL; Sodium Urine Random 17 mmol/L (30-90)
--- NOTE | 2022-08-19 17:03 | DI.CT.S_ITS ---
PROCEDURE: CT HEAD/BRAIN WO CON INDICATIONS: fall, altered TECHNIQUE: Noncontrast 4.5 mm thick angled axial sections acquired from the foramen magnum to the vertex, with coronal and sagittal reformats. For radiation dose reduction, the following was used: automated exposure control, adjustment of mA and/or kV according to patient size. COMPARISON: [facility], CT, CT HEAD/BRAIN WO CON, 03/02/2020, 14:05. [facility], CT, CT HEAD/BRAIN WO CON, 04/13/2020, 14:11. [facility], CT, CT CERVICAL SPINE WO CON, 08/19/2022, 17:14. [facility], CT, CT HEAD/BRAIN WO CON, 06/27/2022, 8:19. FINDINGS: Image quality: Excellent. CSF spaces: Basal cisterns are patent. No extra-axial fluid collections. The ventricles are symmetric in size and shape. Brain: No intracranial bleeds or masses. There is cerebral volume loss for age, with resultant ventricular and sulcal prominence. There are periventricular and deep white matter chronic small vessel ischemic changes. There is intracranial internal carotid artery atherosclerosis. Skull and face: Calvarium and visualized facial bones appear intact, without suspicious lesions. Sinuses: Visualized sinuses and mastoids are clear. IMPRESSION: Normal noncontrast head CT for age, stable from prior. Dictated by: Jag Hines M.D. on 08/19/2022 at 16:57 Approved by: Jag Hines M.D. on 08/19/2022 at 16:58
--- NOTE | 2022-08-19 17:03 | DI.CT.S_ITS ---
PROCEDURE: CT CERVICAL SPINE WO CON INDICATIONS: fall, altered TECHNIQUE: Noncontrast 3 mm thick sections acquired from the skull base to the T4 level. Sagittal and coronal reformats were then constructed. For radiation dose reduction, the following was used: automated exposure control, adjustment of mA and/or kV according to patient size. COMPARISON: [facility], CR, XR CHEST 1V, 08/19/2022, 16:01. [facility], CT, CT CERVICAL SPINE WO CON, 04/13/2020, 14:11. [facility], CT, CT HEAD/BRAIN WO CON, 08/19/2022, 17:14. [facility], CT, CT CERVICAL SPINE WO CON, 06/27/2022, 8:19. FINDINGS: Image quality: There is artifact associated with the metallic earrings. Bones: No fractures or dislocations. Visualized superior ribs are intact. There is moderate to severe disc space narrowing seen at C4-C5, C5-C6, and C6-C7. Soft tissues: Prevertebral soft tissues are normal in thickness. No paravertebral hematomas. No apical pneumothoraces. Bilateral central lines are seen. IMPRESSION: Negative for fracture. Lower cervical spine degenerative changes are seen. Dictated by: Jag Hines M.D. on 08/19/2022 at 16:53 Approved by: Jag Hines M.D. on 08/19/2022 at 16:57
[2022-08-19] MEDS: cefTRIAXone 2,000 MG in SODIUM CHLORIDE 0.9% 100 ML 200 MG IV (17:10)
[2022-08-19 17:16] LABS: Hematocrit 26.2 % (36-46)
[2022-08-19] MEDS: THIAMINE 200 MG in SODIUM CHLORIDE 0.9% 100 ML 408 MG IV (17:46)
[2022-08-19] MEDS: PHENobarbital 65 MG/ML VIAL 130 MG IV (17:54)
[2022-08-19 17:55] LABS: Alanine Aminotransferase 39 IU/L (<35); Albumin 3.6 g/dL (3.5-5.0); Albumin Globulin Ratio 1.4 (1.0-2.8); Alkaline Phosphatase 67 U/L (38-126); Aspartate Aminotransferase 57 IU/L (14-36); BUN Creatinine Ratio 66.7 (6-22); Bilirubin Total 1.1 mg/dL (0.2-1.3); Blood Urea Nitrogen 54 mg/dL (7-17); Calcium 7.9 mg/dL (8.4-10.2); Carbon Dioxide 36 mmol/L (22-32); Estimated Glomerular Filt Rate > 60 mL/min (>60); Globulin 2.6 g/dL (1.7-4.1); Glucose 190 mg/dL (80-110); HEMOLYSIS < 15 (0-50); Potassium 3.2 mmol/L (3.4-5.1); Total Protein 6.2 g/dL (6.3-8.2)
[2022-08-19 18:07] LABS: Sodium 119 mmol/L (137-145)
[2022-08-19 18:08] LABS: Chloride 67 mmol/L (98-107)
--- NOTE | 2022-08-19 18:18 | PC.NURSE ---
xfer: sent facesheet to [place], [facility], /[facility] waitlisted at all, pushed images to as requested. No waitlist at [facility] or [facility]. left VM @[facility] @ 18:15
[2022-08-19 23:05] LABS: Hematocrit 24.4 % (36-46); Hemoglobin 8.5 g/dL (12.0-16.0)
--- NOTE | 2022-08-19 23:37 | PC.NURSE ---
DR Han notified of 2300 H&H results,no new orders received.will repeat at 0500 AM.
[2022-08-20] VITALS (37 sets, daily range): BP systolic 122–153; BP diastolic 67–101; PULSE 82–112; RESP 11–24; TEMP 37.3–38.1; O2SAT 93–100
[2022-08-20] MEDS: ONDANSETRON 4 MG/2 ML INJ IV ×2 (00:11→11:23)
[2022-08-20] MEDS: OCTREOTIDE 500 MCG in SODIUM CHLORIDE 0.9% 100 ML 10.1 MCG IV ×2 (01:01→09:50)
[2022-08-20 05:12] LABS: Add Manual Diff / Slide Review NO; Basophils Absolute Auto 0 /uL (0-100); Basophils Percent Auto 0.2 % (0-2); Eosinophils Absolute Auto 0 /uL (0-450); Hemoglobin 8.4 g/dL (12.0-16.0); Lymphocytes Absolute Auto 700 /uL (1100-4500); Lymphocytes Percent Auto 5.3 % (25-40); Mean Corpuscular HGB Conc 34.9 % (30-36); Mean Corpuscular Hemoglobin 32.4 PG (26-34); Mean Corpuscular Volume 92.8 fL (80-100); Monocytes Absolute Auto 1100 /uL (0-900); Monocytes Percent Auto 7.7 % (3-14); Neutrophils Absolute Auto 11800 /uL (1500-7000); Neutrophils Percent Auto 86.8 % (50-75); Platelet Count 184 X10^3/uL (150-400); Red Blood Cell Count 2.59 X10^6/uL (4.0-5.2); Red Cell Distribution Width 12.9 % (11.6-14.8); White Blood Cell Count 13.6 X10^3/uL (4.5-11.0)
[2022-08-20 05:22] LABS: Alanine Aminotransferase 30 IU/L (<35); Albumin 3.5 g/dL (3.5-5.0); Albumin Globulin Ratio 1.3 (1.0-2.8); Alkaline Phosphatase 67 U/L (38-126); Aspartate Aminotransferase 47 IU/L (14-36); BUN Creatinine Ratio 48.5 (6-22); Bilirubin Total 0.7 mg/dL (0.2-1.3); Blood Urea Nitrogen 32 mg/dL (7-17); Calcium 7.8 mg/dL (8.4-10.2); Estimated Glomerular Filt Rate > 60 mL/min (>60); Globulin 2.7 g/dL (1.7-4.1); Glucose 163 mg/dL (80-110); HEMOLYSIS < 15 (0-50); Potassium 2.9 mmol/L (3.4-5.1); Sodium 123 mmol/L (137-145); Total Protein 6.2 g/dL (6.3-8.2)
[2022-08-20 05:29] LABS: Carbon Dioxide 39 mmol/L (22-32)
[2022-08-20 05:53] LABS: Chloride 75 mmol/L (98-107)
--- NOTE | 2022-08-20 06:16 | PC.NURSE ---
She was turned and repositioned,no redness noted on her back or buttocks.
[2022-08-20] MEDS: diphenhydrAMINE 50 MG/ML VIAL 25 MG IV (06:31)
--- NOTE | 2022-08-20 06:32 | PC.NURSE ---
She was given benadryl 25mg iv to help her with c/o not being able to sleep.
[2022-08-20] MEDS: POTASSIUM CHLORIDE IN WATER 10 MEQ/100 ML PIGGYBACK 100 MEQ IV ×6 (07:36→13:34)
[2022-08-20] MEDS: SODIUM CHLORIDE 0.9% 1,000 ML 1000 ML IV (11:24)
[2022-08-20] MEDS: ACETAMINOPHEN IV 1,000 MG/100 ML VIAL 400 MG IV (11:48)
[2022-08-20 12:43] LABS: Hemoglobin 7.2 g/dL (12.0-16.0)
[2022-08-20 12:49] LABS: Hematocrit 20.6 % (36-46)
[2022-08-20 12:56] LABS: BUN Creatinine Ratio 40.7 (6-22); Blood Urea Nitrogen 22 mg/dL (7-17); Calcium 7.2 mg/dL (8.4-10.2); Carbon Dioxide 35 mmol/L (22-32); Chloride 85 mmol/L (98-107); Estimated Glomerular Filt Rate > 60 mL/min (>60); Glucose 128 mg/dL (80-110); HEMOLYSIS < 15 (0-50); Potassium 3.5 mmol/L (3.4-5.1); Sodium 123 mmol/L (137-145)
[2022-08-20] MEDS: LORazepam 2 MG/ML INJ IV (16:58)
== END 2022-08-20 18:04 | disposition short-term general hospital (02) ==
PROVIDERS: Emergency Medicine; Emergency Provider Emergency Medicine; PCP Physician Assistant
DX: K92.2 Gastrointestinal hemorrhage, unspecified (principal); E87.1 Hypo-osmolality and hyponatremia; G93.41 Metabolic encephalopathy; R79.89 Other specified abnormal findings of blood chemistry; F10.239 Alcohol dependence with withdrawal, unspecified; W18.30XA Fall on same level, unspecified, initial encounter; Z20.822 Contact with and (suspected) exposure to COVID-19
CPT/HCPCS: 36415; 70450; 71045; 72125; 80048; 80053; 80305; 80320; 81001; 82140; 82570; 84300; 85014; 85018; 85025; 85610; 86850; 86900; 86901; 87635; 93005; 96365; 96366; 96367; 96375; 96376; 99285; C9803; C9113; J0131; J0696; J1200; J2060; J2354; J2405; J2560

== ENCOUNTER 2022-09-17 20:03 | Emergency (ER) | payer OTHER, SELFPAY ==
[2018-03-27 03:41] VITALS: BMI 23.1
[2022-09-17 20:10] VITALS: BP 162/81; PULSE 106; RESP 18; TEMP 36.4; O2SAT 96; BMI 22.1
--- NOTE | 2022-09-17 20:29 | DI.US.S_ITS ---
PROCEDURE: US ABDOMEN LIMITED INDICATIONS: SEVERE EPIGASTRIC PAIN TECHNIQUE: Real-time focused scanning was performed of the abdomen, with image documentation. COMPARISON: [facility], , US ABDOMEN LIMITED, 08/22/2020, 10:54. FINDINGS: The liver was not well visualized sonographically. Gallbladder is surgically absent. The visualized common hepatic duct is nondilated. Visualized pancreas appears unremarkable sonographically. IMPRESSION: 1. Limited study demonstrates no definite biliary ductal dilatation. 2. Surgical absence of the gallbladder. Dictated by: Robe Johnson M.D. on 09/17/2022 at 22:55 Approved by: Robe Johnson M.D. on 09/17/2022 at 22:57
--- NOTE | 2022-09-17 20:34 | ED_ITS ---
HPI - Abdominal Pain General Chief Complaint: Abdominal Pain Stated Complaint: alcoholic issues Time Seen by Provider: 09/17/22 20:09 Source: patient Mode of arrival: Ambulatory History of Present Illness HPI narrative: 62-year-old female nonsmoker with history of heavy alcohol abuse, hypertension and hypothyroidism presents with a family friend and a chief complaint of nausea vomiting and epigastric pain over the course of the day. Her last drink was about 1 hour ago. She states she has gone through withdrawals in the past and has been through detox in the past. She states her gallbladder is surgically absent. She states her pain seems to be worse when she tries to eat or drink or move and she denies any radiation of this pain. She is had no fever or chills. She denies any change in medications. She denies recent antibiotics or travel. Related Data Home Medications Medication Instructions Recorded Confirmed amlodipine 5 mg tablet 5 mg PO DAILY 08/19/22 08/19/22 cyclobenzaprine 10 mg tablet 10 mg PO TID PRN muscle spasms 08/19/22 08/19/22 hydroxyzine HCl 50 mg tablet 50 mg PO TID PRN Anxiety 08/19/22 08/19/22 Previous Rx's Medication Instructions Recorded levothyroxine 75 mcg tablet 75 mcg PO DAILY #30 tabs 03/31/18 cephalexin 500 mg capsule 500 mg PO BID #10 caps 09/18/22 ondansetron 4 mg disintegrating 4 mg PO TID-QID PRN nausea and 09/18/22 tablet vomiting #10 tabs pantoprazole 40 mg tablet,delayed 40 mg PO DAILY #30 tabs 09/18/22 release (Protonix) Allergies Allergy/AdvReac Type Severity Reaction Status Date / Time codeine Allergy Unknown VOMITING Verified 06/27/22 08:03 medroxyprogesterone Allergy Unknown MEDROXYPROGESTERONE Verified 06/27/22 08:03 MAKES HER CRAZY Review of Systems Review of Systems Narrative: GENERAL: Denies chills, fatigue, malaise, fever, sweats. HEENT: Denies sinus pain, ear pain, sore throat, difficulty swallowing, dizziness. RESPIRATORY: Denies dyspnea, cough, wheezing, hemoptysis, sputum. CARDIOVASCULAR: Denies chest pain, palpitations, orthopnea, edema, GASTROINTESTINAL: See HPI : Denies dysuria, frequency, incontinence, hematuria, urinary retention. MUSCULOSKELETAL: denies weakness, joint pain, or bony pain SKIN: Denies rash, skin lesions, or other NEUROLOGIC: Denies weakness, headache, numbness, change in speech, confusion, seizures, incoordination. PSYCHIATRIC: No concerning psychosocial issues. 12 point review of systems is negative except for those stated above Patient History Medical History Alcohol abuse Back pain Erosive esophagitis Esophageal varices GI bleed Hypertension Hypothyroid Social History household members: significant other Smoking Status: Never smoker alcohol intake: current Smoking Status: Never smoker alcohol intake frequency: 3 or more drinks per day Substance Use Type: does not use Exam Narrative Exam Narrative: GENERAL: [62] year old patient appears stated age. Well-developed patient, in mild distress. Holding an emesis bag HEAD: Atraumatic. Normocephalic. EYES: Pupils equal round and reactive. Extraocular motions intact. No scleral icterus. No injection or drainage. ENT: Nose without bleeding, purulent drainage. Throat without erythema, tonsillar hypertrophy or exudate. Airway patent. NECK: Trachea midline. Non tender CARDIOVASCULAR: Regular rate and rhythm without murmurs, gallops, or rubs. RESPIRATORY: Clear to auscultation. Breath sounds equal bilaterally. No wheezes, rales, or rhonchi. GASTROINTESTINAL: Abdomen soft, mild epigastric pain on palpation, nondistended. Bowel sounds present EXTREMITIES: No edema or joint tenderness. BACK: Nontender without deformity or crepitance. No flank tenderness. NEURO: AOx3. SKIN: No rash or erythema of visible areas Initial Vital Signs Initial Vital Signs: Vital Signs Temperature 97.6 F 09/17/22 20:10 Pulse Rate 106 H 09/17/22 20:10 Respiratory Rate 18 09/17/22 20:10 Blood Pressure 162/81 H 09/17/22 20:10 Pulse Oximetry 96 09/17/22 20:10 Oxygen Delivery Method Room Air 09/17/22 20:10 Course Orders Ordered: ED Orders 09/17/22 21:00 Complete Blood Count AUTO DIFF Stat 09/17/22 22:39 CT abdomen pelvis w con Stat 09/17/22 23:30 Urine Culture Stat Urine Microscopic Stat Discontinued Medications Sodium Chloride (Normal Saline 0.9%) 1,000 mls @ 1,000 mls/hr IV BOLUS ONE Stop: 09/17/22 21:28 Last Infusion: 09/18/22 00:28 Dose: 0 mls/hr Documented By: LUIS ALFREDO Admin: 09/17/22 21:18 Dose: 1,000 mls/hr Documented By: ANDREA Lorazepam (Lorazepam 2 Mg/Ml Inj) 1 mg IV NOW ONE Stop: 09/17/22 21:26 Last Admin: 09/17/22 21:48 Dose: 1 mg Documented By: LUIS ALFREDO Ondansetron HCl (Ondansetron 4 Mg/2 Ml Inj) 4 mg IV NOW ONE Stop: 09/17/22 20:30 Last Admin: 09/17/22 21:16 Dose: 4 mg Documented By: ANDREA Ondansetron HCl (Ondansetron 4 Mg/2 Ml Inj) 4 mg IV NOW ONE Stop: 09/17/22 21:15 Last Admin: 09/17/22 21:48 Dose: Not Given Documented By: LUIS ALFREDO Ondansetron HCl (Ondansetron 4 Mg Odt Prepack) 1 bottle MISC SEEINSTR ONE Stop: 09/18/22 00:37 Last Admin: 09/18/22 00:50 Dose: 1 bottle Documented By: LORENA Pantoprazole Sodium (Pantoprazole 40 Mg Vial) 40 mg IV NOW ONE Stop: 09/17/22 20:30 Last Admin: 09/17/22 21:18 Dose: 40 mg Documented By: ANDREA Vital Signs Vital signs: Vital Signs - 8 hr 09/17/22 22:15 09/17/22 22:30 09/17/22 22:45 Pulse Rate 95 H 97 H 96 H Blood Pressure 151/81 H 144/83 H Pulse Oximetry 94 96 96 Oxygen Delivery Method Room Air Room Air Room Air 09/17/22 23:35 09/17/22 23:35 09/18/22 00:00 Pulse Rate 107 H Blood Pressure 163/90 H 179/87 H Pulse Oximetry 98 Oxygen Delivery Method 09/18/22 00:00 09/18/22 00:30 09/18/22 00:30 Pulse Rate 97 H 109 H Blood Pressure 160/98 H Pulse Oximetry 97 94 Oxygen Delivery Method 09/18/22 00:59 Pulse Rate Blood Pressure Pulse Oximetry 97 Oxygen Delivery Method Room Air [facility] Abdominal Pain Lab Data 09/17/22 21:00 09/17/22 20:35 Labs: Lab Results 09/17/22 09/17/22 09/17/22 Range/Units 20:35 20:35 21:00 WBC 5.4 (4.5-11.0) X10^3/uL RBC 3.74 L (4.0-5.2) X10^6/uL Hgb 11.3 L (12.0-16.0) g/dL Hct 34.7 L (36-46) % MCV 92.8 (80-100) fL MCH 30.3 (26-34) PG MCHC 32.6 (30-36) % RDW 15.4 H (11.6-14.8) % Plt Count 305 (150-400) X10^3/uL Neut % (Auto) 83.0 H (50-75) % Lymph % (Auto) 10.2 L (25-40) % [place] % (Auto) 6.2 (3-14) % Eos % (Auto) 0.2 L (2-4) % Baso % (Auto) 0.4 (0-2) % Neut # (Auto) 4500 (5280-4362) /uL Lymph # (Auto) 600 L (4046-4826) /uL [place] # (Auto) 300 (0-900) /uL Eos # (Auto) 0 (0-450) /uL Baso # (Auto) 0 (0-100) /uL PT 10.6 (10.1-12.7) SECONDS INR 0.9 (0.9-1.3) Sodium 127 L (137-145) mmol/L Potassium 4.6 (3.4-5.1) mmol/L Chloride 86 L (98-107) mmol/L Carbon Dioxide 18 L (22-32) mmol/L BUN 6 L (7-17) mg/dL Creatinine 0.52 (0.52-1.04) mg/dL Estimated GFR > 60 (>60) mL/min BUN/Creatinine Ratio 11.5 (6-22) Glucose 110 (80-110) mg/dL Calcium 8.8 (8.4-10.2) mg/dL Total Bilirubin 0.5 (0.2-1.3) mg/dL AST 59 H (14-36) IU/L ALT 27 (<35) IU/L Alkaline Phosphatase 95 (38-126) U/L Total Protein 8.2 (6.3-8.2) g/dL Albumin 4.8 (3.5-5.0) g/dL Globulin 3.4 (1.7-4.1) g/dL Albumin/Globulin Ratio 1.4 (1.0-2.8) Lipase 104 (23-300) U/L Urine RBC (0-5/HPF) Urine WBC (0-5/HPF) Ur Squamous Epith Cells (0-5/HPF) Ur Transition Epith Cell (0-5/HPF) Ur Renal Epithelial Cell (0-1/HPF) Urine Bacteria (None) Hyaline Casts (None) Granular Casts (None) WBC Casts (None) Ur Culture Indicated? Ethyl Alcohol 363 H ( - 10) mg/dL 09/17/22 Range/Units 23:30 WBC (4.5-11.0) X10^3/uL RBC (4.0-5.2) X10^6/uL Hgb (12.0-16.0) g/dL Hct (36-46) % MCV (80-100) fL MCH (26-34) PG MCHC (30-36) % RDW (11.6-14.8) % Plt Count (150-400) X10^3/uL Neut % (Auto) (50-75) % Lymph % (Auto) (25-40) % [place] % (Auto) (3-14) % Eos % (Auto) (2-4) % Baso % (Auto) (0-2) % Neut # (Auto) (5498-2806) /uL Lymph # (Auto) (8837-7948) /uL [place] # (Auto) (0-900) /uL Eos # (Auto) (0-450) /uL Baso # (Auto) (0-100) /uL PT (10.1-12.7) SECONDS INR (0.9-1.3) Sodium (137-145) mmol/L Potassium (3.4-5.1) mmol/L Chloride (98-107) mmol/L Carbon Dioxide (22-32) mmol/L BUN (7-17) mg/dL Creatinine (0.52-1.04) mg/dL Estimated GFR (>60) mL/min BUN/Creatinine Ratio (6-22) Glucose (80-110) mg/dL Calcium (8.4-10.2) mg/dL Total Bilirubin (0.2-1.3) mg/dL AST (14-36) IU/L ALT (<35) IU/L Alkaline Phosphatase (38-126) U/L Total Protein (6.3-8.2) g/dL Albumin (3.5-5.0) g/dL Globulin (1.7-4.1) g/dL Albumin/Globulin Ratio (1.0-2.8) Lipase (23-300) U/L Urine RBC 0-1/hpf (0-5/HPF) Urine WBC 10-30/hpf H (0-5/HPF) Ur Squamous Epith Cells 1-5 /hpf (0-5/HPF) Ur Transition Epith Cell 0-1/hpf (0-5/HPF) Ur Renal Epithelial Cell 0-1/hpf (0-1/HPF) Urine Bacteria Few (2-10) H (None) Hyaline Casts 1-5/lpf (None) Granular Casts 0-1/lpf (None) WBC Casts 0-1/lpf (None) Ur Culture Indicated? Specimen cultured Ethyl Alcohol ( - 10) mg/dL Point of care testing: Urine Dip Bedside Urine Glucose Negative Bedside Urine Bilirubin - Negative Bedside Urine Ketone + 15 Urine Specific [place] 1.020 Bedside Urine Occult Blood ++ Bedside Urine pH 6.0 Bedside Urine Protein +/- 15 Bedside Urine Urobilinogen - Negative Bedside Urine Nitrite - Negative Bedside Urine Leukocytes + 70 Esterase MDM Narrative Medical decision making narrative: CC: 62-year-old female history of alcohol abuse presents with nausea vomiting and epigastric pain Complicating co-morbidities: Age, alcohol abuse Data collected from: Patient Medical records reviewed: Prior notes reviewed in our EMR Differential considered, but not limited to: Pancreatitis, gallbladder disease, esophageal spasm, gastritis, GERD versus other Exam documented above, pertinent findings include: Heart rate regular, lungs clear to auscultation, epigastric pain on palpation but abdomen soft, bowel sounds in all 4 quadrants Lab Test results independently reviewed as above. Pertinent findings: No leukocytosis or left shift, no anemia, H&H above her historic baseline, sodium 127, baseline typically 130-133, renal function at baseline LFTs and lipase within normal Independently reviewed EKG as above Imaging studies independently reviewed: Ultrasound limited but no definite biliary ductal dilatation, surgically absent gallbladder. CT of abdomen and pelvis shows no definite acute intra-abdominal pathology Treatments: Fluids, Zofran, Protonix and Keflex Re-evaluations: Patient feels significant improvement over the duration of visit. Pain is controlled, patient no longer vomiting, she is tolerating food and drink. She is able to ambulate a straight line and speak clearly. Discussion: Patient with extensive alcohol history presents with friends and family in the chief complaint of nausea, vomiting and abdominal pain. Multiple diagnoses were considered as noted above and after our workup including labs and imaging pancreatitis, gallbladder disease are highly unlikely. Patient has had a significant improvement in symptoms and is able to tolerate eating and dri nking. She can ambulate a straight line and wishes to go home. She very clearly states that she is not ready to stop drinking yet as her is out of town for the next 10 days. She has close friends and family that she will be staying with that will help her over that time frame. She understands that she may return for any worsening or persistent symptoms and that when she is ready to quit drinking she may return here for help with placement or can contact her primary care provider or even the detox facilities directly which she has done in the past. She understands that alcohol cessation is very risky to do without the assistance of a trained professional Disposition: see below, along with detailed discharge instructions that have been reviewed with patient as well as indications for ED re-evaluation and additional outpatient follow up Discharge Plan Departure Patient Disposition: Home Clinical Impression: Alcohol abuse, UTI (urinary tract infection) Instructions: DI for Urinary Tract Infection (UTI), DI for Alcohol Use Disorder, DI for Vomiting -- Adult Activity Restrictions/Additional Instructions: *You have been diagnosed with [alcohol dependence, UTI and vomiting *What to do: *Please continue to take your regular medications as directed. [x ] New medication prescriptions sent to your pharmacy: [[facility]] *Please follow up with your primary care provider in 2-3 days, call for an appointment. Let them know you were seen in the Emergency Department and that we ask that you be seen in follow up. We will electronically transmit a record of today's note if your PCP is in our system *Please consider a clear liquid diet for the next 24-48 hours and then slowly advance to regular as tolerated. Also, try to avoid alcohol, nicotine, caffeine, spicy, acidic or fatty foods as this may worsen your symptoms *If you do not have a primary care provider please contact the [facility] Resource line at [phone]. They will ask some questions about your medical history and help get you set up with a doctor in the community. *Return to Emergency Department if you should have any new, worsening or concerning symptoms, such as [fever greater than 101 F, shaking chills, worsening pain, persistent vomiting or other bothersome symptoms] Prescriptions: New cephalexin 500 mg capsule 500 mg PO BID Qty: 10 0RF pantoprazole [Protonix] 40 mg tablet,delayed release (DR/EC) 40 mg PO DAILY Qty: 30 0RF ondansetron 4 mg tablet,disintegrating 4 mg PO TID-QID PRN (Reason: nausea and vomiting) Qty: 10 0RF No Action levothyroxine 75 mcg tablet 75 mcg PO DAILY Qty: 30 2RF cyclobenzaprine 10 mg tablet 10 mg PO TID PRN (Reason: muscle spasms) hydroxyzine HCl 50 mg tablet 50 mg PO TID PRN (Reason: Anxiety) amlodipine 5 mg tablet 5 mg PO DAILY Referrals: Yumiko Cheung PA-C [Primary Care Provider] - Stand Alone Forms: Patient Portal/API
[2022-09-17 20:55] LABS: INR 0.9 (0.9-1.3); Prothrombin Time 10.6 SECONDS (10.1-12.7)
[2022-09-17 21:03] LABS: Alanine Aminotransferase 27 IU/L (<35); Albumin 4.8 g/dL (3.5-5.0); Albumin Globulin Ratio 1.4 (1.0-2.8); Alkaline Phosphatase 95 U/L (38-126); Aspartate Aminotransferase 59 IU/L (14-36); BUN Creatinine Ratio 11.5 (6-22); Bilirubin Total 0.5 mg/dL (0.2-1.3); Blood Urea Nitrogen 6 mg/dL (7-17); Calcium 8.8 mg/dL (8.4-10.2); Carbon Dioxide 18 mmol/L (22-32); Chloride 86 mmol/L (98-107); Estimated Glomerular Filt Rate > 60 mL/min (>60); Globulin 3.4 g/dL (1.7-4.1); Glucose 110 mg/dL (80-110); Lipase 104 U/L (23-300); Potassium 4.6 mmol/L (3.4-5.1); Sodium 127 mmol/L (137-145); Total Protein 8.2 g/dL (6.3-8.2)
[2022-09-17 21:12] LABS: Ethanol (ETOH) 363 mg/dL; HEMOLYSIS 28 (0-50)
[2022-09-17] MEDS: ONDANSETRON 4 MG/2 ML INJ IV (21:16)
[2022-09-17] MEDS: SODIUM CHLORIDE 0.9% 1,000 ML 1000 ML IV (21:18)
[2022-09-17] MEDS: PANTOPRAZOLE 40 MG VIAL IV (21:18)
[2022-09-17 21:23] LABS: Add Manual Diff / Slide Review NO; Basophils Absolute Auto 0 /uL (0-100); Basophils Percent Auto 0.4 % (0-2); Eosinophils Absolute Auto 0 /uL (0-450); Eosinophils Percent Auto 0.2 % (2-4); Hematocrit 34.7 % (36-46); Hemoglobin 11.3 g/dL (12.0-16.0); Lymphocytes Absolute Auto 600 /uL (1100-4500); Lymphocytes Percent Auto 10.2 % (25-40); Mean Corpuscular HGB Conc 32.6 % (30-36); Mean Corpuscular Hemoglobin 30.3 PG (26-34); Mean Corpuscular Volume 92.8 fL (80-100); Monocytes Absolute Auto 300 /uL (0-900); Monocytes Percent Auto 6.2 % (3-14); Neutrophils Absolute Auto 4500 /uL (1500-7000); Platelet Count 305 X10^3/uL (150-400); Red Blood Cell Count 3.74 X10^6/uL (4.0-5.2); Red Cell Distribution Width 15.4 % (11.6-14.8); White Blood Cell Count 5.4 X10^3/uL (4.5-11.0)
[2022-09-17] MEDS: LORazepam 2 MG/ML INJ 1 MG IV (21:48)
[2022-09-17 22:15] VITALS: BP 151/81; PULSE 95; O2SAT 94
[2022-09-17 22:30] VITALS: BP 144/83; PULSE 97; O2SAT 96
--- NOTE | 2022-09-17 22:39 | DI.CT.S_ITS ---
PROCEDURE: CT ABDOMEN PELVIS W CON INDICATIONS: severe abdominal pain, vomiting TECHNIQUE: After the administration of IV contrast, axial sections were acquired from the lung bases to the pubic symphysis. Coronal and sagittal reformats were performed. For radiation dose reduction, the following was used: automated exposure control, adjustment of mA and/or kV according to patient size. COMPARISON: [facility], CT, CT ABDOMEN PELVIS W CON, 10/03/2018, 1:18. FINDINGS: Image quality: Excellent. Lung bases: There is mild atelectasis and scarring in the lung bases. There are partially visualized breast implants. Heart: Heart is normal in size. ABDOMEN: Liver: There is hypoattenuation of the liver consistent with fatty infiltration. Gallbladder: Surgically absent. Biliary ducts: No biliary ductal dilatation. Pancreas: Unremarkable. Spleen: Normal in size. Adrenal Glands: No adrenal nodules. Kidneys and Ureters: No hydronephrosis. Stomach and Bowel: Stomach, small bowel loops, and colon are normal in caliber and wall thickness. The appendix is normal. Peritoneum: No abnormal intraperitoneal fluid. No free air. Ventral Wall: No hernia. Abdominal Nodes: No retroperitoneal or mesenteric adenopathy by size criteria. Vessels: Aorta and inferior vena cava are normal in size. PELVIS: Pelvic Organs: Unremarkable. Bladder: There is moderate distention of the urinary bladder without wall thickening or urinary stones. Pelvic Nodes: No enlarged lymph nodes. Miscellaneous: No inguinal hernias are seen. Bones: Visualized osseous structures demonstrate no suspicious focal lesions. IMPRESSION: 1. No definite acute intra-abdominal abnormality. Specifically, no evidence of appendicitis. 2. No evidence of bowel obstruction. 3. Moderate bladder distention suggestive of urinary tension. Dictated by: Robe Johnson M.D. on 09/18/2022 at 0:08 Approved by: Robe Johnson M.D. on 09/18/2022 at 0:14
[2022-09-17 22:45] VITALS: PULSE 96; O2SAT 96
[2022-09-17 23:35] VITALS: BP 163/90; PULSE 107; O2SAT 98
[2022-09-17 23:55] LABS: RBC Urine 0-1/HPF (0-5/HPF); Squamous Epithelial Cell Urine 1-5 /HPF (0-5/HPF); Transitional Epi Cells Urine 0-1/HPF (0-5/HPF); WBC Urine 10-30/HPF (0-5/HPF)
[2022-09-17 23:56] LABS: Granular Casts Urine 0-1/LPF; Hyaline Casts Urine 1-5/LPF; Renal Epithelial Cells Urine 0-1/HPF (0-1/HPF); White Blood Cell Casts Urine 0-1/LPF
[2022-09-17 23:57] LABS: Bacteria Urine Few (2-10); Culture Indicated Urine Specimen Cultured
[2022-09-18] VITALS: BP 179/87; PULSE 97; O2SAT 97
[2022-09-18 00:30] VITALS: BP 160/98; PULSE 109; O2SAT 94
[2022-09-18] MEDS: ONDANSETRON 4 MG ODT PREPACK 1 BOTTLE MISC (00:50)
[2022-09-18 00:59] VITALS: O2SAT 97
== END 2022-09-18 01:02 | disposition home or self-care (01) ==
PROVIDERS: Emergency Provider Emergency Medicine; PCP Physician Assistant
DX: N39.0 Urinary tract infection, site not specified (principal); F10.129 Alcohol abuse with intoxication, unspecified; Y90.8 Blood alcohol level of 240 mg/100 ml or more; R10.13 Epigastric pain
CPT/HCPCS: 36415; 74177; 76705; 80053; 80320; 81003; 81015; 83690; 85025; 85610; 87086; 96361; 96374; 96375; 99284; C9113; J2060; J2405; Q9967

== ENCOUNTER 2022-09-28 08:15 | Inpatient (IN) | payer OTHER, SELFPAY ==
[2018-03-27 03:41] VITALS: BMI 23.1
[2022-09-28] VITALS (28 sets, daily range): BP systolic 129–156; BP diastolic 74–94; PULSE 91–121; RESP 17–18; TEMP 36.2–36.6; O2SAT 88–99; BMI 22.8
--- NOTE | 2022-09-28 08:45 | DI.CT.S_ITS ---
PROCEDURE: CT HEAD/BRAIN WO CON INDICATIONS: etoh hx of bleed TECHNIQUE: Noncontrast 4.5 mm thick angled axial sections acquired from the foramen magnum to the vertex, with coronal and sagittal reformats. For radiation dose reduction, the following was used: automated exposure control, adjustment of mA and/or kV according to patient size. COMPARISON: [facility], CT, CT HEAD/BRAIN WO CON, 04/13/2020, 14:11. [facility], CT, CT HEAD/BRAIN WO CON, 06/27/2022, 8:19. [facility], CT, CT CHEST ABD PEL W CON, 09/28/2022, 9:09. [facility], CT, CT HEAD/BRAIN WO CON, 08/19/2022, 17:14. FINDINGS: Image quality: There is artifact associated with the metallic earrings. CSF spaces: Basal cisterns are patent. No extra-axial fluid collections. The ventricles are symmetric in size and shape. Brain: No intracranial bleeds or masses. There is cerebral volume loss for age, with resultant ventricular and sulcal prominence. There are periventricular and deep white matter chronic small vessel ischemic changes. There is intracranial internal carotid artery atherosclerosis. Skull and face: Calvarium and visualized facial bones appear intact, without suspicious lesions. Sinuses: Visualized sinuses and mastoids are clear. IMPRESSION: No acute intracranial hemorrhage is seen. No acute intracranial process is seen. Dictated by: Jag Hines M.D. on 09/28/2022 at 9:01 Approved by: Jag Hines M.D. on 09/28/2022 at 9:02
--- NOTE | 2022-09-28 08:45 | DI.CT.S_ITS ---
PROCEDURE: CT CHEST ABD PEL W CON INDICATIONS: etoh upper gi bleed TECHNIQUE: After the administration of intravenous contrast, axial sections acquired from the supraclavicular neck to the pubic symphysis. Coronal and sagittal reformats were performed. For radiation dose reduction, the following was used: automated exposure control, adjustment of mA and/or kV according to patient size. COMPARISON: [facility], CT, CT ABDOMEN PELVIS W CON, 10/03/2018, 1:18. [facility], CT, CT ABDOMEN PELVIS W CON, 09/17/2022, 22:49. [facility], CT, CT HEAD/BRAIN WO CON, 09/28/2022, 9:09. FINDINGS: Image quality: Excellent. CHEST: Lower Neck: No enlarged lymph nodes. Thyroid: Within normal limits. Axillae: No enlarged lymph nodes. Chest Wall: Unremarkable. Mammoplasty implants are incidentally noted. Lungs and Airways: Dependent atelectasis can be seen. No suspicious infiltrates are identified. Pleura: No pneumothorax is seen. There is a small right-sided pleural effusion and a trace left-sided pleural effusion. Heart: Heart size is normal. No pericardial effusion. Thoracic Vessels: The aorta and pulmonary arteries demonstrate normal size. Mediastinum and Shreya: No enlarged lymph nodes. Esophagus: No wall thickening. No hiatal hernia. ABDOMEN: Liver: Diffuse fatty liver infiltration is noted. The liver is normal in size and demonstrates no suspicious lesions. Gallbladder: Removed. Biliary ducts: Unremarkable. Pancreas: Unremarkable. Spleen: Unremarkable. Adrenal Glands: Unremarkable. Kidneys and Ureters: Unremarkable. Stomach and Bowel: No gastric mass can be seen. No significant stomach abnormality is seen. No dilated loops of small bowel are seen. No significant colonic abnormality is seen. Peritoneum: No abnormal intraperitoneal fluid. No free air. Ventral Wall: A mild periumbilical hernia is seen, containing fat. Abdominal Nodes: No retroperitoneal or mesenteric adenopathy by size criteria. Vessels: Aorta and inferior vena cava are normal in size. Atherosclerotic calcification is noted. PELVIS: Pelvic Organs: The uterus appears normal for age. No adnexal masses are seen. Bladder: An enlarged urinary bladder is again seen. Pelvic Nodes: No enlarged lymph nodes. Miscellaneous: No inguinal hernias are seen. Bones: Focal L4-L5 degenerative change is seen. Milder degenerative changes are seen elsewhere. IMPRESSION: A cause of upper GI bleeding is not identified. There is a small left-sided pleural effusion and a trace right-sided pleural effusion. Additional findings: Mammoplasty implants Fatty liver infiltration Cholecystectomy Fat containing periumbilical hernia Focal L4-L5 degenerative change Enlarged urinary bladder, please consider urinary retention Dictated by: Jag Hines M.D. on 09/28/2022 at 8:57 Approved by: Jag Hines M.D. on 09/28/2022 at 9:01
--- NOTE | 2022-09-28 08:46 | ED_ITS ---
HPI - GI Bleed General Chief complaint: GI Bleed Stated complaint: Vomiting Blood Time Seen by Provider: 09/28/22 08:31 Source: patient and family Mode of arrival: Family Vehicle History of Present Illness HPI Narrative: Patient is a 62-year-old female history of alcohol abuse alcohol gastritis and varices presenting today with alcohol intoxication and vomiting room blood. Daughter states that she was just at [facility] for gastritis she reports that there were varices with they were not bleeding they have not been banned and. Patient has been home for about 3-4 days started drinking alcohol again. Daughter came in today to drop off the dog and found her vomiting blood. Patient reports that she maybe have been vomiting for couple of days she is not really sure. She is some mild abdominal pain. She also has a remote history intracranial hemorrhage. She currently has no numbness tingling or new weakness, but is obviously altered with likely alcohol intoxication. Related Data Home Medications Medication Instructions Recorded Confirmed amlodipine 5 mg tablet 5 mg PO DAILY 08/19/22 09/28/22 cyclobenzaprine 10 mg tablet 10 mg PO TID PRN muscle spasms 08/19/22 09/28/22 hydroxyzine HCl 50 mg tablet 50 mg PO TID PRN Anxiety 08/19/22 09/28/22 Previous Rx's Medication Instructions Recorded ondansetron 4 mg disintegrating 4 mg PO TID-QID PRN nausea and 09/18/22 tablet vomiting #10 tabs pantoprazole 40 mg tablet,delayed 40 mg PO DAILY #30 tabs 09/18/22 release (Protonix) Allergies Allergy/AdvReac Type Severity Reaction Status Date / Time codeine Allergy Unknown VOMITING Verified 06/27/22 08:03 medroxyprogesterone Allergy Unknown MEDROXYPROGESTERONE Verified 06/27/22 08:03 MAKES HER CRAZY Review of Systems Review of Systems ROS Unobtainable: All systems reviewed & are unremarkable except as noted in HPI and below Patient History Medical History Alcohol abuse Back pain Erosive esophagitis Esophageal varices GI bleed Hypertension Hypothyroid Social History household members: spouse Smoking Status: Never smoker alcohol intake: current Smoking Status: Never smoker alcohol intake frequency: 3 or more drinks per day Substance Use Type: does not use Exam Initial Vital Signs Initial Vital Signs: Vital Signs Pulse Rate 112 H 09/28/22 08:25 Pulse Oximetry 92 09/28/22 08:25 GENERAL: Weak intoxicated 62-year-old HEENT: Head atraumatic,EOMI, pupils reactive, face symmetric, moist mucous membranes CARDIOVASCULAR: Regular rate and rhythm without murmurs, rubs or gallops. RESPIRATORY: Breath sounds equal bilaterally, no wheezes rales or rhonchi. ABDOMEN: Soft, mildly tender EXTREMITIES: Normal range of motion, no clubbing or edema. Neurovascularly intact NEUROLOGICAL: Alert and oriented x3. Moving all extremities hotel desk clerk strength equal SKIN: Jaundiced no erythema she does have some coffee-ground like vomit on her hands Course Orders Ordered: ED Orders 09/28/22 08:32 EKG-12 Lead Stat 09/28/22 08:38 Ammonia (NH3) Stat CBC Auto Diff [Complete Blood Count AUTO DIFF] Stat CMP [Comprehensive Metabolic Panel] Stat ETOH [Ethanol (ETOH)] Stat Lipase Stat PT [Prothrombin Time INR] Stat PTT [PTT Partial Thromboplastin Chaparro] Stat Troponin & CK Cardiac Panel Stat Type and Screen Stat 09/28/22 08:45 CT chest abd pel w con Stat CT head/brain wo con Stat 09/28/22 09:38 COVID19 -Nasal RAPID Stat 09/28/22 11:05 Hemoglobin and Hematocrit Stat 09/28/22 12:35 Consult to SHAKE BACKBOARD NOTCHER - Tip Banding Machine Operator Stat Discontinued Medications Octreotide Acetate 500 mcg/ (Sodium Chloride) 101 mls @ 10.1 mls/hr IV CONT CRYSTAL; Protocol Last Infusion: 09/28/22 11:50 Dose: 0 mcg/hr, 0 mls/hr Documented By: Admin: 09/28/22 09:22 Dose: 50 mcg/hr, 10.1 mls/hr Documented By: ANDREA Sodium Chloride (Normal Saline 0.9%) 1,000 mls @ 1,000 mls/hr IV BOLUS ONE Stop: 09/28/22 11:38 Last Infusion: 09/28/22 12:00 Dose: 0 mls/hr Documented By: Admin: 09/28/22 11:00 Dose: 250 mls/hr Documented By: ANDREA Metoclopramide HCl (Metoclopramide 10 Mg/2 Ml Inj) 10 mg IV NOW ONE Stop: 09/28/22 10:40 Last Admin: 09/28/22 11:00 Dose: 10 mg Documented By: ANDREA Octreotide Acetate (Octreotide 100 Mcg/Ml Vial) 50 mcg IV NOW ONE Stop: 09/28/22 08:41 Last Admin: 09/28/22 09:20 Dose: 50 mcg Documented By: ANDREA Pantoprazole Sodium (Pantoprazole 40 Mg Vial) 80 mg IV NOW ONE Stop: 09/28/22 08:32 Last Admin: 09/28/22 08:59 Dose: 80 mg Documented By: ANDREA Vital Signs Vital signs: Vital Signs - 8 hr 09/28/22 09:32 09/28/22 09:32 09/28/22 09:00 Pulse Rate 115 H Respiratory Rate 17 Blood Pressure Pulse Oximetry 88 L 96 92 Oxygen Delivery Method Room Air Nasal Cannula Oxygen Flow Rate 2 09/28/22 09:30 09/28/22 09:34 09/28/22 09:34 Pulse Rate 91 H 93 H Respiratory Rate Blood Pressure 135/83 Pulse Oximetry 97 97 Oxygen Delivery Method Nasal Cannula Oxygen Flow Rate 25 09/28/22 09:45 09/28/22 09:45 09/28/22 10:00 Pulse Rate 97 H Respiratory Rate Blood Pressure 136/80 134/83 Pulse Oximetry 97 Oxygen Delivery Method Oxygen Flow Rate 09/28/22 10:00 09/28/22 10:15 09/28/22 10:15 Pulse Rate 99 H 101 H Respiratory Rate Blood Pressure 137/89 Pulse Oximetry 98 99 Oxygen Delivery Method Nasal Cannula Oxygen Flow Rate 2 09/28/22 10:30 09/28/22 10:30 09/28/22 10:33 Pulse Rate 121 H Respiratory Rate Blood Pressure 137/94 H 156/82 H Pulse Oximetry Oxygen Delivery Method Oxygen Flow Rate 09/28/22 10:33 09/28/22 11:00 09/28/22 11:30 Pulse Rate 111 H 97 H 107 H Respiratory Rate Blood Pressure Pulse Oximetry 98 98 98 Oxygen Delivery Method Oxygen Flow Rate 09/28/22 12:00 09/28/22 12:11 09/28/22 12:11 Pulse Rate 104 H 106 H Respiratory Rate Blood Pressure 135/81 Pulse Oximetry 96 98 Oxygen Delivery Method Oxygen Flow Rate 09/28/22 12:15 09/28/22 12:15 09/28/22 12:30 Pulse Rate 103 H Respiratory Rate Blood Pressure 135/83 138/83 Pulse Oximetry 96 Oxygen Delivery Method Oxygen Flow Rate 09/28/22 12:30 09/28/22 12:45 09/28/22 12:45 Pulse Rate 108 H 112 H Respiratory Rate Blood Pressure 140/82 Pulse Oximetry 97 98 Oxygen Delivery Method Oxygen Flow Rate 09/28/22 13:00 09/28/22 13:00 09/28/22 13:15 Pulse Rate 107 H Respiratory Rate Blood Pressure 136/81 133/74 Pulse Oximetry 98 Oxygen Delivery Method Oxygen Flow Rate 09/28/22 13:15 09/28/22 13:30 09/28/22 13:30 Pulse Rate 110 H 109 H Respiratory Rate Blood Pressure 146/78 H Pulse Oximetry 97 95 Oxygen Delivery Method Oxygen Flow Rate MDM - GI Bleed Lab Data 09/28/22 11:05 09/28/22 08:38 Labs: Lab Results 09/28/22 09/28/22 09/28/22 Range/Units 08:38 08:38 08:38 WBC 11.1 H (4.5-11.0) X10^3/uL RBC 4.17 (4.0-5.2) X10^6/uL Hgb 12.7 (12.0-16.0) g/dL Hct 37.8 (36-46) % MCV 90.8 (80-100) fL MCH 30.5 (26-34) PG MCHC 33.6 (30-36) % RDW 16.5 H (11.6-14.8) % Plt Count 505 H (150-400) X10^3/uL Neut % (Auto) 78.5 H (50-75) % Lymph % (Auto) 10.4 L (25-40) % Mitchell % (Auto) 10.8 (3-14) % Eos % (Auto) 0.0 L (2-4) % Baso % (Auto) 0.3 (0-2) % Neut # (Auto) 8700 H (5550-4081) /uL Lymph # (Auto) 1200 (4924-8114) /uL Mitchell # (Auto) 1200 H (0-900) /uL Eos # (Auto) 0 (0-450) /uL Baso # (Auto) 0 (0-100) /uL PT 9.7 L (10.1-12.7) SECONDS INR 0.8 L (0.9-1.3) APTT 32 (26-36) SECONDS Sodium 135 L (137-145) mmol/L Potassium 3.9 (3.4-5.1) mmol/L Chloride 84 L (98-107) mmol/L Carbon Dioxide 30 (22-32) mmol/L BUN 10 (7-17) mg/dL Creatinine 0.61 (0.52-1.04) mg/dL Estimated GFR > 60 (>60) mL/min BUN/Creatinine Ratio 16.4 (6-22) Glucose 123 H (80-110) mg/dL Calcium 9.2 (8.4-10.2) mg/dL Total Bilirubin 0.3 (0.2-1.3) mg/dL AST 37 H (14-36) IU/L ALT 26 (<35) IU/L Alkaline Phosphatase 76 (38-126) U/L Ammonia (9-30) umol/L Total Creatine Kinase (30-135) U/L CK-MB (CK-2) CK-MB (CK-2) Rel Index Troponin I (0.01-0.034) ng/mL Total Protein 7.7 (6.3-8.2) g/dL Albumin 4.4 (3.5-5.0) g/dL Globulin 3.3 (1.7-4.1) g/dL Albumin/Globulin Ratio 1.3 (1.0-2.8) Lipase 102 (23-300) U/L Ethyl Alcohol 418 H* ( - 10) mg/dL SARS-CoV-2 (PCR) (Negative) Blood Type Antibody Screen 09/28/22 09/28/22 09/28/22 Range/Units 08:38 08:38 08:38 WBC (4.5-11.0) X10^3/uL RBC (4.0-5.2) X10^6/uL Hgb (12.0-16.0) g/dL Hct (36-46) % MCV (80-100) fL MCH (26-34) PG MCHC (30-36) % RDW (11.6-14.8) % Plt Count (150-400) X10^3/uL Neut % (Auto) (50-75) % Lymph % (Auto) (25-40) % Mitchell % (Auto) (3-14) % Eos % (Auto) (2-4) % Baso % (Auto) (0-2) % Neut # (Auto) (4284-4666) /uL Lymph # (Auto) (9863-2617) /uL Mitchell # (Auto) (0-900) /uL Eos # (Auto) (0-450) /uL Baso # (Auto) (0-100) /uL PT (10.1-12.7) SECONDS INR (0.9-1.3) APTT (26-36) SECONDS Sodium (137-145) mmol/L Potassium (3.4-5.1) mmol/L Chloride (98-107) mmol/L Carbon Dioxide (22-32) mmol/L BUN (7-17) mg/dL Creatinine (0.52-1.04) mg/dL Estimated GFR (>60) mL/min BUN/Creatinine Ratio (6-22) Glucose (80-110) mg/dL Calcium (8.4-10.2) mg/dL Total Bilirubin (0.2-1.3) mg/dL AST (14-36) IU/L ALT (<35) IU/L Alkaline Phosphatase (38-126) U/L Ammonia < 9 L (9-30) umol/L Total Creatine Kinase 36 (30-135) U/L CK-MB (CK-2) TNP CK-MB (CK-2) Rel Index TNP Troponin I < 0.012 (0.01-0.034) ng/mL Total Protein (6.3-8.2) g/dL Albumin (3.5-5.0) g/dL Globulin (1.7-4.1) g/dL Albumin/Globulin Ratio (1.0-2.8) Lipase (23-300) U/L Ethyl Alcohol ( - 10) mg/dL SARS-CoV-2 (PCR) (Negative) Blood Type A Positive Antibody Screen Negative 09/28/22 09/28/22 Range/Units 09:38 11:05 WBC (4.5-11.0) X10^3/uL RBC (4.0-5.2) X10^6/uL Hgb 11.8 L (12.0-16.0) g/dL Hct 35.5 L (36-46) % MCV (80-100) fL MCH (26-34) PG MCHC (30-36) % RDW (11.6-14.8) % Plt Count (150-400) X10^3/uL Neut % (Auto) (50-75) % Lymph % (Auto) (25-40) % Mitchell % (Auto) (3-14) % Eos % (Auto) (2-4) % Baso % (Auto) (0-2) % Neut # (Auto) (9265-6053) /uL Lymph # (Auto) (3115-9688) /uL Mitchell # (Auto) (0-900) /uL Eos # (Auto) (0-450) /uL Baso # (Auto) (0-100) /uL PT (10.1-12.7) SECONDS INR (0.9-1.3) APTT (26-36) SECONDS Sodium (137-145) mmol/L Potassium (3.4-5.1) mmol/L Chloride (98-107) mmol/L Carbon Dioxide (22-32) mmol/L BUN (7-17) mg/dL Creatinine (0.52-1.04) mg/dL Estimated GFR (>60) mL/min BUN/Creatinine Ratio (6-22) Glucose (80-110) mg/dL Calcium (8.4-10.2) mg/dL Total Bilirubin (0.2-1.3) mg/dL AST (14-36) IU/L ALT (<35) IU/L Alkaline Phosphatase (38-126) U/L Ammonia (9-30) umol/L Total Creatine Kinase (30-135) U/L CK-MB (CK-2) CK-MB (CK-2) Rel Index Troponin I (0.01-0.034) ng/mL Total Protein (6.3-8.2) g/dL Albumin (3.5-5.0) g/dL Globulin (1.7-4.1) g/dL Albumin/Globulin Ratio (1.0-2.8) Lipase (23-300) U/L Ethyl Alcohol ( - 10) mg/dL SARS-CoV-2 (PCR) Negative (Negative) Blood Type Antibody Screen ECG Data Interpretation: Sinus rhythm rate 108 IN interval 148 QRS [address] changes no T-wave inversions low voltage noted lead 3 and AVF, similar to prior MDM Narrative Medical decision making narrative: Patient 62-year-old female history of alcoholism and GI bleeding presenting today with GI bleeding and alcohol intoxication. She was admitted August 20 through the at [facility] where she had an EGD. Records have been reviewed EGD report from 08/21/2022 [facility] follows. Severe extensive LA grade D e sophagitis of mid and lower esophagus. This explains episodes of coffee-ground emesis. 3 cm hiatal hernia. Normal stomach. Normal examined duodenum. No specimens collected. There are reports of varices however she just had an EGD a few weeks ago that did not report varices she is a CT chest abdomen pelvis today which also do not show varices. She is vomited here 1 or 2 times it is not bright red it is dark and coffee-ground like. She initially was started immediately on octreotide and Protonix. He is hemodynamically stable repeat H and H shows minimal dropping. Discussed case with Dr. Gu is on-call surgery who reports that unlikely to be a variceal bleed based on recent EGD probably bleeding from the same place. Is okay to keep here rather than transfer. Does not need an octreotide drip any longer. Dr. Maguire accepts patient Discharge Plan Departure Patient Disposition: Admitted As Inpatient Clinical Impression: Alcohol abuse, Acute GI bleeding Admit Date/Time: 09/28/22 13:33 Admit Provider: Shantell Tiwari
[2022-09-28] MEDS: PANTOPRAZOLE 40 MG VIAL 80 MG IV (08:59)
[2022-09-28 09:03] LABS: Add Manual Diff / Slide Review NO; Basophils Absolute Auto 0 /uL (0-100); Basophils Percent Auto 0.3 % (0-2); Eosinophils Absolute Auto 0 /uL (0-450); Hematocrit 37.8 % (36-46); Hemoglobin 12.7 g/dL (12.0-16.0); INR 0.8 (0.9-1.3); Lymphocytes Absolute Auto 1200 /uL (1100-4500); Lymphocytes Percent Auto 10.4 % (25-40); Mean Corpuscular HGB Conc 33.6 % (30-36); Mean Corpuscular Hemoglobin 30.5 PG (26-34); Mean Corpuscular Volume 90.8 fL (80-100); Monocytes Absolute Auto 1200 /uL (0-900); Monocytes Percent Auto 10.8 % (3-14); Neutrophils Absolute Auto 8700 /uL (1500-7000); Neutrophils Percent Auto 78.5 % (50-75); Platelet Count 505 X10^3/uL (150-400); Prothrombin Time 9.7 SECONDS (10.1-12.7); Red Blood Cell Count 4.17 X10^6/uL (4.0-5.2); Red Cell Distribution Width 16.5 % (11.6-14.8); White Blood Cell Count 11.1 X10^3/uL (4.5-11.0)
[2022-09-28 09:05] LABS: Creatine Kinase 36 U/L (30-135); PTT Partial Thromboplastin Tim 32 SECONDS (26-36)
[2022-09-28 09:07] LABS: Alanine Aminotransferase 26 IU/L (<35); Albumin 4.4 g/dL (3.5-5.0); Albumin Globulin Ratio 1.3 (1.0-2.8); Alkaline Phosphatase 76 U/L (38-126); Ammonia (NH3) < 9 umol/L (9-30); Aspartate Aminotransferase 37 IU/L (14-36); BUN Creatinine Ratio 16.4 (6-22); Bilirubin Total 0.3 mg/dL (0.2-1.3); Blood Urea Nitrogen 10 mg/dL (7-17); Calcium 9.2 mg/dL (8.4-10.2); Carbon Dioxide 30 mmol/L (22-32); Chloride 84 mmol/L (98-107); Estimated Glomerular Filt Rate > 60 mL/min (>60); Globulin 3.3 g/dL (1.7-4.1); Glucose 123 mg/dL (80-110); HEMOLYSIS < 15 (0-50); Lipase 102 U/L (23-300); Potassium 3.9 mmol/L (3.4-5.1); Sodium 135 mmol/L (137-145); Total Protein 7.7 g/dL (6.3-8.2)
[2022-09-28 09:16] LABS: Ethanol (ETOH) 418 mg/dL
[2022-09-28 09:18] LABS: Troponin I < 0.012 ng/mL (0.01-0.034)
[2022-09-28] MEDS: OCTREOTIDE 100 MCG/ML VIAL 50 MCG IV (09:20)
[2022-09-28] MEDS: OCTREOTIDE 500 MCG in SODIUM CHLORIDE 0.9% 100 ML 10.1 MCG IV (09:22)
--- NOTE | 2022-09-28 09:35 | PC.NURSE ---
Pt returns from CT. O2 sat dropped to 88, placed on 2L, now sats are 96%.
[2022-09-28 09:59] LABS: COVID19 -Nasal RAPID Negative (Negative)
[2022-09-28] MEDS: METOCLOPRAMIDE 10 MG/2 ML INJ IV ×2 (11:00→21:07)
[2022-09-28] MEDS: SODIUM CHLORIDE 0.9% 1,000 ML 250 ML IV (11:00)
[2022-09-28 11:21] LABS: Hematocrit 35.5 % (36-46); Hemoglobin 11.8 g/dL (12.0-16.0)
--- NOTE | 2022-09-28 14:00 | CM.IDA ---
Initial DCP Assessment Patient is 62 y/o female who presents via POV with family due to concern for patient found in home vomiting blood. Patient endorses daily ETOH use and presents to with BAL of 418. Patient was recently transferred to [facility] from on 08/20/22 regarding similar presentation. Patient was admitted to due to concern for Acute GI bleeding and ETOH abuse. Patient has hx of alcohol gastritis. Patient endorses she plans to establish care with PCP Maria Del Carmen Devine PA-C, patient has [employer] insurance INSURANCE PROCESSING CLERK enters room to meet with patient. Patient presents as A/Ox4. Patient endorses she resides in [place] with spouse but spouse is a fisherman and is often working, per patient spouse will return to town tomorrow. It was reported by patient that her daughter came to visit and to return patient's dog and daughter observed patient to be vomiting blood and brought patient to ED. It is reported that patient's daughter resides in [place]. Patient endorses independence with ADLs, states that she drives but does not drive while under the influence of ETOH. Patient endorses she had been drinking wine today and does not recall how much. Patient endorses on average she drinks two bottles of wine a day. Patient states I'm an alcoholic. Patient denies interest in inpatient treatment, detox or AA. Patient endorses hx of using AA and hx of inpatient [facility] treatment a few years ago. Patient endorses she had a MH counselor in [place] but counselor retired, patient endorses interest in new counselor. Patient endorses some interest in harm reduction and reducing daily ETOH use. Per EMR, patient went to [facility] for inpatient treatment several years ago. INSURANCE PROCESSING CLERK discusses providing patient with list of MH providers and outpatient [facility] providers that accept her insurance, patient endorses agreement and understanding. INSURANCE PROCESSING CLERK provides patient this list of resources. Patient denies any further DCP needs at this time. Plan: Patient to admit to acute care, no DCP needs at this time. INSURANCE PROCESSING CLERK conducted [facility] assessment and provided patient with MH/[facility] resources. Patient likely to d/c to home upon medical clearance with family. Kenisha Colin [facility] Discharge Planning/Care Management CM Discharge Assessment Start: 09/28/22 12:51 Freq: Status: Active Protocol: Document 09/28/22 13:56 LN (Rec: 09/28/22 13:59 LN [id number]) Discharge Planning Assessment Assigned Edge Plugger JCARLOS De Advance Directives? No History Provided By Patient,Medical Record Has Patient been admitted in last 30 No days? Prior Living Arrangements House Household Members significant other Comment Patient's spouse is a fisherman who is often gone for work. Type of transporation used prior to Drives own vehicle admit Independent with ADL's Yes Is patient alert and oriented? Yes Comment Patient denies interest in ETOH rehab or detox. Patient shows interest in outpatient MH services. Transportation Arrangement Likely family Please Provide Date Initial DC 09/28/22 Assessment Was Performed
--- NOTE | 2022-09-28 16:37 | P.HP_ITS ---
History of Present Illness History of Present Illness Date Patient Seen: 09/28/22 Chief complaint: Vomiting Blood Narrative: Patient is a 62-year-old female history of alcohol abuse alcohol gastritis and mention of esophageal varices presenting today with alcohol intoxication and vomiting red blood.? Daughter states that she was just at [facility] for gastritis she reports that there were possible esophageal varices and they were not bleeding, they have not been banned.? Patient has been home for about 3-4 days started drinking alcohol again.? Daughter came in today to drop off the dog and found her vomiting blood.? Patient reports that she maybe have been vomiting for couple of days she is not really sure.? She is some mild abdominal pain.? She also has a remote history intracranial hemorrhage.? She currently has no numbness tingling or new weakness, but is obviously altered mental status with likely alcohol intoxication. Not complaining of any fever chills or diaphoresi s. No chest pain or palpitations. No shortness of breath wheezing or cough. Able to move all extremities volitionally. No specific localized strength deficits. Normal sensation of all extremities. Emesis did have coffee-ground appearance. Patient indicates that she has had significant difficulty quitting alcohol intake and has been to rehab and AA with no significant benefit. Drinks approx imately 2 bottles of wine per day. 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 Abnormal labs present in the ER were as follows: White blood cells count 11.1, sodium 135, AST 37 and alcohol level 418. [facility] Medical History Alcohol abuse Back pain Erosive esophagitis Esophageal varices GI bleed Hypertension Hypothyroid Social History household members: spouse Smoking Status: Never smoker alcohol intake: current Meds Home Medications and Allergies Home Medications Medication Instructions Recorded Confirmed Type amlodipine 5 mg tablet 5 mg PO DAILY 08/19/22 09/28/22 History cyclobenzaprine 10 mg tablet 10 mg PO TID PRN muscle spasms 08/19/22 09/28/22 History hydroxyzine HCl 50 mg tablet 50 mg PO TID PRN Anxiety 08/19/22 09/28/22 History ondansetron 4 mg disintegrating 4 mg PO TID-QID PRN nausea and 09/18/22 09/28/22 Rx tablet vomiting #10 tabs pantoprazole 40 mg tablet,delayed 40 mg PO DAILY #30 tabs 09/18/22 09/28/22 Rx release (Protonix) Allergies Allergy/AdvReac Type Severity Reaction Status Date / Time codeine Allergy Unknown VOMITING Verified 06/27/22 08:03 medroxyprogesterone Allergy Unknown MEDROXYPROGESTERONE Verified 06/27/22 08:03 MAKES HER CRAZY Review of Systems Review of Systems Narrative: Fourteen systems were reviewed and pertinent findings in history of chief complaint Exam Vital Signs (past 8 hours): - 09/28/22 09:32 09/28/22 09:32 09/28/22 09:00 Temperature Pulse Rate 115 H Respiratory Rate 17 Blood Pressure Pulse Oximetry 88 L 96 92 Oxygen Delivery Method Room Air Nasal Cannula Oxygen Flow Rate 2 09/28/22 09:30 09/28/22 09:34 09/28/22 09:34 Temperature Pulse Rate 91 H 93 H Respiratory Rate Blood Pressure 135/83 Pulse Oximetry 97 97 Oxygen Delivery Method Nasal Cannula Oxygen Flow Rate 25 09/28/22 09:45 09/28/22 09:45 09/28/22 10:00 Temperature Pulse Rate 97 H Respiratory Rate Blood Pressure 136/80 134/83 Pulse Oximetry 97 Oxygen Delivery Method Oxygen Flow Rate 09/28/22 10:00 09/28/22 10:15 09/28/22 10:15 Temperature Pulse Rate 99 H 101 H Respiratory Rate Blood Pressure 137/89 Pulse Oximetry 98 99 Oxygen Delivery Method Nasal Cannula Oxygen Flow Rate 2 09/28/22 10:30 09/28/22 10:30 09/28/22 10:33 Temperature Pulse Rate 121 H Respiratory Rate Blood Pressure 137/94 H 156/82 H Pulse Oximetry Oxygen Delivery Method Oxygen Flow Rate 09/28/22 10:33 09/28/22 11:00 09/28/22 11:30 Temperature Pulse Rate 111 H 97 H 107 H Respiratory Rate Blood Pressure Pulse Oximetry 98 98 98 Oxygen Delivery Method Oxygen Flow Rate 09/28/22 12:00 09/28/22 12:11 09/28/22 12:11 Temperature Pulse Rate 104 H 106 H Respiratory Rate Blood Pressure 135/81 Pulse Oximetry 96 98 Oxygen Delivery Method Oxygen Flow Rate 09/28/22 12:15 09/28/22 12:15 09/28/22 12:30 Temperature Pulse Rate 103 H Respiratory Rate Blood Pressure 135/83 138/83 Pulse Oximetry 96 Oxygen Delivery Method Oxygen Flow Rate 09/28/22 12:30 09/28/22 12:45 09/28/22 12:45 Temperature Pulse Rate 108 H 112 H Respiratory Rate Blood Pressure 140/82 Pulse Oximetry 97 98 Oxygen Delivery Method Oxygen Flow Rate 09/28/22 13:00 09/28/22 13:00 09/28/22 13:15 Temperature Pulse Rate 107 H Respiratory Rate Blood Pressure 136/81 133/74 Pulse Oximetry 98 Oxygen Delivery Method Oxygen Flow Rate 09/28/22 13:15 09/28/22 13:30 09/28/22 13:30 Temperature Pulse Rate 110 H 109 H Respiratory Rate Blood Pressure 146/78 H Pulse Oximetry 97 95 Oxygen Delivery Method Oxygen Flow Rate 09/28/22 13:45 09/28/22 13:45 09/28/22 14:00 Temperature Pulse Rate 109 H Respiratory Rate Blood Pressure 140/81 129/75 Pulse Oximetry 95 Oxygen Delivery Method Oxygen Flow Rate 09/28/22 14:00 09/28/22 14:49 Temperature 97.6 F Pulse Rate 109 H 113 H Respiratory Rate 18 Blood Pressure 147/86 H Pulse Oximetry 96 97 Oxygen Delivery Method Oxygen Flow Rate Oxygen Delivery Method Nasal Cannula Oxygen Flow Rate 2 Narrative Exam Narrative: GENERAL:? 62-year-old who appears older than her age and in poor health HEENT: Head atraumatic, EOMI, pupils reactive, face symmetric, moist mucous membranes CARDIOVASCULAR: Regular rate and rhythm without murmurs, rubs or gallops. RESPIRATORY: Breath sounds equal bilaterally, no wheezes rales or rhonchi. ABDOMEN: Soft,? mildly tender EXTREMITIES: Normal range of motion, no clubbing or edema.? Neurovascularly intact NEUROLOGICAL: Alert and oriented x3.? Moving all extremities lead assistant manager strength equal SKIN:? Jaundiced somewhat. Objective Labs 09/28/22 11:05 09/28/22 08:38 Labs: Laboratory Results - last 24 hr 09/28/22 09/28/22 09/28/22 08:38 08:38 08:38 WBC 11.1 H RBC 4.17 Hgb 12.7 Hct 37.8 MCV 90.8 MCH 30.5 MCHC 33.6 RDW 16.5 H Plt Count 505 H Neut % (Auto) 78.5 H Lymph % (Auto) 10.4 L [place] % (Auto) 10.8 Eos % (Auto) 0.0 L Baso % (Auto) 0.3 Neut # (Auto) 8700 H Lymph # (Auto) 1200 [place] # (Auto) 1200 H Eos # (Auto) 0 Baso # (Auto) 0 PT 9.7 L INR 0.8 L APTT 32 Sodium 135 L Potassium 3.9 Chloride 84 L Carbon Dioxide 30 BUN 10 Creatinine 0.61 Estimated GFR > 60 BUN/Creatinine Ratio 16.4 Glucose 123 H Calcium 9.2 Total Bilirubin 0.3 AST 37 H ALT 26 Alkaline Phosphatase 76 Ammonia Total Creatine Kinase CK-MB (CK-2) CK-MB (CK-2) Rel Index Troponin I Total Protein 7.7 Albumin 4.4 Globulin 3.3 Albumin/Globulin Ratio 1.3 Lipase 102 Ethyl Alcohol 418 H* SARS-CoV-2 (PCR) Blood Type Antibody Screen 09/28/22 09/28/22 09/28/22 08:38 08:38 08:38 WBC RBC Hgb Hct MCV MCH MCHC RDW Plt Count Neut % (Auto) Lymph % (Auto) [place] % (Auto) Eos % (Auto) Baso % (Auto) Neut # (Auto) Lymph # (Auto) [place] # (Auto) Eos # (Auto) Baso # (Auto) PT INR APTT Sodium Potassium Chloride Carbon Dioxide BUN Creatinine Estimated GFR BUN/Creatinine Ratio Glucose Calcium Total Bilirubin AST ALT Alkaline Phosphatase Ammonia < 9 L Total Creatine Kinase 36 CK-MB (CK-2) TNP CK-MB (CK-2) Rel Index TNP Troponin I < 0.012 Total Protein Albumin Globulin Albumin/Globulin Ratio Lipase Ethyl Alcohol SARS-CoV-2 (PCR) Blood Type A Positive Antibody Screen Negative 09/28/22 09/28/22 09:38 11:05 WBC RBC Hgb 11.8 L Hct 35.5 L MCV MCH MCHC RDW Plt Count Neut % (Auto) Lymph % (Auto) [place] % (Auto) Eos % (Auto) Baso % (Auto) Neut # (Auto) Lymph # (Auto) [place] # (Auto) Eos # (Auto) Baso # (Auto) PT INR APTT Sodium Potassium Chloride Carbon Dioxide BUN Creatinine Estimated GFR BUN/Creatinine Ratio Glucose Calcium Total Bilirubin AST ALT Alkaline Phosphatase Ammonia Total Creatine Kinase CK-MB (CK-2) CK-MB (CK-2) Rel Index Troponin I Total Protein Albumin Globulin Albumin/Globulin Ratio Lipase Ethyl Alcohol SARS-CoV-2 (PCR) Negative Blood Type Antibody Screen Assessment & Plan Assessment & Plan narrative: 1. Alcohol intoxication. Place patient on CIWA. 2. Alcohol abuse. INSPECTOR RETURNED MATERIALS consultation to help patient with services. 3. Likely alcohol gastritis with secondary hematemesis. Currently coffee ground hematemesis. Treat with IV Protonix and provide antiemetics. 4. Elevated liver enzyme. Consistent with chronic alcohol intake. Continue to follow. 5. Hypothyroidism history. Not on any replacement. Test TSH. 6. History of back pain. Treat as needed. 7. History of alcoholic gastritis. Treat with intravenous Protonix. 8. Hypertension. Provide patient's regular medication. 9. Current GI bleed/history of GI bleed. General surgery consult. DVT/PE prophylaxis: Contraindicated due to GI bleed. GI prophylaxis.: Patient has been placed on intravenous Protonix. Code status: DNR this is the wishes of the patient. Surrogate decision maker: COVID-19 COVID-19 status: Negative Result date/Date tested (Pos, Neg/Pending): 09/28/22 Quality VTE Deep Vein Thrombosis/Pulmonary Embolism Present on Admission: No MIPS - Admit I confirm the patient?s Advance Care Plan is present, Code status is documented, Surrogate decision maker is in patient?s record [If Yes, STOP here]: Yes MIPS - Meds 'Current medications' to include all prescriptions, [id number] products, herbals, cannabis/cannabidiol products, and vitamin/mineral/dietary (nutritional) supplements. I have utilized all available resources to obtain, update, or review the patient?s current medications. [If Yes, STOP here]: Yes
[2022-09-28] MEDS: SODIUM CHLORIDE 0.9% 1,000 ML 84 ML IV (18:00)
[2022-09-28] MEDS: PANTOPRAZOLE 40 MG VIAL IV ×2 (18:06→22:34)
[2022-09-28] MEDS: ONDANSETRON 4 MG ODT SL (18:55)
[2022-09-28] MEDS: LORazepam 2 MG/ML INJ IV (21:07)
[2022-09-29] VITALS (8 sets, daily range): BP systolic 133–157; BP diastolic 76–86; PULSE 100–117; RESP 16–18; TEMP 35.6–36.5; O2SAT 93–97
[2022-09-29] MEDS: PANTOPRAZOLE 40 MG VIAL IV ×4 (03:44→18:01)
[2022-09-29] MEDS: SODIUM CHLORIDE 0.9% 1,000 ML 84 ML IV (05:56)
[2022-09-29] MEDS: CYCLOBENZAPRINE 10 MG TABLET PO (05:59)
[2022-09-29 06:11] LABS: Add Manual Diff / Slide Review NO; Basophils Absolute Auto 0 /uL (0-100); Basophils Percent Auto 0.3 % (0-2); Eosinophils Absolute Auto 0 /uL (0-450); Eosinophils Percent Auto 0.1 % (2-4); Hematocrit 29.4 % (36-46); Hemoglobin 9.9 g/dL (12.0-16.0); INR 0.9 (0.9-1.3); Lymphocytes Absolute Auto 800 /uL (1100-4500); Lymphocytes Percent Auto 11.2 % (25-40); Mean Corpuscular HGB Conc 33.5 % (30-36); Mean Corpuscular Hemoglobin 30.7 PG (26-34); Mean Corpuscular Volume 91.5 fL (80-100); Monocytes Absolute Auto 700 /uL (0-900); Monocytes Percent Auto 9.5 % (3-14); Neutrophils Absolute Auto 5400 /uL (1500-7000); Neutrophils Percent Auto 78.9 % (50-75); Platelet Count 380 X10^3/uL (150-400); Prothrombin Time 10.6 SECONDS (10.1-12.7); Red Blood Cell Count 3.22 X10^6/uL (4.0-5.2); Red Cell Distribution Width 16.5 % (11.6-14.8); White Blood Cell Count 6.9 X10^3/uL (4.5-11.0)
[2022-09-29 06:19] LABS: Alanine Aminotransferase 34 IU/L (<35); Albumin 3.5 g/dL (3.5-5.0); Albumin Globulin Ratio 1.1 (1.0-2.8); Alkaline Phosphatase 151 U/L (38-126); Aspartate Aminotransferase 54 IU/L (14-36); BUN Creatinine Ratio 17.9 (6-22); Bilirubin Total 0.7 mg/dL (0.2-1.3); Bilirubin Unconjugated 0.6 mg/dL (0.0-1.1); Blood Urea Nitrogen 10 mg/dL (7-17); Calcium 8.2 mg/dL (8.4-10.2); Carbon Dioxide 35 mmol/L (22-32); Chloride 88 mmol/L (98-107); Estimated Glomerular Filt Rate > 60 mL/min (>60); Globulin 3.1 g/dL (1.7-4.1); Glucose 120 mg/dL (80-110); HEMOLYSIS < 15 (0-50); Potassium 3.5 mmol/L (3.4-5.1); Sodium 128 mmol/L (137-145); Total Protein 6.6 g/dL (6.3-8.2)
[2022-09-29] MEDS: MULTIVITAMIN 1 TABLET 1 TAB PO (08:23)
[2022-09-29] MEDS: THIAMINE 100 MG TABLET PO (08:23)
[2022-09-29] MEDS: FOLIC ACID 1 MG TABLET PO (08:23)
[2022-09-29] MEDS: POTASSIUM CHLORIDE 20 MEQ TAB 40 MEQ PO (09:13)
--- NOTE | 2022-09-29 10:10 | P.PN_ITS ---
Subjective Subjective Interval history: Feeling much better today. However did not sleep much last night. Has r esponded in the past to trazodone at night. Will order. Exam Vital Signs (past 8 hours): - 09/29/22 04:33 09/29/22 08:00 Temperature 97.6 F 97.1 F L Pulse Rate 106 H 100 H Respiratory Rate 18 18 Blood Pressure 144/76 H 152/81 H Pulse Oximetry 94 93 Oxygen Flow Rate 0 0 Oxygen Delivery Method Room Air Oxygen Flow Rate 0 Narrative Exam Narrative: GENERAL:??No acute distress HEENT: Head atraumatic, EOMI, pupils reactive, face symmetric, moist mucous membranes CARDIOVASCULAR: Regular rate and rhythm without murmurs, rubs or gallops. RESPIRATORY: Breath sounds equal bilaterally, no wheezes rales or rhonchi. ABDOMEN: Soft,? mildly tender EXTREMITIES: Normal range of motion, no clubbing or edema.? Neurovascularly intact NEUROLOGICAL: Alert and oriented x3.? Moving all extremities director of vital statistics strength equal Objective Labs 09/29/22 05:26 09/29/22 05:26 Labs: Laboratory Results - last 24 hr 09/28/22 09/29/22 09/29/22 11:05 05:26 05:26 WBC 6.9 RBC 3.22 L Hgb 11.8 L 9.9 L Hct 35.5 L 29.4 L MCV 91.5 MCH 30.7 MCHC 33.5 RDW 16.5 H Plt Count 380 Neut % (Auto) 78.9 H Lymph % (Auto) 11.2 L [place] % (Auto) 9.5 Eos % (Auto) 0.1 L Baso % (Auto) 0.3 Neut # (Auto) 5400 Lymph # (Auto) 800 L [place] # (Auto) 700 Eos # (Auto) 0 Baso # (Auto) 0 PT 10.6 INR 0.9 Sodium Potassium Chloride Carbon Dioxide BUN Creatinine Estimated GFR BUN/Creatinine Ratio Glucose Calcium Total Bilirubin Conjugated Bilirubin Unconjugated Bilirubin AST ALT Alkaline Phosphatase Total Protein Albumin Globulin Albumin/Globulin Ratio 09/29/22 05:26 WBC RBC Hgb Hct MCV MCH MCHC RDW Plt Count Neut % (Auto) Lymph % (Auto) [place] % (Auto) Eos % (Auto) Baso % (Auto) Neut # (Auto) Lymph # (Auto) [place] # (Auto) Eos # (Auto) Baso # (Auto) PT INR Sodium 128 L Potassium 3.5 Chloride 88 L Carbon Dioxide 35 H BUN 10 Creatinine 0.56 Estimated GFR > 60 BUN/Creatinine Ratio 17.9 Glucose 120 H Calcium 8.2 L Total Bilirubin 0.7 Conjugated Bilirubin 0.0 Unconjugated Bilirubin 0.6 AST 54 H ALT 34 Alkaline Phosphatase 151 H D Total Protein 6.6 Albumin 3.5 Globulin 3.1 Albumin/Globulin Ratio 1.1 PFSH Medical History Alcohol abuse Back pain Erosive esophagitis Esophageal varices GI bleed Hypertension Hypothyroid Social History household members: spouse Smoking Status: Never smoker alcohol intake: current Assessment & Plan Assessment & Plan narrative: 1. Alcohol intoxication.? Placed patient on CIWA, continue. 2. Alcohol abuse.? BRIMMING MACHINE OPERATOR consultation to help patient with services, completed. 3. Likely alcohol gastritis with secondary hematemesis.? Treat with IV Protonix and provide antiemetics, continue. 4. Elevated liver enzymes.? Consistent with chronic alcohol intake.? Continue to follow. 5. Hypothyroidism history.? Not on any replacement.? Test TSH -still pending. 6. History of back pain.? Treat as needed. 7. History of alcoholic gastritis.? Treat with intravenous Protonix. 8. Hypertension.? Provide patient's regular medication. Continues to be a little bit elevated consistent with alcohol withdrawal. 9. Current GI bleed/history of GI bleed.? General surgery consult if necessary.? 10. Hyponatremia. Hydration from alcohol abuse patient has had increased fluid intake over the last 24 hours. Patient has been transitioned to regular diet. Continue to follow sodium level. DVT/PE prophylaxis:? Contraindicated due to GI bleed. GI prophylaxis.:? Patient has been placed on intravenous Protonix. Code status:? DNR this is the wishes of the patient. Surrogate decision maker:? Quality VTE Deep Vein Thrombosis/Pulmonary Embolism Present on Admission: No
[2022-09-29] MEDS: LORazepam 2 MG/ML INJ IV (15:08)
[2022-09-29] MEDS: AMLODIPINE 5 MG TABLET PO (18:01)
[2022-09-29] MEDS: TRAZODONE 50 MG TABLET PO (21:09)
[2022-09-29] MEDS: METOCLOPRAMIDE 10 MG/2 ML INJ IV (21:15)
[2022-09-30] VITALS (7 sets, daily range): BP systolic 120–147; BP diastolic 80–99; PULSE 96–112; RESP 18–20; TEMP 36.2–36.7; O2SAT 94–98
[2022-09-30] MEDS: PANTOPRAZOLE 40 MG VIAL IV ×5 (00:06→20:19)
[2022-09-30] MEDS: ACETAMINOPHEN 325 MG TABLET 650 MG PO (04:20)
[2022-09-30] MEDS: LORazepam 1 MG TABLET PO ×3 (05:20→20:20)
[2022-09-30 06:24] LABS: Add Manual Diff / Slide Review NO; Basophils Absolute Auto 0 /uL (0-100); Basophils Percent Auto 0.3 % (0-2); Eosinophils Absolute Auto 100 /uL (0-450); Eosinophils Percent Auto 1.2 % (2-4); Hematocrit 32.7 % (36-46); Hemoglobin 10.7 g/dL (12.0-16.0); Lymphocytes Absolute Auto 600 /uL (1100-4500); Lymphocytes Percent Auto 11.3 % (25-40); Mean Corpuscular HGB Conc 32.7 % (30-36); Mean Corpuscular Hemoglobin 30.4 PG (26-34); Mean Corpuscular Volume 92.9 fL (80-100); Monocytes Absolute Auto 500 /uL (0-900); Monocytes Percent Auto 10.1 % (3-14); Neutrophils Absolute Auto 4100 /uL (1500-7000); Neutrophils Percent Auto 77.1 % (50-75); Platelet Count 356 X10^3/uL (150-400); Red Blood Cell Count 3.52 X10^6/uL (4.0-5.2); Red Cell Distribution Width 16.5 % (11.6-14.8); White Blood Cell Count 5.3 X10^3/uL (4.5-11.0)
[2022-09-30 06:44] LABS: Alanine Aminotransferase 28 IU/L (<35); Albumin 3.6 g/dL (3.5-5.0); Albumin Globulin Ratio 1.1 (1.0-2.8); Alkaline Phosphatase 129 U/L (38-126); Aspartate Aminotransferase 36 IU/L (14-36); BUN Creatinine Ratio 12.2 (6-22); Bilirubin Total 0.4 mg/dL (0.2-1.3); Bilirubin Unconjugated 0.3 mg/dL (0.0-1.1); Blood Urea Nitrogen 5 mg/dL (7-17); Calcium 8.8 mg/dL (8.4-10.2); Carbon Dioxide 26 mmol/L (22-32); Chloride 94 mmol/L (98-107); Estimated Glomerular Filt Rate > 60 mL/min (>60); Globulin 3.2 g/dL (1.7-4.1); Glucose 116 mg/dL (80-110); HEMOLYSIS < 15 (0-50); Potassium 3.3 mmol/L (3.4-5.1); Sodium 129 mmol/L (137-145); Total Protein 6.8 g/dL (6.3-8.2)
[2022-09-30 08:15] LABS: Free T4, Direct Thyroxine 0.85 ng/dL (0.78-2.19)
--- NOTE | 2022-09-30 08:39 | P.PN_ITS ---
Subjective Subjective Interval history: Anxious. Having difficulty sleeping. Trazodone at the current dose only held for couple hours. Patient is nauseous and actually threw up breakfast. Exam Vital Signs (past 8 hours): - 09/30/22 04:00 Temperature 97.6 F Pulse Rate 100 H Respiratory Rate 20 Blood Pressure 143/86 H Pulse Oximetry 94 Oxygen Flow Rate 0 Oxygen Delivery Method Room Air Oxygen Flow Rate 0 Narrative Exam Narrative: GENERAL:??Anxious and shaky. In no acute medical distress. HEENT: Head atraumatic, EOMI, pupils reactive, face symmetric, moist mucous membranes CARDIOVASCULAR: Regular rate and rhythm without murmurs, rubs or gallops. RESPIRATORY: Breath sounds equal bilaterally, no wheezes rales or rhonchi. ABDOMEN: Soft,? mildly tender EXTREMITIES: Normal range of motion, no clubbing or edema.? Neurovascularly intact NEUROLOGICAL: Alert and oriented x3.? Moving all extremities liquid chlorine operator strength equal Objective Labs 09/30/22 05:55 09/30/22 05:55 Labs: Laboratory Results - last 24 hr 09/29/22 09/30/22 09/30/22 06:26 05:55 05:55 WBC 5.3 RBC 3.52 L Hgb 10.7 L Hct 32.7 L MCV 92.9 MCH 30.4 MCHC 32.7 RDW 16.5 H Plt Count 356 Neut % (Auto) 77.1 H Lymph % (Auto) 11.3 L [place] % (Auto) 10.1 Eos % (Auto) 1.2 L Baso % (Auto) 0.3 Neut # (Auto) 4100 Lymph # (Auto) 600 L [place] # (Auto) 500 Eos # (Auto) 100 Baso # (Auto) 0 Sodium 129 L Potassium 3.3 L Chloride 94 L Carbon Dioxide 26 BUN 5 L Creatinine 0.41 L Estimated GFR > 60 BUN/Creatinine Ratio 12.2 Glucose 116 H Calcium 8.8 Total Bilirubin 0.4 Conjugated Bilirubin 0.0 Unconjugated Bilirubin 0.3 AST 36 ALT 28 Alkaline Phosphatase 129 H Total Protein 6.8 Albumin 3.6 Globulin 3.2 Albumin/Globulin Ratio 1.1 TSH 6.60 H Free T4 09/30/22 05:55 WBC RBC Hgb Hct MCV MCH MCHC RDW Plt Count Neut % (Auto) Lymph % (Auto) [place] % (Auto) Eos % (Auto) Baso % (Auto) Neut # (Auto) Lymph # (Auto) [place] # (Auto) Eos # (Auto) Baso # (Auto) Sodium Potassium Chloride Carbon Dioxide BUN Creatinine Estimated GFR BUN/Creatinine Ratio Glucose Calcium Total Bilirubin Conjugated Bilirubin Unconjugated Bilirubin AST ALT Alkaline Phosphatase Total Protein Albumin Globulin Albumin/Globulin Ratio TSH Free T4 0.85 [facility] Medical History Alcohol abuse Back pain Erosive esophagitis Esophageal varices GI bleed Hypertension Hypothyroid Social History household members: spouse Smoking Status: Never smoker alcohol intake: current Assessment & Plan Assessment & Plan narrative: 1. Alcohol intoxication on presentation.? Placed patient on CIWA, continue. 2. Alcohol abuse.? SURVEILLANCE DUAL RATE OFFICER consultation to help patient with services, completed. 3. Likely alcohol gastritis with secondary hematemesis.? Treat with IV Protonix and provide antiemetics, continue. This finishes tomorrow. 4. Elevated liver enzymes.? Consistent with chronic alcohol intake.? Continue to follow. Improving. 5. Hypothyroidism history.? Not on any replacement.? Test TSH -still pending. TSH is high however free T4 is normal. Follow tomorrow assess if stable. 6. History of back pain.? Treat as needed. 7. History of alcoholic gastritis.? Treat with intravenous Protonix. Finishes IV treatment tomorrow. We will initiate on oral meds tomorrow. 8. Hypertension.? Provide patient's regular medication.? Continues to be a little bit elevated consistent with alcohol withdrawal. 9. Current GI bleed/history of GI bleed.? General surgery consult if necessary.? 10. Hyponatremia.? Dehydration from alcohol abuse patient with increased fluid intake initially. ? Patient has been transitioned to regular diet.? Continue to follow sodium level. Stabilizing. Continue to follow. 11. Mobility. Physical therapy to assess and treat. 12. Nausea and vomiting. Treat with ondansetron. 13. Insomnia. Increase trazodone dose and add melatonin. 14. Hypokalemia. Replace and follow. Possible evaluation for discharge tomorrow once assess clinically and labs were reviewed. DVT/PE prophylaxis:? Contraindicated due to GI bleed. GI prophylaxis.:? Patient has been placed on intravenous Protonix. Code status:? DNR this is the wishes of the patient. Surrogate decision maker:? Quality VTE Deep Vein Thrombosis/Pulmonary Embolism Present on Admission: No
[2022-09-30] MEDS: FOLIC ACID 1 MG TABLET PO (08:50)
[2022-09-30] MEDS: AMLODIPINE 5 MG TABLET PO (08:50)
[2022-09-30] MEDS: METOCLOPRAMIDE 10 MG/2 ML INJ IV ×2 (08:50→14:57)
[2022-09-30] MEDS: MULTIVITAMIN 1 TABLET 1 TAB PO (08:50)
[2022-09-30] MEDS: THIAMINE 100 MG TABLET PO (08:50)
[2022-09-30] MEDS: POTASSIUM CHLORIDE 20 MEQ TAB 40 MEQ PO (10:58)
--- NOTE | 2022-09-30 12:24 | PC.NURSE ---
pt CIWA initially a 4. Increased symptoms CIWA now a 12- pt given 1mg Ativan.
--- NOTE | 2022-09-30 12:27 | CM.DPC ---
DCP Cont: Per MD, pt with more nausea and possible vomiting and continues to need further treatment and not yet medically stable to d/c today but placed PT orders and pending to confirm steady on feet and safe for d/c home when medically stable. Per RN, CIWA score was 4 this morning. Pt has ETOH and MH resources given to her at admission. Plan: SW to follow closely for PT eval and recommendations and any further identified discharge planning needs. ROSARIO Urias
[2022-09-30] MEDS: ONDANSETRON 4 MG ODT SL (13:36)
--- NOTE | 2022-09-30 14:28 | PT-IP ANOTE ---
Received PT orders and completed chart review. Attempted to see pt for PT assessment twice today but pt refused both times, citing headache, fatigue, and nausea. CIWA score has ranged from 4 to 12 today with 12 being the most recently documented. Will plan to follow up for PT on the next service date.
[2022-09-30] MEDS: MELATONIN 3 MG TABLET 6 MG PO (20:19)
[2022-09-30] MEDS: TRAZODONE 50 MG TABLET 100 MG PO (20:20)
[2022-09-30] MEDS: ONDANSETRON 4 MG/2 ML INJ IV (20:21)
[2022-10-01] MEDS: ACETAMINOPHEN 325 MG TABLET 650 MG PO ×2 (02:39→09:10)
[2022-10-01] MEDS: PANTOPRAZOLE 40 MG VIAL IV (04:48)
[2022-10-01] MEDS: METOCLOPRAMIDE 10 MG/2 ML INJ IV (04:50)
[2022-10-01 04:54] VITALS: BP 124/80; PULSE 96; RESP 18; TEMP 36.1; O2SAT 98
[2022-10-01 06:12] LABS: Add Manual Diff / Slide Review NO; Basophils Absolute Auto 0 /uL (0-100); Basophils Percent Auto 0.3 % (0-2); Eosinophils Absolute Auto 100 /uL (0-450); Eosinophils Percent Auto 2.1 % (2-4); Hematocrit 30.2 % (36-46); Hemoglobin 10.1 g/dL (12.0-16.0); Lymphocytes Absolute Auto 700 /uL (1100-4500); Mean Corpuscular HGB Conc 33.2 % (30-36); Mean Corpuscular Hemoglobin 31.1 PG (26-34); Mean Corpuscular Volume 93.7 fL (80-100); Monocytes Absolute Auto 500 /uL (0-900); Monocytes Percent Auto 9.9 % (3-14); Neutrophils Absolute Auto 3700 /uL (1500-7000); Neutrophils Percent Auto 73.7 % (50-75); Platelet Count 342 X10^3/uL (150-400); Red Blood Cell Count 3.23 X10^6/uL (4.0-5.2); Red Cell Distribution Width 16.5 % (11.6-14.8)
[2022-10-01 06:17] LABS: Blood Urea Nitrogen 8 mg/dL (7-17); Calcium 8.9 mg/dL (8.4-10.2); Carbon Dioxide 25 mmol/L (22-32); Chloride 95 mmol/L (98-107); Estimated Glomerular Filt Rate > 60 mL/min (>60); Glucose 99 mg/dL (80-110); HEMOLYSIS < 15 (0-50); Potassium 3.7 mmol/L (3.4-5.1); Sodium 128 mmol/L (137-145)
--- NOTE | 2022-10-01 06:40 | PC.NURSE ---
0640: Spoke w/ Pharmacist Ziggy Lepe about 0700 PO protonix dose, both agreed to 'skip' this dose as given IV dose around 0500.
[2022-10-01 06:47] LABS: TSH w/ Reflex to FT4 9.21 uIU/mL (0.47-4.68)
[2022-10-01 07:27] LABS: Free T4, Direct Thyroxine 0.91 ng/dL (0.78-2.19)
[2022-10-01 08:00] VITALS: BP 139/93; PULSE 94; RESP 18; TEMP 35.9; O2SAT 97
[2022-10-01] MEDS: ONDANSETRON 4 MG/2 ML INJ IV ×2 (09:10→12:16)
[2022-10-01] MEDS: MULTIVITAMIN 1 TABLET 1 TAB PO (09:10)
[2022-10-01] MEDS: FOLIC ACID 1 MG TABLET PO (09:10)
[2022-10-01] MEDS: POTASSIUM CHLORIDE 20 MEQ TAB PO (09:11)
[2022-10-01] MEDS: AMLODIPINE 5 MG TABLET PO (09:11)
[2022-10-01] MEDS: THIAMINE 100 MG TABLET PO (09:11)
[2022-10-01] MEDS: CYCLOBENZAPRINE 10 MG TABLET PO (09:11)
[2022-10-01 12:00] VITALS: BP 157/95; PULSE 99; RESP 18; TEMP 36.1; O2SAT 99
--- NOTE | 2022-10-01 13:27 | PT.IIE ---
Current Diagnoses Alcoholic gastritis without bleeding (09/28/22) Medical History (Last Reviewed 09/28/22 @ 16:40 by Shantell Tiwari MD) Alcohol abuse Back pain Erosive esophagitis Esophageal varices GI bleed Hypertension Hypothyroid Physical Therapy Inpatient Evaluation/Re-Eval M1 PT/OT-IP Prior Functional Status Start: 09/30/22 09:16 Freq: NEEDED Status: Active Protocol: Document 10/01/22 13:20 SAK (Rec: 10/01/22 13:27 [facility] [id number]) Medical Review Prior Functional Status Medical History Reviewed Yes Diet/Fluid Consistency Regular Communication no difficulty Mobility and Gait gait without device, ex at home treadmill and taking dog for walks Activities of Daily Living and IADL's independent Social History Household Members spouse Living Arrangements House Number of Floors (Floors) One Floor Number of Stairs To Enter/Railing? 1 with railing Home Environment Standard Height Toilet,Tub/ Shower Additional Social History Comment patient advised to install grab bars in shower M2 PT-IP Current Condition Start: 09/30/22 09:16 Freq: NEEDED Status: Active Protocol: Document 10/01/22 13:20 SAK (Rec: 10/01/22 13:27 [facility] [id number]) Physical Therapy Current Condition Current Condition Evaluation Date 10/01/22 Treatment Diagnosis weakness, ETOH withdrawl Onset Date 09/28/22 M3 PT-IP Subjective Start: 09/30/22 09:16 Freq: NEEDED Status: Active Protocol: Document 10/01/22 13:20 [facility] (Rec: 10/01/22 13:27 [facility] [id number]) Subjective Physical Therapy Visit Type Type Initial Evaluation Visit Start Time 13:05 Visit Stop Time 13:22 Total Visit Minutes 17 Physical Therapy Visit Comments Patient Comments patient anxious to be discharged home Therapy Pain Assessment Pain When Pain Assessed During Weight Bearing Pain Present Pain Present Denied Pain M4 PT-IP Mobility and Gait Start: 09/30/22 09:16 Freq: NEEDED Status: Active Protocol: Document 10/01/22 13:20 SAK (Rec: 10/01/22 13:27 [facility] [id number]) PT-Bed Mobility Assessment Supine to Sit Supine to Sit Independent Scooting Scooting to Edge of Bed Independent PT-Transfer Assessment Sit to and From Stand Sit to and from Stand Standby Assistance Equipment Transfer Assistive Device Gait Belt Transfers Transfer Destination Bed Transfer Technique stand/walk Transfer Ability Level of Assist Standby Assistance Gait Assessment Gait Gait Assistance Required: Standby Assistance Distance (Feet) 200 Able to Maintain Weight Bearing Status Yes During Gait Assistive Devices Assistive Device None Orthotic/Prosthetic Devices or Brace: No Gait Deviations General Gait Pattern Decreased Stride Length, Decreased Feet Clearance, Narrow Based Gait Factors Limiting Gait Function Factors Limiting Gait Function Decreased Activity Tolerance Stair Climbing Assessment Evaluation Level of Assist On Stairs Standby Assistance Devices Stair Climbing Assistive Devices Left Railing,Right Railing Technique/Endurance Stair Climbing Direction Ascend and Descend Stair Climbing Technique Step to Step Number of Steps Climbed 4 Query Text: PT-Balance Assessment Sitting Balance and Reactions Static Sitting Balance Ability Good Standing Balance and Reactions Static Standing Balance Ability Good Dynamic Standing Balance Ability Fair Device Used none M5 PT-IP Objective Assessments Start: 09/30/22 09:16 Freq: NEEDED Status: Active Protocol: Document 10/01/22 13:20 [facility] (Rec: 10/01/22 13:27 [facility] [id number]) Orientation Orientation/Cognition Orientation Name,Place,Situation Safety Awareness Understands Safety Issues Memory Description No Deficits Noted Gross Range of Motion Upper Extremity ROM Assessment Within Functional Limits Lower Extremity ROM Assessment Within Functional Limits Strength Upper Extremity Strength Assessment Within Functional Limits Lower Extremity Strength Assessment Within Functional Limits Sensation Assessment Sensation Gross Sensation WNL M6 PT-IP Treatment Start: 09/30/22 09:16 Freq: NEEDED Status: Active Protocol: Document 10/01/22 13:20 [facility] (Rec: 10/01/22 13:27 [facility] [id number]) Physical Therapy Treatment Other Treatments Other Treatment Performed education on safety at home, take time, install grab bars in bathroom; toilet, shower M7 PT-IP Assessment and Plan Start: 09/30/22 09:16 Freq: NEEDED Status: Active Protocol: Document 10/01/22 13:20 [facility] (Rec: 10/01/22 13:27 [facility] [id number]) PT Summary Assessment and Plan Potential Rehabilitation Potential Good Status of Condition at Evaluation Stable Summary Assessment Summary Patient seen for PT evaluation to clear for going home. All mobility with SBA to independent including ambulation 200 ft in hallway without LOB, ascend/descend 3 stairs with yeison rail with SBA. Appears safe for discharge home. Has regular exercise activities that she does at home and was advised to ease back into them. No further PT needs. Frequency of Treatment Frequency Of Treatment Discharge Treatment Plan Other Recommendations and Next Treatment discharge from PT Focus Recommendations To Nursing Amount of Assist Needed Standby Assistance,1 Person Assist Discharge Recommendations PT Discharge Recommendations Home with Assistance Transportation Needs at Discharge Private Vehicle
--- NOTE | 2022-10-01 13:29 | PT-IP ANOTE ---
cleared for d/c from PT standpoint. Safe with functional mobility skills.
--- NOTE | 2022-10-01 13:56 | P.DS_ITS ---
History of Present Illness History of Present Illness Date Patient Seen: 10/01/22 Time Patient Seen: 08:30 Chief complaint: Vomiting Blood Narrative: Per admitting provider, Patient is a 62-year-old female history of alcohol abuse alcohol gastritis and mention of esophageal varices presenting today with alcohol intoxication and vomiting red blood.? Daughter states that she was just at [facility] for gastritis she reports that there were possible esophageal varices and they were not bleeding, they have not been banned.? Patient has been home for about 3-4 days started drinking alcohol again.? Daughter came in today to drop off the dog and found her vomiting blood.? Patient reports that she maybe have been vomiting for couple of days she is not really sure.? She is some mild abdominal pain.? She also has a remote history intracranial hemorrhage.? She currently has no numbness tingling or new weakness, but is obviously altered mental status with likely alcohol intoxication. Not complaining of any fever chills or diaphores is. No chest pain or palpitations. No shortness of breath wheezing or cough. Able to move all extremities volitionally. No specific localized strength deficits. Normal sensation of all extremities. Emesis did have coffee-ground appearance. Patient indicates that she has had significant difficulty quitting alcohol intake and has been to rehab and AA with no significant benefit. Drinks appro ximately 2 bottles of wine per day. 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 Abnormal labs present in the ER were as follows: White blood cells count 11.1, sodium 135, AST 37 and alcohol level 418. Discharge Providers Provider Date of admission: 09/28/22 13:33 Discharge Date: 10/01/22 Primary care physician: Yumiko Cheung PA-C Consults: 09/28/22 12:35 Consult to FILTER TIP CATCHER - Sash Installer Stat Comment: 09/30/22 08:16 Consult to Physical Therapy Evaluate & Treat Comment: Physician Instructions: Evaluate and Treat Discharge provider: Norman Cheung DO Summary Hospital Course Discharge Diagnosis: 1. Mild alcohol withdrawal 2. Likely alcohol gastritis with secondary hematemesis.? 3. Alcoholic hepatitis. 4. Hypothyroidism history 5. History of back pain 6. Hypertension, chronic 7. Hematemesis with acute blood loss anemia. 8. Hyponatremia, acute on chronic 9. Insomnia.? Increase trazodone dose and add melatonin. 10. Hypokalemia.? Replace and follow. Hospital Course: This is a 62 year old female with PMH of gastritis, etoh cirrhosis with esophageal varices admitted after an episode of hematemesis. Labs were indicat jacque of alcoholic hepatitis on admission, which improved with cessation. She was started on IV protonix, h/h ultimately stablized after a couple of days. She had mild alcohol withdrawal symptoms over the course of admission as well, but required only a few doses of as needed benzodiazepines. She was also hyponatremic on admission, moreso than her chronic hyponatremia from etoh use likely in the setting of hypovolemia and improved with symptoms. Once patient's EtOH withdrawal had stabilized without needed benzodiazepines and stable h/h, she was discharged home tolerating a diet and able to ambulate on her own. Patient was provided with alcohol cessation resources. Time Spent with Patient Time spent: Greater than 30 minutes Exam Vital Signs (past 8 hours): - 10/01/22 08:00 10/01/22 08:00 10/01/22 12:00 Temperature 96.7 F L 97.0 F L Pulse Rate 94 H 99 H Respiratory Rate 18 18 Blood Pressure 139/93 H 157/95 H Pulse Oximetry 97 99 Oxygen Delivery Method Room Air Oxygen Flow Rate 0 0 Oxygen Delivery Method Room Air Oxygen Flow Rate 0 Narrative Exam Narrative: GENERAL:??Anxious and shaky. In no acute medical distress. HEENT: Head atraumatic, EOMI, pupils reactive, face symmetric, moist mucous membranes CARDIOVASCULAR: Regular rate and rhythm without murmurs, rubs or gallops. RESPIRATORY: Breath sounds equal bilaterally, no wheezes rales or rhonchi. ABDOMEN: Soft,? mildly tender EXTREMITIES: Normal range of motion, no clubbing or edema.? Neurovascularly intact NEUROLOGICAL: Alert and oriented x3.? Moving all extremities rehabilitation clerk strength equal Objective Labs 10/01/22 05:55 10/01/22 05:55 Labs: Laboratory Results - last 24 hr 10/01/22 10/01/22 10/01/22 05:55 05:55 05:55 WBC 5.0 RBC 3.23 L Hgb 10.1 L Hct 30.2 L MCV 93.7 MCH 31.1 MCHC 33.2 RDW 16.5 H Plt Count 342 Neut % (Auto) 73.7 Lymph % (Auto) 14.0 L [place] % (Auto) 9.9 Eos % (Auto) 2.1 Baso % (Auto) 0.3 Neut # (Auto) 3700 Lymph # (Auto) 700 L [place] # (Auto) 500 Eos # (Auto) 100 Baso # (Auto) 0 Sodium 128 L Potassium 3.7 Chloride 95 L Carbon Dioxide 25 BUN 8 Creatinine 0.47 L Estimated GFR > 60 BUN/Creatinine Ratio 17.0 Glucose 99 Calcium 8.9 TSH 9.21 H Free T4 0.91 PFSH Medical History Alcohol abuse Back pain Erosive esophagitis Esophageal varices GI bleed Hypertension Hypothyroid Social History household members: spouse Smoking Status: Never smoker alcohol intake: current Discharge Plan Discharge Plan Patient Disposition: Home Provider Discharge Comment: You were admitted to the hospital with alcohol withdrawal and anemia. Improved and stabilized with tranfusion, acid plexiglas former. Stable for discharge home, continue PPI. Discharge orders & Medications Prescriptions: Continued cyclobenzaprine 10 mg tablet 10 mg PO TID PRN (Reason: muscle spasms) hydroxyzine HCl 50 mg tablet 50 mg PO TID PRN (Reason: Anxiety) amlodipine 5 mg tablet 5 mg PO DAILY ondansetron 4 mg tablet,disintegrating 4 mg PO TID-QID PRN (Reason: nausea and vomiting) 15 Days Qty: 30 0RF Changed pantoprazole [Protonix] 40 mg tablet,delayed release (DR/EC) 40 mg PO BID Qty: 60 0RF Follow up/Referrals: Yumiko Cheung PA-C [Primary Care Provider] - Diet/Activity/Treatments Diet: Diet as Tolerated Activity: As tolerated Visit Report/Discharge Packet Instructions: How to Prevent Falls, DI for Nausea -- Adult, DI for Headache, DI for Drug or Alcohol Withdrawal, DI for Alcoholic Gastritis Stand Alone Forms: Patient Portal/API, Stroke Signs & Symptoms Discharge Data Primary Care Provider: Yumiko Cheung Discharges patient from system. Discharge Date/Time: 10/01/22 14:35 Quality VTE Deep Vein Thrombosis/Pulmonary Embolism Present on Admission: No
--- NOTE | 2022-10-01 14:03 | CM.DPC ---
DCP Discharge Home Per MD, pt is medically stable to d/c home today and no identified barriers to discharge. Per PT, pt ambulated 200 ft SBA and recommend safe d/c home with spouse. Pt given ETOH and counseling resources and pt has declined Inpt tx or crisis stabilization at this time and preference is home. Plan: Patient to d/c home today via family POV and outpt resources provided and no further SW needs at this time. ROSARIO Urias
--- NOTE | 2022-10-01 14:45 | PC.NURSE ---
Discharge: Pt feels ready to d/c to home. Had an issue with her left foot, had IV in place and had been wrapped, 2nd toe was found to be bruised and medial aspect of great toe from saline lock tubing had caused redness and an abrasion. MD Cheung came to look at foot and no new orders, it should heal with out problems. Pt was seen by physical therapy and passed to be able to go home. She is tolerating her diet better. Has had little appetite. Offered to have chemical processing laborer see her prior to d/c but she declined. Still has a headache and some nausea off and on, is aware of same. Zofran has been effective and she will get some for at home. Rx was esent. Reviewed d\c packet. Questions answered. Pt feels ready to go. Pt discharged to home with spouse.
== END 2022-10-01 14:35 | disposition home or self-care (01) | DRG 378 ==
LOC: ED 11:47 → AC 13:34
PROVIDERS: Admitting Provider Neuromusculoskeletal Medicine, Sports Medicine; Emergency Provider Emergency Medicine; PCP Physician Assistant; Referring Provider Emergency Medicine; Visit Provider Neuromusculoskeletal Medicine, Sports Medicine
DX: K29.21 Alcoholic gastritis with bleeding (principal); D62 Acute posthemorrhagic anemia; E87.1 Hypo-osmolality and hyponatremia; F10.139 Alcohol abuse with withdrawal, unspecified; F10.129 Alcohol abuse with intoxication, unspecified; I10 Essential (primary) hypertension; E87.6 Hypokalemia; G47.00 Insomnia, unspecified; R11.2 Nausea with vomiting, unspecified; K70.10 Alcoholic hepatitis without ascites; F41.9 Anxiety disorder, unspecified; Y90.8 Blood alcohol level of 240 mg/100 ml or more; Z20.822 Contact with and (suspected) exposure to COVID-19
CPT/HCPCS: 36415; 70450; 71260; 74177; 80048; 80053; 80076; 80320; 82140; 82550; 83690; 84439; 84443; 84484; 85014; 85018; 85025; 85610; 85730; 86850; 86900; 86901; 87635; 93005; 96365; 96366; 96375; 96376; 97161; 99285; C9803; C9113; J2060; J2354; J2405; J2765; Q9967

== ENCOUNTER → 2022-10-11 16:21 | Outpatient (CLI) | payer OTHER, SELFPAY ==
[2022-09-28 14:42] VITALS: BMI 22.8
--- NOTE | 2022-10-11 | DI.MRI.S_ITS ---
PROCEDURE: MR HEAD/BRAIN WO CON INDICATIONS: Headache, unspecified TECHNIQUE: Non-contrast axial T1 spin echo, axial T2 fast spin echo, sagittal and axial FLAIR, coronal T2 fast spin echo, axial gradient echo, axial diffusion and ADC through the brain. COMPARISON: [facility], CT, CT HEAD/BRAIN WO CON, 08/19/2022, 17:14. [facility], CT, CT HEAD/BRAIN WO CON, 09/28/2022, 9:09. [facility], MR, MR ANGIO HEAD WO CON, 10/11/2022, 16:51. FINDINGS: Image quality: Excellent. CSF spaces: Ventricles appear symmetric in size and shape. Basal cisterns are patent. No extra-axial fluid collections. Brain: No intracranial mass effects. There is cerebral volume loss for age. There are periventricular and deep white matter chronic small vessel ischemic changes. Brainstem appears normal. Diffusion-weighted images show no acute ischemic insults. Normal intravascular flow voids are present. Along the posterior aspect of the left thalamus, there is focal volume loss seen, with hemosiderin deposition. Skull and face: Calvarial bone marrow is normal in signal. Orbits are normal. Sinuses: Sinuses and mastoids are clear. Bilateral nkechi bullosa are incidentally noted. IMPRESSION: No definite cause of headache can be seen. 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 Dictated by: Jag Hines M.D. on 10/11/2022 at 18:01 Approved by: Jag Hines M.D. on 10/11/2022 at 18:04
--- NOTE | 2022-10-11 | DI.MRI.S_ITS ---
PROCEDURE: MR ANGIO HEAD WO CON INDICATIONS: Headache, unspecified TECHNIQUE: Noncontrast axial 3-D [id number] MR angiogram, with 3-dimensional maximum intensity projection (MIP) reformats of the internal carotid arteries and posterior circulation then performed. COMPARISON: None. FINDINGS: Image quality: Excellent. Anterior circulation: Intracranial internal carotid arteries demonstrate normal size and intraluminal flow signal. The flow within the paired anterior cerebral arteries is normal and symmetric. The flow within the middle cerebral arteries is normal and symmetric. The anterior communicating artery is seen. No stenoses, occlusions, or aneurysms. Posterior circulation: Visualized portions of the vertebral arteries demonstrate normal caliber, and join to form a normal appearing basilar artery. There is a prominent right posterior communicating artery seen, with an accompanying diminutive right P1 segment. This is attributed to a type origin of the right posterior cerebral artery, which is considered to be a normal developmental variant of typically no clinical consequence. The flow within the posterior cerebral arteries is normal and symmetric. No aneurysms are seen. No findings of significant stenosis or occlusion can be seen. IMPRESSION: Intracranial MR angiogram within normal limits. No aneurysm is seen. Dictated by: Jag Hines M.D. on 10/11/2022 at 16:52 Approved by: Jag Hines M.D. on 10/11/2022 at 16:54
== END ==
PROVIDERS: PCP Physician Assistant; Referring Provider Physician Assistant; Visit Provider Physician Assistant
DX: R51.9 Headache, unspecified (principal); F41.9 Anxiety disorder, unspecified; F10.20 Alcohol dependence, uncomplicated; K92.9 Disease of digestive system, unspecified; K92.2 Gastrointestinal hemorrhage, unspecified; Z09 Encounter for follow-up examination after completed treatment for conditions other than malignant neoplasm
CPT/HCPCS: 70544; 70551

== ENCOUNTER → 2022-10-30 13:01 | Outpatient (CLI) | payer OTHER, SELFPAY ==
[2022-10-21 10:11] VITALS: BMI 22.8
--- NOTE | 2022-10-30 13:04 | DI.RAD.S_ITS ---
PROCEDURE: XR CERVICAL SPINE 4V OR 5V INDICATIONS: NECK PAIN TECHNIQUE: Five views of the cervical spine acquired. COMPARISON: [facility], CR, XR CERVICAL SPINE 2V OR 3V, 05/13/2019, 11:31. FINDINGS: Bones: No fractures or dislocations to the T1 level. Trace retrolisthesis C4 on five and C5 on six. Moderate to severe disc height loss C4-5, C5-6, and to lesser extent C6-7. Minor anterior endplate spurs. Uncovertebral joint hypertrophy and facet arthropathy together cause a severe right C4-5 foraminal narrowing, moderately at C5-6 and mildly at C6-7. Mild left neural foraminal narrowing. Soft tissues: No prevertebral soft tissue swelling. IMPRESSION: 1. Degenerative facet and endplate changes causing right-sided neural foraminal narrowing as described. 2. Mid cervical disc degeneration. Dictated by: Lynn Dee M.D. on 10/30/2022 at 15:09 Approved by: Lynn Dee M.D. on 10/30/2022 at 15:11
== END ==
PROVIDERS: PCP Physician Assistant; Referring Provider Anesthesiology; Visit Provider Anesthesiology
DX: M50.321 Other cervical disc degeneration at C4-C5 level (principal); M47.812 Spondylosis without myelopathy or radiculopathy, cervical region; M48.02 Spinal stenosis, cervical region; R22.2 Localized swelling, mass and lump, trunk
CPT/HCPCS: 71046; 72050

== ENCOUNTER → 2022-10-30 14:36 | Outpatient (CLI) | payer OTHER, SELFPAY ==
[2022-10-21 10:11] VITALS: BMI 22.8
--- NOTE | 2022-10-30 14:38 | DI.RAD.S_ITS ---
PROCEDURE: XR CHEST 2V INDICATIONS: Left supraclavicular swelling TECHNIQUE: 2 views of the chest were acquired. COMPARISON: [facility], CR, XR CHEST 1V, 08/19/2022, 16:01. FINDINGS: Surgical changes and devices: Cholecystectomy clips. Lungs and pleura: Lungs are clear. No pleural effusions or pneumothorax. Mediastinum: Mediastinal contours are normal. Heart size is normal. Bones and chest wall: No suspicious bony abnormalities. Soft tissues appear unremarkable. Slight relative soft tissue density in the left supraclavicular triangle compared to the contralateral side. No radiodense foreign body or suspicious calcification. IMPRESSION: 1. Questionable left supraclavicular soft tissue opacity. Ultrasound or soft tissue neck CT is recommended for further evaluation. 2. No acute cardiopulmonary disease. Dictated by: Lynn Dee M.D. on 10/30/2022 at 17:14 Approved by: Lynn Dee M.D. on 10/30/2022 at 17:16
== END ==
PROVIDERS: PCP Physician Assistant; Referring Provider Anesthesiology; Visit Provider Anesthesiology
DX: R22.2 Localized swelling, mass and lump, trunk (principal)
CPT/HCPCS: 71046

== ENCOUNTER → 2022-11-12 07:31 | Outpatient (CLI) | payer OTHER, SELFPAY ==
[2022-10-21 10:11] VITALS: BMI 22.8
--- NOTE | 2022-11-12 07:32 | DI.MRI.S_ITS ---
PROCEDURE: MR CERVICAL SPINE WO CON INDICATIONS: Left cervicalgia, headaches, hyporeflexia, ataxia TECHNIQUE: Noncontrast sagittal T1 spin echo and T2 fast spin echo, sagittal STIR, foraminal oblique sagittal T2 fast spin echo, and axial gradient echo or T2 fast spin echo through the cervical spine. COMPARISON: [facility], MR, MR CERVICAL SPINE WO CON, 10/05/2019, 12:17. FINDINGS: Image quality: Degraded by motion artifact. Alignment and Curvature: There is loss of normal cervical lordosis. 2 mm of retrolisthesis of C4 on C5, C5 on C6, and C6 on C7. Bone Marrow: Marrow demonstrates normal overall signal. Mild reactive signal throughout the endplates of the cervical and upper thoracic spine, most prominent at C4-C5, C5-C6, and C6-C7. Spinal Cord: Visualized spinal cord has normal size and signal. No cerebellar tonsillar herniation. Paraspinous Soft Tissues: No paravertebral masses. Prevertebral soft tissues are normal in thickness. C2-C3: Mild disc desiccation. No significant canal, or foraminal stenosis. No significant change. C3-C4: Mild disc desiccation. Mild facet and uncovertebral hypertrophy. Mild canal stenosis. Mild bilateral foraminal stenosis. No significant change. C4-C5: Moderate disc height loss and desiccation. Mild diffuse disc bulge. Moderate facet and uncovertebral hypertrophy. Moderate canal stenosis. Increased, severe right and moderate left foraminal stenosis. New right C5 nerve root compression. C5-C6: Moderate disc height loss and desiccation. Mild diffuse disc bulge. Mild facet and uncovertebral hypertrophy bilaterally. Moderate canal stenosis. Severe bilateral foraminal stenosis. Bilateral C6 nerve root compression. No significant change. C6-C7: Moderate disc height loss and desiccation. Mild diffuse disc bulge. Mild facet and uncovertebral hypertrophy bilaterally. Moderate canal stenosis. Moderate bilateral foraminal stenosis. No significant change. C7-T1: Moderate disc desiccation. Mild facet and uncovertebral hypertrophy bilaterally. Mild canal stenosis. Mild bilateral foraminal stenosis. IMPRESSION: 1. Multilevel degenerative disc and facet disease, as well as uncovertebral hypertrophy. 2. Multilevel canal stenoses, worst at C4-C5, C5-C6, and C6-C7, where there are moderate canal stenosis. 3. Multilevel foraminal stenoses, worst at C4-C5 and C5-C6 where there is associated intraforaminal nerve root compression. Recommend correlation with clinical symptoms to ascertain relevance of these findings. Dictated by: Anthony Thompson M.D. on 11/12/2022 at 11:46 Transcribed by: JUVENCIO on 11/12/2022 at 11:50 Approved by: Anthony Thompson M.D. on 11/12/2022 at 15:57
--- NOTE | 2022-11-12 07:32 | DI.CT.S_ITS ---
PROCEDURE: CT SOFT TISSUE NECK W CON INDICATIONS: Left supraclavicular fossa swelling TECHNIQUE: After the administration of intravenous contrast, 3.0 mm axial sections acquired from the sella to the aortic arch. Additional oblique axial 3.0 mm sections acquired through the pharynx. 3 mm thick coronal and sagittal reformats were generated. For radiation dose reduction, the following was used: automated exposure control. COMPARISON: None. FINDINGS: Image quality: Excellent. Lymph nodes: No enlarged lymph nodes seen throughout the neck. Vessels: Visualized vasculature appears patent. Mild calcified plaque at the carotid bulbs. Neck spaces: The oropharynx, nasopharynx, and pharynx demonstrate no mucosal lesions. The vocal cords, false vocal cords, pyriform sinuses, epiglottis, vallecula, and tongue base all appear normal. Extramucosal spaces appear unremarkable. Glands: The parotid and submandibular glands appear normal. Thyroid gland is unremarkable. Miscellaneous: Skin marker at the left lateral neck, (). No mass or fluid collection. Visualized brain and orbits appear normal. Lung apices appear clear. Right upper lobe calcified granuloma. Superficial soft tissues appear normal. Breast implants. Bones: No suspicious bony lesions. Moderate degenerative change in the cervical spine. Visualized sinuses and mastoids appear unremarkable. IMPRESSION: No mass or fluid collection at the site of clinical concern at the left inferior lateral neck. No enlarged lymph nodes. Mild calcified plaque at the carotid bulbs. Dictated by: Adryan Ames M.D. on 11/12/2022 at 12:44 Approved by: Adryan Ames M.D. on 11/12/2022 at 12:51
[2022-11-12 08:34] LABS: BUN Creatinine Ratio 16.3 (6-22); Blood Urea Nitrogen 8 mg/dL (7-17); Calcium 9.3 mg/dL (8.4-10.2); Carbon Dioxide 21 mmol/L (22-32); Chloride 99 mmol/L (98-107); Estimated Glomerular Filt Rate > 60 mL/min (>60); Glucose 79 mg/dL (80-110); HEMOLYSIS < 15 (0-50); Potassium 3.9 mmol/L (3.4-5.1); Sodium 132 mmol/L (137-145)
== END ==
PROVIDERS: PCP Physician Assistant; Referring Provider Anesthesiology; Visit Provider Anesthesiology
DX: M50.321 Other cervical disc degeneration at C4-C5 level (principal); M47.892 Other spondylosis, cervical region; M48.02 Spinal stenosis, cervical region; R22.2 Localized swelling, mass and lump, trunk; R29.2 Abnormal reflex; R51.9 Headache, unspecified; R27.0 Ataxia, unspecified; F10.10 Alcohol abuse, uncomplicated; K92.2 Gastrointestinal hemorrhage, unspecified
CPT/HCPCS: 36415; 70491; 72141; 80048

== ENCOUNTER 2023-01-02 08:06 | Emergency (ER) | payer OTHER, SELFPAY ==
[2022-10-21 10:11] VITALS: BMI 22.8
[2023-01-02] VITALS (28 sets, daily range): BP systolic 150–203; BP diastolic 87–137; PULSE 94–114; RESP 10–41; TEMP 37.3; O2SAT 92–100; BMI 22.6
--- NOTE | 2023-01-02 08:09 | ED.GENADULT ---
HPI - General Adult General Chief complaint: GI Bleed Stated complaint: V looks like coffee/chest pain T-1 Time Seen by Provider: 01/02/23 08:09 History of Present Illness HPI narrative: 62-year-old female nonsmoker with history of extensive alcohol use, at times drinking as much as 1/5 per day, prior gastritis, known esophageal varices, hypertension presents with her in the chief complaint of a few episodes of coffee-ground emesis last night and this morning as well as epigastric pain. She denies any bright red blood during this episode. She is feeling a bit dizzy and lightheaded. She denies any fever or chills. She denies chest pain or shortness of breath. She denies any constipation or diarrhea. She denies the use anticoagulants or NSAIDs. She has been drinking less than normal and is down to 3 glasses of wine. She was evaluated for upper GI bleeding in September and subsequently transferred to [place], records are pending. Related Data Home Medications Medication Instructions Recorded Confirmed amlodipine 5 mg tablet 5 mg PO DAILY 08/19/22 11/28/22 hydroxyzine HCl 50 mg tablet 50 mg PO TID PRN Anxiety 08/19/22 11/28/22 amitriptyline 25 mg tablet 25 mg PO BEDTIME 10/30/22 11/28/22 buspirone 15 mg tablet 15 mg PO TID 10/30/22 11/28/22 gabapentin 300 mg capsule 300 mg PO TID 10/30/22 11/28/22 levothyroxine 25 mcg tablet 25 mcg PO DAILY 10/30/22 11/28/22 losartan 50 mg tablet 50 mg PO DAILY 10/30/22 11/28/22 scopolamine base 1 mg over 3 days 1 patch transdermal Q3D PRN 10/30/22 11/28/22 transdermal patch tizanidine 2 mg tablet 2 mg PO TID PRN 10/30/22 11/28/22 Previous Rx's Medication Instructions Recorded ondansetron 4 mg disintegrating 4 mg PO TID-QID PRN nausea and 10/01/22 tablet vomiting 15 days #30 tabs pantoprazole 40 mg tablet,delayed 40 mg PO BID #60 tabs 10/01/22 release (Protonix) Allergies Allergy/AdvReac Type Severity Reaction Status Date / Time codeine Allergy Unknown VOMITING Verified 11/28/22 13:51 medroxyprogesterone Allergy Unknown MEDROXYPROGESTERONE Verified 11/28/22 13:51 MAKES HER CRAZY Review of Systems Review of Systems Narrative: GENERAL: Denies chills, fatigue, malaise, fever, sweats. HEENT: Denies sinus pain, ear pain, sore throat, difficulty swallowing, dizziness. RESPIRATORY: Denies dyspnea, cough, wheezing, hemoptysis, sputum. CARDIOVASCULAR: Denies chest pain, palpitations, orthopnea, edema, GASTROINTESTINAL: See HPI : Denies dysuria, frequency, incontinence, hematuria, urinary retention. MUSCULOSKELETAL: denies weakness, joint pain, or bony pain SKIN: Denies rash, skin lesions, or other NEUROLOGIC: Denies weakness, headache, numbness, change in speech, confusion, seizures, incoordination. PSYCHIATRIC: No concerning psychosocial issues. 12 point review of systems is negative except for those stated above Patient History Medical History Alcohol abuse Ataxia Back pain Cervical spinal stenosis Chronic headaches Erosive esophagitis Esophageal varices GI bleed Hypertension Hyporeflexia Hypothyroid Neck pain Occipital neuralgia Supraclavicular fossa fullness Social History household members: spouse Smoking Status: Never smoker alcohol intake: current Smoking Status: Never smoker alcohol intake frequency: 3 or more drinks per day Substance Use Type: does not use Exam Narrative Exam Narrative: GENERAL: [62] year old patient appears stated age. Well-developed patient, in mild distress. HEAD: Atraumatic. Normocephalic. EYES: Pupils equal round and reactive. Extraocular motions intact. No scleral icterus. No injection or drainage. ENT: Nose without bleeding, purulent drainage. Throat without erythema, tonsillar hypertrophy or exudate. Airway patent. NECK: Trachea midline. Non tender CARDIOVASCULAR: Tachycardic but regular rhythm without murmurs, gallops, or rubs. RESPIRATORY: Clear to auscultation. Breath sounds equal bilaterally. No wheezes, rales, or rhonchi. GASTROINTESTINAL: Abdomen soft, epigastric pain, nondistended. EXTREMITIES: No edema or joint tenderness. BACK: Nontender without deformity or crepitance. No flank tenderness. NEURO: AOx3. SKIN: No rash or erythema of visible areas Initial Vital Signs Initial Vital Signs: Vital Signs Temperature 99.1 F 01/02/23 08:10 Pulse Rate 107 H 01/02/23 08:10 Respiratory Rate 16 01/02/23 08:10 Blood Pressure 177/94 H 01/02/23 08:10 Pulse Oximetry 100 01/02/23 08:10 Oxygen Delivery Method Room Air 01/02/23 08:10 Course Course Course Narrative: Beatrice-Blatchford Bleeding Score (GBS) from [employer] on 01/02/2023 All calculations should be rechecked by clinician prior to use RESULT SUMMARY: 4 points A GBS greater than zero suggests a ?High Risk? GI bleed that is likely to require ?medical intervention?: transfusion, endoscopy, or surgery. A higher GBS also correlated with a higher likelihood of needing intervention (scores >= are associated with >50% risk of needing intervention) INPUTS: Hemoglobin ?> 11.7 g/dL BUN ?> 13 mg/dL Initial systolic BP ?> 162 mm Hg Sex ?> 1 = Female Heart rate >=00 ?> 1 = Yes Melena present ?> 0 = No Recent syncope ?> 0 = No Hepatic disease history ?> 2 = Yes Cardiac failure present ?> 0 = No Orders Ordered: ED Orders 01/02/23 08:17 US abdomen limited Stat 01/02/23 08:35 Complete Blood Count AUTO DIFF Stat Comprehensive Metabolic Panel Stat Ethanol (ETOH) Stat Lactate (Lactic Acid) Stat Lipase Stat Magnesium Stat Prothrombin Time INR Stat Type and Screen Stat 01/02/23 12:50 HH [Hemoglobin and Hematocrit] Stat Octreotide Acetate 500 mcg/ (Sodium Chloride) 101 mls @ 10.1 mls/hr IV CONT CRYSTAL; Protocol Last Infusion: 01/02/23 12:50 Dose: 50 mcg/hr, 10.1 mls/hr Documented By: Infusion: 01/02/23 12:40 Dose: 0 mcg/hr, 0 mls/hr Documented By: Admin: 01/02/23 09:15 Dose: 50 mcg/hr, 10.1 mls/hr Documented By: AT Discontinued Medications Ceftriaxone Sodium 2,000 mg/ (Sodium Chloride) 100 mls @ 200 mls/hr IV NOW ONE Stop: 01/02/23 08:15 Last Infusion: 01/02/23 09:30 Dose: 0 mls/hr Documented By: Admin: 01/02/23 08:48 Dose: 200 mls/hr Documented By: SPF Octreotide Acetate (Octreotide 100 Mcg/Ml Vial) 50 mcg IV NOW ONE Stop: 01/02/23 08:15 Last Admin: 01/02/23 09:03 Dose: 50 mcg Documented By: SPF Pantoprazole Sodium (Pantoprazole 40 Mg Vial) 40 mg IV NOW ONE Stop: 01/02/23 08:15 Last Admin: 01/02/23 08:47 Dose: 40 mg Documented By: SPF Consultations Consultation #1: discussed with Dr. Garland. Given history is in agreement with need for admission, but given known varices we cannot keep here. Recommends transfer Consultation #2: call to [place] to pursue transfer Dr. Melton (hospitalist) happy to accept. Requests discussed with GI to gain their support Dr. Hinojosa (GI) happy to play a role in consultation Time: 09:38 Vital Signs Vital signs: Vital Signs - 8 hr 01/02/23 08:10 01/02/23 09:36 01/02/23 08:11 Temperature 99.1 F Pulse Rate 107 H Respiratory Rate 16 Blood Pressure 177/94 H 177/94 H Pulse Oximetry 100 92 Oxygen Delivery Method Room Air Nasal Cannula Oxygen Flow Rate 2 01/02/23 08:12 01/02/23 08:30 01/02/23 08:34 Temperature Pulse Rate 109 H 107 H 103 H Respiratory Rate Blood Pressure Pulse Oximetry 100 100 100 Oxygen Delivery Method Room Air Oxygen Flow Rate 01/02/23 08:34 01/02/23 08:45 01/02/23 08:45 Temperature Pulse Rate 101 H Respiratory Rate Blood Pressure 163/96 H 173/94 H Pulse Oximetry 100 Oxygen Delivery Method Oxygen Flow Rate 01/02/23 09:00 01/02/23 09:00 01/02/23 09:15 Temperature Pulse Rate 101 H 94 H Respiratory Rate 25 H 22 Blood Pressure 162/87 H Pulse Oximetry 100 98 Oxygen Delivery Method Room Air Oxygen Flow Rate 01/02/23 09:15 01/02/23 09:30 01/02/23 09:31 Temperature Pulse Rate 100 H 101 H Respiratory Rate 24 10 L Blood Pressure 162/94 H Pulse Oximetry 92 93 Oxygen Delivery Method Room Air Room Air Oxygen Flow Rate 01/02/23 09:31 01/02/23 09:45 01/02/23 09:45 Temperature Pulse Rate 104 H Respiratory Rate 14 Blood Pressure 154/89 H 151/95 H Pulse Oximetry 98 Oxygen Delivery Method Room Air Oxygen Flow Rate 01/02/23 10:00 01/02/23 10:00 01/02/23 10:15 Temperature Pulse Rate 107 H 107 H Respiratory Rate 18 13 Blood Pressure 159/94 H Pulse Oximetry 97 96 Oxygen Delivery Method Oxygen Flow Rate 01/02/23 10:15 01/02/23 10:33 01/02/23 10:36 Temperature Pulse Rate 110 H Respiratory Rate Blood Pressure 161/98 H 153/105 H Pulse Oximetry 100 Oxygen Delivery Method Oxygen Flow Rate 01/02/23 10:36 01/02/23 10:45 01/02/23 10:45 Temperature Pulse Rate 114 H 111 H Respiratory Rate 23 12 Blood Pressure 158/98 H Pulse Oximetry 97 96 Oxygen Delivery Method Oxygen Flow Rate 01/02/23 11:00 01/02/23 11:00 01/02/23 11:15 Temperature Pulse Rate 109 H 113 H Respiratory Rate 19 41 H Blood Pressure 156/98 H Pulse Oximetry 95 98 Oxygen Delivery Method Oxygen Flow Rate 01/02/23 11:15 01/02/23 11:30 01/02/23 11:30 Temperature Pulse Rate 109 H Respiratory Rate 15 Blood Pressure 151/94 H 150/97 H Pulse Oximetry 96 Oxygen Delivery Method Room Air Oxygen Flow Rate 01/02/23 11:45 01/02/23 11:45 01/02/23 12:00 Temperature Pulse Rate 104 H Respiratory Rate 17 Blood Pressure 159/97 H 152/94 H Pulse Oximetry 97 Oxygen Delivery Method Oxygen Flow Rate 01/02/23 12:00 01/02/23 12:30 01/02/23 13:00 Temperature Pulse Rate 104 H 104 H 104 H Respiratory Rate 18 16 12 Blood Pressure Pulse Oximetry 94 98 96 Oxygen Delivery Method Oxygen Flow Rate 01/02/23 13:30 01/02/23 13:42 01/02/23 13:42 Temperature Pulse Rate 101 H 102 H Respiratory Rate 29 H 35 H Blood Pressure 203/137 H Pulse Oximetry 97 98 Oxygen Delivery Method Oxygen Flow Rate 01/02/23 14:00 01/02/23 14:00 Temperature Pulse Rate 101 H Respiratory Rate 16 Blood Pressure 170/97 H Pulse Oximetry 96 Oxygen Delivery Method Room Air Oxygen Flow Rate Medical Decision Making Lab Data 01/02/23 12:50 01/02/23 08:35 Labs: Lab Results 01/02/23 01/02/23 01/02/23 Range/Units 08:35 08:35 08:35 WBC 11.7 H (4.5-11.0) X10^3/uL RBC 4.26 (4.0-5.2) X10^6/uL Hgb 12.0 (12.0-16.0) g/dL Hct 35.8 L (36-46) % MCV 84.0 (80-100) fL MCH 28.3 (26-34) PG MCHC 33.6 (30-36) % RDW 20.8 H (11.6-14.8) % Plt Count 383 (150-400) X10^3/uL Neut % (Auto) 85.6 H (50-75) % Lymph % (Auto) 6.6 L (25-40) % Hughes % (Auto) 7.5 (3-14) % Eos % (Auto) 0.0 L (2-4) % Baso % (Auto) 0.3 (0-2) % Neut # (Auto) 84755 H (3370-9488) /uL Lymph # (Auto) 800 L (5062-1329) /uL Hughes # (Auto) 900 (0-900) /uL Eos # (Auto) 0 (0-450) /uL Baso # (Auto) 0 (0-100) /uL RBC Morphology See below Anisocytosis 1+ H PT 11.1 (10.1-12.7) SECONDS INR 1.0 (0.9-1.3) Sodium 132 L (137-145) mmol/L Potassium 3.2 L (3.4-5.1) mmol/L Chloride 89 L (98-107) mmol/L Carbon Dioxide 32 (22-32) mmol/L BUN 13 (7-17) mg/dL Creatinine 0.63 (0.52-1.04) mg/dL Estimated GFR > 60 (>60) mL/min BUN/Creatinine Ratio 20.6 (6-22) Glucose 147 H (80-110) mg/dL Lactate (0.7-2.1) mmol/L Calcium 10.3 H (8.4-10.2) mg/dL Magnesium 1.4 L (1.6-2.3) mg/dL Total Bilirubin 0.5 (0.2-1.3) mg/dL AST 29 (14-36) IU/L ALT 24 (<35) IU/L Alkaline Phosphatase 90 (38-126) U/L Total Protein 8.6 H (6.3-8.2) g/dL Albumin 4.7 (3.5-5.0) g/dL Globulin 3.9 (1.7-4.1) g/dL Albumin/Globulin Ratio 1.2 (1.0-2.8) Lipase 77 (23-300) U/L Ethyl Alcohol ( - 10) mg/dL Blood Type Antibody Screen 01/02/23 01/02/23 01/02/23 Range/Units 08:35 08:35 08:35 WBC (4.5-11.0) X10^3/uL RBC (4.0-5.2) X10^6/uL Hgb (12.0-16.0) g/dL Hct (36-46) % MCV (80-100) fL MCH (26-34) PG MCHC (30-36) % RDW (11.6-14.8) % Plt Count (150-400) X10^3/uL Neut % (Auto) (50-75) % Lymph % (Auto) (25-40) % Hughes % (Auto) (3-14) % Eos % (Auto) (2-4) % Baso % (Auto) (0-2) % Neut # (Auto) (3006-7373) /uL Lymph # (Auto) (3393-9947) /uL Hughes # (Auto) (0-900) /uL Eos # (Auto) (0-450) /uL Baso # (Auto) (0-100) /uL RBC Morphology Anisocytosis PT (10.1-12.7) SECONDS INR (0.9-1.3) Sodium (137-145) mmol/L Potassium (3.4-5.1) mmol/L Chloride (98-107) mmol/L Carbon Dioxide (22-32) mmol/L BUN (7-17) mg/dL Creatinine (0.52-1.04) mg/dL Estimated GFR (>60) mL/min BUN/Creatinine Ratio (6-22) Glucose (80-110) mg/dL Lactate 1.4 (0.7-2.1) mmol/L Calcium (8.4-10.2) mg/dL Magnesium (1.6-2.3) mg/dL Total Bilirubin (0.2-1.3) mg/dL AST (14-36) IU/L ALT (<35) IU/L Alkaline Phosphatase (38-126) U/L Total Protein (6.3-8.2) g/dL Albumin (3.5-5.0) g/dL Globulin (1.7-4.1) g/dL Albumin/Globulin Ratio (1.0-2.8) Lipase (23-300) U/L Ethyl Alcohol < 10 ( - 10) mg/dL Blood Type A Positive Antibody Screen Negative 01/02/23 Range/Units 12:50 WBC (4.5-11.0) X10^3/uL RBC (4.0-5.2) X10^6/uL Hgb 11.7 L (12.0-16.0) g/dL Hct 35.4 L (36-46) % MCV (80-100) fL MCH (26-34) PG MCHC (30-36) % RDW (11.6-14.8) % Plt Count (150-400) X10^3/uL Neut % (Auto) (50-75) % Lymph % (Auto) (25-40) % Hughes % (Auto) (3-14) % Eos % (Auto) (2-4) % Baso % (Auto) (0-2) % Neut # (Auto) (2872-2602) /uL Lymph # (Auto) (4903-5935) /uL Hughes # (Auto) (0-900) /uL Eos # (Auto) (0-450) /uL Baso # (Auto) (0-100) /uL RBC Morphology Anisocytosis PT (10.1-12.7) SECONDS INR (0.9-1.3) Sodium (137-145) mmol/L Potassium (3.4-5.1) mmol/L Chloride (98-107) mmol/L Carbon Dioxide (22-32) mmol/L BUN (7-17) mg/dL Creatinine (0.52-1.04) mg/dL Estimated GFR (>60) mL/min BUN/Creatinine Ratio (6-22) Glucose (80-110) mg/dL Lactate (0.7-2.1) mmol/L Calcium (8.4-10.2) mg/dL Magnesium (1.6-2.3) mg/dL Total Bilirubin (0.2-1.3) mg/dL AST (14-36) IU/L ALT (<35) IU/L Alkaline Phosphatase (38-126) U/L Total Protein (6.3-8.2) g/dL Albumin (3.5-5.0) g/dL Globulin (1.7-4.1) g/dL Albumin/Globulin Ratio (1.0-2.8) Lipase (23-300) U/L Ethyl Alcohol ( - 10) mg/dL Blood Type Antibody Screen MDM Narrative Medical decision making narrative: CC: 62-year-old female with alcohol history, known esophageal varices presents with multiple episodes of large volume coffee-ground emesis Complicating co-morbidities: Age, alcohol history, known varices Data collected from: Patient Medical records reviewed: Prior notes reviewed in our EMR Differential considered, but not limited to: Gastritis versus peptic ulcer disease versus variceal bleed versus other Exam documented above, pertinent findings include: Patient is tachycardic but regular, appears a bit anxious, epigastric pain on palpation, bowel sounds present Patient significant alcohol history presents with multiple episodes of coffee-ground emesis. Thankfully she is hemodynamically stable but given high-risk for rapid deterioration patient will require hospitalization for stabilization for condition and likely endoscopy. Given her liver history and reported known varices patient will need to be had a facility with GI. Thankfully both hospitalist and gastroenterology in [place] are happy to play a role in the care Kaylie. Of note, I have contacted [facility] and they have approved the transfer and will make note and their documentation Critical Care Time Critical Care Time Critical Care Time: Yes Total Critical Care Time: 30 Attestation: The high probability of a clinically significant, sudden or life threatening deterioration of the [GI] system(s) required my full and direct attention, intervention and personal management. The aggregate critical care time was [30] minutes. This time is in addition to time spent performing reported procedures but includes the following: [x] Data Review and interpretation [x] Patient assessment and monitoring of vital signs [x] Documentation [x] Medication orders and management Discharge Plan Departure Patient Disposition: [facility] Clinical Impression: Acute upper GI bleeding, Alcohol abuse Prescriptions: No Action hydroxyzine HCl 50 mg tablet 50 mg PO TID PRN (Reason: Anxiety) amlodipine 5 mg tablet 5 mg PO DAILY pantoprazole [Protonix] 40 mg tablet,delayed release (DR/EC) 40 mg PO BID Qty: 60 0RF ondansetron 4 mg tablet,disintegrating 4 mg PO TID-QID PRN (Reason: nausea and vomiting) 15 Days Qty: 30 0RF amitriptyline 25 mg tablet 25 mg PO BEDTIME buspirone 15 mg tablet 15 mg PO TID gabapentin 300 mg capsule 300 mg PO TID levothyroxine 25 mcg tablet 25 mcg PO DAILY losartan 50 mg tablet 50 mg PO DAILY scopolamine base 1 mg over 3 days patch 3 day 1 patch transdermal Q3D PRN tizanidine 2 mg tablet 2 mg PO TID PRN Referrals: Maria Del Carmen Devine PA-C [Primary Care Provider] -
--- NOTE | 2023-01-02 08:17 | DI.US.S_ITS ---
PROCEDURE: US ABDOMEN LIMITED INDICATIONS: epigastric pain TECHNIQUE: Real-time focused scanning was performed of the abdomen, with image documentation. COMPARISON: [facility], CT, CT ABDOMEN PELVIS W CON, 09/17/2022, 22:49. [facility], US, US ABDOMEN LIMITED, 09/17/2022, 21:57. FINDINGS: Liver has an increased echo pattern consistent with fatty change. No focal liver mass identified. Remote cholecystectomy. No dilated ducts. Common bile duct measures 4 mm. Visualized portions the pancreas are unremarkable. IMPRESSION: 1. Remote cholecystectomy. 2. No dilated ducts. Dictated by: Edi Zayas M.D. on 01/02/2023 at 8:56 Approved by: Edi Zayas M.D. on 01/02/2023 at 8:58
[2023-01-02] MEDS: PANTOPRAZOLE 40 MG VIAL IV (08:47)
[2023-01-02] MEDS: cefTRIAXone 2,000 MG in SODIUM CHLORIDE 0.9% 100 ML 200 MG IV (08:48)
[2023-01-02 08:57] LABS: Prothrombin Time 11.1 SECONDS (10.1-12.7)
[2023-01-02 09:01] LABS: Lactate (Lactic Acid) 1.4 mmol/L (0.7-2.1)
[2023-01-02 09:02] LABS: Alanine Aminotransferase 24 IU/L (<35); Albumin 4.7 g/dL (3.5-5.0); Albumin Globulin Ratio 1.2 (1.0-2.8); Alkaline Phosphatase 90 U/L (38-126); Aspartate Aminotransferase 29 IU/L (14-36); BUN Creatinine Ratio 20.6 (6-22); Bilirubin Total 0.5 mg/dL (0.2-1.3); Blood Urea Nitrogen 13 mg/dL (7-17); Calcium 10.3 mg/dL (8.4-10.2); Carbon Dioxide 32 mmol/L (22-32); Chloride 89 mmol/L (98-107); Estimated Glomerular Filt Rate > 60 mL/min (>60); Ethanol (ETOH) < 10 mg/dL; Globulin 3.9 g/dL (1.7-4.1); Glucose 147 mg/dL (80-110); HEMOLYSIS < 15 (0-50); Lipase 77 U/L (23-300); Magnesium 1.4 mg/dL (1.6-2.3); Potassium 3.2 mmol/L (3.4-5.1); Sodium 132 mmol/L (137-145); Total Protein 8.6 g/dL (6.3-8.2)
[2023-01-02] MEDS: OCTREOTIDE 100 MCG/ML VIAL 50 MCG IV (09:03)
[2023-01-02 09:10] LABS: Add Manual Diff / Slide Review NO; Basophils Absolute Auto 0 /uL (0-100); Basophils Percent Auto 0.3 % (0-2); Eosinophils Absolute Auto 0 /uL (0-450); Hematocrit 35.8 % (36-46); Lymphocytes Absolute Auto 800 /uL (1100-4500); Lymphocytes Percent Auto 6.6 % (25-40); Mean Corpuscular HGB Conc 33.6 % (30-36); Mean Corpuscular Hemoglobin 28.3 PG (26-34); Monocytes Absolute Auto 900 /uL (0-900); Monocytes Percent Auto 7.5 % (3-14); Neutrophils Absolute Auto 10000 /uL (1500-7000); Neutrophils Percent Auto 85.6 % (50-75); Platelet Count 383 X10^3/uL (150-400); Red Blood Cell Count 4.26 X10^6/uL (4.0-5.2); Red Cell Distribution Width 20.8 % (11.6-14.8); White Blood Cell Count 11.7 X10^3/uL (4.5-11.0)
[2023-01-02] MEDS: OCTREOTIDE 500 MCG in SODIUM CHLORIDE 0.9% 100 ML 10.1 MCG IV (09:15)
[2023-01-02 09:29] LABS: Anisocytosis 1+
[2023-01-02 13:08] LABS: Hematocrit 35.4 % (36-46); Hemoglobin 11.7 g/dL (12.0-16.0)
== END 2023-01-02 14:40 | disposition short-term general hospital (02) ==
PROVIDERS: Emergency Provider Emergency Medicine; PCP Physician Assistant
DX: K92.2 Gastrointestinal hemorrhage, unspecified (principal); F10.10 Alcohol abuse, uncomplicated; R42 Dizziness and giddiness; R00.0 Tachycardia, unspecified
CPT/HCPCS: 36415; 76705; 80053; 80320; 83605; 83690; 83735; 85014; 85018; 85025; 85610; 86850; 86900; 86901; 96365; 96366; 96367; 96375; 99285; C9113; J0696; J2354

== ENCOUNTER 2023-10-17 14:44 | Emergency (ER) | payer MEDICARE, OTHER, SELFPAY ==
[2022-10-21 10:11] VITALS: BMI 22.8
[2023-10-17] VITALS (64 sets, daily range): BP systolic 78–158; BP diastolic 44–85; PULSE 109–122; RESP 7–32; TEMP 35.9–36.7; O2SAT 86–100; BMI 22.6
--- NOTE | 2023-10-17 14:46 | ED.GIBLEED ---
HPI - GI Bleed <Flor Fabi, DO - Last Filed: 10/23/23 21:02> General Chief complaint: Nausea/Vomiting/Diarrhea Stated complaint: GI Bleed Time Seen by Provider: 10/17/23 14:45 History of Present Illness HPI Narrative: Patient is a 63-year-old female history of alcohol abuse and gastritis presenting today with nausea vomiting diarrhea ongoing for the last 3 days. She is to be hypotensive for EMS and upon arrival has a blood pressure of 85/44 with heart rate of 110. I did speak with her on the phone who reports that she had a routine EGD 4 days ago at [facility]. There are no some reports of previous varices that have not been banded. She has not actively vomiting bright red blood. She has minimal abdominal pain. She feels like she has to have diarrhea which she does. She feels a little dizzy and lightheaded as well. Related Data Home Medications Medication Instructions Recorded Confirmed amlodipine 5 mg tablet 5 mg PO DAILY 08/19/22 11/28/22 hydroxyzine HCl 50 mg tablet 50 mg PO TID PRN Anxiety 08/19/22 11/28/22 amitriptyline 25 mg tablet 25 mg PO BEDTIME 10/30/22 11/28/22 buspirone 15 mg tablet 15 mg PO TID 10/30/22 11/28/22 gabapentin 300 mg capsule 300 mg PO TID 10/30/22 11/28/22 levothyroxine 25 mcg tablet 25 mcg PO DAILY 10/30/22 11/28/22 losartan 50 mg tablet 50 mg PO DAILY 10/30/22 11/28/22 scopolamine base 1 mg over 3 days 1 patch transdermal Q3D PRN 10/30/22 11/28/22 transdermal patch tizanidine 2 mg tablet 2 mg PO TID PRN 10/30/22 11/28/22 Previous Rx's Medication Instructions Recorded ondansetron 4 mg disintegrating 4 mg PO TID-QID PRN nausea and 10/01/22 tablet vomiting 15 days #30 tabs pantoprazole 40 mg tablet,delayed 40 mg PO BID #60 tabs 10/01/22 release (Protonix) Allergies Allergy/AdvReac Type Severity Reaction Status Date / Time codeine Allergy Unknown VOMITING Verified 11/28/22 13:51 medroxyprogesterone Allergy Unknown MEDROXYPROGESTERONE Verified 11/28/22 13:51 MAKES HER CRAZY Patient History <Flor Dunlap DO - Last Filed: 10/23/23 21:02> Medical History Occipital neuralgia Cervical spinal stenosis Ataxia Chronic headaches Hyporeflexia Supraclavicular fossa fullness Neck pain GI bleed Erosive esophagitis Esophageal varices Hypothyroid Back pain Hypertension Alcohol abuse Social History household members: spouse Smoking Status: Never smoker alcohol intake: current Smoking Status: Never smoker alcohol intake frequency: 3 or more drinks per day Substance Use Type: does not use Exam <DO Kelsea Morrison Last Filed: 10/23/23 21:02> Initial Vital Signs Initial Vital Signs: Vital Signs Temperature 98 F 10/17/23 14:46 Pulse Rate 110 H 10/17/23 14:46 Respiratory Rate 10/17/23 14:46 Blood Pressure 85/44 L 10/17/23 14:46 Pulse Oximetry 100 10/17/23 14:46 Oxygen Delivery Method Room Air 10/17/23 14:46 GENERAL alert actively vomiting 63-year-old male HEENT: Head atraumatic,EOMI, pupils reactive, face symmetric, [moist] mucous membranes CARDIOVASCULAR: Regular rate and rhythm without murmurs, rubs or gallops. RESPIRATORY: Breath sounds equal bilaterally, no wheezes rales or rhonchi. ABDOMEN: Soft, nontender. Normoactive bowel sounds all 4 quadrants. No guarding or rebound. EXTREMITIES: Normal range of motion, no clubbing or edema. Neurovascularly intact NEUROLOGICAL: Alert and oriented x4.Normal gait and speech SKIN: Warm, dry, no laceration, no petechiae, no rashes or lesions. <Sarah Christopher DO - Last Filed: 10/18/23 01:29> Initial Vital Signs Initial Vital Signs: Vital Signs Temperature 98 F 10/17/23 14:46 Pulse Rate 110 H 10/17/23 14:46 Respiratory Rate 10/17/23 14:46 Blood Pressure 85/44 L 10/17/23 14:46 Pulse Oximetry 100 10/17/23 14:46 Oxygen Delivery Method Room Air 10/17/23 14:46 Procedures <Flor Dunlap DO - Last Filed: 10/23/23 21:02> Central Line Placement Left IJ: Prep: mask, gown and gloves Central Line Prep: Chlorhexidine scrub and sterile drapes applied Ultrasound Used for Placement: Yes Post Procedure X-Ray: no pneumothorax seen Patient Tolerated Procedure: Well and No complications Additional Comments: Unsuccessful attempts, Course <Flor Dunlap DO - Last Filed: 10/23/23 21:02> Orders Ordered: Discontinued Medications Octreotide Acetate 500 mcg/ (Sodium Chloride) 101 mls @ 10.1 mls/hr IV CONT CRYSTAL; Protocol Last Infusion: 10/17/23 23:51 Dose: 50 mcg/hr, 10.1 mls/hr Documented By: Infusion: 10/17/23 23:49 Dose: 0 mcg/hr, 0 mls/hr Documented By: Admin: 10/17/23 16:01 Dose: 50 mcg/hr, 10.1 mls/hr Documented By: CHARI NOREPINEPHRINE BITARTRATE/D5W (Levophed) 4 mg in 250 mls @ 21.773 mls/hr IV TITRATE CRYSTAL; Protocol Last Admin: 10/17/23 22:50 Dose: Not Given Documented By: Sodium Chloride (Normal Saline 0.9%) 1,000 mls @ 125 mls/hr IV CONT CRYSTAL Last Infusion: 10/17/23 22:16 Dose: 125 mls/hr Documented By: Admin: 10/17/23 18:42 Dose: 125 mls/hr Documented By: CHARI Ceftriaxone Sodium 2,000 mg/ (Sodium Chloride) 100 mls @ 200 mls/hr IV NOW ONE Stop: 10/17/23 18:26 Last Infusion: 10/17/23 19:15 Dose: Infused Documented By: Admin: 10/17/23 18:43 Dose: 200 mls/hr Documented By: CHARI Sodium Chloride (Normal Saline 0.9%) 1,000 mls @ 1,000 mls/hr IV BOLUS ONE Stop: 10/17/23 17:59 Last Infusion: 10/17/23 18:43 Dose: Infused Documented By: Admin: 10/17/23 17:00 Dose: 1,000 mls/hr Documented By: CHARI Lactated Ringer's (Lactated Ringers) 1,000 mls @ 1,000 mls/hr IV BOLUS ONE Stop: 10/17/23 21:49 Last Admin: 10/17/23 22:16 Dose: 1,000 mls/hr Documented By: Calcium Gluconate 4.65 meq/ (Sodium Chloride) 60 mls @ 180 mls/hr IV NOW ONE Stop: 10/17/23 21:56 Last Infusion: 10/17/23 22:52 Dose: Infused Documented By: Admin: 10/17/23 22:24 Dose: 180 mls/hr Documented By: Octreotide Acetate (Octreotide 100 Mcg/Ml Vial) 50 mcg IV NOW ONE Stop: 10/17/23 14:47 Last Admin: 10/17/23 16:01 Dose: 50 mcg Documented By: CHARI Ondansetron HCl (Ondansetron 4 Mg/2 Ml Inj) 4 mg IV NOW ONE Stop: 10/17/23 15:47 Last Admin: 10/17/23 16:02 Dose: Not Given Documented By: CHARI Pantoprazole Sodium (Pantoprazole 40 Mg Vial) 80 mg IV NOW ONE Stop: 10/17/23 14:47 Last Admin: 10/17/23 15:46 Dose: 80 mg Documented By: CHARI Phenobarbital (Phenobarbital 65 Mg/Ml Vial) 65 mg IV NOW ONE Stop: 10/17/23 17:06 Last Admin: 10/17/23 18:01 Dose: 65 mg Documented By: CHARI Vital Signs Vital signs: Vital Signs - 8 hr 10/17/23 17:30 10/17/23 17:30 10/17/23 17:35 Temperature Pulse Rate 112 H 112 H Respiratory Rate 18 24 Blood Pressure 104/55 L Pulse Oximetry 97 Oxygen Delivery Method Oxygen Flow Rate 10/17/23 17:35 10/17/23 17:40 10/17/23 17:40 Temperature Pulse Rate 110 H Respiratory Rate 22 Blood Pressure 102/54 L 102/57 L Pulse Oximetry Oxygen Delivery Method Oxygen Flow Rate 10/17/23 17:45 10/17/23 17:45 10/17/23 17:50 Temperature Pulse Rate 109 H Respiratory Rate 23 Blood Pressure 100/69 100/60 Pulse Oximetry 94 Oxygen Delivery Method Oxygen Flow Rate 10/17/23 17:50 10/17/23 17:55 10/17/23 17:55 Temperature Pulse Rate 110 H 110 H Respiratory Rate 19 18 Blood Pressure 105/61 Pulse Oximetry Oxygen Delivery Method Oxygen Flow Rate 10/17/23 18:00 10/17/23 18:00 10/17/23 18:05 Temperature Pulse Rate 115 H Respiratory Rate 20 Blood Pressure 110/60 107/58 L Pulse Oximetry 100 Oxygen Delivery Method Oxygen Flow Rate 10/17/23 18:05 10/17/23 18:10 10/17/23 18:10 Temperature Pulse Rate 113 H 112 H Respiratory Rate 18 10 L Blood Pressure 104/58 L Pulse Oximetry 100 99 Oxygen Delivery Method Oxygen Flow Rate 10/17/23 18:15 10/17/23 18:15 10/17/23 18:18 Temperature 98.1 F Pulse Rate 115 H 116 H Respiratory Rate 21 22 Blood Pressure 110/56 L 110/58 L Pulse Oximetry Oxygen Delivery Method Oxygen Flow Rate 10/17/23 18:20 10/17/23 18:20 10/17/23 18:25 Temperature Pulse Rate 116 H Respiratory Rate 14 Blood Pressure 103/58 L 82/53 L Pulse Oximetry 93 Oxygen Delivery Method Oxygen Flow Rate 10/17/23 18:25 10/17/23 18:30 10/17/23 18:31 Temperature Pulse Rate 118 H 120 H 121 H Respiratory Rate 24 32 H 22 Blood Pressure Pulse Oximetry 90 L 96 95 Oxygen Delivery Method Oxygen Flow Rate 10/17/23 18:31 10/17/23 18:34 10/17/23 18:34 Temperature Pulse Rate 120 H Respiratory Rate 19 Blood Pressure 89/56 L 99/60 Pulse Oximetry 93 Oxygen Delivery Method Oxygen Flow Rate 10/17/23 18:35 10/17/23 18:35 10/17/23 18:40 Temperature 98.1 F Pulse Rate 119 H 118 H Respiratory Rate 19 16 Blood Pressure 102/63 112/66 Pulse Oximetry 93 Oxygen Delivery Method Oxygen Flow Rate 10/17/23 18:40 10/17/23 18:45 10/17/23 18:45 Temperature Pulse Rate 118 H 118 H Respiratory Rate 18 17 Blood Pressure 102/57 L Pulse Oximetry 90 L Oxygen Delivery Method Oxygen Flow Rate 10/17/23 18:50 10/17/23 18:50 10/17/23 18:55 Temperature Pulse Rate 118 H 117 H Respiratory Rate 14 19 Blood Pressure 104/63 Pulse Oximetry 91 92 Oxygen Delivery Method Oxygen Flow Rate 10/17/23 18:55 10/17/23 19:00 10/17/23 19:00 Temperature Pulse Rate 122 H Respiratory Rate 17 Blood Pressure 110/69 114/71 Pulse Oximetry 97 Oxygen Delivery Method Oxygen Flow Rate 10/17/23 19:05 10/17/23 19:05 10/17/23 19:10 Temperature Pulse Rate 117 H Respiratory Rate 18 Blood Pressure 115/71 112/61 Pulse Oximetry 92 Oxygen Delivery Method Oxygen Flow Rate 10/17/23 19:10 10/17/23 19:15 10/17/23 19:15 Temperature Pulse Rate 117 H 119 H Respiratory Rate 23 21 Blood Pressure 113/64 Pulse Oximetry 93 92 Oxygen Delivery Method Room Air Oxygen Flow Rate 10/17/23 19:20 10/17/23 19:25 10/17/23 19:25 Temperature Pulse Rate 119 H 121 H Respiratory Rate 28 H Blood Pressure 113/64 Pulse Oximetry 91 93 Oxygen Delivery Method Room Air Room Air Oxygen Flow Rate 10/17/23 19:30 10/17/23 19:30 10/17/23 19:35 Temperature Pulse Rate 119 H Respiratory Rate 24 Blood Pressure 109/59 L 114/66 Pulse Oximetry 93 Oxygen Delivery Method Oxygen Flow Rate 10/17/23 19:40 10/17/23 19:40 10/17/23 19:45 Temperature Pulse Rate 122 H 119 H Respiratory Rate 19 15 Blood Pressure 106/55 L Pulse Oximetry 95 95 Oxygen Delivery Method Oxygen Flow Rate 10/17/23 19:45 10/17/23 19:50 10/17/23 19:50 Temperature Pulse Rate 119 H Respiratory Rate 27 H Blood Pressure 108/62 112/57 L Pulse Oximetry 93 Oxygen Delivery Method Oxygen Flow Rate 10/17/23 19:55 10/17/23 19:55 10/17/23 20:00 Temperature Pulse Rate 122 H 119 H Respiratory Rate 32 H 21 Blood Pressure 109/64 Pulse Oximetry 95 Oxygen Delivery Method Oxygen Flow Rate 10/17/23 20:00 10/17/23 20:05 10/17/23 20:05 Temperature Pulse Rate 118 H Respiratory Rate 13 Blood Pressure 116/68 120/70 Pulse Oximetry 91 Oxygen Delivery Method Oxygen Flow Rate 10/17/23 20:10 10/17/23 20:10 10/17/23 20:20 Temperature Pulse Rate 119 H Respiratory Rate 20 Blood Pressure 108/56 L 156/79 H Pulse Oximetry 86 L Oxygen Delivery Method Oxygen Flow Rate 10/17/23 20:20 10/17/23 20:25 10/17/23 20:25 Temperature Pulse Rate 118 H 116 H Respiratory Rate 17 25 H Blood Pressure 136/67 Pulse Oximetry 92 92 Oxygen Delivery Method Oxygen Flow Rate 10/17/23 20:30 10/17/23 20:30 10/17/23 21:00 Temperature Pulse Rate 119 H 116 H Respiratory Rate 26 H 27 H Blood Pressure 127/72 Pulse Oximetry 96 92 Oxygen Delivery Method Oxygen Flow Rate 10/17/23 21:30 10/17/23 21:56 10/17/23 22:00 Temperature 96.6 F L Pulse Rate 115 H 116 H 117 H Respiratory Rate 13 13 26 H Blood Pressure Pulse Oximetry 92 97 96 Oxygen Delivery Method Oxygen Flow Rate 10/17/23 22:30 10/17/23 22:42 10/17/23 22:42 Temperature 97.6 F Pulse Rate 121 H 111 H Respiratory Rate 17 24 Blood Pressure 129/85 Pulse Oximetry 96 99 Oxygen Delivery Method Nasal Cannula Oxygen Flow Rate 2 10/17/23 23:00 10/17/23 23:00 10/17/23 23:30 Temperature Pulse Rate 110 H 116 H Respiratory Rate 19 23 Blood Pressure 158/74 H Pulse Oximetry 98 97 Oxygen Delivery Method Oxygen Flow Rate 10/17/23 23:30 Temperature Pulse Rate Respiratory Rate Blood Pressure 139/77 Pulse Oximetry Oxygen Delivery Method Oxygen Flow Rate <Sarah Christopher, - Last Filed: 10/18/23 01:29> Orders Ordered: Discontinued Medications Octreotide Acetate 500 mcg/ (Sodium Chloride) 101 mls @ 10.1 mls/hr IV CONT CRYSTAL; Protocol Last Infusion: 10/17/23 23:51 Dose: 50 mcg/hr, 10.1 mls/hr Documented By: Infusion: 10/17/23 23:49 Dose: 0 mcg/hr, 0 mls/hr Documented By: Admin: 10/17/23 16:01 Dose: 50 mcg/hr, 10.1 mls/hr Documented By: CHARI NOREPINEPHRINE BITARTRATE/D5W (Levophed) 4 mg in 250 mls @ 21.773 mls/hr IV TITRATE CRYSTAL; Protocol Last Admin: 10/17/23 22:50 Dose: Not Given Documented By: Sodium Chloride (Normal Saline 0.9%) 1,000 mls @ 125 mls/hr IV CONT CRYSTAL Last Infusion: 10/17/23 22:16 Dose: 125 mls/hr Documented By: Admin: 10/17/23 18:42 Dose: 125 mls/hr Documented By: CHARI Ceftriaxone Sodium 2,000 mg/ (Sodium Chloride) 100 mls @ 200 mls/hr IV NOW ONE Stop: 10/17/23 18:26 Last Infusion: 10/17/23 19:15 Dose: Infused Documented By: Admin: 10/17/23 18:43 Dose: 200 mls/hr Documented By: CHARI Sodium Chloride (Normal Saline 0.9%) 1,000 mls @ 1,000 mls/hr IV BOLUS ONE Stop: 10/17/23 17:59 Last Infusion: 10/17/23 18:43 Dose: Infused Documented By: Admin: 10/17/23 17:00 Dose: 1,000 mls/hr Documented By: CHARI Lactated Ringer's (Lactated Ringers) 1,000 mls @ 1,000 mls/hr IV BOLUS ONE Stop: 10/17/23 21:49 Last Admin: 10/17/23 22:16 Dose: 1,000 mls/hr Documented By: Calcium Gluconate 4.65 meq/ (Sodium Chloride) 60 mls @ 180 mls/hr IV NOW ONE Stop: 10/17/23 21:56 Last Infusion: 10/17/23 22:52 Dose: Infused Documented By: Admin: 10/17/23 22:24 Dose: 180 mls/hr Documented By: Octreotide Acetate (Octreotide 100 Mcg/Ml Vial) 50 mcg IV NOW ONE Stop: 10/17/23 14:47 Last Admin: 10/17/23 16:01 Dose: 50 mcg Documented By: CHARI Ondansetron HCl (Ondansetron 4 Mg/2 Ml Inj) 4 mg IV NOW ONE Stop: 10/17/23 15:47 Last Admin: 10/17/23 16:02 Dose: Not Given Documented By: CHARI Pantoprazole Sodium (Pantoprazole 40 Mg Vial) 80 mg IV NOW ONE Stop: 10/17/23 14:47 Last Admin: 10/17/23 15:46 Dose: 80 mg Documented By: CHARI Phenobarbital (Phenobarbital 65 Mg/Ml Vial) 65 mg IV NOW ONE Stop: 10/17/23 17:06 Last Admin: 10/17/23 18:01 Dose: 65 mg Documented By: CHARI Vital Signs Vital signs: Vital Signs - 8 hr 10/17/23 17:30 10/17/23 17:30 10/17/23 17:35 Temperature Pulse Rate 112 H 112 H Respiratory Rate 18 24 Blood Pressure 104/55 L Pulse Oximetry 97 Oxygen Delivery Method Oxygen Flow Rate 10/17/23 17:35 10/17/23 17:40 10/17/23 17:40 Temperature Pulse Rate 110 H Respiratory Rate 22 Blood Pressure 102/54 L 102/57 L Pulse Oximetry Oxygen Delivery Method Oxygen Flow Rate 10/17/23 17:45 10/17/23 17:45 10/17/23 17:50 Temperature Pulse Rate 109 H Respiratory Rate 23 Blood Pressure 100/69 100/60 Pulse Oximetry 94 Oxygen Delivery Method Oxygen Flow Rate 10/17/23 17:50 10/17/23 17:55 10/17/23 17:55 Temperature Pulse Rate 110 H 110 H Respiratory Rate 19 18 Blood Pressure 105/61 Pulse Oximetry Oxygen Delivery Method Oxygen Flow Rate 10/17/23 18:00 10/17/23 18:00 10/17/23 18:05 Temperature Pulse Rate 115 H Respiratory Rate 20 Blood Pressure 110/60 107/58 L Pulse Oximetry 100 Oxygen Delivery Method Oxygen Flow Rate 10/17/23 18:05 10/17/23 18:10 10/17/23 18:10 Temperature Pulse Rate 113 H 112 H Respiratory Rate 18 10 L Blood Pressure 104/58 L Pulse Oximetry 100 99 Oxygen Delivery Method Oxygen Flow Rate 10/17/23 18:15 10/17/23 18:15 10/17/23 18:18 Temperature 98.1 F Pulse Rate 115 H 116 H Respiratory Rate 21 22 Blood Pressure 110/56 L 110/58 L Pulse Oximetry Oxygen Delivery Method Oxygen Flow Rate 10/17/23 18:20 10/17/23 18:20 10/17/23 18:25 Temperature Pulse Rate 116 H Respiratory Rate 14 Blood Pressure 103/58 L 82/53 L Pulse Oximetry 93 Oxygen Delivery Method Oxygen Flow Rate 10/17/23 18:25 10/17/23 18:30 10/17/23 18:31 Temperature Pulse Rate 118 H 120 H 121 H Respiratory Rate 24 32 H 22 Blood Pressure Pulse Oximetry 90 L 96 95 Oxygen Delivery Method Oxygen Flow Rate 10/17/23 18:31 10/17/23 18:34 10/17/23 18:34 Temperature Pulse Rate 120 H Respiratory Rate 19 Blood Pressure 89/56 L 99/60 Pulse Oximetry 93 Oxygen Delivery Method Oxygen Flow Rate 10/17/23 18:35 10/17/23 18:35 10/17/23 18:40 Temperature 98.1 F Pulse Rate 119 H 118 H Respiratory Rate 19 16 Blood Pressure 102/63 112/66 Pulse Oximetry 93 Oxygen Delivery Method Oxygen Flow Rate 10/17/23 18:40 10/17/23 18:45 10/17/23 18:45 Temperature Pulse Rate 118 H 118 H Respiratory Rate 18 17 Blood Pressure 102/57 L Pulse Oximetry 90 L Oxygen Delivery Method Oxygen Flow Rate 10/17/23 18:50 10/17/23 18:50 10/17/23 18:55 Temperature Pulse Rate 118 H 117 H Respiratory Rate 14 19 Blood Pressure 104/63 Pulse Oximetry 91 92 Oxygen Delivery Method Oxygen Flow Rate 10/17/23 18:55 10/17/23 19:00 10/17/23 19:00 Temperature Pulse Rate 122 H Respiratory Rate 17 Blood Pressure 110/69 114/71 Pulse Oximetry 97 Oxygen Delivery Method Oxygen Flow Rate 10/17/23 19:05 10/17/23 19:05 10/17/23 19:10 Temperature Pulse Rate 117 H Respiratory Rate 18 Blood Pressure 115/71 112/61 Pulse Oximetry 92 Oxygen Delivery Method Oxygen Flow Rate 10/17/23 19:10 10/17/23 19:15 10/17/23 19:15 Temperature Pulse Rate 117 H 119 H Respiratory Rate 23 21 Blood Pressure 113/64 Pulse Oximetry 93 92 Oxygen Delivery Method Room Air Oxygen Flow Rate 10/17/23 19:20 10/17/23 19:25 10/17/23 19:25 Temperature Pulse Rate 119 H 121 H Respiratory Rate 28 H Blood Pressure 113/64 Pulse Oximetry 91 93 Oxygen Delivery Method Room Air Room Air Oxygen Flow Rate 10/17/23 19:30 10/17/23 19:30 10/17/23 19:35 Temperature Pulse Rate 119 H Respiratory Rate 24 Blood Pressure 109/59 L 114/66 Pulse Oximetry 93 Oxygen Delivery Method Oxygen Flow Rate 10/17/23 19:40 10/17/23 19:40 10/17/23 19:45 Temperature Pulse Rate 122 H 119 H Respiratory Rate 19 15 Blood Pressure 106/55 L Pulse Oximetry 95 95 Oxygen Delivery Method Oxygen Flow Rate 10/17/23 19:45 10/17/23 19:50 10/17/23 19:50 Temperature Pulse Rate 119 H Respiratory Rate 27 H Blood Pressure 108/62 112/57 L Pulse Oximetry 93 Oxygen Delivery Method Oxygen Flow Rate 10/17/23 19:55 10/17/23 19:55 10/17/23 20:00 Temperature Pulse Rate 122 H 119 H Respiratory Rate 32 H 21 Blood Pressure 109/64 Pulse Oximetry 95 Oxygen Delivery Method Oxygen Flow Rate 10/17/23 20:00 10/17/23 20:05 10/17/23 20:05 Temperature Pulse Rate 118 H Respiratory Rate 13 Blood Pressure 116/68 120/70 Pulse Oximetry 91 Oxygen Delivery Method Oxygen Flow Rate 10/17/23 20:10 10/17/23 20:10 10/17/23 20:20 Temperature Pulse Rate 119 H Respiratory Rate 20 Blood Pressure 108/56 L 156/79 H Pulse Oximetry 86 L Oxygen Delivery Method Oxygen Flow Rate 10/17/23 20:20 10/17/23 20:25 10/17/23 20:25 Temperature Pulse Rate 118 H 116 H Respiratory Rate 17 25 H Blood Pressure 136/67 Pulse Oximetry 92 92 Oxygen Delivery Method Oxygen Flow Rate 10/17/23 20:30 10/17/23 20:30 10/17/23 21:00 Temperature Pulse Rate 119 H 116 H Respiratory Rate 26 H 27 H Blood Pressure 127/72 Pulse Oximetry 96 92 Oxygen Delivery Method Oxygen Flow Rate 10/17/23 21:30 10/17/23 21:56 10/17/23 22:00 Temperature 96.6 F L Pulse Rate 115 H 116 H 117 H Respiratory Rate 13 13 26 H Blood Pressure Pulse Oximetry 92 97 96 Oxygen Delivery Method Oxygen Flow Rate 10/17/23 22:30 10/17/23 22:42 10/17/23 22:42 Temperature 97.6 F Pulse Rate 121 H 111 H Respiratory Rate 17 24 Blood Pressure 129/85 Pulse Oximetry 96 99 Oxygen Delivery Method Nasal Cannula Oxygen Flow Rate 2 10/17/23 23:00 10/17/23 23:00 10/17/23 23:30 Temperature Pulse Rate 110 H 116 H Respiratory Rate 19 23 Blood Pressure 158/74 H Pulse Oximetry 98 97 Oxygen Delivery Method Oxygen Flow Rate 10/17/23 23:30 Temperature Pulse Rate Respiratory Rate Blood Pressure 139/77 Pulse Oximetry Oxygen Delivery Method Oxygen Flow Rate MDM - GI Bleed <Flor Fabi, DO - Last Filed: 10/23/23 21:02> Lab Data 10/17/23 15:07 10/17/23 20:35 Labs: Lab Results 10/17/23 10/17/23 10/17/23 Range/Units 15:07 17:10 20:35 WBC 18.9 H (4.5-11.0) X10^3/uL RBC 2.99 L (4.0-5.2) X10^6/uL Hgb 9.8 L (12.0-16.0) g/dL Hct 28.9 L (36-46) % MCV 96.7 (80-100) fL MCH 33.0 (26-34) PG MCHC 34.1 (30-36) % RDW 13.7 (11.6-14.8) % Plt Count 293 (150-400) X10^3/uL Neut % (Auto) 84.7 H (50-75) % Lymph % (Auto) 3.8 L (25-40) % [place] % (Auto) 11.4 (3-14) % Eos % (Auto) 0.0 L (2-4) % Baso % (Auto) 0.1 (0-2) % Neut # (Auto) 37375 H (5541-6327) /uL Lymph # (Auto) 700 L (5503-5213) /uL [place] # (Auto) 2200 H (0-900) /uL Eos # (Auto) 0 (0-450) /uL Baso # (Auto) 0 (0-100) /uL PT 10.4 (9.4-12.5) SECONDS INR 0.9 (0.9-1.3) APTT 28 (25.1-36.5) SECONDS Sodium 121 L 123 L (137-145) mmol/L Potassium 4.1 4.3 (3.4-5.1) mmol/L Chloride 74 L* 85 L (98-107) mmol/L Carbon Dioxide 18 L 29 (22-32) mmol/L BUN 91 H 91 H (7-17) mg/dL Creatinine 2.39 H 1.91 H (0.52-1.04) mg/dL Estimated GFR 22 L 29 L (>60) mL/min BUN/Creatinine Ratio 38.1 H 47.6 H (6-22) Glucose 124 H 205 H (80-110) mg/dL Lactate 9.1 H* 6.5 H* (0.7-2.1) mmol/L Calcium 8.4 7.3 L (8.4-10.2) mg/dL Total Bilirubin 0.8 0.5 (0.2-1.3) mg/dL AST 47 H 273 H (14-36) IU/L ALT 23 100 H (<35) IU/L Alkaline Phosphatase 49 50 (38-126) U/L Total Protein 6.4 5.6 L (6.3-8.2) g/dL Albumin 4.2 3.4 L (3.5-5.0) g/dL Globulin 2.2 2.2 (1.7-4.1) g/dL Albumin/Globulin Ratio 1.9 1.5 (1.0-2.8) Ethyl Alcohol 92 H ( - 10) mg/dL Blood Type A Positive Antibody Screen Negative Crossmatch See Detail 10/17/23 10/17/23 Range/Units 20:52 23:43 WBC (4.5-11.0) X10^3/uL RBC (4.0-5.2) X10^6/uL Hgb (12.0-16.0) g/dL Hct (36-46) % MCV (80-100) fL MCH (26-34) PG MCHC (30-36) % RDW (11.6-14.8) % Plt Count (150-400) X10^3/uL Neut % (Auto) (50-75) % Lymph % (Auto) (25-40) % [place] % (Auto) (3-14) % Eos % (Auto) (2-4) % Baso % (Auto) (0-2) % Neut # (Auto) (8154-7177) /uL Lymph # (Auto) (8005-3213) /uL [place] # (Auto) (0-900) /uL Eos # (Auto) (0-450) /uL Baso # (Auto) (0-100) /uL PT (9.4-12.5) SECONDS INR (0.9-1.3) APTT (25.1-36.5) SECONDS Sodium (137-145) mmol/L Potassium (3.4-5.1) mmol/L Chloride (98-107) mmol/L Carbon Dioxide (22-32) mmol/L BUN (7-17) mg/dL Creatinine (0.52-1.04) mg/dL Estimated GFR (>60) mL/min BUN/Creatinine Ratio (6-22) Glucose (80-110) mg/dL Lactate 2.3 H 2.3 H (0.7-2.1) mmol/L Calcium (8.4-10.2) mg/dL Total Bilirubin (0.2-1.3) mg/dL AST (14-36) IU/L ALT (<35) IU/L Alkaline Phosphatase (38-126) U/L Total Protein (6.3-8.2) g/dL Albumin (3.5-5.0) g/dL Globulin (1.7-4.1) g/dL Albumin/Globulin Ratio (1.0-2.8) Ethyl Alcohol ( - 10) mg/dL Blood Type Antibody Screen Crossmatch Imaging Data CT scan - abdomen/pelvis: Radiologist's Impression: PROCEDURE: CT ANGIO ABD/PEL GI BLEED INDICATIONS: gi bleed TECHNIQUE: After the administration of intravenous contrast, 2.5 mm thick sections acquired from the diaphragm to the symphysis. 10 mm maximum-intensity projection (MIP) reformats were then acquired. For radiation dose reduction, the following was used: automated exposure control. COMPARISON: [facility], CT, CT ABDOMEN PELVIS WITH CONTRAST, 04/19/2023, 22:51. FINDINGS: Image Quality: Diagnostic. Abdominal aorta: Normal caliber. No dissection. Mesenteric arteries: Mild celiac stenosis. SMA and ANNETTE are patent. No acute hemorrhage at the level of the bowel. Renal arteries: Patent. OTHER: Lower Chest: Bilateral mammoplasties. Normal heart size. Lower lung ames are clear. The esophagus is distended and filled with fluid with a mildly thickened wall. Liver: No solid mass. [id number] diffuse hepatic steatosis. Gallbladder: Surgically absent Biliary ducts: No biliary dilation. Pancreas: No ductal dilation. Spleen: Size is within normal limits. Adrenal Glands: No adrenal nodules. Kidneys and Ureters: No hydronephrosis. No solid mass. No complex renal cystic lesion which requires follow up. Stomach and Bowel: The esophagus is dilated and filled with fluid with a mildly thickened wall. It empties into a moderately distended stomach, which is filled with fluid. The wall of the stomach is not abnormally thickened. The pylorus has a typical prominent appearance of its wall. The duodenal bulb is seen, and is not thickened. The duodenal C-loop is normal caliber and is not inflamed. The small bowel and colon are of normal caliber. There is no thickening of the small bowel loops or colonic loops. Peritoneum: No abnormal intraperitoneal fluid. No free air. Ventral Wall: No hernia. Abdominal Nodes: No retroperitoneal or mesenteric adenopathy by size criteria. Vessels: Aorta and inferior vena cava are normal in size. PELVIS: Pelvic Organs: Unremarkable. Bladder: Unremarkable. Pelvic Nodes: No enlarged lymph nodes. Miscellaneous: No inguinal hernias are seen. Bones: No aggressive osseous abnormality. IMPRESSION: 1. There is no evidence of active extravasation during the study. 2. No significant stenotic disease involving the aorta and pelvis and mesenteric and renal vasculature. 3. Distended stomach filled with fluid, of uncertain etiology with no obvious cause of gastric outlet obstruction. This results in dilatation of the esophagus and filling of the esophagus with fluid as well. Dictated by: Edi Zayas M.D. on 10/17/2023 at 15:53 Chest x-ray: Radiologist's Impression: PROCEDURE: XR CHEST 1V INDICATIONS: IJ attempt fail TECHNIQUE: One view of the chest was acquired. COMPARISON: [facility], CR, XR CHEST 1 VIEW, 08/17/2023, 20:31. [facility], CR, XR CHEST 2V, 10/30/2022, 14:36. [facility], CR, XR CHEST 1V, 08/19/2022, 16:01. FINDINGS: Surgical changes and devices: None. Lungs and pleura: Platelike opacity at the left lung base. Suspect atelectasis. No pleural effusions or pneumothorax. Mediastinum: Mediastinal contours appear normal. Heart size is normal. Bones and chest wall: No suspicious bony lesions. Overlying soft tissues appear unremarkable. IMPRESSION: No pneumothorax. Left lung base atelectasis. Dictated by: Adryan Ames M.D. on 10/17/2023 at 19:37 MDM Narrative Medical decision making narrative: MDM CC: Nausea vomiting diarrhea Complicating co-morbidities: Alcohol abuse Corroborating data: [ ] Data collected from: [ ] Medical records reviewed: Records from [facility] last admission a year ago. EGD from 10/14/2023 shows ulcerative esophagitis healed ulcerative esophagitis noted with short-segment of Headley's esophagus with C1 M2 progress classification with a moderately sized hiatal hernia with biopsies performed with Z-line at 36 cm normal gastric mucosa. Repeat EGD in 3 years Differential considered: GI bleeding variceal bleeding gastritis, hepatorenal syndrome Exam documented above, pertinent findings include: Actively vomiting coffee-ground emesis multiple episodes of stool tachycardic hypotensive no mottling abdomen is nontender Lab Test results independently reviewed as above. Pertinent findings: WBC 18.9, hemoglobin 9.8, hematocrit 28.9, platelets 293, sodium 121, potassium 4.1, chloride 74, carbon dioxide 18, BUN 91, creatinine 2 point 3 9 previously 0.63, lactate 9.1 with repeat 6.5, bilirubin 0.8, AST 47, ALT 23, alk-phos 49, alcohol 92 Independently reviewed EKG as above Imaging studies independently reviewed: CT angio no active bleeding, Consultations: Dr Norman, surgery updated on patient's symptoms test results concern for hypotensive unstable GI bleed patient needs to be transferred to higher level of care especially if there is possibility of varices. 194 Dr. Oswald GI at , updated patient's symptoms test results unlikely to be a variceal bleeding Dr. Aguirre, hospitalist at updated patient's symptoms test results requests repeat labs before accepting Treatments: Octreotide, Protonix, IV fluids, 1 unit of packed red blood cells, Rocephin. Attempted central line both right and left side unable to correctly positioned doing to ongoing vomiting. X-ray did not show any evidence of pneumothorax Re-evaluations: Patient's blood pressure has started to improve, although she continues to have multiple episodes of diarrhea, no vomiting has improved with Zofran Discussion: Patient history of alcoholic abuse and gastritis presents today with nausea vomiting and diarrhea. He does have some coffee-ground like emesis multiple episodes and gelatinous bloody like stool. She is found to be acutely dehydrated creatinine 2.39 previously 0.63. Initially assumed for an upper GI bleed she is quite hypotensive. She did receive a L of IV fluid and unit of packed red blood cells. She is multiple antibodies to blood so it did take longer. Initially Levophed was ordered but it was never started her blood pressure improved improved with fluids and blood. She has not having bright red blood though possible history of varices as not have evidence of varices on recent EGD and no evidence of variceal bleeding now. Due to increased creatinine and possible liver disease needs to be transferred Patient signed out to Dr. Christopher <Sarah Christopher, DO - Last Filed: 10/18/23 01:29> Lab Data Labs: Lab Results 10/17/23 10/17/23 10/17/23 Range/Units 15:07 17:10 20:35 WBC 18.9 H (4.5-11.0) X10^3/uL RBC 2.99 L (4.0-5.2) X10^6/uL Hgb 9.8 L (12.0-16.0) g/dL Hct 28.9 L (36-46) % MCV 96.7 (80-100) fL MCH 33.0 (26-34) PG MCHC 34.1 (30-36) % RDW 13.7 (11.6-14.8) % Plt Count 293 (150-400) X10^3/uL Neut % (Auto) 84.7 H (50-75) % Lymph % (Auto) 3.8 L (25-40) % Ciales % (Auto) 11.4 (3-14) % Eos % (Auto) 0.0 L (2-4) % Baso % (Auto) 0.1 (0-2) % Neut # (Auto) 12369 H (7129-1242) /uL Lymph # (Auto) 700 L (0418-0940) /uL Ciales # (Auto) 2200 H (0-900) /uL Eos # (Auto) 0 (0-450) /uL Baso # (Auto) 0 (0-100) /uL PT 10.4 (9.4-12.5) SECONDS INR 0.9 (0.9-1.3) APTT 28 (25.1-36.5) SECONDS Sodium 121 L 123 L (137-145) mmol/L Potassium 4.1 4.3 (3.4-5.1) mmol/L Chloride 74 L* 85 L (98-107) mmol/L Carbon Dioxide 18 L 29 (22-32) mmol/L BUN 91 H 91 H (7-17) mg/dL Creatinine 2.39 H 1.91 H (0.52-1.04) mg/dL Estimated GFR 22 L 29 L (>60) mL/min BUN/Creatinine Ratio 38.1 H 47.6 H (6-22) Glucose 124 H 205 H (80-110) mg/dL Lactate 9.1 H* 6.5 H* (0.7-2.1) mmol/L Calcium 8.4 7.3 L (8.4-10.2) mg/dL Total Bilirubin 0.8 0.5 (0.2-1.3) mg/dL AST 47 H 273 H (14-36) IU/L ALT 23 100 H (<35) IU/L Alkaline Phosphatase 49 50 (38-126) U/L Total Protein 6.4 5.6 L (6.3-8.2) g/dL Albumin 4.2 3.4 L (3.5-5.0) g/dL Globulin 2.2 2.2 (1.7-4.1) g/dL Albumin/Globulin Ratio 1.9 1.5 (1.0-2.8) Ethyl Alcohol 92 H ( - 10) mg/dL Blood Type A Positive Antibody Screen Negative Crossmatch See Detail 10/17/23 10/17/23 Range/Units 20:52 23:43 WBC (4.5-11.0) X10^3/uL RBC (4.0-5.2) X10^6/uL Hgb (12.0-16.0) g/dL Hct (36-46) % MCV (80-100) fL MCH (26-34) PG MCHC (30-36) % RDW (11.6-14.8) % Plt Count (150-400) X10^3/uL Neut % (Auto) (50-75) % Lymph % (Auto) (25-40) % Ciales % (Auto) (3-14) % Eos % (Auto) (2-4) % Baso % (Auto) (0-2) % Neut # (Auto) (9449-1424) /uL Lymph # (Auto) (2517-8540) /uL Ciales # (Auto) (0-900) /uL Eos # (Auto) (0-450) /uL Baso # (Auto) (0-100) /uL PT (9.4-12.5) SECONDS INR (0.9-1.3) APTT (25.1-36.5) SECONDS Sodium (137-145) mmol/L Potassium (3.4-5.1) mmol/L Chloride (98-107) mmol/L Carbon Dioxide (22-32) mmol/L BUN (7-17) mg/dL Creatinine (0.52-1.04) mg/dL Estimated GFR (>60) mL/min BUN/Creatinine Ratio (6-22) Glucose (80-110) mg/dL Lactate 2.3 H 2.3 H (0.7-2.1) mmol/L Calcium (8.4-10.2) mg/dL Total Bilirubin (0.2-1.3) mg/dL AST (14-36) IU/L ALT (<35) IU/L Alkaline Phosphatase (38-126) U/L Total Protein (6.3-8.2) g/dL Albumin (3.5-5.0) g/dL Globulin (1.7-4.1) g/dL Albumin/Globulin Ratio (1.0-2.8) Ethyl Alcohol ( - 10) mg/dL Blood Type Antibody Screen Crossmatch MDM Narrative Medical decision making narrative: MDM CC: Nausea vomiting diarrhea Complicating co-morbidities: Alcohol abuse Corroborating data: [ ] Data collected from: [ ] Medical records reviewed: Records from [facility] last admission a year ago. EGD from 10/14/2023 shows ulcerative esophagitis healed ulcerative esophagitis noted with short-segment of Headley's esophagus with C1 M2 progress classification with a moderately sized hiatal hernia with biopsies performed with Z-line at 36 cm normal gastric mucosa. Repeat EGD in 3 years Differential considered: GI bleeding variceal bleeding gastritis, hepatorenal syndrome Exam documented above, pertinent findings include: Actively vomiting coffee-ground emesis multiple episodes of stool tachycardic hypotensive no mottling abdomen is nontender Lab Test results independently reviewed as above. Pertinent findings: WBC 18.9, hemoglobin 9.8, hematocrit 28.9, platelets 293, sodium 121, potassium 4.1, chloride 74, carbon dioxide 18, BUN 91, creatinine 2 point 3 9 previously 0.63, lactate 9.1 with repeat 6.5, bilirubin 0.8, AST 47, ALT 23, alk-phos 49, alcohol 92 Independently reviewed EKG as above Imaging studies independently reviewed: CT angio no active bleeding, Consultations: Dr Norman, surgery updated on patient's symptoms test results concern for hypotensive unstable GI bleed patient needs to be transferred to higher level of care especially if there is possibility of varices. 194 Dr. Oswald GI at , updated patient's symptoms test results unlikely to be a variceal bleeding Dr. Aguirre, hospitalist at updated patient's symptoms test results requests repeat labs before accepting Treatments: Octreotide, Protonix, IV fluids, 1 unit of packed red blood cells, Rocephin. Attempted central line both right and left side unable to correctly positioned doing to ongoing vomiting. X-ray did not show any evidence of pneumothorax Re-evaluations: Patient's blood pressure has started to improve, although she continues to have multiple episodes of diarrhea, no vomiting has improved with Zofran Discussion: Patient history of alcoholic abuse and gastritis presents today with nausea vomiting and diarrhea. He does have some coffee-ground like emesis multiple episodes and gelatinous bloody like stool. She is found to be acutely dehydrated creatinine 2.39 previously 0.63. Initially assumed for an upper GI bleed she is quite hypotensive. She did receive a L of IV fluid and unit of packed red blood cells. She is multiple antibodies to blood so it did take longer. Initially Levophed was ordered but it was never started her blood pressure improved improved with fluids and blood. She has not having bright red blood though possible history of varices as not have evidence of varices on recent EGD and no evidence of variceal bleeding now. Due to increased creatinine and possible liver disease needs to be transferred Patient signed out to Dr. Christopher 10/17/20232022: Patient signed out to myself. Patient is seen and evaluated by myself. She was thick line placed after failed attempts for central line. She is alert, appropriate conversant on examination. Tachycardic but pressure was 120s afebrile 96% on room patient aware plan for transfer. She is agreeable. Awaiting repeat labs and lactate which will be related to Joanna barrientos to decide if patient is appropriate for PCOS/step-down unit versus ICU. Patient has received Protonix 80 mg, on octreotide drip, Rocephin 2 g, phenobarb, 1 unit packed red blood cells, Zofran and 1 L normal saline. Labs show sodium a slight increase to 123 from 07/20 chloride 85 potassium 4.3 CO2 of 29 improved from 18 BUN is 91 with a creatinine of 1.91 improved from 2.39. Glucose is 205 was 124 on prior. Lactate is trending down nicely was initially 9.1 repeat was 6.5 in the 3rd check here is 2.3. Calcium is low at 7.3 and will be replaced. AST is 273 and 100 increased from prior bilirubin is 0.5. Patient did not start require 1-2 L nasal cannula, On recheck she has no respiratory distress, still slightly tachycardic afebrile. We will continue to monitor was placed cannula. Joanna barrientos was updated and patient is accepted by Dr. Aguirre for transfer Critical Care Time <Flor Dunlap, - Last Filed: 10/23/23 21:02> Critical Care Time Critical Care Time: Yes Total Critical Care Time: 60 Attestation: The high probability of a clinically significant, sudden or life threatening deterioration of the [cardiovascular] system(s) required my full and direct attention, intervention and personal management. The aggregate critical care time was 60 minutes. This time is in addition to time spent performing reported procedures but includes the following: [x] Data Review and interpretation [x] Patient assessment and monitoring of vital signs [x] Documentation [x] Medication orders and management Discharge Plan Departure Patient Disposition: [facility] Clinical Impression: Alcohol abuse with withdrawal, Acute renal failure, GI (gastrointestinal bleed), Anemia Prescriptions: No Action hydroxyzine HCl 50 mg tablet 50 mg PO TID PRN (Reason: Anxiety) amlodipine 5 mg tablet 5 mg PO DAILY pantoprazole [Protonix] 40 mg tablet,delayed release (DR/EC) 40 mg PO BID Qty: 60 0RF ondansetron 4 mg tablet,disintegrating 4 mg PO TID-QID PRN (Reason: nausea and vomiting) 15 Days Qty: 30 0RF amitriptyline 25 mg tablet 25 mg PO BEDTIME buspirone 15 mg tablet 15 mg PO TID gabapentin 300 mg capsule 300 mg PO TID levothyroxine 25 mcg tablet 25 mcg PO DAILY losartan 50 mg tablet 50 mg PO DAILY scopolamine base 1 mg over 3 days patch 3 day 1 patch transdermal Q3D PRN tizanidine 2 mg tablet 2 mg PO TID PRN Referrals: Maria Del Carmen Devine PA-C [Primary Care Provider] - ED Sign-out <Flor Dunlap DO - Last Filed: 10/23/23 21:02> Cosign ED Attending Cosignature Attestation: I was available for consultation.
--- NOTE | 2023-10-17 15:07 | DI.CT.S_ITS ---
PROCEDURE: CT ANGIO ABD/PEL GI BLEED INDICATIONS: gi bleed TECHNIQUE: After the administration of intravenous contrast, 2.5 mm thick sections acquired from the diaphragm to the symphysis. 10 mm maximum-intensity projection (MIP) reformats were then acquired. For radiation dose reduction, the following was used: automated exposure control. COMPARISON: [facility], CT, CT ABDOMEN PELVIS WITH CONTRAST, 04/19/2023, 22:51. FINDINGS: Image Quality: Diagnostic. Abdominal aorta: Normal caliber. No dissection. Mesenteric arteries: Mild celiac stenosis. SMA and ANNETTE are patent. No acute hemorrhage at the level of the bowel. Renal arteries: Patent. OTHER: Lower Chest: Bilateral mammoplasties. Normal heart size. Lower lung ames are clear. The esophagus is distended and filled with fluid with a mildly thickened wall. Liver: No solid mass. [id number] diffuse hepatic steatosis. Gallbladder: Surgically absent Biliary ducts: No biliary dilation. Pancreas: No ductal dilation. Spleen: Size is within normal limits. Adrenal Glands: No adrenal nodules. Kidneys and Ureters: No hydronephrosis. No solid mass. No complex renal cystic lesion which requires follow up. Stomach and Bowel: The esophagus is dilated and filled with fluid with a mildly thickened wall. It empties into a moderately distended stomach, which is filled with fluid. The wall of the stomach is not abnormally thickened. The pylorus has a typical prominent appearance of its wall. The duodenal bulb is seen, and is not thickened. The duodenal C-loop is normal caliber and is not inflamed. The small bowel and colon are of normal caliber. There is no thickening of the small bowel loops or colonic loops. Peritoneum: No abnormal intraperitoneal fluid. No free air. Ventral Wall: No hernia. Abdominal Nodes: No retroperitoneal or mesenteric adenopathy by size criteria. Vessels: Aorta and inferior vena cava are normal in size. PELVIS: Pelvic Organs: Unremarkable. Bladder: Unremarkable. Pelvic Nodes: No enlarged lymph nodes. Miscellaneous: No inguinal hernias are seen. Bones: No aggressive osseous abnormality. IMPRESSION: 1. There is no evidence of active extravasation during the study. 2. No significant stenotic disease involving the aorta and pelvis and mesenteric and renal vasculature. 3. Distended stomach filled with fluid, of uncertain etiology with no obvious cause of gastric outlet obstruction. This results in dilatation of the esophagus and filling of the esophagus with fluid as well. Dictated by: Edi Zayas M.D. on 10/17/2023 at 15:53 Approved by: Edi Zayas M.D. on 10/17/2023 at 16:03
[2023-10-17 15:19] LABS: Add Manual Diff / Slide Review NO; Basophils Absolute Auto 0 /uL (0-100); Basophils Percent Auto 0.1 % (0-2); Eosinophils Absolute Auto 0 /uL (0-450); Hematocrit 28.9 % (36-46); Hemoglobin 9.8 g/dL (12.0-16.0); Lymphocytes Absolute Auto 700 /uL (1100-4500); Lymphocytes Percent Auto 3.8 % (25-40); Mean Corpuscular HGB Conc 34.1 % (30-36); Mean Corpuscular Volume 96.7 fL (80-100); Monocytes Absolute Auto 2200 /uL (0-900); Monocytes Percent Auto 11.4 % (3-14); Neutrophils Absolute Auto 16000 /uL (1500-7000); Neutrophils Percent Auto 84.7 % (50-75); Platelet Count 293 X10^3/uL (150-400); Red Blood Cell Count 2.99 X10^6/uL (4.0-5.2); Red Cell Distribution Width 13.7 % (11.6-14.8); White Blood Cell Count 18.9 X10^3/uL (4.5-11.0)
[2023-10-17 15:29] LABS: INR 0.9 (0.9-1.3); Prothrombin Time 10.4 SECONDS (9.4-12.5)
[2023-10-17 15:32] LABS: PTT Partial Thromboplastin Tim 28 SECONDS (25.1-36.5)
[2023-10-17 15:36] LABS: Ethanol (ETOH) 92 mg/dL
[2023-10-17 15:37] LABS: Alanine Aminotransferase 23 IU/L (<35); Albumin 4.2 g/dL (3.5-5.0); Albumin Globulin Ratio 1.9 (1.0-2.8); Alkaline Phosphatase 49 U/L (38-126); Aspartate Aminotransferase 47 IU/L (14-36); BUN Creatinine Ratio 38.1 (6-22); Bilirubin Total 0.8 mg/dL (0.2-1.3); Blood Urea Nitrogen 91 mg/dL (7-17); Calcium 8.4 mg/dL (8.4-10.2); Carbon Dioxide 18 mmol/L (22-32); Estimated Glomerular Filt Rate 22 mL/min (>60); Globulin 2.2 g/dL (1.7-4.1); Glucose 124 mg/dL (80-110); HEMOLYSIS 30 (0-50); Potassium 4.1 mmol/L (3.4-5.1); Sodium 121 mmol/L (137-145); Total Protein 6.4 g/dL (6.3-8.2)
[2023-10-17 15:44] LABS: Chloride 74 mmol/L (98-107); Lactate (Lactic Acid) 9.1 mmol/L (0.7-2.1)
[2023-10-17] MEDS: PANTOPRAZOLE 40 MG VIAL 80 MG IV (15:46)
[2023-10-17] MEDS: ONDANSETRON 4 MG/2 ML INJ (15:47)
[2023-10-17] MEDS: OCTREOTIDE 500 MCG in SODIUM CHLORIDE 0.9% 100 ML 10.1 MCG IV (16:01)
[2023-10-17] MEDS: OCTREOTIDE 100 MCG/ML VIAL 50 MCG IV (16:01)
[2023-10-17 16:50] LABS: Reflexed Lactate in 2 Hours Y
[2023-10-17] MEDS: SODIUM CHLORIDE 0.9% 1,000 ML 1000 ML IV (17:00)
[2023-10-17] MEDS: PHENobarbital 65 MG/ML VIAL IV (18:01)
--- NOTE | 2023-10-17 18:01 | DI.RAD.S_ITS ---
PROCEDURE: XR CHEST 1V INDICATIONS: IJ attempt fail TECHNIQUE: One view of the chest was acquired. COMPARISON: [facility], CR, XR CHEST 1 VIEW, 08/17/2023, 20:31. [facility], CR, XR CHEST 2V, 10/30/2022, 14:36. [facility], CR, XR CHEST 1V, 08/19/2022, 16:01. FINDINGS: Surgical changes and devices: None. Lungs and pleura: Platelike opacity at the left lung base. Suspect atelectasis. No pleural effusions or pneumothorax. Mediastinum: Mediastinal contours appear normal. Heart size is normal. Bones and chest wall: No suspicious bony lesions. Overlying soft tissues appear unremarkable. IMPRESSION: No pneumothorax. Left lung base atelectasis. Dictated by: Adryan Ames M.D. on 10/17/2023 at 19:37 Approved by: Adryan Ames M.D. on 10/17/2023 at 19:38
[2023-10-17 18:15] LABS: Lactate 2HR (Lactic Acid Rflx) 6.5 mmol/L (0.7-2.1)
[2023-10-17] MEDS: SODIUM CHLORIDE 0.9% 1,000 ML 125 ML IV (18:42)
[2023-10-17] MEDS: cefTRIAXone 2,000 MG in SODIUM CHLORIDE 0.9% 100 ML 200 MG IV (18:43)
[2023-10-17 20:56] LABS: Alanine Aminotransferase 100 IU/L (<35); Albumin 3.4 g/dL (3.5-5.0); Albumin Globulin Ratio 1.5 (1.0-2.8); Alkaline Phosphatase 50 U/L (38-126); Aspartate Aminotransferase 273 IU/L (14-36); BUN Creatinine Ratio 47.6 (6-22); Bilirubin Total 0.5 mg/dL (0.2-1.3); Blood Urea Nitrogen 91 mg/dL (7-17); Calcium 7.3 mg/dL (8.4-10.2); Carbon Dioxide 29 mmol/L (22-32); Chloride 85 mmol/L (98-107); Estimated Glomerular Filt Rate 29 mL/min (>60); Globulin 2.2 g/dL (1.7-4.1); Glucose 205 mg/dL (80-110); HEMOLYSIS < 15 (0-50); Potassium 4.3 mmol/L (3.4-5.1); Sodium 123 mmol/L (137-145); Total Protein 5.6 g/dL (6.3-8.2)
--- NOTE | 2023-10-17 20:57 | PC.NURSE ---
PICC team in with pt at this time.
[2023-10-17 21:08] LABS: Lactate (Lactic Acid) 2.3 mmol/L (0.7-2.1)
--- NOTE | 2023-10-17 21:26 | DI.RAD.S_ITS ---
PROCEDURE: XR CHEST 1V INDICATIONS: PICC line placement TECHNIQUE: One view of the chest was acquired. COMPARISON: [facility], CR, XR CHEST 1V, 10/17/2023, 18:22. [facility], CR, XR CHEST 2V, 10/30/2022, 14:36. FINDINGS: Surgical changes and devices: Right PICC in place, tip projects over the right atrium.. Lungs and pleura: Left basilar atelectasis. Lungs are otherwise clear. No pleural effusions or pneumothorax. Mediastinum: Mediastinal contours appear normal. Heart size is normal. Bones and chest wall: No suspicious bony lesions. Overlying soft tissues appear unremarkable. IMPRESSION: Right PICC in place with tip projecting over the right atrium. No acute cardiopulmonary abnormality is seen. Dictated by: Sandeep Ortiz M.D. on 10/17/2023 at 21:53 Approved by: Sandeep Ortiz M.D. on 10/17/2023 at 21:54
[2023-10-17] MEDS: LACTATED RINGERS 1,000 ML 1000 ML IV (22:16)
[2023-10-17] MEDS: CALCIUM GLUCONATE 4.65 MEQ in SODIUM CHLORIDE 0.9% 50 ML 180 MEQ IV (22:24)
[2023-10-17 22:30] LABS: Reflexed Lactate in 2 Hours Y
--- NOTE | 2023-10-17 23:51 | PC.NURSE ---
New bag of mixed Octreotide sent with EMS after report was given.
[2023-10-17 23:59] LABS: Lactate 2HR (Lactic Acid Rflx) 2.3 mmol/L (0.7-2.1)
--- NOTE | 2023-10-18 00:06 | PC.NURSE ---
Called [place] [phone] he is currently in [place], [place] and [place] flight is at 0200 on 10/18/23. He will arrive to [place] at 0730 am and will go direct to Joanna Lopez. He has no further questions at this time.
== END 2023-10-17 23:50 | disposition short-term general hospital (02) ==
PROVIDERS: Emergency Medicine; Emergency Provider Emergency Medicine; PCP Physician Assistant
DX: F10.139 Alcohol abuse with withdrawal, unspecified (principal); Y90.4 Blood alcohol level of 80-99 mg/100 ml; N17.9 Acute kidney failure, unspecified; K92.2 Gastrointestinal hemorrhage, unspecified; D64.9 Anemia, unspecified; R19.7 Diarrhea, unspecified; I95.9 Hypotension, unspecified; Z79.899 Other long term (current) drug therapy
CPT/HCPCS: 36415; 36430; 36569; 71045; 74174; 80053; 80320; 83605; 85025; 85610; 85730; 86850; 86900; 86901; 96365; 96366; 96368; 96375; 99285; 99291; P9016; C9113; J0612; J0696; J2354; J2405; J2560; Q9967

== ENCOUNTER 2025-06-23 16:42 | Inpatient (IN) | payer MEDICARE, OTHER, SELFPAY ==
[2022-10-21 10:11] VITALS: BMI 22.8
[2025-06-23] VITALS (12 sets, daily range): BP systolic 130–157; BP diastolic 65–89; PULSE 90–107; RESP 11–21; TEMP 36.2; O2SAT 91–98; BMI 22.3
--- OUTSIDE RECORDS SUMMARY | 2025-06-23 16:47 | XMS_ITS | Encounter Summary ---
Author Organization [facility] Address [address] [place] [address] Care Team Providers Care Glue Mixer Name Role Phone Maria Del Carmen Devine PA-C Primary Care Provider [phone] Encounter Details Date Type Department Care Team (Late st Contact Info) Description 04/09/2024 Case/Admission [facility] [address] [id number] Osito Carranza, [address] [address] Closed fracture of shaft of right radius, unspecified fracture morphology, initial encounter (Primary Dx) Social History Tobacco Use Types Packs/Day Years Used Date Smoking Tobacco: Never Smokeless Tobacco: Never Alcohol Use Standard Drinks/Week Comments Yes 14 (1 standard drink = 0.6 oz pu re alcohol) Humiliation, Afraid, Rape, and Kick questionnair e Answer Date Recorded Within the last year, have y ou been afraid of your partner or ex-partner? No 08/18/2023 Within the last year, have y ou been humiliated or emotionally abused in other ways by your partner or ex-partner? No Within the last year, have y ou been kicked, hit, slapped, or otherwise physically hurt by your partner or ex-partner? No 08/18/2023 Within the last year, have y ou been raped or forced to have any kind of sexual activity by your partner or ex-partner? No 08/18/2023 AUDIT-C Answer Date Recorded Q1: How often do you have a drink containing alcohol? 4 or more times a week 04/20/2023 Q2: How many drinks containi ng alcohol do you have on a typical day when you are drinking? 3 or 4 Q3: How often do you have si x or more drinks on one occasion? Weekly 04/20/2023 Overall Financial Resource Strain (CARDIA) Answe r Date Recorded How hard is it for you to pa y for the very basics like food, housing, medical care, and heating? Not hard at all 08/18/2023 Hunger Vital Sign Answer Date Recorded Within the past 12 months, y ou worried that your food would run out before you got the money to buy more. Never true 08/18/19 24 Within the past 12 months, t he food you bought just didn't last and you didn't have money to get more. Never true 08/18/2023 PRAPARE - Transportation Answer Date Re corded In the past 12 months, has l ack of transportation kept you from medical appointments or from getting medications? No 07/31 In the past 12 months, has l ack of transportation kept you from meetings, work, or from getting things needed for daily living? No 08/18/2023 Housing Stability Vital Sign Answer Daren e Recorded In the last 12 months, was t here a time when you were not able to pay the mortgage or rent on time? No 08/18/2023 In the last 12 months, how many places have you lived? 1 08/18/2023 In the last 12 months, was t here a time when you did not have a steady place to sleep or slept in a nursing home (including now)? No 08/18/2023 Comments No Sex and Gender Information Value Date Recorded Sex Assigned at Female 04/20/2023 6:36 AM PDT Legal Sex Female 6:21 PM PDT Gender Identity Female 04/20/2023 6:36 AM PDT Sexual Orientation Straight 05/18/2025 9: 22 PM PST documented as of this encounter Plan of Treatment Not on file documented as of this encounter Visit Diagnoses Diagnosis Closed fracture of shaft of right radius, unspecified fracture morphology, initial encounter- Primary documented in this encounter Care Teams Glue Mixer Relationship Specialty Start Date End Date Maria Del Carmen Devine PA-C [address] [place] [phone] PCP - General Physician Call Center Support Consultant 07/14/23 documented as of this encounter
--- NOTE | 2025-06-23 16:51 | ED_ITS ---
HPI - General Adult <Manuela Foster MD - Last Filed: 06/24/25 18:00> General Chief complaint: Neuro Symptoms/Deficit Stated complaint: fall, facial drooping, head injury Time Seen by Provider: 06/23/25 16:42 History of Present Illness HPI narrative: 65-year-old woman last known normal was noon today according to her . She also has been consuming some alcohol today. Apparently was walking down the hallway fell backward and now has some right facial droop. She complains of pain in the back of her head, left temporal area as well as some neck pain. She was able to stand and with 2 person assist pivot to the bed. Patient was recently admitted to [facility] from May 18 through with evidence of a stroke she was discharged home with Plavix and aspirin with the Plavix to continue through June 08. The thought at that time was that she had had a subacute right posterior frontal white matter infarct. Hyponatremia with sodium at 127 discharged at 130, prolonged QTC, history of alcohol use. Patient reports intracranial bleeding secondary to falls 3 years ago. Patient does not indicate nausea, vomiting recent fevers, cough, chills chest pain. Aside from complaining of head pain she is not noticing pain anywhere else in her body. Related Data Home Medications ?Medication ?Instructions ?Recorded ?Confirmed amlodipine 5 mg tablet 5 mg PO DAILY 08/19/2206/23 hydroxyzine HCl 50 mg tablet 50 mg PO TID PRN Anxiety 08/19/22 06/23/25 gabapentin 300 mg capsule 300 mg PO DAILY 10/30/22 losartan 50 mg tablet 50 mg PO DAILY 10/30/2205/31 scopolamine base 1 mg over 3 days 1 patch transdermal Q3D PRN motion 10/30/22 06/23/25 transdermal patch sickness Previous Rx's ?Medication ?Instructions ?Recorded ondansetron 4 mg disintegrating 4 mg PO TID-QID PRN na usea and 10/01/22 tablet vomiting 15 days #30 tabs pantoprazole 40 mg tablet,delayed 40 mg PO BID #60 tab s 10/01/22 release (Protonix) aspirin 81 mg tablet,delayed 81 mg PO DAILY #100 tabs 06/25/25 release atorvastatin 20 mg tablet 20 mg PO BEDTIME #90 tabs chlordiazepoxide HCl 10 mg capsule 10 mg PO TID #9 cap s 06/25/25 clonidine HCl 0.1 mg tablet 0.1 mg PO BID #6 tabs 05/31 01/21 clopidogrel 75 mg tablet (Plavix) 75 mg PO DAILY #90 t abs 06/25/25 thiamine mononitrate (vit B1) 100 100 mg PO DAILY #100 tabs 06/25/25 mg tablet Allergies Allergy/AdvReac Type Severity Reaction Status Date / Time codeine Allergy Unknown VOMITING Verified 11/28/22 13:51 medroxyprogesterone Allergy Unknown MEDROXYPROGESTERONE Verified 11/28/22 13:51 MAKES HER CRAZY Review of Systems <Manuela Foster MD - Last Filed: 06/24/25 18:00> Review of Systems Narrative: Pertinent positive and negative findings as per HPI Patient History <Manuela Foster MD - Last Filed: 06/24/25 18:00> Medical History Occipital neuralgia Cervical spinal stenosis Ataxia Chronic headaches Hyporeflexia Supraclavicular fossa fullness Neck pain GI bleed Erosive esophagitis Esophageal varices Hypothyroid Back pain Hypertension Alcohol abuse Social History household members: spouse Smoking Status: Never smoker alcohol intake: current alcohol intake frequency: 3 or more drinks per day Alcohol type: wine Exam <Manuela Foster MD - Last Filed: 06/24/25 18:00> Narrative Exam Narrative: General: Chronically ill-appearing, somewhat slurred speech difficulty sitting upright HEENT: Moist mucous membranes, normal sclera with reactive pupils, tenderness with hematomas bilaterally occiput. Some bruising in the left temporal area Neck: No midline point tenderness Respiratory: Lungs are clear to auscultation, no wheezing no rales no rhonchi. Full and symmetrical air movement Cardiac: Regular rate and rhythm no murmurs no bruits Abdomen: Soft, nontender, no rebound or guarding, no flank pain Spine: No tenderness along the lumbar spine or with pelvic ring Skin: Warm and dry, Neurologic: Right facial droop, slightly slurred speech, difficulty with finger to finger-nose touch bilaterally. Extremities: No trauma, no lower extremity edema Psych: Cooperative, distractible with poor overall insight NIH Stroke Scale/Score (NIHSS) 06/23/2025 RESULT SUMMARY: 4 points NIH Stroke Scale INPUTS: 1A: Level of consciousness ?> 0 = Alert; keenly responsive 1B: Ask month and age ?> 0 = Both questions right 1C: 'Blink eyes' & 'squeeze hands' ?> 0 = Performs both tasks 2: Horizontal extraocular movements ?> 0 = Normal 3: Visual ames ?> 0 = No visual loss 4: Facial palsy ?> 1 = Minor paralysis (flat nasolabial fold, smile asymmetry) 5A: Left arm motor drift ?> 0 = No drift for 10 seconds 5B: Right arm motor drift ?> 0 = No drift for 10 seconds 6A: Left leg motor drift ?> 0 = No drift for 5 seconds 6B: Right leg motor drift ?> 0 = No drift for 5 seconds 7: Limb Ataxia ?> 2 = Ataxia in 2 Limbs 8: Sensation ?> 0 = Normal; no sensory loss 9: Language/aphasia ?> 0 = Normal; no aphasia 10: Dysarthria ?> 1 = Mild-moderate dysarthria: slurring but can be understood 11: Extinction/inattention ?> 0 = No abnormality Initial Vital Signs Initial Vital Signs: Vital Signs Pulse Rate 107 H 06/23/25 16:49 Respiratory Rate 21 06/23/25 16:49 Pulse Oximetry 96 06/23/25 16:49 <Yaneth Moreland MD - Last Filed: 06/25/25 10:58> Initial Vital Signs Initial Vital Signs: Vital Signs Pulse Rate 107 H 06/23/25 16:49 Respiratory Rate 21 06/23/25 16:49 Pulse Oximetry 96 06/23/25 16:49 Course <Manuela Foster MD - Last Filed: 06/24/25 18:00> Orders Ordered: Discontinued Medications Acetaminophen (Acetaminophen 650 Mg Supp) 650 mg NH NOW ONE Stop: 06/23/25 18:43 Last Admin: 06/23/25 18:58 Dose: Not Given Documented By: BS Acetaminophen (Acetaminophen 325 Mg Tablet) 650 mg PO Q6H PRN PRN Reason: Fever/Mild Pain (1-3) Last Admin: 06/24/25 21:35 Dose: 650 mg Documented By: Admin: 06/24/25 08:41 Dose: 650 mg Documented By: Admin: 06/23/25 21:40 Dose: 650 mg Documented By: AT Al Hydrox/Mg Hydrox/Simethicone (Mag Hydrox/Alum/Simeth 30 Ml Udc) 30 ml PO Q3HR PRN PRN Reason: Dyspepsia Last Admin: 06/24/25 14:41 Dose: 30 ml Documented By: NR Amlodipine Besylate (Amlodipine 5 Mg Tablet) 5 mg PO DAILY [facility] Last Admin: 06/25/25 08:53 Dose: 5 mg Documented By: Admin: 06/24/25 08:42 Dose: 5 mg Documented By: NR Aspirin (Aspirin Ec 325 Mg Tablet) 325 mg PO NOW ONE Stop: 06/23/25 19:25 Last Admin: 06/23/25 20:12 Dose: 325 mg Documented By: APRIL Aspirin (Aspirin Ec 81 Mg Tablet) 81 mg PO DAILY [facility] Last Admin: 06/25/25 08:52 Dose: 81 mg Documented By: Admin: 06/24/25 08:42 Dose: 81 mg Documented By: NR Chlordiazepoxide HCl (Chlordiazepoxide 10 Mg Capsule) 10 mg PO TID [facility] Last Admin: 06/24/25 13:09 Dose: 10 mg Documented By: NR Chlordiazepoxide HCl (Chlordiazepoxide 10 Mg Capsule) 10 mg PO TID [facility] Last Admin: 06/25/25 08:51 Dose: 10 mg Documented By: Admin: 06/24/25 21:22 Dose: 10 mg Documented By: CULLEN Clonidine HCl (Clonidine 0.1 Mg Tablet) 0.1 mg PO BID [facility] Last Admin: 06/25/25 08:52 Dose: 0.1 mg Documented By: Admin: 06/24/25 21:22 Dose: 0.1 mg Documented By: Admin: 06/24/25 13:08 Dose: 0.1 mg Documented By: NR Clopidogrel Bisulfate (Clopidogrel 75 Mg Tablet) 300 mg PO NOW ONE Stop: 06/25/25 07:36 Last Admin: 06/25/25 08:53 Dose: 300 mg Documented By: NR Docusate Sodium (Docusate 100 Mg Capsule) 100 mg PO BID [facility] Last Admin: 06/25/25 08:53 Dose: 100 mg Documented By: Admin: 06/24/25 21:22 Dose: 100 mg Documented By: NH Fentanyl (Fentanyl 100 Mcg/2 Ml Inj) 25 mcg IV Q1H PRN PRN Reason: Pain, Severe (7-10) Gabapentin (Gabapentin 300 Mg Capsule) 300 mg PO DAILY [facility] Last Admin: 06/25/25 08:52 Dose: 300 mg Documented By: Admin: 06/24/25 08:42 Dose: 300 mg Documented By: NR Heparin Sodium (Porcine) (Heparin 5,000 Unit/Ml Vial) 5,000 unit SUBCUT BID [facility] Last Admin: 06/25/25 08:55 Dose: 5,000 unit Documented By: Admin: 06/24/25 21:21 Dose: 5,000 unit Documented By: Admin: 06/24/25 15:03 Dose: 5,000 unit Documented By: NR Hydroxyzine HCl (Hydroxyzine Hcl 25 Mg Tablet) 50 mg PO TID PRN PRN Reason: Anxiety Sodium Chloride (Normal Saline 0.9%) 1,000 mls @ 100 mls/hr IV CONT CRYSTAL Last Infusion: 06/25/25 08:40 Dose: Infused Documented By: Admin: 06/24/25 21:27 Dose: 100 mls/hr Documented By: Infusion: 06/24/25 18:01 Dose: Infused Documented By: Infusion: 06/24/25 15:11 Dose: 100 mls/hr Documented By: Infusion: 06/24/25 12:24 Dose: 0 mls/hr Documented By: Admin: 06/24/25 05:14 Dose: 100 mls/hr Documented By: Infusion: 06/24/25 05:14 Dose: Infused Documented By: Admin: 06/23/25 20:12 Dose: 100 mls/hr Documented By: BS Lorazepam (Lorazepam 2 Mg/Ml Inj) 0 mg IV CIWAPRN PRN; Protocol PRN Reason: Alcohol Withdrawal Last Admin: 06/23/25 23:55 Dose: 1 mg Documented By: AT Lorazepam (Lorazepam 1 Mg Tablet) 0 mg PO CIWAPRN PRN; Protocol PRN Reason: Alcohol Withdrawal Losartan Potassium (Losartan 50 Mg Tablet) 50 mg PO DAILY [facility] Last Admin: 06/25/25 08:52 Dose: 50 mg Documented By: Admin: 06/24/25 08:42 Dose: 50 mg Documented By: NR Morphine Sulfate (Morphine 2 Mg/Ml Inj) 2 mg IV NOW ONE Stop: 06/23/25 18:58 Last Admin: 06/23/25 19:01 Dose: 2 mg Documented By: APRIL Multivitamins (Multivitamin 1 Tablet) 1 tab PO DAILY [facility] Last Admin: 06/25/25 08:52 Dose: 1 tab Documented By: Admin: 06/24/25 08:42 Dose: 1 tab Documented By: NR Naloxone HCl (Naloxone 0.4 Mg/Ml Vial) 0.2 mg IV Q2MIN PRN PRN Reason: Opiate Reversal Ondansetron HCl (Ondansetron 4 Mg/2 Ml Inj) 4 mg IV NOW ONE Stop: 06/23/25 17:48 Last Admin: 06/23/25 17:52 Dose: 4 mg Documented By: APRIL Ondansetron HCl (Ondansetron 4 Mg/2 Ml Inj) 4 mg IV Q8HR PRN PRN Reason: Nausea And Vomiting Ondansetron HCl (Ondansetron 4 Mg Odt) 4 mg PO QID PRN PRN Reason: NAUSEA/VOMITING Pantoprazole Sodium (Pantoprazole Dr 40 Mg Tablet) 40 mg PO BID [facility] Last Admin: 06/24/25 08:42 Dose: 40 mg Documented By: MARLEY Pantoprazole Sodium (Pantoprazole Dr 40 Mg Tablet) 40 mg PO 0700,2100 [facility] Last Admin: 06/25/25 06:09 Dose: 40 mg Documented By: Admin: 06/24/25 21:25 Dose: 40 mg Documented By: CULLEN Phenobarbital (Phenobarbital 65 Mg/Ml Vial) 30 mg IV Q8H [facility] Last Admin: 06/25/25 04:44 Dose: 30 mg Documented By: Admin: 06/24/25 21:21 Dose: 30 mg Documented By: Admin: 06/24/25 13:09 Dose: 30 mg Documented By: MARLEY Polyethylene Glycol (Polyethylene Glycol 3350 17 Gm Powd.Pack) 17 gm PO DAILY PRN PRN Reason: constipation Last Admin: 06/25/25 08:56 Dose: 17 gm Documented By: Admin: 06/24/25 16:13 Dose: 17 gm Documented By: MARLEY Sennosides (Sennosides 8.6 Mg Tablet) 8.6 mg PO BEDTIME [facility] Last Admin: 06/24/25 21:22 Dose: 8.6 mg Documented By: CULLEN Thiamine HCl (Thiamine 100 Mg Tablet) 100 mg PO DAILY [facility] Last Admin: 06/25/25 08:51 Dose: 100 mg Documented By: Admin: 06/24/25 13:09 Dose: 100 mg Documented By: NR Vital Signs Vital signs: Vital Signs - 8 hr 06/23/25 16:49 06/23/25 16:50 06/23/25 17:12 Pulse Rate 107 H 98 H 95 H Respiratory Rate 21 20 Blood Pressure 130/89 Pulse Oximetry 96 98 93 Oxygen Delivery Method Room Air 06/23/25 17:15 06/23/25 17:15 Pulse Rate 95 H Respiratory Rate 14 Blood Pressure 146/71 H Pulse Oximetry 96 Oxygen Delivery Method <Yaneth Moreland MD - Last Filed: 06/25/25 10:58> Orders Ordered: Discontinued Medications Acetaminophen (Acetaminophen 650 Mg Supp) 650 mg NH NOW ONE Stop: 06/23/25 18:43 Last Admin: 06/23/25 18:58 Dose: Not Given Documented By: BS Acetaminophen (Acetaminophen 325 Mg Tablet) 650 mg PO Q6H PRN PRN Reason: Fever/Mild Pain (1-3) Last Admin: 06/24/25 21:35 Dose: 650 mg Documented By: Admin: 06/24/25 08:41 Dose: 650 mg Documented By: Admin: 06/23/25 21:40 Dose: 650 mg Documented By: AT Al Hydrox/Mg Hydrox/Simethicone (Mag Hydrox/Alum/Simeth 30 Ml Udc) 30 ml PO Q3HR PRN PRN Reason: Dyspepsia Last Admin: 06/24/25 14:41 Dose: 30 ml Documented By: NR Amlodipine Besylate (Amlodipine 5 Mg Tablet) 5 mg PO DAILY [facility] Last Admin: 06/25/25 08:53 Dose: 5 mg Documented By: Admin: 06/24/25 08:42 Dose: 5 mg Documented By: NR Aspirin (Aspirin Ec 325 Mg Tablet) 325 mg PO NOW ONE Stop: 06/23/25 19:25 Last Admin: 06/23/25 20:12 Dose: 325 mg Documented By: BS Aspirin (Aspirin Ec 81 Mg Tablet) 81 mg PO DAILY [facility] Last Admin: 06/25/25 08:52 Dose: 81 mg Documented By: Admin: 06/24/25 08:42 Dose: 81 mg Documented By: NR Chlordiazepoxide HCl (Chlordiazepoxide 10 Mg Capsule) 10 mg PO TID [facility] Last Admin: 06/24/25 13:09 Dose: 10 mg Documented By: NR Chlordiazepoxide HCl (Chlordiazepoxide 10 Mg Capsule) 10 mg PO TID [facility] Last Admin: 06/25/25 08:51 Dose: 10 mg Documented By: Admin: 06/24/25 21:22 Dose: 10 mg Documented By: NH Clonidine HCl (Clonidine 0.1 Mg Tablet) 0.1 mg PO BID [facility] Last Admin: 06/25/25 08:52 Dose: 0.1 mg Documented By: Admin: 06/24/25 21:22 Dose: 0.1 mg Documented By: Admin: 06/24/25 13:08 Dose: 0.1 mg Documented By: NR Clopidogrel Bisulfate (Clopidogrel 75 Mg Tablet) 300 mg PO NOW ONE Stop: 06/25/25 07:36 Last Admin: 06/25/25 08:53 Dose: 300 mg Documented By: NR Docusate Sodium (Docusate 100 Mg Capsule) 100 mg PO BID [facility] Last Admin: 06/25/25 08:53 Dose: 100 mg Documented By: Admin: 06/24/25 21:22 Dose: 100 mg Documented By: NH Fentanyl (Fentanyl 100 Mcg/2 Ml Inj) 25 mcg IV Q1H PRN PRN Reason: Pain, Severe (7-10) Gabapentin (Gabapentin 300 Mg Capsule) 300 mg PO DAILY [facility] Last Admin: 06/25/25 08:52 Dose: 300 mg Documented By: Admin: 06/24/25 08:42 Dose: 300 mg Documented By: NR Heparin Sodium (Porcine) (Heparin 5,000 Unit/Ml Vial) 5,000 unit SUBCUT BID [facility] Last Admin: 06/25/25 08:55 Dose: 5,000 unit Documented By: Admin: 06/24/25 21:21 Dose: 5,000 unit Documented By: Admin: 06/24/25 15:03 Dose: 5,000 unit Documented By: NR Hydroxyzine HCl (Hydroxyzine Hcl 25 Mg Tablet) 50 mg PO TID PRN PRN Reason: Anxiety Sodium Chloride (Normal Saline 0.9%) 1,000 mls @ 100 mls/hr IV CONT [facility] Last Infusion: 06/25/25 08:40 Dose: Infused Documented By: Admin: 06/24/25 21:27 Dose: 100 mls/hr Documented By: Infusion: 06/24/25 18:01 Dose: Infused Documented By: Infusion: 06/24/25 15:11 Dose: 100 mls/hr Documented By: Infusion: 06/24/25 12:24 Dose: 0 mls/hr Documented By: Admin: 06/24/25 05:14 Dose: 100 mls/hr Documented By: Infusion: 06/24/25 05:14 Dose: Infused Documented By: Admin: 06/23/25 20:12 Dose: 100 mls/hr Documented By: APRIL Lorazepam (Lorazepam 2 Mg/Ml Inj) 0 mg IV CIWAPRN PRN; Protocol PRN Reason: Alcohol Withdrawal Last Admin: 06/23/25 23:55 Dose: 1 mg Documented By: AT Lorazepam (Lorazepam 1 Mg Tablet) 0 mg PO CIWAPRN PRN; Protocol PRN Reason: Alcohol Withdrawal Losartan Potassium (Losartan 50 Mg Tablet) 50 mg PO DAILY [facility] Last Admin: 06/25/25 08:52 Dose: 50 mg Documented By: Admin: 06/24/25 08:42 Dose: 50 mg Documented By: MARLEY Morphine Sulfate (Morphine 2 Mg/Ml Inj) 2 mg IV NOW ONE Stop: 06/23/25 18:58 Last Admin: 06/23/25 19:01 Dose: 2 mg Documented By: APRIL Multivitamins (Multivitamin 1 Tablet) 1 tab PO DAILY [facility] Last Admin: 06/25/25 08:52 Dose: 1 tab Documented By: Admin: 06/24/25 08:42 Dose: 1 tab Documented By: MARLEY Naloxone HCl (Naloxone 0.4 Mg/Ml Vial) 0.2 mg IV Q2MIN PRN PRN Reason: Opiate Reversal Ondansetron HCl (Ondansetron 4 Mg/2 Ml Inj) 4 mg IV NOW ONE Stop: 06/23/25 17:48 Last Admin: 06/23/25 17:52 Dose: 4 mg Documented By: APRIL Ondansetron HCl (Ondansetron 4 Mg/2 Ml Inj) 4 mg IV Q8HR PRN PRN Reason: Nausea And Vomiting Ondansetron HCl (Ondansetron 4 Mg Odt) 4 mg PO QID PRN PRN Reason: NAUSEA/VOMITING Pantoprazole Sodium (Pantoprazole Dr 40 Mg Tablet) 40 mg PO BID [facility] Last Admin: 06/24/25 08:42 Dose: 40 mg Documented By: NR Pantoprazole Sodium (Pantoprazole Dr 40 Mg Tablet) 40 mg PO 0700,2100 [facility] Last Admin: 06/25/25 06:09 Dose: 40 mg Documented By: Admin: 06/24/25 21:25 Dose: 40 mg Documented By: NH Phenobarbital (Phenobarbital 65 Mg/Ml Vial) 30 mg IV Q8H [facility] Last Admin: 06/25/25 04:44 Dose: 30 mg Documented By: Admin: 06/24/25 21:21 Dose: 30 mg Documented By: Admin: 06/24/25 13:09 Dose: 30 mg Documented By: NR Polyethylene Glycol (Polyethylene Glycol 3350 17 Gm Powd.Pack) 17 gm PO DAILY PRN PRN Reason: constipation Last Admin: 06/25/25 08:56 Dose: 17 gm Documented By: Admin: 06/24/25 16:13 Dose: 17 gm Documented By: NR Sennosides (Sennosides 8.6 Mg Tablet) 8.6 mg PO BEDTIME [facility] Last Admin: 06/24/25 21:22 Dose: 8.6 mg Documented By: NH Thiamine HCl (Thiamine 100 Mg Tablet) 100 mg PO DAILY [facility] Last Admin: 06/25/25 08:51 Dose: 100 mg Documented By: Admin: 06/24/25 13:09 Dose: 100 mg Documented By: NR Vital Signs Vital signs: Vital Signs - 8 hr 06/23/25 16:49 06/23/25 16:50 06/23/25 17:12 Pulse Rate 107 H 98 H 95 H Respiratory Rate 21 20 Blood Pressure 130/89 Pulse Oximetry 96 98 93 Oxygen Delivery Method Room Air 06/23/25 17:15 06/23/25 17:15 Pulse Rate 95 H Respiratory Rate 14 Blood Pressure 146/71 H Pulse Oximetry 96 Oxygen Delivery Method Medical Decision Making <Manuela Foster MD - Last Filed: 06/24/25 18:00> Lab Data 06/24/25 05:19 06/24/25 05:19 Labs: Lab Results 06/23/25 06/23/25 06/23/25 Range/Units 16:48 17:08 17:22 WBC 4.2 L (4.5-11.0) X10^3/uL RBC 4.01 (4.0-5.2) X10^6/uL Hgb 13.8 (12.0-16.0) g/dL Hct 39.9 (36-46) % MCV 99.5 (80-100) fL MCH 34.5 H (26-34) PG MCHC 34.7 (30-36) % RDW 15.4 H (11.6-14.8) % Plt Count 276 (150-400) X10^3/uL Neut % (Auto) 70.6 (50-75) % Lymph % (Auto) 16.8 L (25-40) % [place] % (Auto) 10.3 (3-14) % Eos % (Auto) 1.6 L (2-4) % Baso % (Auto) 0.7 (0-2) % Neut # (Auto) 3000 (9360-3240) /uL Lymph # (Auto) 700 L (0929-6060) /uL [place] # (Auto) 400 (0-900) /uL Eos # (Auto) 100 (0-450) /uL Baso # (Auto) 0 (0-100) /uL PT 9.6 (9.4-12.5) SECONDS INR 0.8 L (0.9-1.3) APTT 30 (25.1-36.5) SECONDS Sodium 135 L (137-145) mmol/L Potassium 4.4 (3.4-5.1) mmol/L Chloride 99 (98-107) mmol/L Carbon Dioxide 22 (22-32) mmol/L BUN 11 (7-17) mg/dL Creatinine 0.60 (0.52-1.04) mg/dL Estimated GFR > 60 (>60) mL/min BUN/Creatinine Ratio 18.3 (6-22) Glucose 110 H (70-99) mg/dL POC Whole Bld Glucose 129 H (70-99) mg/dL Calcium 9.2 (8.4-10.2) mg/dL Total Bilirubin 0.3 (0.2-1.3) mg/dL AST 39 H (14-36) IU/L ALT 31 (<35) IU/L Alkaline Phosphatase 71 (38-126) U/L Total Creatine Kinase 102 (30-135) U/L Troponin I < 0.012 (0.01-0.034) ng/mL Total Protein 8.3 H (6.3-8.2) g/dL Albumin 4.8 (3.5-5.0) g/dL Globulin 3.5 (1.7-4.1) g/dL Albumin/Globulin Ratio 1.4 (1.0-2.8) Urine Color Yellow Urine Appearance Cloudy Urine pH 6.0 (4.5-8.0) Ur Specific [place] 1.010 (1.000-1.035) Urine Protein Negative (Negative) Urine Glucose (UA) Negative (Negative) g/dL Urine Ketones Negative (NEGATIVE) Urine Occult Blood Trace-intact (Negative) Urine Nitrate Negative (Negative) Urine Bilirubin Negative (NEGATIVE) Urine Urobilinogen 0.2 (0.2) E.U./dL Ur Leukocyte Esterase Trace H (NEGATIVE) Urine RBC 0-1/hpf (0-5/HPF) Urine WBC 0-1/hpf (0-5/HPF) Ur Squamous Epith Cells 0-1 /hpf (0-5/HPF) Urine Bacteria Few (2-10) H (None) Ur Culture Indicated? Specimen cultured Vol Urine Centrifuged 10ml (spun) Ethyl Alcohol 239 H (<10) mg/dL Point of Care Testing Glucose POC 129 Point of care testing: Point of Care Testing Glucose POC [address] scan - head: Radiologist's Impression: PROCEDURE: CT ANGIO HEAD AND NECK INDICATIONS: stroke TECHNIQUE: After the administration of intravenous contrast, 1 mm thick sections acquired from the aortic arch through the [place] of [place]. 3-dimensional orwdzvg-ywmevfsge-srswjcgvre (MIP) and/or volume rendering reformats were acquired of the central intracranial vasculature and neck separately. For radiation dose reduction, the following was used: automated exposure control, adjustment of mA and/or kV according to patient size. COMPARISON: [facility], CT, CT ANGIO HEAD AND NECK, 05/18/2025, 15:59. [facility], CT, CT STROKE, 06/23/2025, 16:54. [facility], CT, CT CERVICAL SPINE WO CON, 06/23/2025, 16:54. [facility], MR, MR BRAIN WITHOUT CONTRAST, 05/19/2025, 8:05. FINDINGS: Image quality: Limited by bolus timing, with venous contamination. There is artifact associated with the metallic dental work. Cerebral CT Angiogram: Internal carotid arteries: No acute findings. Intracranial ICA are patent with no significant stenosis. No occlusion. No aneurysm. Anterior cerebral arteries: Unremarkable. No significant stenosis. No occlusion. No aneurysm. Middle cerebral arteries: Unremarkable. No significant stenosis. No occlusion. No aneurysm. Posterior cerebral arteries: There is a prominent right posterior communicating artery seen, with an accompanying diminutive right P1 segment. This is attributed to a type origin of the right posterior cerebral artery, which is considered to be a normal developmental variant of typically no clinical consequence. The flow within the posterior cerebral arteries is normal and symmetric. No aneurysms are seen. Basilar artery: Unremarkable. No significant stenosis. No occlusion. No aneurysm. Vertebral arteries: Unremarkable as visualized. Dural venous sinuses: Unremarkable given phase of enhancement. Other: Arterial phase appearance of the brain parenchyma is unremarkable. Neck CT Angiogram: Internal carotid arteries: Age-appropriate atherosclerotic irregularity and calcification can be seen of the carotid bifurcations. No significant stenosis. No dissection or occlusion. Common carotid arteries: Unremarkable. No significant stenosis. No dissection or occlusion. External carotid arteries: Unremarkable. No occlusion. Vertebral arteries: The origins of the vertebral arteries both appear widely patent. The more superior extracranial portions of both vertebral arteries also demonstrate normal courses and calibers. The right vertebral artery is dominant to the left. Aortic Arch and Mediastinum: Partially visualized aortic arch unremarkable without evidence of aneurysm. Origins of the great vessels unremarkable. Other: Arterial phase soft tissues of the neck and chest are unremarkable. Moderate cervical spine degenerative change can be seen. IMPRESSION: No significant intracranial arterial abnormality is seen. No significant abnormality is seen within the arteries of the neck. Additional findings: [id number] developmental anomalies. Moderate cervical spine degenerative change Any quantitative measurements of stenosis were performed using NASCET criteria. Dictated by: Jag Hines M.D. on 06/23/2025 at 16:46 CT angiogram head and neck: Radiologist's Impression: PROCEDURE: CT STROKE INDICATIONS: stroke TECHNIQUE: Noncontrast 4.5 mm thick angled axial sections acquired from the foramen magnum to the vertex, with coronal reformats. For radiation dose reduction, the following was used: automated exposure control, adjustment of mA and/or kV according to patient size. COMPARISON: None. FINDINGS: Image quality: Diagnostic. CSF spaces: Basal cisterns are patent. No extra-axial fluid collections. Ventricles are normal in size and shape. Brain: No midline shift. No intracranial mass effect or hemorrhage. Gonsales- white matter interface is normal. Skull and face: Calvarium and visualized facial bones are intact, without suspicious lesions. Sinuses: Visualized sinuses and mastoids are clear. IMPRESSION: No acute intracranial pathology. Findings were discussed with ordering ED provider by Dr. Chan at 5:10 p.m on 06/23/2025 This study fulfills neurological imaging criteria for inclusion or exclusion of acute stroke therapies based on available published neurological imaging guidelines. Approved by: Shaunna Neil M.D.,Ph.D. on 06/23/2025 at 17:11 MDM Narrative Medical decision making narrative: CC: Falls, possible stroke, last known well noon Complicating co-morbidities: Alcohol use disorder, right posterior frontal white matter infarct mid April cared for at [facility], multiple falls Data collected from: patient, Medical records reviewed: Please see HPI for summary of recent admission to [facility] with subacute stroke at that time Differential considered: Extension of recent stroke, new stroke, intracranial hemorrhage, subarachnoid hemorrhage subdural hemorrhage, acute intoxication with contusion Exam documented above, pertinent findings include: Patient is somewhat slurred has difficulty sitting upright distractible, complaining of head pain, NIH score is 4. This is as much consistent with acute alcohol intoxication as it is with stroke. Lab Test results independently reviewed as above. Pertinent findings: CBC is unremarkable Chemistries are reassuring Troponin is not elevated Alcohol level is 239 Independently reviewed EKG: Sinus rhythm at a rate of 95 acute ischemic changes Imaging studies independently reviewed: Cervical spine is unremarkable CT scan of the brain shows no acute findings CT angiogram of the head and neck shows no acute abnormalities Consultations: Treatments: zofran Re-evaluations: Discussion: <Yaneth Moreland MD - Last Filed: 06/25/25 10:58> Lab Data Labs: Lab Results 06/23/25 06/23/25 06/23/25 Range/Units 16:48 17:08 17:22 WBC 4.2 L (4.5-11.0) X10^3/uL RBC 4.01 (4.0-5.2) X10^6/uL Hgb 13.8 (12.0-16.0) g/dL Hct 39.9 (36-46) % MCV 99.5 (80-100) fL MCH 34.5 H (26-34) PG MCHC 34.7 (30-36) % RDW 15.4 H (11.6-14.8) % Plt Count 276 (150-400) X10^3/uL Neut % (Auto) 70.6 (50-75) % Lymph % (Auto) 16.8 L (25-40) % [place] % (Auto) 10.3 (3-14) % Eos % (Auto) 1.6 L (2-4) % Baso % (Auto) 0.7 (0-2) % Neut # (Auto) 3000 (9751-7890) /uL Lymph # (Auto) 700 L (4748-5600) /uL [place] # (Auto) 400 (0-900) /uL Eos # (Auto) 100 (0-450) /uL Baso # (Auto) 0 (0-100) /uL PT 9.6 (9.4-12.5) SECONDS INR 0.8 L (0.9-1.3) APTT 30 (25.1-36.5) SECONDS Sodium 135 L (137-145) mmol/L Potassium 4.4 (3.4-5.1) mmol/L Chloride 99 (98-107) mmol/L Carbon Dioxide 22 (22-32) mmol/L BUN 11 (7-17) mg/dL Creatinine 0.60 (0.52-1.04) mg/dL Estimated GFR > 60 (>60) mL/min BUN/Creatinine Ratio 18.3 (6-22) Glucose 110 H (70-99) mg/dL POC Whole Bld Glucose 129 H (70-99) mg/dL Calcium 9.2 (8.4-10.2) mg/dL Total Bilirubin 0.3 (0.2-1.3) mg/dL AST 39 H (14-36) IU/L ALT 31 (<35) IU/L Alkaline Phosphatase 71 (38-126) U/L Total Creatine Kinase 102 (30-135) U/L Troponin I < 0.012 (0.01-0.034) ng/mL Total Protein 8.3 H (6.3-8.2) g/dL Albumin 4.8 (3.5-5.0) g/dL Globulin 3.5 (1.7-4.1) g/dL Albumin/Globulin Ratio 1.4 (1.0-2.8) Urine Color Yellow Urine Appearance Cloudy Urine pH 6.0 (4.5-8.0) Ur Specific [place] 1.010 (1.000-1.035) Urine Protein Negative (Negative) Urine Glucose (UA) Negative (Negative) g/dL Urine Ketones Negative (NEGATIVE) Urine Occult Blood Trace-intact (Negative) Urine Nitrate Negative (Negative) Urine Bilirubin Negative (NEGATIVE) Urine Urobilinogen 0.2 (0.2) E.U./dL Ur Leukocyte Esterase Trace H (NEGATIVE) Urine RBC 0-1/hpf (0-5/HPF) Urine WBC 0-1/hpf (0-5/HPF) Ur Squamous Epith Cells 0-1 /hpf (0-5/HPF) Urine Bacteria Few (2-10) H (None) Ur Culture Indicated? Specimen cultured Vol Urine Centrifuged 10ml (spun) Ethyl Alcohol 239 H (<10) mg/dL Point of Care Testing Glucose POC 129 Point of care testing: Point of Care Testing Glucose POC 129 MDM Narrative Medical decision making narrative: Patient is signed out to me [facility] I reviewed EMR to include today's documentation, labs, and imaging provided. Patient was re- evaluated at 18:06 NIH 2 for low facial droop. At that time, Dr. Fan continued to manage patient and admitted her to hospitalist for MRI. Yaneth Moreland MD Discharge Plan Departure Patient Disposition: Admitted As Inpatient Clinical Impression: Fall, Alcohol abuse, Facial droop, History of cardioembolic cerebrovascular accident (CVA) Admit Date/Time: 06/23/25 19:41 Admit Provider: Jordan Mckeon
--- NOTE | 2025-06-23 16:51 | DI.CT.S_ITS ---
PROCEDURE: CT CERVICAL SPINE WO CON INDICATIONS: fall TECHNIQUE: Noncontrast 3 mm thick sections acquired from the skull base to the T4 level. Sagittal and coronal reformats were then constructed. For radiation dose reduction, the following was used: automated exposure control, adjustment of mA and/or kV according to patient size. COMPARISON: [facility], CT, CT CERVICAL SPINE WO CON, 08/19/2022, 17:14. FINDINGS: Image quality: Diagnostic. Bones: No fractures or dislocations. Visualized superior ribs are intact. Multilevel degenerative changes. Soft tissues: Prevertebral soft tissues are normal in thickness. No paravertebral hematomas. No apical pneumothoraces. IMPRESSION: No displaced fracture or traumatic subluxation. Approved by: Shaunna Neil M.D.,Ph.D. on 06/23/2025 at 18:12
[2025-06-23 17:18] LABS: Add Manual Diff / Slide Review NO; Hematocrit 39.9 % (36-46); Hemoglobin 13.8 g/dL (12.0-16.0); Lymphocytes Absolute Auto 700 /uL (1100-4500); Mean Corpuscular HGB Conc 34.7 % (30-36); Mean Corpuscular Hemoglobin 34.5 PG (26-34); Mean Corpuscular Volume 99.5 fL (80-100); Platelet Count 276 X10^3/uL (150-400)
[2025-06-23 17:26] LABS: INR 0.8 (0.9-1.3); Prothrombin Time 9.6 SECONDS (9.4-12.5)
[2025-06-23 17:29] LABS: PTT Partial Thromboplastin Tim 30 SECONDS (25.1-36.5)
[2025-06-23 17:30] LABS: Alanine Aminotransferase 31 IU/L (<35); Albumin 4.8 g/dL (3.5-5.0); Albumin Globulin Ratio 1.4 (1.0-2.8); Alkaline Phosphatase 71 U/L (38-126); Blood Urea Nitrogen 11 mg/dL (7-17); Calcium 9.2 mg/dL (8.4-10.2); Carbon Dioxide 22 mmol/L (22-32); Chloride 99 mmol/L (98-107); Creatine Kinase 102 U/L (30-135); Estimated Glomerular Filt Rate > 60 mL/min (>60); Ethanol (ETOH) 239 mg/dL (<10); Globulin 3.5 g/dL (1.7-4.1); Glucose 110 mg/dL (70-99); HEMOLYSIS 16 (0-50); Potassium 4.4 mmol/L (3.4-5.1); Sodium 135 mmol/L (137-145); Total Protein 8.3 g/dL (6.3-8.2)
[2025-06-23 17:33] LABS: Appearance Urine UA CLOUDY; Bilirubin Urine UA NEGATIVE (NEGATIVE); Color Urine UA YELLOW; Glucose Urine UA NEGATIVE (Negative); Ketones Urine UA NEGATIVE (NEGATIVE); Leukocyte Esterase Urine UA TRACE (NEGATIVE); Nitrite Urine UA NEGATIVE (Negative); Occult Blood Urine UA TRACE-INTACT (Negative); Protein Urine UA NEGATIVE (Negative); Specific Gravity Urine UA 1.010 (1.000-1.035); Urobilinogen Urine UA 0.2 E.U./dL (0.2); pH Urine UA 6.0 (4.5-8.0)
--- NOTE | 2025-06-23 17:39 | EKG_ITS ---
[facility] [address], [place] [address] Test Date: 2025-06-23 Pat Name: Kaylie Melgar Department: 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
[2025-06-23 17:41] LABS: Troponin I < 0.012 ng/mL (0.01-0.034)
[2025-06-23] MEDS: ONDANSETRON 4 MG/2 ML INJ IV (17:52)
[2025-06-23 18:03] LABS: Culture Indicated Urine Specimen Cultured
[2025-06-23] MEDS: MORPHINE 2 MG/ML INJ IV (19:01)
[2025-06-23] MEDS: ASPIRIN EC 325 MG TABLET PO (20:12)
[2025-06-23] MEDS: SODIUM CHLORIDE 0.9% 1,000 ML 100 ML IV (20:12)
[2025-06-23] MEDS: ACETAMINOPHEN 325 MG TABLET 650 MG PO (21:40)
[2025-06-24] VITALS (8 sets, daily range): BP systolic 111–157; BP diastolic 61–88; PULSE 63–105; RESP 14–20; TEMP 35.8–36.9; O2SAT 93–99
[2025-06-24] MEDS: SODIUM CHLORIDE 0.9% 1,000 ML 100 ML IV ×2 (05:14→21:27)
[2025-06-24 05:35] LABS: Add Manual Diff / Slide Review NO; Hematocrit 37.7 % (36-46); Hemoglobin 12.9 g/dL (12.0-16.0); Lymphocytes Absolute Auto 700 /uL (1100-4500); Mean Corpuscular HGB Conc 34.1 % (30-36); Mean Corpuscular Hemoglobin 33.9 PG (26-34); Mean Corpuscular Volume 99.4 fL (80-100); Platelet Count 242 X10^3/uL (150-400)
[2025-06-24 05:44] LABS: Alanine Aminotransferase 25 IU/L (<35); Albumin 4.0 g/dL (3.5-5.0); Albumin Globulin Ratio 1.3 (1.0-2.8); Alkaline Phosphatase 81 U/L (38-126); Blood Urea Nitrogen 9 mg/dL (7-17); Calcium 8.4 mg/dL (8.4-10.2); Carbon Dioxide 23 mmol/L (22-32); Chloride 102 mmol/L (98-107); Estimated Glomerular Filt Rate > 60 mL/min (>60); Globulin 3.1 g/dL (1.7-4.1); Glucose 95 mg/dL (70-99); HEMOLYSIS < 15 (0-50); Potassium 3.9 mmol/L (3.4-5.1); Sodium 132 mmol/L (137-145); Total Protein 7.1 g/dL (6.3-8.2)
--- NOTE | 2025-06-24 05:46 | PM.HP.1 ---
History of Present Illness History of Present Illness Date Patient Seen: 06/23/25 Time Patient Seen: 23:23 Chief complaint: fall, facial drooping, head injury Narrative: 65-year-old female with past medical history of alcohol abuse, prior stroke with no reported residual deficit, hypertension, neuropathy, hypothyroidism and GERD presents with right facial drooping. Per the patient's 's report, the patient has been consuming alcohol today. The patient states that she does drink 1 bottle of white wine daily. Today while walking down the hallway the patient fell backward and then the patient's noticed that she has some slight right facial droop. In the past when the patient gets drunk she sometimes has a right facial droop per the patient's report. Recently the patient was admitted and discharged on May 23, 2025 at [facility] for a stroke. The patient was discharged home on dual antiplatelet aspirin and Plavix through June 08. Currently the patient has been on aspirin. At that time the patient had a subacute right posterior frontal white matter infarct. Otherwise the patient denies any focal weakness, confusion, slurred speech, or changes in vision. In our ER the patient was hemodynamically stable. CT without contrast of the brain and CT angio head and neck shows no acute finding. Patient facial drooping did improve. Patient alcohol level was elevated. WBC 4.2 sodium 135 UA is negative. The rest of the labs were relatively benign. Due to recent stroke and reported right facial droop ER physician wants to be in admitted under observation and obtain brain MRI in the morning. PFSH Medical History Occipital neuralgia Cervical spinal stenosis Ataxia Chronic headaches Hyporeflexia Supraclavicular fossa fullness Neck pain GI bleed Erosive esophagitis Esophageal varices Hypothyroid Back pain Hypertension Alcohol abuse Social History household members: spouse Smoking Status: Never smoker alcohol intake: current Meds Home Medications and Allergies Home Medications ?Medication ?Instructions ?Recorded ?Confirmed ?Type amlodipine 5 mg tablet 5 mg PO DAILY 08/19/22 06/23/25 History hydroxyzine HCl 50 mg tablet 50 mg PO TID PRN Anxiety 08/19/22 06/23/25 History ondansetron 4 mg disintegrating 4 mg PO TID-QID PRN nausea and 10/01/22 06/23/25 Rx tablet vomiting 15 days #30 tabs pantoprazole 40 mg tablet,delayed 40 mg PO BID #60 tabs 10/01/22 06/23/25 Rx release (Protonix) gabapentin 300 mg capsule 300 mg PO DAILY 10/30/22 06/23/25 History losartan 50 mg tablet 50 mg PO DAILY 10/30/22 06/23/25 History scopolamine base 1 mg over 3 days 1 patch transdermal Q3D PRN motion 10/30/22 06/23/25 History transdermal patch sickness Allergies Allergy/AdvReac Type Severity Reaction Status Date / Time codeine Allergy Unknown VOMITING Verified 11/28/22 13:51 medroxyprogesterone Allergy Unknown MEDROXYPROGESTERONE Verified 11/28/22 13:51 MAKES HER CRAZY Review of Systems Review of Systems ROS: Yes All systems reviewed with the patient and are negative except as otherwise documented Exam Vital Signs (past 8 hours): - 06/24/25 00:00 06/24/25 00:15 06/24/25 05:00 Temperature 97.4 F L 96.8 F L Pulse Rate 105 H 83 78 Respiratory Rate 20 16 16 Blood Pressure 157/88 H 157/83 H Pulse Oximetry 98 93 Oxygen Flow Rate 0 0 Oxygen Delivery Method Room Air Oxygen Flow Rate 0 Narrative Exam Narrative: Physical Exam: GENERAL: The patient is not in any acute distressed. Awake and alert. HEENT: Nonicteric sclerae, PERRLA, EOMI. Oropharynx clear. Moist mucous membranes. Conjunctivae appear well perfused. HEART: Regular rate and rhythm without murmurs. No lower extremities edema. LUNGS: Clear to auscultation bilaterally. No wheezing, crackles or rhonchi ABDOMEN: Soft, positive bowel sounds, nontender. SKIN: No rash, no excessive bruising, petechiae, or purpura. NEUROLOGIC: AxO x 3. Cranial nerves II-XII intact without motor/sensory deficit. Objective Labs 06/23/25 17:08 06/23/25 17:08 Labs: Laboratory Results - last 24 hr 06/23/25 06/23/25 06/23/25 16:48 17:08 17:22 WBC 4.2 L RBC 4.01 Hgb 13.8 Hct 39.9 MCV 99.5 MCH 34.5 H MCHC 34.7 RDW 15.4 H Plt Count 276 Neut % (Auto) 70.6 Lymph % (Auto) 16.8 L [place] % (Auto) 10.3 Eos % (Auto) 1.6 L Baso % (Auto) 0.7 Neut # (Auto) 3000 Lymph # (Auto) 700 L [place] # (Auto) 400 Eos # (Auto) 100 Baso # (Auto) 0 PT 9.6 INR 0.8 L APTT 30 Sodium 135 L Potassium 4.4 Chloride 99 Carbon Dioxide 22 BUN 11 Creatinine 0.60 Estimated GFR > 60 BUN/Creatinine Ratio 18.3 Glucose 110 H POC Whole Bld Glucose 129 H Calcium 9.2 Total Bilirubin 0.3 AST 39 H ALT 31 Alkaline Phosphatase 71 Total Creatine Kinase 102 Troponin I < 0.012 Total Protein 8.3 H Albumin 4.8 Globulin 3.5 Albumin/Globulin Ratio 1.4 Urine Color Yellow Urine Appearance Cloudy Urine pH 6.0 Ur Specific [place] 1.010 Urine Protein Negative Urine Glucose (UA) Negative Urine Ketones Negative Urine Occult Blood Trace-intact Urine Nitrate Negative Urine Bilirubin Negative Urine Urobilinogen 0.2 Ur Leukocyte Esterase Trace H Urine RBC 0-1/hpf Urine WBC 0-1/hpf Ur Squamous Epith Cells 0-1 /hpf Urine Bacteria Few (2-10) H Ur Culture Indicated? Specimen cultured Vol Urine Centrifuged 10ml (spun) Ethyl Alcohol 239 H Assessment & Plan Assessment & Plan narrative: Reported right facial droop with recent stroke. Admit the patient to medical telemetry under observation. Will continue PT OT and ST. Monitor neurostatus overnight. Obtain brain MRI in the morning. Continue aspirin for now. Patient for right facial drooping now completely resolved. Questionable related to patient being drunk. Alcohol abuse. Patient alcohol level was in the 200s. Will place patient on CIWA protocol with IV fluid. Monitor for withdrawal. Hypertension. Monitor blood pressure and resume home medication accordingly. Hypothyroidism. Resume home Synthroid. GERD. Resume home PPI. DVT prophylaxis SCD generalized pain Status full code. Disposition likely home in 1-2 days - As the provider of this telehealth evaluation, requested by the patient's evaluating physician, I attest that I introduced myself to the patient, provided my credentials and determined that telemedicine via a real-time, 2 way interactive audio and video platform is an appropriate and effective means of providing this service. - I reviewed the patient's chart and had a discussion with the member of the patient's treatment team. - The patient and I mutually agreed with continuation of this evaluation via telemedicine. The patient consented for the telemedicine evaluation. - This virtual encounter was taken place from [place] by Dr. Jordan Mckeon. The patient was evaluated at [facility]. The encounter was approximately 35 minutes. The nurse was present during the entire time of the encounter and was able assists with the stethoscope to listen to the patients. Time-Based Coding :: [TOTAL MINUTES] spent with patient and on the chart (including review of chart, obtaining history, exam, reviewing outside data, placing orders, documenting exam and treatment plan, and counseling patient) on [DATE]. Quality VTE Deep Vein Thrombosis/Pulmonary Embolism Present on Admission: No
--- NOTE | 2025-06-24 06:45 | DI.MRI.S_ITS ---
PROCEDURE: MR HEAD/BRAIN WO CON INDICATIONS: fell TECHNIQUE: Non-contrast axial T1 spin echo, axial T2 fast spin echo, sagittal and axial FLAIR, coronal T2 fast spin echo, axial gradient echo, axial diffusion and ADC through the brain. COMPARISON: [facility], MR, MR BRAIN WITHOUT CONTRAST, 05/19/2025, 8:05. [facility], CT, CT STROKE, 06/23/2025, 16:54. [facility], MR, MR HEAD/BRAIN WO CON, 10/11/2022, 16:59. FINDINGS: Image quality: Excellent. CSF spaces: Ventricles appear symmetric in size and shape. Basal cisterns are patent. No extra-axial fluid collections. Brain: No intracranial bleeds or mass effects. There is cerebral volume loss for age. There are moderate periventricular and deep white matter chronic small vessel ischemic changes. Brainstem appears normal. Diffusion-weighted images demonstrated tiny acute infarct involving the body of the right caudate. Reference axial image 15 of diffusion sequence 6. Chronic left thalamic infarct with hemosiderin deposition. Normal intravascular flow voids are present. Skull and face: Calvarial bone marrow is normal in signal. Orbits are normal. Sinuses: Sinuses and mastoids are clear. IMPRESSION: 1. Tiny acute lacunar infarction involving the body of the right caudate. 2. Old left thalamic infarct with hemosiderin deposition. 3. Age-related volume loss and moderate small vessel ischemic change. Dictated by: Edi Zayas M.D. on 06/24/2025 at 7:53 Approved by: Edi Zayas M.D. on 06/24/2025 at 7:56
[2025-06-24] MEDS: ACETAMINOPHEN 325 MG TABLET 650 MG PO ×2 (08:41→21:35)
[2025-06-24] MEDS: MULTIVITAMIN 1 TABLET 1 TAB PO (08:42)
[2025-06-24] MEDS: ASPIRIN EC 81 MG TABLET PO (08:42)
[2025-06-24] MEDS: PANTOPRAZOLE DR 40 MG TABLET PO ×2 (08:42→21:25)
[2025-06-24] MEDS: LOSARTAN 50 MG TABLET PO (08:42)
[2025-06-24] MEDS: GABAPENTIN 300 MG CAPSULE PO (08:42)
--- NOTE | 2025-06-24 09:32 | OT.IP.EVAL ---
Past Medical History (Last Reviewed 06/23/25 @ 18:41 by Manuela Foster MD) Alcohol abuse Ataxia Back pain Cervical spinal stenosis Chronic headaches Erosive esophagitis Esophageal varices GI bleed Hypertension Hyporeflexia Hypothyroid Neck pain Occipital neuralgia Supraclavicular fossa fullness Occupational Therapy Inpatient Evaluation/Re-Eval M1 OT IP Prior Functional Status Start: 06/24/25 09:11 Freq: Status: Active Protocol: Document 06/24/25 08:45 KAYY (Rec: 06/24/25 09:32 [facility] Medical Review Prior Functional Status Medical History Yes Reviewed Communication Pt is able to make her needs known. Mobility and Gait Pt amb without AD. Pt states she goes up and down the stairs sideways holding on to the railing with both hands. Activities of Daily Pt was I with all BADL and IADL. Living and IADL's Social History Household Members spouse Living Arrangements House Number of Floors ( 3 or More Floors Floors) Number of Stairs To Pt reports ~13 steps per flight with rail; 2 steps to Enter/Railing? enter house with B rails Home Environment High Toilet,Walk in Shower M2 OT-IP Current Condition Start: 06/24/25 09:11 Freq: Status: Active Protocol: Document 06/24/25 08:45 KAYY (Rec: 06/24/25 09:32 LIZZIEAKEMILIE [facility]) Occupational Therapy Current Condition Current Condition Evaluation Date 06/24/25 Treatment Diagnosis ETOH abuse, CVA Diagnosis Onset Date 06/23/25 M3 OT- IP Subjective and Pain Start: 06/24/25 09:11 Freq: Status: Active Protocol: Document 06/24/25 08:45 KAYY (Rec: 06/24/25 09:32 [facility] OT- Subjective Occupational Therapy Visit Type Type Initial Evaluation Visit Start Time 08:45 Visit Stop Time 09:05 Occupational Therapy Visit Comments Patient Comments Pt reclined in bed on entrance of OT. Pt was agreeable to participating in OT eval. At end of eval, pt states I just need to rest my head . Pt says she will think about HH on dc. Patient/Caregiver To rest Goals OT Pain Assessment Pain When Pain Assessed After Treatment Pain Present Pain Present Pain Reported Location Head Intensity 7 Scale Used Numeric (0 - 10) M4 OT- IP ADL's Start: 06/24/25 09:11 Freq: Status: Active Protocol: Document 06/24/25 08:45 KAYY (Rec: 06/24/25 09:32 [facility] OT DGT-Qdui-Ascheto Comments OT Self-Feeding not a meal time Comments OT ADL-Grooming General Evaluation Grooming Ability Standby Assistance Comments OT Grooming Comments Pt able to manage hygiene sink side with S OT ADL-Oral Care General Eval Oral Care Ability Standby Assistance Comments Oral Care Comments Pt able to gather supplies from around sink with S OT ADL-Dressing General Eval Lower Body Dressing Independent Ability Areas Needing Socks Assistance Comments OT Dressing Comments Pt donned/doffed socks I while EOB. OT ADL-Toileting General Evaluation Toileting Ability Standby Assistance Comments OT Toileting Pt manages clothing and hygiene with S Comments OT ADL-Bathing Comments OT Bathing Comments not observed M5 OT- IP IADL's Start: 06/24/25 09:11 Freq: Status: Active Protocol: Document 06/24/25 08:45 KAYY (Rec: 06/24/25 09:32 [facility]) OT-Instrumental Activities of Daily Living Deficits IADL Deficits No Deficits Identified Home Safety Awareness Awareness of Need Decreased Awareness for Assistance at Home Home Safety Comments Pt amb with shortened gait and is somewhat unsteady. Pt expresses concern for amb up and down her stairs, but pt does not want therapy on dc. OT explains the benefits and purpose and the safety concerns. Medication Management Medication Pt may benefit from assist from spouse. Management Comments Money Management Money Management Pt may benefit from assist from spouse. Comments Meal Preparation Meal Preparation Pt may benefit from assist from spouse. 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 Comments Driving Driving Comments Pt may benefit from assist from spouse. M6 OT- IP Functional Cognition Start: 06/24/25 09:11 Freq: Status: Active Protocol: Document 06/24/25 08:45 KAYY (Rec: 06/24/25 09:32 [facility]) Cognitive Factors Limiting Selfcare Function Cognitive Ability Level of Alertness Alert Patient Orientation Name,Month,Date,Year,Place,Situation Attention Span Capable of Focused Attention,Capable of Sustained Ability Attention Ability to Follow Able to Follow One Step Commands,Able to Follow Multi- Commands Step Commands Memory Description Short Term Impaired Safety Awareness Underestimates Need for Assistance Cognitive Comments Cognitive Assessment When asked about circumstances surrounding fall pt Comments states I don't know, I don't remember. OT- Vision and Hearing OT- Hearing Assessment OT- Hearing WFL Assessment OT- Vision Assessment Visual Acuity WFL,Glasses For Reading Visual Attentiveness WFL Occular Pursuits WFL Visual Convergence WFL Visual [place] WFL Diplopia Absent M7 OT- IP Mobility and Balance Start: 06/24/25 09:11 Freq: Status: Active Protocol: Document 06/24/25 08:45 [facility] (Rec: 06/24/25 09:32 [facility]) OT- Bed Mobility Assessment Supine to Sit Supine to Sit Assist Independent Sit to Supine Sit to Supine Assist Independent Scooting Scooting to Edge of Independent Bed OT-Transfer Assessment Sit to and From Stand Sit to and from Standby Assistance Stand Transfers Transfer Ability Standby Assistance Technique Transfer Destination Bed,Toilet Transfer Technique Stand Step Pivot Devices Transfer Assistive Gait Belt,Front Wheeled Walker Devices OT- Gait Assessment Gait Gait Assistance Standby Assistance Required: Distance (Feet) 20 Assistive Devices Assistive Device Gait Belt,Front Wheeled Walker Comments Gait Ability Pt amb throughout room for BADLs. Pt amb with decreased Comments stride length and foot clearance. OT- Balance Assessment Sitting Balance and Reactions Static Sitting Normal Balance Ability Dynamic Sitting Good Balance Ability Standing Balance and Reactions Static Standing Good Balance Ability Dynamic Standing Fair Balance Ability M8 OT- IP Objective Assessments Start: 06/24/25 09:11 Freq: Status: Active Protocol: Document 06/24/25 08:45 [facility] (Rec: 06/24/25 09:32 [facility] OT Gross Range of Motion Upper Extremity Range of Motion Assessment Bilaterally Impaired ROM Impairments B shoulders ~120; R hand/wrist/forearm limited due to previous sx and plate placement mostly WFL OT Strength Upper Extremity Strength Assessment Bilaterally Impaired Shoulder B 4- Elbow R 3+, L 4- Hand 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 Pt reports 3-5th digits and palm are tingly pt can discriminate touch Edema Edema Absent M9 OT- IP Assessment and Plan Start: 06/24/25 09:11 Freq: Status: Active Protocol: Document 06/24/25 08:45 LIZZIEKOBE (Rec: 06/24/25 09:32 LIZZIEALBINOEMILIE [employer]) OT Summary Assessment and Plan Potential Analytic Complexity Low at Evaluation Summary OT Impairments Range of Motion,Strength,Sensation Progress Towards Safe For Discharge Goals Assessment Summary Pt is a 65 yo F who has a hx of ETOH abuse. Pt was amb in her home when she fell backwards and hit her head. Pts spouse noted R facial droop. Pt was hospitalized at [facility] from May 18- with evidence of CVA per chart review. On presentation to ED, pts CT was - and MRI showed acute lacunar infarct. Pts BP on eval 158/82 and HR 112. Pt lives with spouse in a 3 level home, but reports that main level living is possible. Pt with good/normal visual assessment, BADLs are at or near baseline, UE strength has limitations but baseline per pt (pt reports deficits related to previous injuries), and pt S to I with functional mobility. Pt is functioning at or near baseline for skilled OT services and does not require OT at this time. Pt expresses concern about managing stairs at home and may benefit from HH PT vs outpt PT on dc. See PT eval for referral recommendations. Frequency of Treatment Frequency Of Discharge Treatment Discharge Recommendations OT Discharge Home Health,Outpatient PT Recommendations Other Discharge HH vs outpt PT (see PT eval for specific Recommendations recommendations) Home Equipment Needs shower chair, grab bars in shower Transportation Needs Private Vehicle at Discharge
--- NOTE | 2025-06-24 11:09 | CM.DPC ---
DCP Cont. Reviewed EMR and team rounds for pt's medical status and updates. [facility]- accepts, however pt now wants to send a referral to [facility] in [facility]. Sent referral, this is the last try. [facility] declines due to pt no longer has any skillable needs. Pending response from [facility]. Pt understands that she will need to pay for her own transportation up there.
--- NOTE | 2025-06-24 11:19 | PT.IIE ---
Medical History (Last Reviewed 06/23/25 @ 18:41 by Manuela Foster MD) Alcohol abuse Ataxia Back pain Cervical spinal stenosis Chronic headaches Erosive esophagitis Esophageal varices GI bleed Hypertension Hyporeflexia Hypothyroid Neck pain Occipital neuralgia Supraclavicular fossa fullness Physical Therapy Inpatient Evaluation/Re-Eval M1 PT IP Prior Functional Status Start: 06/24/25 11:10 Freq: NEEDED Status: Active Protocol: Document 06/24/25 10:45 MB (Rec: 06/24/25 11:19 MB Desktop) Medical Review Prior Functional Status Medical History Yes Reviewed Communication Pt is able to make her needs known. Mobility and Gait Pt amb without AD. Pt states she goes up and down the stairs sideways holding on to the railing with both hands. Activities of Daily Pt was I with all BADL and IADL. Living and IADL's Social History Household Members spouse Living Arrangements House Number of Floors ( 3 or More Floors Floors) Number of Stairs To Pt reports ~13 steps per flight with rail; 2 steps to Enter/Railing? enter house with B rails Home Environment High Toilet,Walk in Shower M2 PT-IP Current Condition Start: 06/24/25 11:10 Freq: NEEDED Status: Active Protocol: Document 06/24/25 10:45 MB (Rec: 06/24/25 11:19 MB Desktop) Physical Therapy Current Condition Current Condition Evaluation Date 06/24/25 Treatment Diagnosis Acute CVA/ETOH M3 PT-IP Subjective Start: 06/24/25 11:10 Freq: NEEDED Status: Active Protocol: Document 06/24/25 10:45 MB (Rec: 06/24/25 11:19 MB Desktop) Subjective Physical Therapy Visit Type Type Initial Evaluation Visit Start Time 10:45 Visit Stop Time 11:09 Number of RADIO STATION ENGINEER Visits 0 Physical Therapy Visit Comments Patient Comments Pt is agreeable to PT assessment, she and asking about what the MRI showed. Therapy Pain Assessment Pain When Pain Assessed During Mobility Pain Present Pain Present Pain Reported Location Head Scale Used Not rated M4 PT-IP Mobility and Gait Start: 06/24/25 11:10 Freq: NEEDED Status: Active Protocol: Document 06/24/25 10:45 MB (Rec: 06/24/25 11:19 MB Desktop) PT-Bed Mobility Assessment Rolling Type of Rolling Roll to Right,Roll to Left Supine to Sit Supine to Sit Independent Sit to Supine Sit to Supine Independent Scooting Scooting to Edge of Independent Bed Scooting Up and Down Independent in Bed PT-Transfer Assessment Sit to and From Stand Sit to and from Standby Assistance,1 Person Assistance,Use of Upper Stand Extremities Equipment Transfer Assistive Gait Belt Device Orthotic/Prosthetic No Devices or Brace: Transfers Transfer Destination Bed Transfer Ability Level of Assist Standby Assistance Comments Mobility Comments Orthostatic assessment with BP and HR in LUE: supine 162/86, 91; standing 136/81, 112; standing 1' 158/90, 103. Pt reports she is a little light-headed after gait Gait Assessment Gait Gait Assistance Standby Assistance Required: Distance (Feet) 100 Assistive Devices Assistive Device Gait Belt Orthotic/Prosthetic No Devices or Brace: Gait Deviations General Gait Pattern Ataxic Factors Limiting Gait Function Factors Limiting Poor Balance,Poor Safety Awareness Gait Function Comments Gait Comments 100'x2 and cues for arm swing d/t pt tends to keep arms at her side Stair Climbing Assessment Evaluation Level of Assist On Standby Assistance Stairs Devices Stair Climbing Left Railing Assistive Devices Technique/Endurance Stair Climbing Ascend and Descend Direction Stair Climbing Step to Step Technique Number of Steps 3 Climbed Query Text: Stair Climbing Set # 2 Repetitions (reps) Comments Stair Climbing Both hands on left rail ascend and both hands on the Comments same rail for descend PT-Balance Assessment Sitting Balance and Reactions Static Sitting Good Balance Ability Dynamic Sitting Good Balance Ability Standing Balance and Reactions Static Standing Fair Balance Ability Dynamic Standing Fair Balance Ability M5 PT-IP Objective Assessments Start: 06/24/25 11:10 Freq: NEEDED Status: Active Protocol: Document 06/24/25 10:45 MB (Rec: 06/24/25 11:19 MB Desktop) Orientation Orientation/Cognition Level of Alertness Alert Orientation Name,Age,Birthday,Month,Date,Year,Place Language Function No Deficits Noted Ability Safety Awareness Decreased Safety Awareness Memory Description No Deficits Noted Gross Range of Motion Upper Extremity ROM Impairments Defer to OT Lower Extremity ROM Assessment Within Functional Limits Strength Lower Extremity Strength Assessment Within Functional Limits Coordination Assessment Gross Coordination Gross Coordination Impaired Assessment Finger to Nose Test Minimal Impairment Sensation Assessment Comments Sensation Comments NT Muscle Tone Muscle Tone WNL Yes M6 PT-IP Treatment Start: 06/24/25 11:10 Freq: NEEDED Status: Active Protocol: Document 06/24/25 10:45 MB (Rec: 06/24/25 11:19 MB Desktop) Physical Therapy Treatment Education Education Provided Safety M7 PT-IP Assessment and Plan Start: 06/24/25 11:10 Freq: NEEDED Status: Active Protocol: Document 06/24/25 10:45 MB (Rec: 06/24/25 11:19 MB Desktop) PT Summary Assessment and Plan Potential Rehabilitation Poor Potential Status of Condition Unstable at Evaluation Summary Assessment Summary Pt us a 65 y/o female adm with ETOH and tiny acute lacunar infarct right caudate. She is SBA for mobility and states that she does not want to learn LRAD to increase balance and safety at home. She and refuse HHPT and state that she had an OPPT referral previously and pt was not compliant with going through with it. Pt presents with hypertension and she is orthostatic with getting up. Ed pt to perform slow transitional movements at home. Updated hospitalist with findings. No further acute PT needs. Pt will con't to be a high risk for falls given orthostasis, ETOH, decreased receptiveness to safety/AD training. Frequency of Treatment Frequency Of Discharge Treatment Precautions Other Precautions Fall risk, orthostatic Recommendations To Nursing Amount of Assist Standby Assistance,1 Person Assist Needed Discharge Recommendations PT Discharge Home with 20/01 Assist Available Recommendations Transportation Needs Private Vehicle at Discharge
--- NOTE | 2025-06-24 12:24 | CM.DANOTE ---
Initial DCP Assessment Visit Note Reviewed EMR and team rounds for pt's medical status and updates. Met with pt and spouse at bedside to introduce self and role, pt was found to be alert/oriented, and able to participate in d/c planning assessment of needs. Pt lives independently at baseline with her spouse in their own home here in [place]. Her spouse will transport her home at d/c, likely later today. No CM d/c assistance needs are identified at this time. Payor: Medicare PCP: Maria Del Carmentracey Lalaory Pt is a 65 year-old F who presented to the ED after having drank an unknown amount of alcohol-pt's spouse shared that she drinks about a bottle of wine per day-and fell backwards hitting her head on the ground. When they got her up off of the floor, she had a noticable R-sided facial droop. Pt did have a stroke on 05/18/24, and was hospitalized at [facility] from 05/18-05/23/25. Her spouse did also share that she gets a facial droop every time she's been drinking too much. In the ED, they noted that her overall presentation was more like acute intoxication vs. stroke. Plan was made to admit to OBS for monitoring and a brain MRI in the am, which happened today. Per Hospitalist, she will stay 1-more day in order to get a bubble study ECHO. Discharge Planning/Care Management CM Discharge Assessment Start: 06/23/25 20:32 Freq: Status: Active Protocol: Document 06/24/25 12:21 DPL (Rec: 06/24/25 12:24 DPL [id number]) Discharge Planning Assessment Assigned Discharge ROSARIO Castellon Funeral Sales Manager Provider Maria Del Carmen Colin Insurance Medicare Advance Directives? No History Provided By Patient,Significant Other,Medical Record Has Patient been No admitted in last 30 days? Prior Living House Arrangements Household Members spouse Type of Drives own vehicle transporation used prior to admit Independent with ADL Yes 's Is patient alert and Yes oriented? Caregiver for No Another Comment N/A Comment No identified home d/c needs at this time. Barriers to No Discharge Discharge Plan Home Transportation Likely family Arrangement Referrals Initiated None needed Whiteboard Updated Yes in Patient Room with name and ext. # of Monument Setter Helper Review Status In Process Please Provide Date 06/24/25 Initial DC Assessment Was Performed
--- NOTE | 2025-06-24 12:40 | DI.ECHO.S_ITS ---
[facility] : : [address] : : [place] : : [id number] : : Phone: [phone] Echocardiogram Report + + :Name: TERRY SHAW Study Date: 06/24/2025 Height: 64 in : :[facility] ReadingLocation: Weight: 130 lb : : Gender: Female BSA: 1.6 m2 : :: 1960 Age: 65 yrs BP: 146/75 mmHg: :Reason For Study: Stroke : :Ordering Physician: SADIQ, : :LITO Performed By: Cleveland Perez : :Referring: LITO BABCOCK : + + Interpretation Summary Normal biventricular size and systolic function. LVH is noted. LVEF is 65 to 70%. Normal atrial sizes. No significant valvular dysfunction is noted. Other findings as below. Procedure: A two-dimensional transthoracic echocardiogram with color flow and Doppler was performed. The study quality was technically adequate. A saline contrast injection was performed to assess for cardiac shunting. Comparison is made with the echocardiogram of 05/19/2025. The heart rate ranged between 80-88 bpm during the study. Left Ventricle: The left ventricle is normal in size. Left ventricular wall thickness is mildly increased. Left ventricular systolic function is normal. The ejection fraction is estimated to be 65-70%. There are no focal wall motion abnormalities. Grade I diastolic dysfunction with normal left atrial pressure. Right Ventricle: The right ventricle is normal in size and function. Atria: The left atrial size is normal. Right atrial size is normal. Doppler interrogation and injection of saline echo contrast shows no evidence for an interatrial shunt. Bubble study was captured on image frame(s) # [id number]. Bubble study performed per protocol, negative study documented with no bubbles seen in the left atrium or left ventricle. Mitral Valve: There is mild mitral annular calcification. The mitral valve leaflets appear to open well. There is no mitral valve stenosis. There is trace mitral regurgitation. Aortic Valve: The aortic valve is trileaflet. The aortic valve opens well. There is mild aortic valve sclerosis. There is no aortic valve stenosis. No aortic regurgitation is present. Tricuspid Valve: The tricuspid valve is not well visualized, but is grossly normal. There is trace tricuspid regurgitation. Pulmonary artery pressures cannot be estimated because of the lack of a measurable TR jet velocity but the IVC suggests a CVP of around 3 mmHg. Pulmonic Valve: The pulmonic valve is not well seen, but is grossly normal. There is trace pulmonic regurgitation. Great Vessels: The aortic root is normal size. The ascending aorta is normal in size. The aortic arch could not be visualized. The pulmonary is not well visualized. The IVC is of normal diameter and collapses greater than 50% with a sniff. This suggests a low right atrial pressure of 3 mm Hg. Pericardium/ Pleura There is no pericardial effusion. MMode/2D Measurements & Calculations LVIDd: 3.7 cm LVOT diam: 2.0 cm LVIDs: 2.3 cm Ao root diam: 2.9 cm FS: 37.2 % asc Aorta Diam: 3.3 cm IVSd: 1.2 cm LVPWd: 1.2 cm LV reis. diameter/BSA (cm/m^2): 2.3 LV sys. diameter/BSA (cm/m^2): 1.4 LA A2 area: 16.0 cm2 RA long axis: 4.7 cm LA A4 area: 15.9 cm2 RA area: 12.0 cm2 LA length (vol): 5.2 cm RA vol: 25.9 ml LA vol: 41.9 ml RA : 15.9 ml/m2 LA vol index: 25.7 ml/m2 IVC diam: 1.7 cm RVD1 (basal): 2.7 cm RVD2 (mid): 2.5 cm TAPSE: 2.0 cm Doppler Measurements & Calculations Ao V2 max: 184.6 cm/sec LVOT Max Glen: 120.6 cm/sec Ao V2 mean: 117.6 cm/sec LV V1 max P.8 mmHg Ao max P.6 mmHg LV V1 VTI: 18.3 cm Ao mean P.6 mmHg ANUEL(I,D): 1.9 cm2 Ao V2 VTI: 29.5 cm ANUEL(V,D): 2.0 cm2 sev ratio: 0.62 ANUEL indexed to BSA (cm^2/m^2): 1.2 MV E max glen: 79.3 cm/sec PA V2 max: 120.8 cm/sec MV A max glen: 97.6 cm/sec PA V2 mean: 87.6 cm/sec MV E/A: 0.81 PA mean P.4 mmHg Med Peak E' Glen: 6.5 cm/sec PA pr(Accel): 46.9 mmHg E/E' med: 12.3 Lat Peak E' Glen: 8.1 cm/sec E/E' lat: 9.8 E/e' average: 11.0 MV dec time: 0.23 sec SV(LVOT): 56.2 ml Reading Physician:03:28 PM
--- NOTE | 2025-06-24 12:41 | P.HP_ITS ---
History of Present Illness History of Present Illness Date Patient Seen: 06/24/25 Time Patient Seen: 12:41 Chief complaint: fall, facial drooping, head injury Narrative: Chief complaint: Facial droop with fall blunt head injury and caudate nucleus stroke History of present illness: 06/23: (per nocturnal hospitalist) 5-year-old female with past medical history of alcohol abuse, prior stroke with no reported residual deficit, hypertension, neuropathy, hypothyroidism and GERD presents with right facial drooping. Per the patient's 's report, the patient has been consuming alcohol today. The patient states that she does drink 1 bottle of white wine daily. Today while walking down the hallway the patient fell backward and then the patient's noticed that she has some slight right facial droop. In the past when the patient gets drunk she sometimes has a right facial droop per the patient's report. Recently the patient was admitted and discharged on May 23, 2025 at [facility] for a stroke. The patient was discharged home on dual antiplatelet aspirin and Plavix through June 08. Currently the patient has been on aspirin. At that time the patient had a subacute right posterior frontal white matter infarct. Otherwise the patient denies any focal weakness, confusion, slurred speech, or changes in vision. In our ER the patient was hemodynamically stable. CT without contrast of the brain and CT angio head and neck shows no acute finding. Patient facial drooping did improve. Patient alcohol level was elevated. WBC 4.2 sodium 135 UA is negative. The rest of the labs were relatively benign. Due to recent stroke and reported right facial droop ER physician wants to be in admitted under observation and obtain brain MRI in the morning. Hospital course: 06/24: Patient is still having facial droop reports of headache or any signs of withdrawal at this time MRI demonstrates tiny lacunar infarction involving the body of the right caudate in addition to old left thalamic infarct Patient continued on dual antiplatelet therapy echocardiogram with bubble study was ordered which will be performed the next day and patient placed on prophylaxis against withdrawal with low-dose Librium phenobarbital and clonidine with thiamine supplementation Review of systems: No fever or chills rigors No chest pain palpitations shortness for breath No nausea vomiting diarrhea constipation No tremors visual hallucinations No formication No paresis Physical examination: Elderly female in no acute distress Slight left facial droop and asymmetry with smiling No labored respirations No abdominal distention Extremities no edema No tremor No focal abnormalities neurologically other than facial asymmetry NIH is 0 Assessment and plan: Recurrent lacunar CVA involving the right caudate in addition to an old thalamic infarct. * Resume dual antiplatelet therapy (had stopped Plavix 16 days ago) * Echocardiogram with bubble study to evaluate for possible cardiogenic source * High-dose statin * Permissive hypertension Alcohol use disorder with history of alcohol withdrawal: * Prophylaxis with * Librium 10 mg t.i.d. * Phenobarbital 30 mg t.i.d. * Clonidine 0.1 mg b.i.d. * Thiamine 100 mg daily DVT prophylaxis: * Subcutaneous heparin Code status: * Full code blue Disposition: * Inpatient likely discharge tomorrow after echocardiogram on withdrawal prophylaxis * Pursue detoxification and rehab * Given 12 step recovery resources Time based billing: * 55 minutes were involved in evaluation of this patient including [id number] evaluation discussion with patient and review of previous records review of objective laboratory EKG and imaging findings including direct visualization of EKG and imaging and discussion with care team [facility] Medical History Occipital neuralgia Cervical spinal stenosis Ataxia Chronic headaches Hyporeflexia Supraclavicular fossa fullness Neck pain GI bleed Erosive esophagitis Esophageal varices Hypothyroid Back pain Hypertension Alcohol abuse Social History household members: spouse Smoking Status: Never smoker alcohol intake: current Meds Home Medications and Allergies Home Medications ?Medication ?Instructions ?Recorded ?Confirmed ?Type amlodipine 5 mg tablet 5 mg PO DAILY 08/19/2206/23 History hydroxyzine HCl 50 mg tablet 50 mg PO TID PRN Anxiety 08/19/22 06/23/25 History ondansetron 4 mg disintegrating 4 mg PO TID-QID PRN na usea and 10/01/22 06/23/25 Rx tablet vomiting 15 days #30 tabs pantoprazole 40 mg tablet,delayed 40 mg PO BID #60 tab s 10/01/22 06/23/25 Rx release (Protonix) gabapentin 300 mg capsule 300 mg PO DAILY 10/30/22 History losartan 50 mg tablet 50 mg PO DAILY 10/30/2205/31 History scopolamine base 1 mg over 3 days 1 patch transdermal Q3D PRN motion 10/30/22 06/23/25 History transdermal patch sickness Allergies Allergy/AdvReac Type Severity Reaction Status Date / Time codeine Allergy Unknown VOMITING Verified 11/28/22 13:51 medroxyprogesterone Allergy Unknown MEDROXYPROGESTERONE Verified 11/28/22 13:51 MAKES HER CRAZY Exam Vital Signs (past 8 hours): - 06/24/25 05:00 06/24/25 08:49 06/24/25 12:06 Temperature 96.8 F L 96.9 F L 98.4 F Pulse Rate 78 75 93 H Respiratory Rate 16 14 14 Blood Pressure 157/83 H 150/88 H 146/75 H Pulse Oximetry 93 99 97 Oxygen Flow Rate 0 0 0 Oxygen Delivery Method Room Air Oxygen Flow Rate 0 Objective Labs 06/24/25 05:19 06/24/25 05:19 Labs: Laboratory Results - last 24 hr 06/23/25 06/23/25 06/23/25 16:48 17:08 17:22 WBC 4.2 L RBC 4.01 Hgb 13.8 Hct 39.9 MCV 99.5 MCH 34.5 H MCHC 34.7 RDW 15.4 H Plt Count 276 Neut % (Auto) 70.6 Lymph % (Auto) 16.8 L Braxton % (Auto) 10.3 Eos % (Auto) 1.6 L Baso % (Auto) 0.7 Neut # (Auto) 3000 Lymph # (Auto) 700 L Braxton # (Auto) 400 Eos # (Auto) 100 Baso # (Auto) 0 PT 9.6 INR 0.8 L APTT 30 Sodium 135 L Potassium 4.4 Chloride 99 Carbon Dioxide 22 BUN 11 Creatinine 0.60 Estimated GFR > 60 BUN/Creatinine Ratio 18.3 Glucose 110 H POC Whole Bld Glucose 129 H Calcium 9.2 Total Bilirubin 0.3 AST 39 H ALT 31 Alkaline Phosphatase 71 Total Creatine Kinase 102 Troponin I < 0.012 Total Protein 8.3 H Albumin 4.8 Globulin 3.5 Albumin/Globulin Ratio 1.4 Urine Color Yellow Urine Appearance Cloudy Urine pH 6.0 Ur Specific Hosford 1.010 Urine Protein Negative Urine Glucose (UA) Negative Urine Ketones Negative Urine Occult Blood Trace-intact Urine Nitrate Negative Urine Bilirubin Negative Urine Urobilinogen 0.2 Ur Leukocyte Esterase Trace H Urine RBC 0-1/hpf Urine WBC 0-1/hpf Ur Squamous Epith Cells 0-1 /hpf Urine Bacteria Few (2-10) H Ur Culture Indicated? Specimen cultured Vol Urine Centrifuged 10ml (spun) Ethyl Alcohol 239 H 06/24/25 05:19 WBC 4.7 RBC 3.80 L Hgb 12.9 Hct 37.7 MCV 99.4 MCH 33.9 MCHC 34.1 RDW 15.1 H Plt Count 242 Neut % (Auto) 67.5 Lymph % (Auto) 13.9 L Braxton % (Auto) 14.6 H Eos % (Auto) 3.2 Baso % (Auto) 0.8 Neut # (Auto) 3200 Lymph # (Auto) 700 L Braxton # (Auto) 700 Eos # (Auto) 100 Baso # (Auto) 0 PT INR APTT Sodium 132 L Potassium 3.9 Chloride 102 Carbon Dioxide 23 BUN 9 Creatinine 0.48 L Estimated GFR > 60 BUN/Creatinine Ratio 18.8 Glucose 95 POC Whole Bld Glucose Calcium 8.4 Total Bilirubin 0.9 AST 33 ALT 25 Alkaline Phosphatase 81 Total Creatine Kinase Troponin I Total Protein 7.1 Albumin 4.0 Globulin 3.1 Albumin/Globulin Ratio 1.3 Urine Color Urine Appearance Urine pH Ur Specific Hosford Urine Protein Urine Glucose (UA) Urine Ketones Urine Occult Blood Urine Nitrate Urine Bilirubin Urine Urobilinogen Ur Leukocyte Esterase Urine RBC Urine WBC Ur Squamous Epith Cells Urine Bacteria Ur Culture Indicated? Vol Urine Centrifuged Ethyl Alcohol Assessment & Plan Time-Based Coding :: [TOTAL MINUTES] spent with patient and on the chart (including review of chart, obtaining history, exam, reviewing outside data, placing orders, documenting exam and treatment plan, and counseling patient) on [DATE]. Quality VTE Deep Vein Thrombosis/Pulmonary Embolism Present on Admission: No
[2025-06-24] MEDS: THIAMINE 100 MG TABLET PO (13:09)
[2025-06-24] MEDS: MAG HYDROX/ALUM/SIMETH 30 ML UDC PO (14:41)
[2025-06-24] MEDS: HEPARIN 5,000 UNIT/ML VIAL 5000 UNIT SUBCUT ×2 (15:03→21:21)
[2025-06-24] MEDS: SENNOSIDES 8.6 MG TABLET PO (21:22)
[2025-06-24] MEDS: DOCUSATE 100 MG CAPSULE PO (21:22)
[2025-06-25] VITALS: BP 94/57; PULSE 58; RESP 16; TEMP 36.1; O2SAT 99
[2025-06-25 04:00] VITALS: BP 121/66; PULSE 61; RESP 16; TEMP 36; O2SAT 98
[2025-06-25] MEDS: PANTOPRAZOLE DR 40 MG TABLET PO (06:09)
[2025-06-25 08:00] VITALS: BP 131/111; PULSE 64; RESP 16; TEMP 35.9; O2SAT 93
[2025-06-25] MEDS: THIAMINE 100 MG TABLET PO (08:51)
[2025-06-25 08:52] VITALS: BP 131/111; PULSE 64
[2025-06-25] MEDS: ASPIRIN EC 81 MG TABLET PO (08:52)
[2025-06-25] MEDS: MULTIVITAMIN 1 TABLET 1 TAB PO (08:52)
[2025-06-25] MEDS: GABAPENTIN 300 MG CAPSULE PO (08:52)
[2025-06-25] MEDS: LOSARTAN 50 MG TABLET PO (08:52)
[2025-06-25] MEDS: DOCUSATE 100 MG CAPSULE PO (08:53)
[2025-06-25] MEDS: CLOPIDOGREL 75 MG TABLET 300 MG PO (08:53)
[2025-06-25] MEDS: HEPARIN 5,000 UNIT/ML VIAL 5000 UNIT SUBCUT (08:55)
--- NOTE | 2025-06-25 09:54 | PC.NURSE ---
0952: discharge instructions given and understood by pt and family. PIV removed. Tele removed. Pt belongings with pt. Pt transported to private vehicle via wheelchair by PCT.
--- NOTE | 2025-06-27 13:46 | P.DS_ITS ---
History of Present Illness History of Present Illness Date Patient Seen: 06/25/25 Chief complaint: fall, facial drooping, head injury Narrative: Chief complaint: Facial droop with fall blunt head injury and caudate nucleus stroke History of present illness: 06/23: (per nocturnal hospitalist) 5-year-old female with past medical history of alcohol abuse, prior stroke with no reported residual deficit, hypertension, neuropathy, hypothyroidism and GERD presents with right facial drooping. Per the patient's 's report, the patient has been consuming alcohol today. The patient states that she does drink 1 bottle of white wine daily. Today while walking down the hallway the patient fell backward and then the patient's noticed that she has some slight right facial droop. In the past when the patient gets drunk she sometimes has a right facial droop per the patient's report. Recently the patient was admitted and discharged on May 23, 2025 at [facility] for a stroke. The patient was discharged home on dual antiplatelet aspirin and Plavix through June 08. Currently the patient has been on aspirin. At that time the patient had a subacute right posterior frontal white matter infarct. Otherwise the patient denies any focal weakness, confusion, slurred speech, or changes in vision. In our ER the patient was hemodynamically stable. CT without contrast of the brain and CT angio head and neck shows no acute finding. Patient facial drooping did improve. Patient alcohol level was elevated. WBC 4.2 sodium 135 UA is negative. The rest of the labs were relatively benign. Due to recent stroke and reported right facial droop ER physician wants to be in admitted under observation and obtain brain MRI in the morning. Hospital course: 06/24: Patient is still having facial droop reports of headache or any signs of withdrawal at this time MRI demonstrates tiny lacunar infarction involving the body of the right caudate in addition to old left thalamic infarct Patient continued on dual antiplatelet therapy echocardiogram with bubble study was ordered which will be performed the next day and patient placed on prophylaxis against withdrawal with low-dose Librium phenobarbital and clonidine with thiamine supplementation 06/25: Patient did have a lacunar infarct on MRI discussed dual antiplatelet therapy was discharged home on low-dose Librium and low-dose clonidine for prophylaxis against alcohol withdrawal patient was also given information regarding local meetings for 12 step recovery discharged home in stable condition Review of systems: No fever or chills rigors No chest pain palpitations shortness for breath No nausea vomiting diarrhea constipation No tremors visual hallucinations No formication No paresis Physical examination: Elderly female in no acute distress Slight left facial droop and asymmetry with smiling No labored respirations No abdominal distention Extremities no edema No tremor No focal abnormalities neurologically other than facial asymmetry NIH is 0 Assessment and plan: Recurrent lacunar CVA involving the right caudate in addition to an old thalamic infarct. * Resume dual antiplatelet therapy (had stopped Plavix 16 days ago) * Echocardiogram with bubble study to evaluate for possible cardiogenic source negative * High-dose statin * Permissive hypertension Alcohol use disorder with history of alcohol withdrawal: * Prophylaxis with * Librium 10 mg t.i.d. * Clonidine 0.1 mg b.i.d. * Thiamine 100 mg daily DVT prophylaxis: * Subcutaneous heparin Code status: * Full code blue Disposition: * Time based billing: * 35 minutes were involved in evaluation of this patient including [id number] evaluation discussion with patient and review of previous records review of objective laboratory EKG and imaging findings including direct visualization of EKG and imaging and discussion with care team Discharge Providers Provider Date of admission: 06/24/25 13:02 Discharge Date: 06/25/25 Primary care physician: Maria Del Carmen Devine PA-C Consults: 06/23/25 19:26 Consult to Occupational Therapy Evaluate & Treat Comment: Physician Instructions: Evaluate and treat Consult to Physical Therapy Evaluate & Treat Comment: Physician Instructions: Evaluate and Treat Discharge provider: Chilango Hightower MD Exam Vital Signs (past 8 hours): Oxygen Delivery Method Room Air Oxygen Flow Rate 0 Objective Labs 06/24/25 05:19 06/24/25 05:19 [facility] Medical History Occipital neuralgia Cervical spinal stenosis Ataxia Chronic headaches Hyporeflexia Supraclavicular fossa fullness Neck pain GI bleed Erosive esophagitis Esophageal varices Hypothyroid Back pain Hypertension Alcohol abuse Social History household members: spouse Smoking Status: Never smoker alcohol intake: current Discharge Plan Discharge Plan Patient Disposition: Home Discharge orders & Medications Prescriptions: New clonidine HCl 0.1 mg Tablet 0.1 mg PO BID Qty: 6 0RF aspirin 81 mg Tablet,Delayed Release (Dr/Ec) 81 mg PO DAILY Qty: 100 0RF chlordiazepoxide HCl 10 mg Capsule 10 mg PO TID Qty: 9 0RF thiamine mononitrate (vit B1) 100 mg Tablet 100 mg PO DAILY Qty: 100 0RF clopidogrel [Plavix] 75 mg tablet 75 mg PO DAILY Qty: 90 0RF atorvastatin 20 mg tablet 20 mg PO BEDTIME Qty: 90 0RF Continued hydroxyzine HCl 50 mg tablet 50 mg PO TID PRN (Reason: Anxiety) amlodipine 5 mg tablet 5 mg PO DAILY pantoprazole [Protonix] 40 mg tablet,delayed release (DR/EC) 40 mg PO BID Qty: 60 0RF ondansetron 4 mg tablet,disintegrating 4 mg PO TID-QID PRN (Reason: nausea and vomiting) 15 Days Qty: 30 0RF gabapentin 300 mg capsule 300 mg PO DAILY losartan 50 mg tablet 50 mg PO DAILY scopolamine base 1 mg over 3 days patch 3 day 1 patch transdermal Q3D PRN (Reason: motion sickness) Follow up/Referrals: Maria Del Carmen Devine PA-C [Primary Care Provider, Medical] Visit Report/Discharge Packet Stand Alone Forms: [employer], Patient Portal/API, Stroke Signs & Symptoms, Influenza Vaccine Info, Pneumococcal Vaccine Info Discharge Data Primary Care Provider: Maria Del Carmen Devine Quality VTE Deep Vein Thrombosis/Pulmonary Embolism Present on Admission: No
== END 2025-06-25 09:52 | disposition home or self-care (01) | DRG 66 ==
LOC: ED 19:25 → AC 19:42
PROVIDERS: Admitting Provider Internal Medicine; Emergency Provider Student in an Organized Health Care Education/Training Program; PCP Physician Assistant; Referring Provider Emergency Medicine; Visit Provider Internal Medicine
DX: I63.9 Cerebral infarction, unspecified (principal); R29.810 Facial weakness; I10 Essential (primary) hypertension; E03.9 Hypothyroidism, unspecified; K21.9 Gastro-esophageal reflux disease without esophagitis; S09.90XA Unspecified injury of head, initial encounter; R29.702 NIHSS score 2; R29.701 NIHSS score 1; F10.10 Alcohol abuse, uncomplicated; W18.30XA Fall on same level, unspecified, initial encounter; Y90.7 Blood alcohol level of 200-239 mg/100 ml; Z79.890 Hormone replacement therapy; Z86.73 Personal history of transient ischemic attack (TIA), and cerebral infarction without residual deficits; Z79.82 Long term (current) use of aspirin
CPT/HCPCS: 36415; 70450; 70496; 70498; 70551; 72125; 80053; 80320; 81001; 82550; 82962; 84484; 85025; 85610; 85730; 87086; 93005; 93306; 96374; 96375; 97116; 97161; 97165; 99285; G0378; J1644; J2060; J2270; J2405; J2560; J7030; Q9967